=== PATIENT | female | born 1945 | race Caucasian/White ===

== ENCOUNTER 2020-10-09 13:28 | Emergency (ER) | payer MEDICARE, MEDICAID, SELFPAY ==
--- NOTE | ~2020-10-09 | XR_ITS ---
EXAMINATION: XR chest 1V portable INDICATION: Cough and body aches TECHNIQUE: Portable AP chest at 1449 hours COMPARISON: 09/17/2020 FINDINGS: The lungs are free of acute opacities. There is no pleural effusion or pneumothorax. The ca rdiomediastinal silhouette is normal. The visualized bones and soft tissues are unremarkable. IMPRESSION: 1. No acute cardiopulmonary abnormality. Reviewed, dictated and finalized at location A. [employer]
--- NOTE | 2020-10-09 13:37 | ECG_ITS ---
Measurements Intervals [place] Rate: 64 P: 26 [place]: 132 QRS: 43 QRSD: 93 T: 25 QT: 442 QTc: 459 Interpretive Statements SINUS RHYTHM DELAYED PRECORDIAL R/S TRANSITION LEFT VENTRICULAR HYPERTROPHY AND ST-T CHANGE BORDERLINE ST-T WAVE ABNORMALITY- INF/LAT LEADS BASELINE ARTIFACT- II, III, AVR, AVL, AVF, V5 BORDERLINE ECG Electronically Signed On 10-09-2020 14:22:43 [employer] by Tryee Montero D.O.
[2020-10-09 13:47] LABS: Glucose Point of Care 140 (65-105)
[2020-10-09] MEDS: LORazepam (*CRX) 0.5 MG TABLET PO (14:21)
[2020-10-09] MEDS: ONDANSETRON INJ 4 MG/2 ML VIAL IV PUSH (14:21)
[2020-10-09] MEDS: ACETAMINOPHEN 500 MG TABLET 1000 MG PO (14:21)
[2020-10-09] MEDS: MAG HYDROX/ALUMINUM HYD/SIMETH 30 ML, PHENobarb/HYOSCY/ATROPINE/SCOP 32.4 MG, LIDOCAINE... PO (14:22)
[2020-10-09 14:23] LABS: Basophils Absolute Auto 0.03 K/mm3 (0.00-0.10); Basophils Percent Auto 0.3 % (0.0-1.0); Eosinophils Absolute Auto 0.03 K/mm3 (0.02-0.50); Eosinophils Percent Auto 0.3 % (1.0-6.0); Hematocrit 35.5 % (35.0-42.0); Hemoglobin 11.1 g/dL (11.7-13.8); Immature Granulocyte Absolute 0.02 K/mm3 (0.00-0.00); Immature Granulocyte Percent A 0.2 % (0.0-0.0); Lymphocytes Absolute Auto 4.26 K/mm3 (1.10-4.50); Lymphocytes Percent Auto 44.7 % (18.0-42.0); Mean Corpuscular HGB Conc 31.3 g/dL (32.0-36.0); Mean Corpuscular Hemoglobin 27.9 pg (27.0-31.0); Mean Corpuscular Volume 89.2 fL (78.0-102.0); Mean Platelet Volume 9.4 fl (9.2-11.8); Monocytes Absolute Auto 1.01 K/mm3 (0.10-0.90); Monocytes Percent Auto 10.6 % (2.0-11.0); Neutrophils Absolute Auto 4.2 K/mm3 (1.7-7.2); Neutrophils Percent Auto 43.9 % (50.0-70.0); Platelet Count Result 315 K/mm3 (150-420); Red Blood Count 3.98 M/mm3 (4.20-5.40); Red Cell Distribution Width 18.9 % (11.6-14.4); White Blood Count 9.5 K/mm3 (4.8-10.8)
--- NOTE | 2020-10-09 14:24 | ED.GENADULT ---
HPI - General Adult General Chief complaint: Abdominal Pain Stated complaint: left flank pain Source: patient Mode of arrival: ambulatory Limitations: no limitations History of Present Illness HPI narrative: Molly is a 75F with a PMH of NSTEMI, COPD, CHF, DMII, HLD, MDD, anxiety, sleep apnea, HTN, CAD, GERD and weakness that presnted to the ED from [facility] generally not feeling well for 2 weeks. 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 She also reports the symptoms are making her panic and increase her anxiety. They have generally been getting worse and she could not tolerate them so she came to the ED. Related Data Allergies Allergy/AdvReac Type Severity Reaction Status Date / Time azithromycin Allergy Unknown Verified 10/09/20 15:09 cephalexin Allergy Unknown Verified 10/09/20 15:09 doxylamine Allergy Unknown Verified 10/09/20 15:09 codeine AdvReac Unknown Verified 10/09/20 15:09 Penicillins AdvReac Unknown Verified 10/09/20 15:09 Sulfa (Sulfonamide AdvReac Unknown Verified 10/09/20 15:09 Antibiotics) Review of Systems Constitutional: Constitutional: Denies chills, Reports fatigue, Denies fever(s) and Reports weakness Eyes: Eyes: Reports no additional eye complaints ENT: Reports system reviewed and no additional complaints, except as documented Cardiovascular: Cardiovascular: Denies chest pain, Denies rapid heart rate and Denies radiating jaw, neck or arm pain Respiratory: Respiratory: Reports cough and Reports dyspnea Gastrointestinal: Gastrointestinal: Reports as per HPI Genitourinary: Genitourinary: Reports no additional female genitourinary complaints Musculoskeletal: Musculoskeletal: Reports myalgias Integumentary/Breasts: Skin/Breast: Reports system reviewed and no additional complaints, except as docu Neurologic: Reports system reviewed and no additional complaints, except as documented Psychiatric: Psychiatric: Reports no additional psychiatric complaints Endocrine: Endocrine: Reports no additional endocrine complaints Hematologic/Lymphatic: Hematologic/Lymphatic: Reports no additional hematologic/lymphatic complaints Allergic/Immunologic: Allergic/Immunologic: Reports no additional allergic/immunologic complaints [facility] Social History Social History (Reviewed 12/09/20 @ 14:34 by KELSEA Morataya Gender identity (if verbalized by the patient): Female Exam Const: General: no acute distress and alert Orientation/consciousness: patient oriented x3 Limitations: No altered mental status HENMT: Other: normocephalic, atraumatic, dry mucous membranes Eyes: Conjunctivae: conjunctivae normal Pupils: Equal, round and reactive pupils present Neck: Neck: normal visual inspection Chest: Chest palpation & inspection: normal inspection of the chest Resp: Effort & Inspection: normal respiratory effort Auscultation: clear to auscultation bilaterally Cardio: Rate: regular rate Rhythm: regular rhythm GI: Other: Diffuse TTP, worse in the upper left quadrant. No distension, guarding or rebound tenderness. : Other: left sided CVA tenderness Skin: General skin exam: normal color Rashes: no rashes Neuro: General: patient oriented x3 and moves all extremities Extrem: General: normal to inspection Psych: Mental Status: mental status grossly normal Course Course Emergency Course: Molly was seen and evaluated. Ordered labs, UA, CXR, and flu swabs and EKG. EKG showed NSR with a rate of 64, normal axis, left ventricular hypertrophy but no ST elevation/depression. EXAMINATION: XR chest 1V portable INDICATION: Cough and body aches TECHNIQUE: Portable AP chest at 1449 hours COMPARISON: 09/17/2020 FINDINGS: The lungs are free of acute opacities. There is no pleural effusi
[2020-10-09 14:43] LABS: Influenza Control Valid (Valid)
[2020-10-09] MEDS: LACTATED RINGERS 1,000 ML 999 ML IV CONT (14:44)
[2020-10-09 14:47] LABS: Lactic Acid Reflex 2.8 mmol/L (0.4-2.0)
[2020-10-09 14:50] LABS: Alanine Aminotransferase 33 U/L (14-59); Albumin Level 2.7 g/dL (3.4-5.0); Alkaline Phosphatase 106 U/L (46-116); Anion Gap 11 mmol/L (8-16); Aspartate Amino Transferase 46 U/L (15-37); Bilirubin,Total 0.2 mg/dL (0.00-1.00); Blood Urea Nitrogen 15 mg/dL (7-18); Carbon Dioxide 28 mmol/L (21-32); Chloride 98 mmol/L (98-108); Creatine Kinase 278 U/L (26-192); Estimated Glomerular Filt Rate 48; Glucose 139 mg/dL (70-99); Lipase 79 U/L (73-393); Osmolality Calculated 286 mOsm/kg (285-295); Potassium 3.4 mmol/L (3.5-5.1); Sodium 137 mmol/L (136-145); Troponin I 22.4 ng/L (0.00-60.4)
[2020-10-09 14:53] VITALS: BP 186/97; PULSE 70; RESP 20; TEMP 36.6; O2SAT 98
[2020-10-09 14:53] LABS: Prothrombin Time 10.6 Seconds (9.50-12.10)
[2020-10-09 15:39] LABS: Appearance Urine Clear (Clear); Bilirubin Urine Negative (Negative); Color Urine Yellow (Yellow); Glucose Urine UA Negative (Negative); Ketones Urine Negative (Negative); Leukocyte Esterase Ur Negative (Negative); Nitrate Urine Negative (Negative); Protein Urine 1+ (Negative); Specific Grav Ur 1.015 (1.010-1.020); Urobilinogen Urine 0.2 mg/dL (0.2-1.0)
[2020-10-09 15:47] LABS: Add Urine Microscopic? YES; Blood Urine Trace-lysed (Negative)
[2020-10-09 15:48] LABS: Mucus Urine Few /lpf; Squamous Epithelial Cell Urine Occasional /hpf (Few)
[2020-10-09 16:42] VITALS: BP 175/83; PULSE 67; RESP 20; O2SAT 99
[2020-10-09 17:19] LABS: Reflex Lactic Acid Yes or No Add Lactic
== END 2020-10-09 16:48 ==
PROVIDERS: Emergency Provider Family Medicine; PCP Family Medicine
DX: K21.9 Gastro-esophageal reflux disease without esophagitis (principal)
CPT/HCPCS: 71045; 80053; 81001; 82550; 83605; 83690; 84484; 85025; 85610; 87804; 93005; 96361; 96374; 99283; 99284; A9270; J2405; J7120

== ENCOUNTER 2020-10-19 07:38 | Outpatient (NON) | payer MEDICARE, SELFPAY ==
[2020-10-19 07:59] LABS: Basophils Absolute Auto 0.09 K/mm3 (0.00-0.10); Basophils Percent Auto 0.7 % (0.0-1.0); Eosinophils Absolute Auto 0.23 K/mm3 (0.02-0.50); Eosinophils Percent Auto 1.7 % (1.0-6.0); Hematocrit 35.3 % (35.0-42.0); Hemoglobin 10.8 g/dL (11.7-13.8); Immature Granulocyte Absolute 0.06 K/mm3 (0.00-0.00); Immature Granulocyte Percent A 0.5 % (0.0-0.0); Immature Platelet Fraction Pct 3.4 % (1.0-7.0); Lymphocytes Absolute Auto 4.52 K/mm3 (1.10-4.50); Lymphocytes Percent Auto 34.1 % (18.0-42.0); Mean Corpuscular HGB Conc 30.6 g/dL (32.0-36.0); Mean Corpuscular Hemoglobin 28.7 pg (27.0-31.0); Mean Corpuscular Volume 93.9 fL (78.0-102.0); Mean Platelet Volume 9.9 fl (9.2-11.8); Monocytes Absolute Auto 1.25 K/mm3 (0.10-0.90); Monocytes Percent Auto 9.4 % (2.0-11.0); Neutrophils Absolute Auto 7.1 K/mm3 (1.7-7.2); Neutrophils Percent Auto 53.6 % (50.0-70.0); Platelet Count Result 449 K/mm3 (150-420); Red Blood Count 3.76 M/mm3 (4.20-5.40); Red Cell Distribution Width 16.7 % (11.6-14.4); White Blood Count 13.2 K/mm3 (4.8-10.8)
[2020-10-19 08:10] LABS: Hemoglobin A1C 7.4 % (<5.7)
[2020-10-19 08:11] LABS: Alanine Aminotransferase 27 U/L (14-59); Albumin Level 2.6 g/dL (3.4-5.0); Alkaline Phosphatase 99 U/L (46-116); Anion Gap 5 mmol/L (8-16); Aspartate Amino Transferase 24 U/L (15-37); Bilirubin,Total 0.2 mg/dL (0.00-1.00); Blood Urea Nitrogen 11 mg/dL (7-18); Calcium 8.7 mg/dL (8.5-10.1); Carbon Dioxide 31 mmol/L (21-32); Chloride 98 mmol/L (98-108); Cholesterol 102 mg/dL (0-200); Estimated Glomerular Filt Rate > 60; Glucose 197 mg/dL (70-99); HDL Direct 55 mg/dL (40-60); LDL Cholesterol Calculated 28 mg/dL (<130); Osmolality Calculated 282 mOsm/kg (285-295); Potassium 4.2 mmol/L (3.5-5.1); Sodium 134 mmol/L (136-145); Total Protein 7.1 g/dL (6.4-8.2); Triglycerides 96 mg/dL (0-150)
== END 2020-10-19 07:39 ==
PROVIDERS: Visit Provider Family Medicine
DX: I25.10 Atherosclerotic heart disease of native coronary artery without angina pectoris (principal); I50.9 Heart failure, unspecified; J44.9 Chronic obstructive pulmonary disease, unspecified; E11.9 Type 2 diabetes mellitus without complications; E78.5 Hyperlipidemia, unspecified; I10 Essential (primary) hypertension
CPT/HCPCS: 36415; 80053; 80061; 83036; 85025; 85055

== ENCOUNTER 2021-01-11 07:13 | Outpatient (NON) | payer MEDICARE, SELFPAY ==
[2021-01-11 07:53] LABS: Basophils Absolute Auto 0.08 K/mm3 (0.00-0.10); Basophils Percent Auto 0.7 % (0.0-1.0); Eosinophils Absolute Auto 0.27 K/mm3 (0.02-0.50); Eosinophils Percent Auto 2.5 % (1.0-6.0); Hematocrit 32.6 % (35.0-42.0); Hemoglobin 10.5 g/dL (11.7-13.8); Immature Granulocyte Absolute 0.06 K/mm3 (0.00-0.00); Immature Granulocyte Percent A 0.5 % (0.0-0.0); Lymphocytes Absolute Auto 4.09 K/mm3 (1.10-4.50); Lymphocytes Percent Auto 37.4 % (18.0-42.0); Mean Corpuscular HGB Conc 32.2 g/dL (32.0-36.0); Mean Corpuscular Hemoglobin 29.3 pg (27.0-31.0); Mean Corpuscular Volume 91.1 fL (78.0-102.0); Mean Platelet Volume 9.9 fl (9.2-11.8); Monocytes Absolute Auto 1.19 K/mm3 (0.10-0.90); Monocytes Percent Auto 10.9 % (2.0-11.0); Neutrophils Absolute Auto 5.2 K/mm3 (1.7-7.2); Platelet Count Result 365 K/mm3 (150-420); Red Blood Count 3.58 M/mm3 (4.20-5.40); Red Cell Distribution Width 14.6 % (11.6-14.4); White Blood Count 10.9 K/mm3 (4.8-10.8)
[2021-01-11 08:03] LABS: Hemoglobin A1C 10.3 % (<5.7)
[2021-01-11 08:06] LABS: Alanine Aminotransferase 24 U/L (14-59); Anion Gap 3 mmol/L (8-16); Blood Urea Nitrogen 17 mg/dL (7-18); Calcium 8.9 mg/dL (8.5-10.1); Carbon Dioxide 34 mmol/L (21-32); Chloride 95 mmol/L (98-108); Cholesterol 117 mg/dL (0-200); Estimated Glomerular Filt Rate 49; Glucose 238 mg/dL (70-99); HDL Direct 52 mg/dL (40-60); LDL Cholesterol Calculated 47 mg/dL (<130); Osmolality Calculated 283 mOsm/kg (285-295); Potassium 5.5 mmol/L (3.5-5.1); Sodium 132 mmol/L (136-145); Triglycerides 92 mg/dL (0-150)
== END 2021-01-11 07:14 ==
LOC: CHSLAB 07:15
PROVIDERS: Visit Provider Family Medicine
DX: J44.9 Chronic obstructive pulmonary disease, unspecified (principal); I11.0 Hypertensive heart disease with heart failure; I50.9 Heart failure, unspecified; E11.9 Type 2 diabetes mellitus without complications; E78.5 Hyperlipidemia, unspecified
CPT/HCPCS: 36415; 80048; 80061; 83036; 84460; 85025

== ENCOUNTER 2021-01-21 06:12 | Outpatient (NON) | payer MEDICARE, SELFPAY ==
[2021-01-21 07:14] LABS: Ferritin 105 ng/mL (8-252); Folic Acid 12.8 ng/mL (8.6->20); Iron 51 ug/dL (50-170); Percent Iron Saturation 19 % (12-57); Vitamin B12 383 pg/mL (193-986)
[2021-01-24 21:25] LABS: Transferrin 222 mg/dL (188-341)
== END 2021-01-21 06:13 ==
PROVIDERS: Visit Provider Family Medicine
DX: D64.9 Anemia, unspecified (principal)
CPT/HCPCS: 36415; 82607; 82728; 82746; 83540; 83550; 84466

== ENCOUNTER 2021-03-11 16:42 | Outpatient (NON) | payer MEDICARE, SELFPAY ==
[2021-03-11 17:13] LABS: Add Urine Microscopic? YES; Appearance Urine Cloudy (Clear); Bilirubin Urine Negative (Negative); Blood Urine Negative (Negative); Color Urine Yellow (Yellow); Glucose Urine UA Negative (Negative); Ketones Urine Negative (Negative); Leukocyte Esterase Ur 3+ (Negative); Nitrate Urine Positive (Negative); Protein Urine Negative (Negative); Urobilinogen Urine 0.2 mg/dL (0.2-1.0)
[2021-03-11 17:21] LABS: RBC Urine 0-2 /hpf (0-2); WBC Urine >75 /hpf (0-3)
[2021-03-11 17:22] LABS: Bacteria Urine 1+ /hpf; Squamous Epithelial Cell Urine Rare /hpf (Few)
== END 2021-03-11 16:43 | disposition home or self-care (01) ==
LOC: CHSLAB 16:44
PROVIDERS: PCP Family Medicine; Visit Provider Registered Nurse
DX: R10.30 Lower abdominal pain, unspecified (principal); M54.9 Dorsalgia, unspecified
CPT/HCPCS: 81001; 87086; 87088

== ENCOUNTER 2021-03-29 06:31 | Inpatient (IN) | payer MEDICARE, MEDICAID, SELFPAY ==
--- NOTE | ~2021-03-29 | CT_ITS ---
EXAMINATION: CTA brain EXAM DATE: 04/02/2021 15:34 INDICATION: New dizziness and headache recent repetitive headaches. TECHNIQUE: Noncontrast head CT. Spiral CT angiogram cerebral arteries performed with intravenous in jection of 100 mL Omnipaque 350. Axial, coronal and sagittal images reviewed. Additional reformatted images created on dedicated 3-D workstation. The dose-length product (DLP) for this examination was 1033.64 mGy-cm. The exposure was tailored according to patient size, and iterative reconstruction (ASIR) was used as additional dose reduction technique. There is no prior study for comparison. FINDINGS: There is mild to moderate bilateral carotid siphon arterial sclerosis without stenosis. Th ere is left-sided posterior communicating artery dominant posterior cerebral artery. There is no d istal carotid or vertebral basilar arterial dissection or fibromuscular dysplasia. There are no cereb ral artery aneurysms. There is symmetric cerebral artery arborization. The sagittal, transverse and s igmoid sinuses enhance normally, no venous sinus thrombosis. Internal cerebral veins also enhance nor pebbles. There is no acute intraparenchymal hemorrhage. No evidence of intraparenchymal brain mass lesion. N o evidence of acute infarction. There is mild to moderate periventricular and subcortical hypodensity , nonspecific but probably related to small vessel ischemic disease. There is moderate prominence o f the sulci and ventricles related to cerebral atrophy. There is no mass effect or midline shift. There is no obstructive hydrocephalus suspected. There are no extra-axial collections. Left cataract surgery. IMPRESSION: 1. No acute intracranial findings or cerebral artery aneurysm. 2. Senescent changes. Reviewed, dictated and finalized at location B.
--- NOTE | ~2021-03-29 | XR_ITS ---
EXAMINATION: XR hip RT min 2V DATE: 03/30/2021 10:34 INDICATION: Right hip pain. TECHNIQUE: 3 views of right hip were obtained. COMPARISON: CT abdomen and pelvis 03/29/2021 FINDINGS: Bone alignment is normal. No fracture. There is mild right hip osteoarthritis. There is sev ere lumbar spondylosis. IMPRESSION: 1. Mild right hip osteoarthritis. Reviewed, dictated and finalized at location A.
--- NOTE | ~2021-03-29 | XR_ITS ---
EXAMINATION: XR chest 2V EXAM DATE: 04/01/2021 14:46 INDICATION: Leukocytosis, cough and shortness of breath. TECHNIQUE: Frontal and lateral projections of the chest obtained and reviewed. Comparison is made to prior examination from 10/09/2020. FINDINGS: The lungs are clear. There are no pleural effusions. The cardiomediastinal silhouette is within normal limits. There is no pneumothorax suspected. The bones and soft tissues are unremarkab le. IMPRESSION: No acute cardiopulmonary findings. Reviewed, dictated and finalized at location B.
--- NOTE | ~2021-03-29 | CT_ITS ---
EXAMINATION: CT abdomen pelvis w con DATE: 03/29/2021 11:15 INDICATION: Left lower quadrant abdominal pain. TECHNIQUE: Computed tomography (CT) of the abdomen and pelvis was performed with 100 mL Omnipaque 350 intravenous contrast. Automated exposure control and iterative reconstruction technique were employe d. The dose-length product was 368.87 mGy-cm. COMPARISON: CT abdomen and pelvis 08/06/2014 FINDINGS: The visualized portions of the lung bases demonstrate mild atelectasis and mild chronic yue g disease. No pleural effusion. The heart size is normal. No pericardial effusion. There are coronary artery calcifications. There is a small sliding hiatal hernia. The liver, gallbladder, and adrenal g lands are normal. There are changes of splenectomy and distal pancreatectomy. Right kidney is normal. There is cortical thinning of left kidney. There is diverticulosis of the colon without evidence of diverticulitis. There are no dilated loops of bowel. The appendix is normal. There is chronic mild ao rtocaval and left para-aortic lymphadenopathy, likely reactive. There is no free intraperitoneal flui d. There is severe lumbar spondylosis. IMPRESSION: 1. Small sliding hiatal hernia. 2. Mild chronic retroperitoneal lymphadenopathy, likely reactive. Reviewed, dictated and finalized at location A.
[2021-03-29 07:05] VITALS: BP 188/63; PULSE 89; RESP 17; TEMP 36.5; O2SAT 99
[2021-03-29 07:37] LABS: Appearance Urine Cloudy (Clear); Bilirubin Urine Negative (Negative); Color Urine Yellow (Yellow); Glucose Urine UA Negative (Negative); Ketones Urine Negative (Negative); Leukocyte Esterase Ur 3+ LEU/UL (Negative); Nitrate Urine Negative (Negative); Protein Urine 1+ (Negative); Urobilinogen Urine 0.2 mg/dL (0.2-1.0); pH Urine 6.5 (5.0-8.0)
[2021-03-29] MEDS: ONDANSETRON HCL ODT 4 MG TABLET PO (07:39)
[2021-03-29] MEDS: KETOROLAC 30 MG/ML VIAL (*BKC) IM (07:39)
[2021-03-29 07:43] LABS: Add Urine Microscopic? YES; Blood Urine Trace-Intact (Negative)
[2021-03-29 07:44] LABS: Bacteria Urine 3+ /hpf; RBC Urine 0-2 /hpf (0-2); Squamous Epithelial Cell Urine Rare /hpf (Few); WBC Urine >75 /hpf (0-3)
[2021-03-29 09:29] LABS: Basophils Absolute Auto 0.07 K/mm3 (0.00-0.10); Basophils Percent Auto 0.5 % (0.0-1.0); Eosinophils Absolute Auto 0.05 K/mm3 (0.02-0.50); Eosinophils Percent Auto 0.3 % (1.0-6.0); Hematocrit 32.1 % (35.0-42.0); Hemoglobin 10.3 g/dL (11.7-13.8); Immature Granulocyte Absolute 0.06 K/mm3 (0.00-0.00); Immature Granulocyte Percent A 0.4 % (0.0-0.0); Lymphocytes Percent Auto 22.7 % (18.0-42.0); Mean Corpuscular HGB Conc 32.1 g/dL (32.0-36.0); Mean Corpuscular Hemoglobin 29.7 pg (27.0-31.0); Mean Corpuscular Volume 92.5 fL (78.0-102.0); Mean Platelet Volume 9.3 fl (9.2-11.8); Monocytes Absolute Auto 1.17 K/mm3 (0.10-0.90); Neutrophils Absolute Auto 9.9 K/mm3 (1.7-7.2); Neutrophils Percent Auto 68.1 % (50.0-70.0); Platelet Count Result 416 K/mm3 (150-420); Red Blood Count 3.47 M/mm3 (4.20-5.40); White Blood Count 14.6 K/mm3 (4.8-10.8)
[2021-03-29] MEDS: HYDROmorphone HCL INJ (*CRX) 2 MG/ML VIAL 0.5 MG IV PUSH (09:29)
[2021-03-29 09:49] LABS: Alanine Aminotransferase 19 U/L (14-59); Albumin Level 2.8 g/dL (3.4-5.0); Alkaline Phosphatase 103 U/L (46-116); Anion Gap 6 mmol/L (8-16); Aspartate Amino Transferase 13 U/L (15-37); Bilirubin,Total 0.3 mg/dL (0.00-1.00); Blood Urea Nitrogen 16 mg/dL (7-18); Calcium 9.2 mg/dL (8.5-10.1); Carbon Dioxide 31 mmol/L (21-32); Chloride 96 mmol/L (98-108); Estimated Glomerular Filt Rate > 60; Glucose 180 mg/dL (70-99); Osmolality Calculated 282 mOsm/kg (285-295); Potassium 4.4 mmol/L (3.5-5.1); Sodium 133 mmol/L (136-145)
[2021-03-29 09:54] LABS: Lactic Acid Reflex 1.3 mmol/L (0.4-2.0)
[2021-03-29] MEDS: GENTAMICIN SULFATE INJ 320 MG in DEXTROSE 5% 100 ML 100 MG IVPB (10:22)
[2021-03-29 11:24] VITALS: BMI 26.4
[2021-03-29 11:49] LABS: Glucose Point of Care 168 mg/dl (65-105)
[2021-03-29 11:58] VITALS: BP 189/64; PULSE 80; RESP 20; TEMP 37; O2SAT 100
[2021-03-29] MEDS: BACLOFEN 10 MG TABLET 20 MG PO (12:25)
[2021-03-29] MEDS: CIPROFLOXACIN 500 MG TAB PO ×2 (12:25→21:52)
[2021-03-29] MEDS: DEXAMETHASONE 4 MG TABLET 8 MG PO (12:26)
--- NOTE | 2021-03-29 13:03 | ED.ABDPAIN ---
HPI - Abdominal Pain General Chief Complaint: Back Pain/Injury Stated Complaint: sharp R sided abd pain, sharp R leg pain Time Seen by Provider: 03/29/21 07:15 Source: patient Mode of arrival: ambulatory Limitations: no limitations History of Present Illness HPI narrative: Molly comes in with moderately severe LLQ abdominal pain and complains of being tender to touch there. She complains of right flank pain, moderately severe, ongoing for the last two days. She complains of dysuria, ongoing for the past several days. She has denied any fever, but states she had some chills last pm. She states she has had dysuria moderately severe, ongoing for the past 2 days. This has been associated with some nausea which comes and goes. No modifying factors. No other associated signs / symptoms. MD elicited complaint: abdominal pain and flank pain Pertinent past history: other (chronic back pain) Onset (ago): day(s) Location: LLQ and R flank Severity: moderate Quality: stabbing Radiation: none Exacerbating factors: nothing Relieving factors: nothing Context: confirms foreign travel Associated symptoms: denies other symptoms Treatments prior to arrival: NSAIDs Related Data Home Medications Medication Instructions Recorded Confirmed acetaminophen [Tylenol Extra 500 mg PO QID PRN 10/09/20 03/29/21 Strength] aspirin [Aspir-81] 81 mg PO DAILY 10/09/20 03/29/21 atorvastatin 40 mg PO HS 10/09/20 03/29/21 econazole 1 applic TOPICAL DAILY 10/09/20 03/29/21 fluoxetine 20 mg PO BID 10/09/20 03/29/21 fluticasone furoate-vilanterol 1 inh INHALATION DAILY 10/09/20 03/29/21 [Breo Ellipta] furosemide [Lasix] 20 mg PO DAILY 10/09/20 03/29/21 glipizide 5 mg PO DAILY 10/09/20 03/29/21 lisinopril 40 mg PO DAILY 10/09/20 03/29/21 lorazepam [Ativan] 0.5 mg PO TID PRN 10/09/20 03/29/21 metoprolol succinate 25 mg PO DAILY 10/09/20 03/29/21 umeclidinium [Incruse Ellipta] 1 inh INHALATION DAILY 10/09/20 03/29/21 alum-mag hydroxide-simeth [Mylanta 5 ml PO QID 03/29/21 03/29/21 Maximum Strength] cyanocobalamin (vitamin B-12) 1,000 mcg PO DAILY 03/29/21 03/29/21 duloxetine 40 mg PO DAILY 03/29/21 03/29/21 insulin glargine U-300 conc 12 unit SUBCUT HS 03/29/21 03/29/21 [Toujeo SoloStar U-300 Insulin] insulin lispro 4 unit SUBCUT AC 03/29/21 03/29/21 lidocaine HCl [Lidocaine Viscous] 1 applic PO PRN 03/29/21 03/29/21 polyethylene glycol 3350 [Miralax] 17 g PO DAILY 03/29/21 03/29/21 tiotropium bromide [Spiriva with 1 cap INHALATION DAILY 03/29/21 03/29/21 HandiHaler] Allergies Allergy/AdvReac Type Severity Reaction Status Date / Time azithromycin Allergy Unknown Verified 10/09/20 15:09 cephalexin Allergy Unknown Verified 10/09/20 15:09 doxylamine Allergy Unknown Verified 10/09/20 15:09 codeine AdvReac Unknown Verified 10/09/20 15:09 Penicillins AdvReac Unknown Verified 10/09/20 15:09 Sulfa (Sulfonamide AdvReac Unknown Verified 10/09/20 15:09 Antibiotics) Review of Systems Constitutional: Constitutional: Reports chills and Reports fatigue Eyes: Eyes: Reports no additional eye complaints ENT: Reports system reviewed and no additional complaints, except as documented Cardiovascular: Cardiovascular: Reports no additional cardiovascular complaints Respiratory: Respiratory: Reports no additional respiratory complaints Gastrointestinal: Gastrointestinal: Reports no additional gastrointestinal complaints Genitourinary: Genitourinary: Reports no additional female genitourinary complaints Musculoskeletal: Musculoskeletal: Reports no additional musculoskeletal complaints Integumentary/Breasts: Skin/Breast: Reports system reviewed and no additional complaints, except as docu Neurologic: Reports system reviewed and no additional complaints, except as documented Psychiatric: Psychiatric: Reports no additional psychiatric complaints Endocrine: Endocrine: Reports no additional endocrine complaints Hematologic/Lymphatic: Hematologic
--- NOTE | 2021-03-29 13:51 | PM.IMHP ---
H&P: HPI History of Present Illness Date/Time: 03/29/21 13:51 Molly Rabago is a 75 year old female who comes to [facility] from [facility] after complaining of back pain 3 days prior that progressed to her lower abdomen and groin area with worse pain being on her right side. Pt states she had been given Tylenol however this is not working for her pain any more. Pt states she also starting having some dysuria. She denies any CP, SOB. She admits that she sometimes gets a rash under her breasts, she recently had thrush from her inhaler, she also noticed her urine having a more concentrated odor. 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 Pt states she quit smoking Jun 2020 and does not drink. <MAURICIO Villarreal - Last Filed: 03/29/21 14:48> Chief Complaint: Abdominal pain <MAURICIO Villarreal - Last Filed: 03/29/21 14:48> Review of Systems Review of Systems: All systems reviewed & are unremarkable except as noted in HPI and below <MAURICIO Villarreal - Last Filed: 03/29/21 14:48> Musculoskeletal: Musculoskeletal: Reports arthralgias (right upper thigh tender from top of leg to mid thigh w/ swelling) <MAURICIO Villarreal - Last Filed: 03/29/21 14:48> Comments: Pt states staff at [facility] informed her that a couple days ago she was woken up because she was laying off the side of the bed with the right leg hanging off the bed. Likely she has a pulled muscle in the right thigh. <MAURICIO Villarreal - Last Filed: 03/29/21 14:48> Neurologic: Reports system reviewed and no additional complaints, except as documented <MAURICIO Villarreal - Last Filed: 03/29/21 14:48> Psychiatric: Psychiatric: Reports anxiety and Reports depression <MAURICIO Villarreal - Last Filed: 03/29/21 14:48> [facility] Past Medical History Medical History: Medical History (Updated 03/29/21 @ 14:28 by MAURICIO Villarreal) Anemia, chronic disease Anxiety disorder Arthritis CAD (coronary artery disease) COPD (chronic obstructive pulmonary disease) Depression Diabetes mellitus GERD (gastroesophageal reflux disease) Urinary tract infection <MAURICIO Villarreal - Last Filed: 03/29/21 14:48> Surgical History Surgical History: Surgical History H/O splenectomy <MAURICIO Villarreal - Last Filed: 03/29/21 14:48> Family History Family History: Family History Other Brain cancer Father Diabetes mellitus Heart attack Sibling Heart attack Sibling Diabetes mellitus Sibling Heart attack <MAURICIO Villarreal - Last Filed: 03/29/21 14:48> Social History Social History: Social History Smoking packs per day: 2.5 Smoking cigarettes per day: 50.0 Smoking status: Former smoker Tobacco type: cigarettes Smoking end date: 06/01/20 Alcohol intake: former Drinks per week: 3 Substance use: never Gender identity (if verbalized by the patient): Female Spiritual care concerns: No <MAURICIO Villarreal - Last Filed: 03/29/21 14:48> Meds Home Medications and Allergies Home medications: Home Medications Medication Instructions Recorded Confirmed Type acetaminophen [Tylenol Extra 500 mg PO QID PRN 10/09/20 03/29/21 History Strength] aspirin [Aspir-81] 81 mg PO DAILY 10/09/20 03/29/21 History atorvastatin 40 mg PO HS 10/09/20 03/29/21 History econazole 1 applic TOPICAL DAILY 10/09/20 03/29/21 History fluoxetine 20 mg PO BID 10/09/20 03/29/21 History fluticasone furoate-vilanterol 1 inh INHALATION DAILY 10/09/20 03/29/21 History [Breo Ellipta] furosemide [Lasix] 20 mg PO DAILY 10/09/20 03/29/21
[2021-03-29 14:00] VITALS: BP 198/74; PULSE 87; RESP 20; TEMP 36.4; O2SAT 100
[2021-03-29 16:00] VITALS: BP 198/74; PULSE 87; RESP 20; TEMP 36.4; O2SAT 100
[2021-03-29 16:47] LABS: Glucose Point of Care 160 mg/dl (65-105)
[2021-03-29] MEDS: PHENAZOPYRIDINE HCL 100 MG TABLET 200 MG PO (17:27)
[2021-03-29] MEDS: CYCLOBENZAPRINE HCL 5 MG TABLET PO ×2 (17:28→21:53)
[2021-03-29] MEDS: FLUoxetine HCL 20 MG CAPSULE PO (17:28)
[2021-03-29] MEDS: ACETAMINOPHEN 500 MG TABLET PO (17:36)
[2021-03-29] MEDS: BUDESONIDE/FORMOTEROL 80/4.5 MCG 6.9 GM INHALER (*SP) 2 PUFF INHALATION (17:43)
[2021-03-29] MEDS: LORazepam (*CRX) 0.5 MG TABLET PO (18:34)
[2021-03-29 21:15] LABS: Glucose Point of Care 317 mg/dl (65-105)
[2021-03-29] MEDS: ATORVASTATIN 40 MG TABLET PO (21:52)
[2021-03-29] MEDS: INSULIN GLARGINE (*BKC) 100 UNITS/ML 12 UNITS SUB-Q (21:53)
[2021-03-29 23:01] LABS: Gentamicin Random 4.5 ug/mL (5.0-12.0)
[2021-03-30] VITALS (7 sets, daily range): BP systolic 145–193; BP diastolic 70–82; PULSE 68–100; RESP 18–20; TEMP 36.9–37.1; O2SAT 93–100
[2021-03-30] MEDS: ACETAMINOPHEN 500 MG TABLET PO ×2 (00:22→09:19)
[2021-03-30 05:26] LABS: Hematocrit 32.6 % (35.0-42.0); Hemoglobin 10.5 g/dL (11.7-13.8); Mean Corpuscular HGB Conc 32.2 g/dL (32.0-36.0); Mean Corpuscular Hemoglobin 30.1 pg (27.0-31.0); Mean Corpuscular Volume 93.4 fL (78.0-102.0); Mean Platelet Volume 9.5 fl (9.2-11.8); Platelet Count Result 414 K/mm3 (150-420); Red Blood Count 3.49 M/mm3 (4.20-5.40); Red Cell Distribution Width 14.3 % (11.6-14.4); White Blood Count 15.9 K/mm3 (4.8-10.8)
[2021-03-30 05:36] LABS: Anion Gap 7 mmol/L (8-16); Blood Urea Nitrogen 18 mg/dL (7-18); Calcium 9.7 mg/dL (8.5-10.1); Carbon Dioxide 31 mmol/L (21-32); Chloride 98 mmol/L (98-108); Estimated CRCL calculation 32 ml/min; Estimated Glomerular Filt Rate 43; Glucose 249 mg/dL (70-99); Osmolality Calculated 291 mOsm/kg (285-295); Potassium 5.4 mmol/L (3.5-5.1); Sodium 136 mmol/L (136-145)
[2021-03-30] MEDS: BUDESONIDE/FORMOTEROL 80/4.5 MCG 6.9 GM INHALER (*SP) 2 PUFF INHALATION ×2 (06:05→17:39)
[2021-03-30] MEDS: CYCLOBENZAPRINE HCL 5 MG TABLET PO ×3 (06:06→21:08)
[2021-03-30 07:30] LABS: Glucose Point of Care 215 mg/dl (65-105)
[2021-03-30] MEDS: UMECLIDINIUM BROMIDE 62.5 MCG ELLIPTA 1 PUFF INHALATION (09:16)
[2021-03-30] MEDS: PHENAZOPYRIDINE HCL 100 MG TABLET 200 MG PO ×3 (09:18→16:48)
[2021-03-30] MEDS: polyethylene glycoL 3350 17 GM POWD.PACK PO (09:18)
[2021-03-30] MEDS: ENOXAPARIN 40 MG/0.4 ML SYRINGE SUB-Q (09:18)
[2021-03-30] MEDS: FLUoxetine HCL 20 MG CAPSULE PO ×2 (09:18→16:48)
[2021-03-30] MEDS: DULoxetine HCL 20 MG CAPSULE.DR 40 MG PO (09:19)
[2021-03-30] MEDS: ASPIRIN 81 MG ENTERIC TABLET PO (09:19)
[2021-03-30] MEDS: PANTOPRAZOLE 40 MG TABLET PO (09:19)
[2021-03-30] MEDS: FUROSEMIDE 20 MG TABLET PO (09:19)
[2021-03-30] MEDS: glipiZIDE 5 MG TABLET PO (09:19)
[2021-03-30] MEDS: METOPROLOL SUCCINATE EXT REL 50 MG TABCR PO (09:20)
[2021-03-30] MEDS: CYANOCOBALAMIN 1,000 MCG TABLET 1000 MCG PO (09:20)
[2021-03-30] MEDS: CIPROFLOXACIN 500 MG TAB PO ×2 (09:20→21:08)
[2021-03-30] MEDS: lisinopriL 20 MG TABLET 40 MG PO (09:20)
[2021-03-30] MEDS: LORazepam (*CRX) 0.5 MG TABLET PO (09:51)
--- NOTE | 2021-03-30 10:07 | PM.IMPN ---
Progress Note: A&P Assessment and Plan (1) Urinary tract infection: Code(s): N39.0 - Urinary tract infection, site not specified Status: Acute Assessment and Plan: 03/29/2021 Gentamicin and Ciprofloxacin started in the ER, continue on the floor, Urine Cx and Blood Cx pending, Lower and RLQ pain anticipate resolution as UTI resolves, will start Pyridium 03/30/2021 Pharmacy dosing and following Gentamicin, continue with Ciprofloxacin, Urine and Blood Cx still pending, RLQ pain only on palpation, improving (2) Right thigh pain: Code(s): M79.651 - Pain in right thigh Status: Acute Assessment and Plan: 03/29/2021 Flexeril and ice or heat depending on what the Pt feels makes the site better, will start with Ice, lower dose of Flexeril, given how Pt was found in bed at the [facility] with her right leg hanging off the right side of the bed it seems like a pulled muscle. 03/30/2021 Hip/thigh pain is worse today, obtaining 2 view images, Pt stated heat worked for her yesterday to ease the pain, one time Toradol 15 mg (3) Anemia, chronic disease: Code(s): D63.8 - Anemia in other chronic diseases classified elsewhere Status: Acute Assessment and Plan: 03/29/2021 H/H 10.3/32.1 stable, will monitor, continue Vitamin B-12, no active bleeding, observe for the need to transfuse however this is unlikely at this time 03/30/2021 10.5/32.6 stable, continue to monitor (4) Diabetes mellitus: Code(s): E11.9 - Type 2 diabetes mellitus without complications Status: Acute Assessment and Plan: 03/29/2021 Accu-checks, Lantus, continue glipizide, Lispro, monitor glucose levels, hypoglycemic protocol in place, will adjust medications as needed. 03/30/2021 Reported Glucose levels were elevated as was her potassium 5.4, increased Lantus from 12 to 15 HS, and her with meals insulin by 1 Unit for each meal goal is to lower glucose and potassium. Will be monitoring K levels and glucose levels. (5) COPD (chronic obstructive pulmonary disease): Code(s): J44.9 - Chronic obstructive pulmonary disease, unspecified Status: Acute Assessment and Plan: 03/29/2021 Continue Tiotropium bromide, Umeclidinium, 2.5 L/min O2, CPAP from NH, monitor status and make adjustments as needed 03/30/2021 Pt 2 L/min, no SOB except when she began thinking about her friend who at the [facility] she is a resident, continue as noted without other changes (6) Anxiety disorder: Code(s): F41.9 - Anxiety disorder, unspecified Status: Acute Assessment and Plan: 03/29/2021 Continue with Duloxetine and Fluoxetine which was confirmed to be the correct medication according to [facility] staff records when I called them, as well as Lorazepam 03/30/2021 Encouraged Pt to take her PRN Lorazepam d/t increased anxiety today r/t her friends as noted above (7) GERD (gastroesophageal reflux disease): Code(s): K21.9 - Gastro-esophageal reflux disease without esophagitis Status: Acute Assessment and Plan: 03/29/2021 Continue Pantoprazole Subjective Date/time seen: 03/30/21 10:07 Other than her right upper thigh/hip pain Pt states she is doing well. Pt is also having some anxiety as she found out that a friend of hers from the [facility] had . Pt states her hip pain became worse when she stood up to use the BSC. Denies other issues. No CP, SOB. Review of Systems Review of Systems: All systems reviewed & are unremarkable except as noted in HPI and below Exam Const: General: cooperative, no acute distress, alert, awake and Physically active Nutritional Appearance: average body habitus Resp: Effort & Inspection: normal respiratory effort Auscultation: clear to auscultation bilaterally Cardio: Jugular venous distension: no JVD Rate: regular rate Heart sounds: S1 normal heart sound present and S2 normal heart sound present GI: GI Palp: Yes Soft to palpation and Yes Tenderness to palpation present (GI) (RLQ imp
[2021-03-30] MEDS: KETOROLAC 15 MG/ML VIAL (*BKC) IV PUSH (10:56)
[2021-03-30 11:37] LABS: Glucose Point of Care 112 mg/dl (65-105)
[2021-03-30 16:59] LABS: Glucose Point of Care 116 mg/dl (65-105)
[2021-03-30] MEDS: METOPROLOL TARTRATE 50 MG TAB PO ×2 (17:39→21:08)
--- NOTE | 2021-03-30 19:02 | PC.NURSE ---
erp aware of e coli in urine. no changes. jessy fam
[2021-03-30] MEDS: ATORVASTATIN 40 MG TABLET PO (21:08)
[2021-03-30] MEDS: INSULIN GLARGINE (*BKC) 100 UNITS/ML 15 UNITS SUB-Q (21:13)
[2021-03-30 21:15] LABS: Glucose Point of Care 90 mg/dl (65-105)
[2021-03-31] VITALS: BP 173/55; PULSE 68; RESP 18; TEMP 36.4; O2SAT 96
[2021-03-31 05:30] LABS: Hematocrit 32.9 % (35.0-42.0); Hemoglobin 10.5 g/dL (11.7-13.8); Mean Corpuscular HGB Conc 31.9 g/dL (32.0-36.0); Mean Corpuscular Hemoglobin 29.8 pg (27.0-31.0); Mean Corpuscular Volume 93.5 fL (78.0-102.0); Mean Platelet Volume 9.7 fl (9.2-11.8); Platelet Count Result 409 K/mm3 (150-420); Red Blood Count 3.52 M/mm3 (4.20-5.40); Red Cell Distribution Width 14.2 % (11.6-14.4); White Blood Count 18.8 K/mm3 (4.8-10.8)
[2021-03-31] MEDS: BUDESONIDE/FORMOTEROL 80/4.5 MCG 6.9 GM INHALER (*SP) 2 PUFF INHALATION ×2 (05:38→17:34)
[2021-03-31] MEDS: CYCLOBENZAPRINE HCL 5 MG TABLET PO ×3 (05:39→20:30)
[2021-03-31] MEDS: ACETAMINOPHEN 500 MG TABLET PO ×2 (05:41→10:20)
[2021-03-31 05:42] LABS: Alanine Aminotransferase 25 U/L (14-59); Albumin Level 2.7 g/dL (3.4-5.0); Alkaline Phosphatase 92 U/L (46-116); Anion Gap 5 mmol/L (8-16); Aspartate Amino Transferase 40 U/L (15-37); Bilirubin,Total 0.4 mg/dL (0.00-1.00); Blood Urea Nitrogen 26 mg/dL (7-18); Calcium 9.2 mg/dL (8.5-10.1); Carbon Dioxide 33 mmol/L (21-32); Chloride 96 mmol/L (98-108); Estimated CRCL calculation 29 ml/min; Estimated Glomerular Filt Rate 39; Glucose 163 mg/dL (70-99); Osmolality Calculated 286 mOsm/kg (285-295); Potassium 4.9 mmol/L (3.5-5.1); Sodium 134 mmol/L (136-145); Total Protein 7.6 g/dL (6.4-8.2)
[2021-03-31 07:58] LABS: Glucose Point of Care 164 mg/dl (65-105)
[2021-03-31 08:00] VITALS: BP 186/58; PULSE 60; RESP 20; TEMP 36.2; O2SAT 100
[2021-03-31] MEDS: UMECLIDINIUM BROMIDE 62.5 MCG ELLIPTA 1 PUFF INHALATION (09:10)
[2021-03-31] MEDS: PHENAZOPYRIDINE HCL 100 MG TABLET 200 MG PO ×3 (09:10→16:23)
[2021-03-31] MEDS: FLUoxetine HCL 20 MG CAPSULE PO ×2 (09:10→16:24)
[2021-03-31] MEDS: polyethylene glycoL 3350 17 GM POWD.PACK PO (09:10)
[2021-03-31] MEDS: ENOXAPARIN 40 MG/0.4 ML SYRINGE SUB-Q (09:10)
[2021-03-31 09:11] VITALS: PULSE 60
[2021-03-31] MEDS: METOPROLOL TARTRATE 50 MG TAB PO ×2 (09:11→20:29)
[2021-03-31] MEDS: FUROSEMIDE 20 MG TABLET PO (09:11)
[2021-03-31] MEDS: lisinopriL 20 MG TABLET 40 MG PO (09:11)
[2021-03-31] MEDS: CYANOCOBALAMIN 1,000 MCG TABLET 1000 MCG PO (09:11)
[2021-03-31] MEDS: PANTOPRAZOLE 40 MG TABLET PO (09:12)
[2021-03-31] MEDS: glipiZIDE 5 MG TABLET PO (09:12)
[2021-03-31] MEDS: CIPROFLOXACIN 500 MG TAB PO (09:12)
[2021-03-31] MEDS: DULoxetine HCL 20 MG CAPSULE.DR 40 MG PO (09:12)
[2021-03-31] MEDS: ASPIRIN 81 MG ENTERIC TABLET PO (09:21)
[2021-03-31] MEDS: LORazepam (*CRX) 0.5 MG TABLET PO (10:21)
[2021-03-31 11:43] LABS: Glucose Point of Care 131 mg/dl (65-105)
--- NOTE | 2021-03-31 14:04 | WPDPN ---
Progress Note: A&P Assessment and Plan (1) Urinary tract infection: Code(s): N39.0 - Urinary tract infection, site not specified <TUNDE Reina - Last Filed: 03/31/21 15:58> Status: Acute <TUNDE Reina - Last Filed: 03/31/21 15:58> Assessment and Plan: 03/29/2021 Gentamicin and Ciprofloxacin started in the ER, continue on the floor, Urine Cx and Blood Cx pending, Lower and RLQ pain anticipate resolution as UTI resolves, will start Pyridium 03/30/2021 Pharmacy dosing and following Gentamicin, continue with Ciprofloxacin, Urine and Blood Cx still pending, RLQ pain only on palpation, improving Patient antibiotic changed to Rocephin and vancomycin Patient WBCs worsening 14.6>15.9>18.8 Blood culture pending <TUNDE Reina - Last Filed: 03/31/21 15:58> (2) Right thigh pain: Code(s): M79.651 - Pain in right thigh <TUNDE Reina - Last Filed: 03/31/21 15:58> Status: Acute <TUNDE Reina - Last Filed: 03/31/21 15:58> Assessment and Plan: 03/29/2021 Flexeril and ice or heat depending on what the Pt feels makes the site better, will start with Ice, lower dose of Flexeril, given how Pt was [facility] in bed [facility] the [facility] with her right leg hanging off the right side of the bed it seems like a pulled muscle. 03/30/2021 Hip/thigh pain is worse today, obtaining 2 view images, Pt stated heat worked for her yesterday to ease the pain, one time Toradol 15 mg X-ray indicates mild right hip osteoarthritis 03/30 <TUNDE Reina - Last Filed: 03/31/21 15:58> (3) Anemia, chronic disease: Code(s): D63.8 - Anemia in other chronic diseases classified elsewhere <TUNDE Reina - Last Filed: 03/31/21 15:58> Status: Acute <TUNDE Reina - Last Filed: 03/31/21 15:58> Assessment and Plan: 03/29/2021 H/H 10.3/32.1 stable, will monitor, continue Vitamin B-12, no active bleeding, observe for the need to transfuse however this is unlikely at this time 03/30/2021 10.5/32.6 stable, continue to monitor Hemoglobin 10.3>10.5>10.5 Baseline appears to be at 10 No obvious bleeding noted <TUNDE Reina - Last Filed: 03/31/21 15:58> (4) Diabetes mellitus: Code(s): E11.9 - Type 2 diabetes mellitus without complications <TUNDE Reina - Last Filed: 03/31/21 15:58> Status: Acute <UTNDE Reina - Last Filed: 03/31/21 15:58> Assessment and Plan: 03/29/2021 Accu-checks, Lantus, continue glipizide, Lispro, monitor glucose levels, hypoglycemic protocol in place, will adjust medications as needed. 03/30/2021 Reported Glucose levels were elevated as was her potassium 5.4, increased Lantus from 12 to 15 HS, and her with meals insulin by 1 Unit for each meal goal is to lower glucose and potassium. Will be monitoring K levels and glucose levels. Potassium within normal limits Blood sugar 131 <TUNDE Reina - Last Filed: 03/31/21 15:58> (5) COPD (chronic obstructive pulmonary disease): Code(s): J44.9 - Chronic obstructive pulmonary disease, unspecified <TUNDE Reina - Last Filed: 03/31/21 15:58> Status: Acute <TUNDE Reina - Last Filed: 03/31/21 15:58> Assessment and Plan: 03/29/2021 Continue Tiotropium bromide, Umeclidinium, 2.5 L/min O2, CPAP from [facility], monitor status and make adjustments as needed 03/30/2021 Pt 2 L/min, no SOB except when she began thinking about her friend who at the [facility] she is a resident, continue as noted without other changes Stable <TUNDE Reina - Last Filed: 03/31/21 15:58> (6) Anxiety disorder: Code(s): F41.9 - Anxiety disorder, unspecified <TUNDE Reina - Last Filed: 03/31/21 15:58> Status: Acute <TUNDE Reina - Last Filed: 03/31/21 15:58> Assessment and Plan: 03/29/2021 Continue with Duloxetine an
[2021-03-31 16:00] VITALS: BP 125/65; PULSE 63; RESP 20; TEMP 36.6; O2SAT 96
[2021-03-31 16:27] LABS: Glucose Point of Care 172 mg/dl (65-105)
[2021-03-31] MEDS: ATORVASTATIN 40 MG TABLET PO (20:21)
[2021-03-31] MEDS: INSULIN GLARGINE (*BKC) 100 UNITS/ML 15 UNITS SUB-Q (20:27)
[2021-03-31 20:28] LABS: Glucose Point of Care 136 mg/dl (65-105)
[2021-03-31 20:29] VITALS: PULSE 70
[2021-04-01 00:24] VITALS: BP 140/70; PULSE 70; RESP 18; TEMP 36.4; O2SAT 97
[2021-04-01 05:24] LABS: Hematocrit 34.2 % (35.0-42.0); Hemoglobin 10.9 g/dL (11.7-13.8); Mean Corpuscular HGB Conc 31.9 g/dL (32.0-36.0); Mean Corpuscular Hemoglobin 29.6 pg (27.0-31.0); Mean Corpuscular Volume 92.9 fL (78.0-102.0); Mean Platelet Volume 9.3 fl (9.2-11.8); Platelet Count Result 409 K/mm3 (150-420); Red Blood Count 3.68 M/mm3 (4.20-5.40); Red Cell Distribution Width 13.8 % (11.6-14.4); White Blood Count 16.7 K/mm3 (4.8-10.8)
[2021-04-01 05:42] LABS: Alanine Aminotransferase 32 U/L (14-59); Albumin Level 2.8 g/dL (3.4-5.0); Alkaline Phosphatase 93 U/L (46-116); Anion Gap 6 mmol/L (8-16); Aspartate Amino Transferase 60 U/L (15-37); Bilirubin,Total 0.4 mg/dL (0.00-1.00); Blood Urea Nitrogen 26 mg/dL (7-18); Calcium 8.9 mg/dL (8.5-10.1); Carbon Dioxide 31 mmol/L (21-32); Chloride 95 mmol/L (98-108); Estimated CRCL calculation 31 ml/min; Estimated Glomerular Filt Rate 41; Glucose 201 mg/dL (70-99); Osmolality Calculated 284 mOsm/kg (285-295); Potassium 4.4 mmol/L (3.5-5.1); Sodium 132 mmol/L (136-145); Total Protein 7.7 g/dL (6.4-8.2)
[2021-04-01 05:48] LABS: Lactic Acid Reflex 1.6 mmol/L (0.4-2.0)
[2021-04-01] MEDS: CYCLOBENZAPRINE HCL 5 MG TABLET PO ×3 (06:12→21:14)
[2021-04-01] MEDS: HYDROcodone/acetaminophen (*CRX) 5-325 MG TABLET 1 TAB PO (06:12)
[2021-04-01 08:00] VITALS: BP 162/76; PULSE 67; RESP 18; TEMP 36.1; O2SAT 96
[2021-04-01 08:06] LABS: Glucose Point of Care 219 mg/dl (65-105)
[2021-04-01] MEDS: BUDESONIDE/FORMOTEROL 80/4.5 MCG 6.9 GM INHALER (*SP) 2 PUFF INHALATION ×2 (08:46→17:47)
[2021-04-01] MEDS: ENOXAPARIN 40 MG/0.4 ML SYRINGE SUB-Q (08:47)
[2021-04-01] MEDS: polyethylene glycoL 3350 17 GM POWD.PACK PO (08:49)
[2021-04-01] MEDS: DULoxetine HCL 20 MG CAPSULE.DR 40 MG PO (08:50)
[2021-04-01] MEDS: CYANOCOBALAMIN 1,000 MCG TABLET 1000 MCG PO (08:50)
[2021-04-01] MEDS: PANTOPRAZOLE 40 MG TABLET PO (08:51)
[2021-04-01] MEDS: glipiZIDE 5 MG TABLET PO (08:51)
[2021-04-01] MEDS: ASPIRIN 81 MG ENTERIC TABLET PO (08:51)
[2021-04-01] MEDS: FUROSEMIDE 20 MG TABLET PO (08:51)
[2021-04-01] MEDS: lisinopriL 20 MG TABLET 40 MG PO (08:51)
[2021-04-01 08:52] VITALS: PULSE 67
[2021-04-01] MEDS: METOPROLOL TARTRATE 50 MG TAB PO ×2 (08:52→20:29)
[2021-04-01] MEDS: FLUoxetine HCL 20 MG CAPSULE PO ×2 (08:53→17:13)
[2021-04-01] MEDS: UMECLIDINIUM BROMIDE 62.5 MCG ELLIPTA 1 PUFF INHALATION (08:56)
--- NOTE | 2021-04-01 11:24 | WPDPN ---
Progress Note: A&P Assessment and Plan (1) Urinary tract infection: Code(s): N39.0 - Urinary tract infection, site not specified Status: Acute Assessment and Plan: 03/29/2021 Gentamicin and Ciprofloxacin started in the ER, continue on the floor, Urine Cx and Blood Cx pending, Lower and RLQ pain anticipate resolution as UTI resolves, will start Pyridium 03/30/2021 Pharmacy dosing and following Gentamicin, continue with Ciprofloxacin, Urine and Blood Cx still pending, RLQ pain only on palpation, improving Patient antibiotic changed to Rocephin + Patient WBCs worsening 14.6>15.9>18.8>16.7 Blood culture preliminary no growth UA with the growth of E. coli continue Rocephin (2) Right thigh pain: Code(s): M79.651 - Pain in right thigh Status: Acute Assessment and Plan: 03/29/2021 Flexeril and ice or heat depending on what the Pt feels makes the site better, will start with Ice, lower dose of Flexeril, given how Pt was found in bed at the [facility] with her right leg hanging off the right side of the bed it seems like a pulled muscle. 03/30/2021 Hip/thigh pain is worse today, obtaining 2 view images, Pt stated heat worked for her yesterday to ease the pain, one time Toradol 15 mg X-ray indicates mild right hip osteoarthritis 03/30 (3) Anemia, chronic disease: Code(s): D63.8 - Anemia in other chronic diseases classified elsewhere Status: Acute Assessment and Plan: 03/29/2021 H/H 10.3/32.1 stable, will monitor, continue Vitamin B-12, no active bleeding, observe for the need to transfuse however this is unlikely at this time 03/30/2021 10.5/32.6 stable, continue to monitor Hemoglobin 10.3>10.5>10.5>10.9 Baseline appears to be at 10 No obvious bleeding noted (4) Diabetes mellitus: Code(s): E11.9 - Type 2 diabetes mellitus without complications Status: Acute Assessment and Plan: 03/29/2021 Accu-checks, Lantus, continue glipizide, Lispro, monitor glucose levels, hypoglycemic protocol in place, will adjust medications as needed. 03/30/2021 Reported Glucose levels were elevated as was her potassium 5.4, increased Lantus from 12 to 15 HS, and her with meals insulin by 1 Unit for each meal goal is to lower glucose and potassium. Will be monitoring K levels and glucose levels. Potassium within normal limits Blood sugar 219 Changed her diet to a diabetic diet (5) COPD (chronic obstructive pulmonary disease): Code(s): J44.9 - Chronic obstructive pulmonary disease, unspecified Status: Acute Assessment and Plan: 03/29/2021 Continue Tiotropium bromide, Umeclidinium, 2.5 L/min O2, CPAP from [facility], monitor status and make adjustments as needed 03/30/2021 Pt 2 L/min, no SOB except when she began thinking about her friend who at the [facility] she is a resident, continue as noted without other changes Stable Patient home O2 at 2.5 L (6) Anxiety disorder: Code(s): F41.9 - Anxiety disorder, unspecified Status: Acute Assessment and Plan: 03/29/2021 Continue with Duloxetine and Fluoxetine which was confirmed to be the correct medication according to [facility] staff records when I called them, as well as Lorazepam 03/30/2021 Encouraged Pt to take her PRN Lorazepam d/t increased anxiety today r/t her friends as noted above Stable (7) GERD (gastroesophageal reflux disease): Code(s): K21.9 - Gastro-esophageal reflux disease without esophagitis Status: Acute Assessment and Plan: 03/29/2021 Continue Pantoprazole Review of Systems Review of Systems: Narrative: A 14 organ system Review of Systems was performed and pertinent positives included in the HPI, otherwise remaining ROS is negative. Exam Narrative: Exam Narrative: GENERAL: This is a well-nourished, well-developed patient, in no apparent distress. HEAD: normocephalic, atraumatic. EYES: PERRL. Sclera clear/white. Vision is grossly intact. EARS: External ears normal, auditory canals clear and without d
[2021-04-01 11:56] LABS: Glucose Point of Care 190 mg/dl (65-105)
[2021-04-01] MEDS: traMADol HCL (*CRX) 25 MG TABLET PO (14:32)
[2021-04-01 16:00] VITALS: BP 149/64; PULSE 66; RESP 16; TEMP 35.7; O2SAT 100
--- NOTE | 2021-04-01 16:00 | PC.NURSE ---
Patient talking on phone and no complaints at 1550. Nurse returned to room at 1555 to check VS and patient complains of uncontrolled jerking to upper extremities chacho. after VS check. VSS. No loss of consciousness and patient talking during episode. States my blood sugar when it's low makes me tremble but not jerk like this . Accu-chek:52. [place] juice given. Nurse remained in room with patient. States she feels some better.
--- NOTE | 2021-04-01 16:10 | PC.NURSE ---
Erica MOTLEY, Charge Nurse informed of Accu-chek of 52, jerking motions of upper arms and given orange juice.
--- NOTE | 2021-04-01 16:15 | PC.NURSE ---
No further jerking noted, Will recheck Accuchek at 1630.
--- NOTE | 2021-04-01 16:45 | PC.NURSE ---
blood sugar: 90; Dietary notified to bring tray early, given fruit cup. No further jerking or trembling.
--- NOTE | 2021-04-01 16:51 | PC.NURSE ---
Erica Foster RN informed of Blood Glucose and interventions.
--- NOTE | 2021-04-01 17:55 | PC.NURSE ---
States had 2 episodes of jerking arms before nurse came in room. None at present. Informed Erica, Charge Nurse, and she observed patient. Accu-chek 198.
[2021-04-01 18:27] LABS: Magnesium 1.8 mg/dL (1.8-2.4)
[2021-04-01 19:20] LABS: Glucose Point of Care 253 mg/dl (65-105)
[2021-04-01 19:20] LABS: Glucose Point of Care 90 mg/dl (65-105)
[2021-04-01 19:20] LABS: Glucose Point of Care 198 mg/dl (65-105)
[2021-04-01 19:20] LABS: Glucose Point of Care 51 mg/dl (65-105)
[2021-04-01 20:29] VITALS: PULSE 80
[2021-04-01] MEDS: ATORVASTATIN 40 MG TABLET PO (20:29)
[2021-04-01] MEDS: INSULIN GLARGINE (*BKC) 100 UNITS/ML 15 UNITS SUB-Q (21:10)
[2021-04-01] MEDS: LORazepam (*CRX) 0.5 MG TABLET PO (21:13)
--- NOTE | 2021-04-01 22:00 | PC.NURSE ---
Resting comfortably; no trembling noted.
[2021-04-02] VITALS: BP 177/50; PULSE 67; RESP 18; TEMP 36.1; O2SAT 98
[2021-04-02] MEDS: hydrOXYzine HCL 12.5 MG TABLET PO (00:33)
[2021-04-02] MEDS: HYDROcodone/acetaminophen (*CRX) 5-325 MG TABLET 1 TAB PO ×2 (00:33→20:22)
[2021-04-02] MEDS: CYCLOBENZAPRINE HCL 5 MG TABLET PO ×3 (05:09→21:07)
[2021-04-02 05:48] LABS: Hematocrit 32.9 % (35.0-42.0); Hemoglobin 10.5 g/dL (11.7-13.8); Mean Corpuscular HGB Conc 31.9 g/dL (32.0-36.0); Mean Corpuscular Hemoglobin 29.6 pg (27.0-31.0); Mean Corpuscular Volume 92.7 fL (78.0-102.0); Mean Platelet Volume 9.4 fl (9.2-11.8); Platelet Count Result 378 K/mm3 (150-420); Red Blood Count 3.55 M/mm3 (4.20-5.40); Red Cell Distribution Width 13.4 % (11.6-14.4); White Blood Count 17.7 K/mm3 (4.8-10.8)
[2021-04-02 06:06] LABS: Alanine Aminotransferase 36 U/L (14-59); Albumin Level 2.7 g/dL (3.4-5.0); Alkaline Phosphatase 92 U/L (46-116); Anion Gap 4 mmol/L (8-16); Aspartate Amino Transferase 50 U/L (15-37); Bilirubin,Total 0.3 mg/dL (0.00-1.00); Blood Urea Nitrogen 27 mg/dL (7-18); Calcium 8.8 mg/dL (8.5-10.1); Carbon Dioxide 32 mmol/L (21-32); Chloride 96 mmol/L (98-108); Estimated CRCL calculation 31 ml/min; Estimated Glomerular Filt Rate 43; Glucose 161 mg/dL (70-99); Osmolality Calculated 282 mOsm/kg (285-295); Potassium 5.2 mmol/L (3.5-5.1); Sodium 132 mmol/L (136-145); Total Protein 7.4 g/dL (6.4-8.2)
[2021-04-02 07:39] LABS: Glucose Point of Care 200 mg/dl (65-105)
[2021-04-02 07:39] LABS: Glucose Point of Care 259 mg/dl (65-105)
[2021-04-02] MEDS: ENOXAPARIN 40 MG/0.4 ML SYRINGE SUB-Q (07:53)
[2021-04-02] MEDS: DULoxetine HCL 20 MG CAPSULE.DR 40 MG PO (07:55)
[2021-04-02] MEDS: PANTOPRAZOLE 40 MG TABLET PO (07:55)
[2021-04-02 07:56] VITALS: PULSE 66
[2021-04-02] MEDS: glipiZIDE 5 MG TABLET PO (07:56)
[2021-04-02] MEDS: lisinopriL 20 MG TABLET 40 MG PO (07:56)
[2021-04-02] MEDS: CYANOCOBALAMIN 1,000 MCG TABLET 1000 MCG PO (07:56)
[2021-04-02] MEDS: METOPROLOL TARTRATE 50 MG TAB PO ×2 (07:56→20:21)
[2021-04-02] MEDS: ASPIRIN 81 MG ENTERIC TABLET PO (07:56)
[2021-04-02] MEDS: FUROSEMIDE 20 MG TABLET PO (07:56)
[2021-04-02] MEDS: FLUoxetine HCL 20 MG CAPSULE PO ×2 (07:57→17:00)
[2021-04-02] MEDS: polyethylene glycoL 3350 17 GM POWD.PACK PO (07:57)
[2021-04-02] MEDS: UMECLIDINIUM BROMIDE 62.5 MCG ELLIPTA 1 PUFF INHALATION (07:58)
[2021-04-02 08:00] VITALS: BP 154/63; PULSE 66; RESP 16; TEMP 36; O2SAT 97
--- NOTE | 2021-04-02 11:49 | WPDPN ---
Progress Note: A&P Assessment and Plan (1) Urinary tract infection: Code(s): N39.0 - Urinary tract infection, site not specified <TUNDE Reina - Last Filed: 04/02/21 11:53> Status: Acute <TUNDE Reina - Last Filed: 04/02/21 11:53> Assessment and Plan: 03/29/2021 Gentamicin and Ciprofloxacin started in the ER, continue on the floor, Urine Cx and Blood Cx pending, Lower and RLQ pain anticipate resolution as UTI resolves, will start Pyridium 03/30/2021 Pharmacy dosing and following Gentamicin, continue with Ciprofloxacin, Urine and Blood Cx still pending, RLQ pain only on palpation, improving Patient antibiotic changed to Rocephin + Patient WBCs worsening 14.6>15.9>18.8>16.7>17.7 Blood culture preliminary no growth UA with the growth of E. coli continue Rocephin <TUNDE Reina - Last Filed: 04/02/21 11:53> (2) Right thigh pain: Code(s): M79.651 - Pain in right thigh <TUNDE Reina - Last Filed: 04/02/21 11:53> Status: Acute <TUNDE Reina - Last Filed: 04/02/21 11:53> Assessment and Plan: 03/29/2021 Flexeril and ice or heat depending on what the Pt feels makes the site better, will start with Ice, lower dose of Flexeril, given how Pt was found in bed at the [facility] with her right leg hanging off the right side of the bed it seems like a pulled muscle. 03/30/2021 Hip/thigh pain is worse today, obtaining 2 view images, Pt stated heat worked for her yesterday to ease the pain, one time Toradol 15 mg X-ray indicates mild right hip osteoarthritis 03/30 <TUNDE Reina - Last Filed: 04/02/21 11:53> (3) Anemia, chronic disease: Code(s): D63.8 - Anemia in other chronic diseases classified elsewhere <TUNDE Reina - Last Filed: 04/02/21 11:53> Status: Acute <Mary WinslowTUNDE Thomas - Last Filed: 04/02/21 11:53> Assessment and Plan: 03/29/2021 H/H 10.3/32.1 stable, will monitor, continue Vitamin B-12, no active bleeding, observe for the need to transfuse however this is unlikely at this time 03/30/2021 10.5/32.6 stable, continue to monitor Hemoglobin 10.3>10.5>10.5>10.9 >10.5 Baseline appears to be at 10 No obvious bleeding noted <TUNDE Reina - Last Filed: 04/02/21 11:53> (4) Diabetes mellitus: Code(s): E11.9 - Type 2 diabetes mellitus without complications <TUNDE Reina - Last Filed: 04/02/21 11:53> Status: Acute <TUNDE Reina - Last Filed: 04/02/21 11:53> Assessment and Plan: 03/29/2021 Accu-checks, Lantus, continue glipizide, Lispro, monitor glucose levels, hypoglycemic protocol in place, will adjust medications as needed. 03/30/2021 Reported Glucose levels were elevated as was her potassium 5.4, increased Lantus from 12 to 15 HS, and her with meals insulin by 1 Unit for each meal goal is to lower glucose and potassium. Will be monitoring K levels and glucose levels. Potassium within normal limits Blood sugar 161 better control today Changed her diet to a diabetic diet <TUNDE Reina - Last Filed: 04/02/21 11:53> (5) COPD (chronic obstructive pulmonary disease): Code(s): J44.9 - Chronic obstructive pulmonary disease, unspecified <TUNDE Reina - Last Filed: 04/02/21 11:53> Status: Acute <TUNDE Reina - Last Filed: 04/02/21 11:53> Assessment and Plan: 03/29/2021 Continue Tiotropium bromide, Umeclidinium, 2.5 L/min O2, CPAP from [facility], monitor status and make adjustments as needed 03/30/2021 Pt 2 L/min, no SOB except when she began thinking about her friend who at the [facility] she is a resident, continue as noted without other changes Stable Patient home O2 at 2.5 L <TUNDE Reina - Last Filed: 04/02/21 11:53> (6) Anxiety disorder: Code(s): F41.9 - Anxiety disorder, unspecified <TUNDE Reina - Last Filed: 04/02/21 11:53>
[2021-04-02 12:05] LABS: Glucose Point of Care 101 mg/dl (65-105)
[2021-04-02 16:00] VITALS: BP 143/54; PULSE 67; RESP 18; TEMP 36.5; O2SAT 99
[2021-04-02 16:18] LABS: Glucose Point of Care 246 mg/dl (65-105)
[2021-04-02] MEDS: BUDESONIDE/FORMOTEROL 80/4.5 MCG 6.9 GM INHALER (*SP) 2 PUFF INHALATION (17:57)
[2021-04-02] MEDS: ACETAMINOPHEN 500 MG TABLET PO (18:06)
[2021-04-02 20:00] VITALS: O2SAT 99
[2021-04-02] MEDS: ATORVASTATIN 40 MG TABLET PO (20:17)
[2021-04-02] MEDS: INSULIN GLARGINE (*BKC) 100 UNITS/ML 15 UNITS SUB-Q (20:19)
[2021-04-02 20:21] VITALS: PULSE 67
[2021-04-02 20:27] LABS: Glucose Point of Care 218 mg/dl (65-105)
[2021-04-03] VITALS: BP 153/79; PULSE 60; RESP 18; TEMP 35.9; O2SAT 100
[2021-04-03 05:28] LABS: Hemoglobin 10.2 g/dL (11.7-13.8); Mean Corpuscular HGB Conc 31.9 g/dL (32.0-36.0); Mean Corpuscular Hemoglobin 29.3 pg (27.0-31.0); Mean Platelet Volume 9.7 fl (9.2-11.8); Platelet Count Result 374 K/mm3 (150-420); Red Blood Count 3.48 M/mm3 (4.20-5.40); Red Cell Distribution Width 13.5 % (11.6-14.4); White Blood Count 15.3 K/mm3 (4.8-10.8)
[2021-04-03 05:39] LABS: Alanine Aminotransferase 33 U/L (14-59); Albumin Level 2.7 g/dL (3.4-5.0); Anion Gap 6 mmol/L (8-16); Aspartate Amino Transferase 32 U/L (15-37); Bilirubin,Total 0.3 mg/dL (0.00-1.00); Blood Urea Nitrogen 27 mg/dL (7-18); Calcium 8.5 mg/dL (8.5-10.1); Carbon Dioxide 30 mmol/L (21-32); Chloride 96 mmol/L (98-108); Estimated CRCL calculation 32 ml/min; Estimated Glomerular Filt Rate 44; Glucose 170 mg/dL (70-99); Osmolality Calculated 283 mOsm/kg (285-295); Potassium 4.9 mmol/L (3.5-5.1); Sodium 132 mmol/L (136-145); Total Protein 7.1 g/dL (6.4-8.2)
[2021-04-03 05:40] LABS: Alkaline Phosphatase 87 U/L (46-116)
[2021-04-03] MEDS: ACETAMINOPHEN 500 MG TABLET PO (05:48)
[2021-04-03] MEDS: CYCLOBENZAPRINE HCL 5 MG TABLET PO ×3 (05:49→21:23)
[2021-04-03 07:27] VITALS: BP 168/60; PULSE 65; RESP 16; TEMP 35.9; O2SAT 98
[2021-04-03 07:27] LABS: Glucose Point of Care 186 mg/dl (65-105)
[2021-04-03] MEDS: lisinopriL 20 MG TABLET 40 MG PO (08:25)
[2021-04-03] MEDS: FLUoxetine HCL 20 MG CAPSULE PO ×2 (08:25→16:51)
[2021-04-03] MEDS: glipiZIDE 5 MG TABLET PO (08:26)
[2021-04-03] MEDS: CYANOCOBALAMIN 1,000 MCG TABLET 1000 MCG PO (08:26)
[2021-04-03] MEDS: ENOXAPARIN 40 MG/0.4 ML SYRINGE SUB-Q (08:26)
[2021-04-03] MEDS: ASPIRIN 81 MG ENTERIC TABLET PO (08:26)
[2021-04-03] MEDS: FUROSEMIDE 20 MG TABLET PO (08:26)
[2021-04-03] MEDS: DULoxetine HCL 20 MG CAPSULE.DR 40 MG PO (08:26)
[2021-04-03 08:27] VITALS: PULSE 65
[2021-04-03] MEDS: PANTOPRAZOLE 40 MG TABLET PO (08:27)
[2021-04-03] MEDS: METOPROLOL TARTRATE 50 MG TAB PO ×2 (08:27→21:22)
[2021-04-03] MEDS: UMECLIDINIUM BROMIDE 62.5 MCG ELLIPTA 1 PUFF INHALATION (08:30)
--- NOTE | 2021-04-03 09:04 | WPDPN ---
Progress Note: A&P Assessment and Plan (1) Urinary tract infection: Code(s): N39.0 - Urinary tract infection, site not specified Status: Acute Assessment and Plan: 03/29/2021 Gentamicin and Ciprofloxacin started in the ER, continue on the floor, Urine Cx and Blood Cx pending, Lower and RLQ pain anticipate resolution as UTI resolves, will start Pyridium 03/30/2021 Pharmacy dosing and following Gentamicin, continue with Ciprofloxacin, Urine and Blood Cx still pending, RLQ pain only on palpation, improving Patient antibiotic changed to Rocephin + Patient WBCs worsening 14.6>15.9>18.8>16.7>17.7>17.0 Blood culture preliminary no growth UA with the growth of E. coli continue Rocephin (2) Right thigh pain: Code(s): M79.651 - Pain in right thigh Status: Acute Assessment and Plan: 03/29/2021 Flexeril and ice or heat depending on what the Pt feels makes the site better, will start with Ice, lower dose of Flexeril, given how Pt was found in bed at the [facility] with her right leg hanging off the right side of the bed it seems like a pulled muscle. 03/30/2021 Hip/thigh pain is worse today, obtaining 2 view images, Pt stated heat worked for her yesterday to ease the pain, one time Toradol 15 mg X-ray indicates mild right hip osteoarthritis 03/30 (3) Anemia, chronic disease: Code(s): D63.8 - Anemia in other chronic diseases classified elsewhere Status: Acute Assessment and Plan: 03/29/2021 stable, will monitor, continue Vitamin B-12, no active bleeding, observe for the need to transfuse however this is unlikely at this time 03/30/2021 10.5/32.6 stable, continue to monitor Hemoglobin 10.3>10.5>10.5>10.9 >10.5>10.2 Baseline appears to be at 10 No obvious bleeding noted (4) Diabetes mellitus: Code(s): E11.9 - Type 2 diabetes mellitus without complications Status: Acute Assessment and Plan: 03/29/2021 Accu-checks, Lantus, continue glipizide, Lispro, monitor glucose levels, hypoglycemic protocol in place, will adjust medications as needed. 03/30/2021 Reported Glucose levels were elevated as was her potassium 5.4, increased Lantus from 12 to 15 HS, and her with meals insulin by 1 Unit for each meal goal is to lower glucose and potassium. Will be monitoring K levels and glucose levels. Potassium within normal limits Blood sugar 186 better control today Changed her diet to a diabetic diet (5) COPD (chronic obstructive pulmonary disease): Code(s): J44.9 - Chronic obstructive pulmonary disease, unspecified Status: Acute Assessment and Plan: 03/29/2021 Continue Tiotropium bromide, Umeclidinium, 2.5 L/min O2, CPAP from [facility], monitor status and make adjustments as needed 03/30/2021 Pt 2 L/min, no SOB except when she began thinking about her friend who at the [facility] she is a resident, continue as noted without other changes Stable Patient home O2 at 2.5 L (6) Anxiety disorder: Code(s): F41.9 - Anxiety disorder, unspecified Status: Acute Assessment and Plan: 03/29/2021 Continue with Duloxetine and Fluoxetine which was confirmed to be the correct medication according to [facility] staff records when I called them, as well as Lorazepam 03/30/2021 Encouraged Pt to take her PRN Lorazepam d/t increased anxiety today r/t her friends as noted above Stable (7) GERD (gastroesophageal reflux disease): Code(s): K21.9 - Gastro-esophageal reflux disease without esophagitis Status: Acute Assessment and Plan: 03/29/2021 Continue Pantoprazole Review of Systems Review of Systems: Narrative: A 14 organ system Review of Systems was performed and pertinent positives included in the HPI, otherwise remaining ROS is negative. Exam Narrative: Exam Narrative: GENERAL: This is a well-nourished, well-developed patient, in no apparent distress. HEAD: normocephalic, atraumatic. EYES: PERRL. Sclera clear/white. Vision is grossly intact. EARS: External ears normal, auditory
[2021-04-03] MEDS: HYDROcodone/acetaminophen (*CRX) 5-325 MG TABLET 1 TAB PO ×2 (10:41→21:22)
[2021-04-03 12:08] LABS: Glucose Point of Care 200 mg/dl (65-105)
[2021-04-03 16:00] VITALS: BP 120/63; PULSE 85; RESP 18; TEMP 36.5; O2SAT 96
[2021-04-03 16:56] LABS: Glucose Point of Care 213 mg/dl (65-105)
[2021-04-03] MEDS: BUDESONIDE/FORMOTEROL 80/4.5 MCG 6.9 GM INHALER (*SP) 2 PUFF INHALATION (18:24)
[2021-04-03] MEDS: INSULIN GLARGINE (*BKC) 100 UNITS/ML 15 UNITS SUB-Q (21:19)
[2021-04-03] MEDS: ATORVASTATIN 40 MG TABLET PO (21:23)
[2021-04-03 21:27] LABS: Glucose Point of Care 194 mg/dl (65-105)
[2021-04-04] VITALS: BP 160/50; PULSE 88; RESP 20; TEMP 36.6; O2SAT 100
--- NOTE | 2021-04-04 00:06 | PC.NURSE ---
Pt was 86% oi room air.
--- NOTE | 2021-04-04 05:05 | PC.NURSE ---
Pt voided lg amrs X3 this shift & had lg soft formed brown BM.
[2021-04-04 05:42] LABS: Hematocrit 30.6 % (35.0-42.0); Hemoglobin 9.8 g/dL (11.7-13.8); Mean Corpuscular Hemoglobin 29.9 pg (27.0-31.0); Mean Corpuscular Volume 93.3 fL (78.0-102.0); Mean Platelet Volume 9.7 fl (9.2-11.8); Platelet Count Result 370 K/mm3 (150-420); Red Blood Count 3.28 M/mm3 (4.20-5.40); Red Cell Distribution Width 13.4 % (11.6-14.4); White Blood Count 14.9 K/mm3 (4.8-10.8)
[2021-04-04] MEDS: BUDESONIDE/FORMOTEROL 80/4.5 MCG 6.9 GM INHALER (*SP) 2 PUFF INHALATION (05:45)
[2021-04-04] MEDS: CYCLOBENZAPRINE HCL 5 MG TABLET PO (05:45)
[2021-04-04 05:53] LABS: Alanine Aminotransferase 32 U/L (14-59); Albumin Level 2.6 g/dL (3.4-5.0); Alkaline Phosphatase 86 U/L (46-116); Anion Gap 9 mmol/L (8-16); Aspartate Amino Transferase 27 U/L (15-37); Bilirubin,Total 0.2 mg/dL (0.00-1.00); Blood Urea Nitrogen 29 mg/dL (7-18); Calcium 8.5 mg/dL (8.5-10.1); Carbon Dioxide 29 mmol/L (21-32); Chloride 96 mmol/L (98-108); Estimated CRCL calculation 32 ml/min; Estimated Glomerular Filt Rate 43; Glucose 145 mg/dL (70-99); Osmolality Calculated 286 mOsm/kg (285-295); Potassium 4.9 mmol/L (3.5-5.1); Sodium 134 mmol/L (136-145)
[2021-04-04 07:48] VITALS: BP 161/70; PULSE 64; RESP 16; TEMP 36.5; O2SAT 100
[2021-04-04 08:06] LABS: Glucose Point of Care 187 mg/dl (65-105)
[2021-04-04] MEDS: ENOXAPARIN 40 MG/0.4 ML SYRINGE SUB-Q (08:13)
[2021-04-04] MEDS: UMECLIDINIUM BROMIDE 62.5 MCG ELLIPTA 1 PUFF INHALATION (08:13)
[2021-04-04 08:15] VITALS: PULSE 64
[2021-04-04] MEDS: METOPROLOL TARTRATE 50 MG TAB PO (08:15)
[2021-04-04] MEDS: FUROSEMIDE 20 MG TABLET PO (08:15)
[2021-04-04] MEDS: PANTOPRAZOLE 40 MG TABLET PO (08:15)
[2021-04-04] MEDS: glipiZIDE 5 MG TABLET PO (08:15)
[2021-04-04] MEDS: CYANOCOBALAMIN 1,000 MCG TABLET 1000 MCG PO (08:15)
[2021-04-04] MEDS: lisinopriL 20 MG TABLET 40 MG PO (08:15)
[2021-04-04] MEDS: ASPIRIN 81 MG ENTERIC TABLET PO (08:15)
[2021-04-04] MEDS: FLUoxetine HCL 20 MG CAPSULE PO (08:16)
[2021-04-04] MEDS: DULoxetine HCL 20 MG CAPSULE.DR 40 MG PO (08:16)
[2021-04-04] MEDS: LORazepam (*CRX) 0.5 MG TABLET PO (08:24)
--- NOTE | 2021-04-04 10:28 | PM.DS ---
DS: Admitting Diagnosis Admitting Diagnosis Admitting Diagnosis: Pyelonephritis DS: Discharge Diagnosis Discharge Diagnosis (1) Urinary tract infection: Code(s): N39.0 - Urinary tract infection, site not specified Status: Acute Assessment and Plan: 03/29/2021 Gentamicin and Ciprofloxacin started in the ER, continue on the floor, Urine Cx and Blood Cx pending, Lower and RLQ pain anticipate resolution as UTI resolves, will start Pyridium 03/30/2021 Pharmacy dosing and following Gentamicin, continue with Ciprofloxacin, Urine and Blood Cx still pending, RLQ pain only on palpation, improving Patient antibiotic changed to Rocephin + Patient WBCs worsening 14.6>15.9>18.8>16.7>17.7>17.0 Blood culture preliminary no growth UA with the growth of E. coli continue Rocephin 04/04/2021 Blood Cx NGTD, Urine Cx shows susceptibility to Omnicef renal dosing using Cockcroft-Gault Equation resulting in 41 ml/min, WBC 14.9 trending down (2) Right thigh pain: Code(s): M79.651 - Pain in right thigh Status: Acute Assessment and Plan: 03/29/2021 Flexeril and ice or heat depending on what the Pt feels makes the site better, will start with Ice, lower dose of Flexeril, given how Pt was found in bed at the [facility] with her right leg hanging off the right side of the bed it seems like a pulled muscle. 03/30/2021 Hip/thigh pain is worse today, obtaining 2 view images, Pt stated heat worked for her yesterday to ease the pain, one time Toradol 15 mg X-ray indicates mild right hip osteoarthritis 03/3004/04/2021 Pt has not complained of her hip/thigh today (3) Anemia, chronic disease: Code(s): D63.8 - Anemia in other chronic diseases classified elsewhere Status: Acute Assessment and Plan: 03/29/2021 stable, will monitor, continue Vitamin B-12, no active bleeding, observe for the need to transfuse however this is unlikely at this time 03/30/2021 10.5/32.6 stable, continue to monitor Hemoglobin 10.3>10.5>10.5>10.9 >10.5>10.2 Baseline appears to be at 10 No obvious bleeding noted 04/04/2021 9.8/30.6 Stable (4) Diabetes mellitus: Code(s): E11.9 - Type 2 diabetes mellitus without complications Status: Acute Assessment and Plan: 03/29/2021 Accu-checks, Lantus, continue glipizide, Lispro, monitor glucose levels, hypoglycemic protocol in place, will adjust medications as needed. 03/30/2021 Reported Glucose levels were elevated as was her potassium 5.4, increased Lantus from 12 to 15 HS, and her with meals insulin by 1 Unit for each meal goal is to lower glucose and potassium. Will be monitoring K levels and glucose levels. Potassium within normal limits Blood sugar 186 better control today Changed her diet to a diabetic diet 04/04/2021 Glucose 145 today, no further changes (5) COPD (chronic obstructive pulmonary disease): Code(s): J44.9 - Chronic obstructive pulmonary disease, unspecified Status: Acute Assessment and Plan: 03/29/2021 Continue Tiotropium bromide, Umeclidinium, 2.5 L/min O2, CPAP from [facility], monitor status and make adjustments as needed 03/30/2021 Pt 2 L/min, no SOB except when she began thinking about her friend who at the [facility] she is a resident, continue as noted without other changes Stable Patient home O2 at 2.5 L 04/04/2021 Stable, Pt does become anxious at times (6) Anxiety disorder: Code(s): F41.9 - Anxiety disorder, unspecified Status: Acute Assessment and Plan: 03/29/2021 Continue with Duloxetine and Fluoxetine which was confirmed to be the correct medication according to [facility] staff records when I called them, as well as Lorazepam 03/30/2021 Encouraged Pt to take her PRN Lorazepam d/t increased anxiety today r/t her friends as noted above Stable 04/04/2021 Off and on Anxiety, Ativan does seem to help (7) GERD (gastroesophageal reflux disease): Code(s): K21.9 - Gastro-esophageal reflux disease without esophagitis Status: Acute Assessment and P
[2021-04-04 11:24] LABS: Glucose Point of Care 207 mg/dl (65-105)
--- NOTE | 2021-04-04 14:15 | PC.NURSE ---
Patient discharged home to [facility]. [facility] staff transported back via . All personal belongings taken with staff member back to [facility]. IV removed from [facility]. [facility] prior to discharge. Discharge instructions/report given to Tiffany MOTLEY at [facility] with discharge instructions faxed prior to discharge.
--- NOTE | 2021-04-08 14:49 | PC.NURSE ---
[facility] nurse states they received and understood the discharge instructions.
== END 2021-04-04 14:15 | DRG 690 ==
LOC: CHSED 06:37 → CHS2ND 03-30 03:32
PROVIDERS: Nurse Practitioner; Admitting Provider Emergency Medicine; Emergency Provider Emergency Medicine; PCP Family Medicine; Visit Provider Nurse Practitioner Family
DX: N10 Acute pyelonephritis (principal); N39.0 Urinary tract infection, site not specified; I25.10 Atherosclerotic heart disease of native coronary artery without angina pectoris; I10 Essential (primary) hypertension; J44.9 Chronic obstructive pulmonary disease, unspecified; K44.9 Diaphragmatic hernia without obstruction or gangrene; D63.8 Anemia in other chronic diseases classified elsewhere; K21.9 Gastro-esophageal reflux disease without esophagitis; E11.9 Type 2 diabetes mellitus without complications; M79.651 Pain in right thigh; M16.11 Unilateral primary osteoarthritis, right hip; B96.20 Unspecified Escherichia coli [E. coli] as the cause of diseases classified elsewhere; F32.9 Major depressive disorder, single episode, unspecified; F41.9 Anxiety disorder, unspecified; I25.2 Old myocardial infarction; Z90.81 Acquired absence of spleen; Z87.891 Personal history of nicotine dependence
CPT/HCPCS: 36415; 70496; 71046; 73502; 74177; 80048; 80053; 80170; 81001; 82948; 83605; 83735; 85025; 85027; 87040; 87077; 87086; 87088; 87186; 96372; 96374; 97110; 97161; 97165; 97530; 97535; 99285; A9270; J0696; J1170; J1580; J1650; J1815; J1885; J3370; J8540; Q9967

== ENCOUNTER 2021-07-08 06:25 | Outpatient (NON) | payer MEDICARE, SELFPAY ==
[2021-07-08 06:54] LABS: Alanine Aminotransferase 22 U/L (14-59); Albumin Level 2.4 g/dL (3.4-5.0); Alkaline Phosphatase 127 U/L (46-116); Anion Gap 6 mmol/L (8-16); Aspartate Amino Transferase 15 U/L (15-37); Bilirubin,Total 0.2 mg/dL (0.00-1.00); Blood Urea Nitrogen 14 mg/dL (7-18); Calcium 8.7 mg/dL (8.5-10.1); Carbon Dioxide 30 mmol/L (21-32); Chloride 104 mmol/L (98-108); Estimated Glomerular Filt Rate > 60; Glucose 111 mg/dL (70-99); Osmolality Calculated 291 mOsm/kg (285-295); Potassium 4.3 mmol/L (3.5-5.1); Sodium 140 mmol/L (136-145); Total Protein 6.5 g/dL (6.4-8.2)
[2021-07-08 06:56] LABS: Hemoglobin A1C 7.7 % (<5.7)
== END 2021-07-08 06:26 | disposition home or self-care (01) ==
LOC: CHSLAB 06:31
PROVIDERS: Visit Provider Family Medicine
DX: I50.9 Heart failure, unspecified (principal); J44.9 Chronic obstructive pulmonary disease, unspecified; E11.9 Type 2 diabetes mellitus without complications
CPT/HCPCS: 36415; 80053; 83036

== ENCOUNTER 2021-07-23 14:35 | Outpatient (CLI) | payer MEDICARE, MEDICAID, SELFPAY ==
--- NOTE | ~2021-07-23 | MM_ITS ---
EXAMINATION: MM screening drew BI w cooper HISTORY: Screening mammogram TECHNIQUE: Craniocaudal and mediolateral oblique 3-D tomosynthesis images were obtained and synthetic 2-D images were generated. CAD analysis was submitted and interpreted. COMPARISON: No prior mammogram is available for comparison at this institution. BREAST PARENCHYMAL COMPOSITION: There are scattered areas of fibroglandular density. FINDINGS: Anterior outer mid right breast and posterior upper outer left breast masses are suggested. Bilateral diagnostic mammography and bilateral breast ultrasound examination are recommended. There are multiple bilateral benign-appearing calcifications. IMPRESSION: 1. Bilateral breast masses 2. Bilateral diagnostic mammography and bilateral breast ultrasound examination are recommended. BI-RADS Category 0: Incomplete: Needs additional imaging evaluation. Reviewed, dictated and finalized at location A.
== END 2021-07-23 14:36 | disposition home or self-care (01) ==
PROVIDERS: PCP Family Medicine; Visit Provider Family Medicine
DX: Z12.31 Encounter for screening mammogram for malignant neoplasm of breast (principal)
CPT/HCPCS: 77063; 77067

== ENCOUNTER 2021-07-24 10:00 | Outpatient (RCR) | payer MEDICARE, MEDICAID, SELFPAY | END 2021-07-25 09:31 | LOC: CHSSENLIFE 10:00 | PROVIDERS: PCP Family Medicine; Visit Provider Psychiatry & Neurology Psychiatry | DX: F33.1 Major depressive disorder, recurrent, moderate (principal) | CPT/HCPCS: 90792; 90853; 99213; G0463 ==

== ENCOUNTER 2021-08-01 10:38 | Outpatient (CLI) | payer MEDICARE, SELFPAY ==
--- NOTE | ~2021-08-01 | MMUS_ITS ---
EXAMINATION: MM diagnostic drew BI w cooper, US breast BI limited HISTORY: Follow-up bilateral breast asymmetries TECHNIQUE: Additional 3-D tomosynthesis images of the breasts were performed and synthetic 2-D images were generated. CAD analysis was submitted and interpreted. High resolution limited bilateral breast ultrasound was performed. COMPARISON: 07/23/2021 BREAST PARENCHYMAL COMPOSITION: Breast composed of scattered areas of fibroglandular density. FINDINGS: MAMMOGRAPHIC FINDINGS: There are coarse benign-appearing bilateral breast calcifications. There is a focal asymmetry in the upper outer quadrant of the right breast which is persistent. The asymmetry in the upper outer quadra nt of the left breast is less dense with spot compression views, most likely superimposed fibroglandu lar tissue. ULTRASOUND: Right breast ultrasound: At 10:00, 5 cm from the nipple, there is echogenic foci with posterior shado wing, compatible with coarse calcifications. At 10:00, 2 cm from the nipple, there is an oval hypoech oic 6 mm mass without internal vascularity or specific posterior features. Parallel orientation. At 1 0:00, 1 cm from the nipple there is a 3 mm cyst. At 6:00, 2 cm from the nipple there is 2 mm cyst. Left breast ultrasound: There is heterogeneous echotexture. No discrete solid or cystic masses are id entified. IMPRESSION: 1. Probable benign right breast mass at 10:00, 2 cm from the nipple measuring 6 mm. No evidence for m alignancy in the left breast. 2. Recommend 6 month follow-up diagnostic right mammogram and ultrasound recommended. BI-RADS category 3, probably benign findings. Reviewed, dictated and finalized at location [facility]. IMPRESSION: 1. Probable benign right breast mass at 10:00, 2 cm from the nipple measuring 6 mm. No evidence for malignancy in the left breast. 2. Recommend 6 month follow-up diagnostic right mammogram and ultrasound recomm ended. BI-RADS category 3, probably benign findings.
== END 2021-08-01 10:39 | disposition home or self-care (01) ==
LOC: CHSIMG 10:40
PROVIDERS: Visit Provider Registered Nurse
DX: N63.21 Unspecified lump in the left breast, upper outer quadrant (principal); N63.11 Unspecified lump in the right breast, upper outer quadrant
CPT/HCPCS: 76642; 77062; 77066; G0279

== ENCOUNTER 2021-10-02 09:46 | Outpatient (CLI) | payer MEDICARE, MEDICAID, SELFPAY ==
--- NOTE | ~2021-10-02 | XR_ITS ---
EXAMINATION: XR wrist RT min 3V DATE: 10/02/2021 10:09 INDICATION: Right wrist swelling. TECHNIQUE: 4 views of right wrist were obtained. COMPARISON: None. FINDINGS: Bone alignment is normal. No fracture. There is degenerative cystic change in proximal louise te. No joint space narrowing. IMPRESSION: 1. Degenerative cystic change in proximal lunate, consistent with ulnolunate abutment syndrome. Reviewed, dictated and finalized at location A. BASTING LINING BASTER IMPRESSION: 1. Degenerative cystic change in proximal lunate, consistent with ulnolunate ab utment syndrome.
== END 2021-10-02 09:47 | disposition home or self-care (01) ==
LOC: CHSIMG 09:50
PROVIDERS: PCP Family Medicine; Visit Provider Registered Nurse
DX: R60.9 Edema, unspecified (principal)
CPT/HCPCS: 73110

== ENCOUNTER 2021-10-09 08:29 | Outpatient (NON) | payer MEDICARE, SELFPAY ==
[2021-10-09 09:45] LABS: Hemoglobin A1C 7.5 % (<5.7)
[2021-10-09 09:49] LABS: Anion Gap 10 mmol/L (8-16); Blood Urea Nitrogen 14 mg/dL (7-18); Calcium 8.6 mg/dL (8.5-10.1); Carbon Dioxide 30 mmol/L (21-32); Chloride 102 mmol/L (98-108); Cholesterol 102 mg/dL (0-200); Estimated Glomerular Filt Rate 53; Glucose 88 mg/dL (70-99); HDL Direct 55 mg/dL (40-60); LDL Cholesterol Calculated 35 mg/dL (<130); Osmolality Calculated 293 mOsm/kg (285-295); Potassium 4.8 mmol/L (3.5-5.1); Sodium 142 mmol/L (136-145); Triglycerides 58 mg/dL (0-150)
== END 2021-10-09 08:30 | disposition home or self-care (01) ==
LOC: CHSLAB 08:32
PROVIDERS: Visit Provider Family Medicine
DX: J44.9 Chronic obstructive pulmonary disease, unspecified (principal); E11.9 Type 2 diabetes mellitus without complications; E78.5 Hyperlipidemia, unspecified
CPT/HCPCS: 36415; 80048; 80061; 83036

== ENCOUNTER 2021-11-19 16:01 | Outpatient (NON) | payer MEDICARE, SELFPAY ==
[2021-11-19 16:34] LABS: Add Urine Microscopic? YES; Appearance Urine Clear (Clear); Bilirubin Urine Negative (Negative); Blood Urine Negative (Negative); Color Urine Light Yellow (Yellow); Glucose Urine UA Negative (Negative); Ketones Urine Negative (Negative); Leukocyte Esterase Ur Negative LEU/UL (Negative); Nitrate Urine Negative (Negative); Protein Urine Trace (Negative); Specific Grav Ur 1.015 (1.010-1.020); Urobilinogen Urine 0.2 mg/dL (0.2-1.0)
[2021-11-19 16:41] LABS: Bacteria Urine 3+ /hpf; RBC Urine None seen /hpf (0-2); Squamous Epithelial Cell Urine Rare /hpf (Few); WBC Urine None seen /hpf (0-3)
== END 2021-11-19 16:02 | disposition home or self-care (01) ==
LOC: CHSLAB 16:03
PROVIDERS: PCP Registered Nurse; Visit Provider Registered Nurse
DX: N39.0 Urinary tract infection, site not specified (principal)
CPT/HCPCS: 81001

== ENCOUNTER 2022-04-14 07:03 | Outpatient (NON) | payer MEDICARE, SELFPAY ==
[2022-04-14 07:39] LABS: Anion Gap 4 mmol/L (8-16); Blood Urea Nitrogen 23 mg/dL (7-18); Calcium 8.6 mg/dL (8.5-10.1); Carbon Dioxide 32 mmol/L (21-32); Chloride 103 mmol/L (98-108); Cholesterol 112 mg/dL (0-200); Estimated Glomerular Filt Rate 53; Glucose 125 mg/dL (70-99); HDL Direct 57 mg/dL (40-60); LDL Cholesterol Calculated 41 mg/dL (<130); Osmolality Calculated 292 mOsm/kg (285-295); Potassium 4.9 mmol/L (3.5-5.1); Sodium 139 mmol/L (136-145); Triglycerides 70 mg/dL (0-150)
== END 2022-04-14 07:04 | disposition home or self-care (01) ==
LOC: CHSLAB 07:06
PROVIDERS: Visit Provider Family Medicine
DX: D64.9 Anemia, unspecified (principal); I50.9 Heart failure, unspecified; J44.9 Chronic obstructive pulmonary disease, unspecified; E11.9 Type 2 diabetes mellitus without complications; E78.5 Hyperlipidemia, unspecified
CPT/HCPCS: 36415; 80048; 80061; 83036

== ENCOUNTER 2022-07-16 06:52 | Outpatient (NON) | payer MEDICARE, SELFPAY ==
[2022-07-16 07:28] LABS: Anion Gap 5 mmol/L (8-16); Blood Urea Nitrogen 21 mg/dL (7-18); Calcium 8.7 mg/dL (8.5-10.1); Carbon Dioxide 30 mmol/L (21-32); Chloride 100 mmol/L (98-108); Estimated Glomerular Filt Rate 48; Glucose 171 mg/dL (70-99); Osmolality Calculated 287 mOsm/kg (285-295); Potassium 4.5 mmol/L (3.5-5.1); Sodium 135 mmol/L (136-145)
[2022-07-16 07:37] LABS: Hemoglobin A1C 8.3 % (<5.7)
== END 2022-07-16 06:53 | disposition home or self-care (01) ==
LOC: CHSLAB 06:55
PROVIDERS: Visit Provider Family Medicine
DX: I50.9 Heart failure, unspecified (principal); E11.9 Type 2 diabetes mellitus without complications
CPT/HCPCS: 36415; 80048; 83036

== ENCOUNTER 2022-07-23 06:47 | Outpatient (NON) | payer MEDICARE, SELFPAY ==
[2022-07-23 07:16] LABS: Cholesterol 101 mg/dL (0-200); HDL Direct 60 mg/dL (40-60); LDL Cholesterol Calculated 27 mg/dL (<130); Triglycerides 68 mg/dL (0-150)
== END 2022-07-23 06:48 | disposition home or self-care (01) ==
LOC: CHSLAB 06:50
PROVIDERS: Visit Provider Family Medicine
DX: E78.5 Hyperlipidemia, unspecified (principal)
CPT/HCPCS: 36415; 80061

== ENCOUNTER 2022-10-08 06:42 | Outpatient (NON) | payer MEDICARE, SELFPAY ==
[2022-10-08 07:23] LABS: Hemoglobin A1C 7.3 % (<5.7)
[2022-10-08 07:37] LABS: Anion Gap 5 mmol/L (8-16); Blood Urea Nitrogen 22 mg/dL (7-18); Calcium 8.9 mg/dL (8.5-10.1); Carbon Dioxide 32 mmol/L (21-32); Chloride 105 mmol/L (98-108); Cholesterol 116 mg/dL (0-200); Estimated Glomerular Filt Rate 40; Glucose 170 mg/dL (70-99); HDL Direct 58 mg/dL (40-60); LDL Cholesterol Calculated 35 mg/dL (<130); Osmolality Calculated 301 mOsm/kg (285-295); Potassium 5.3 mmol/L (3.5-5.1); Sodium 142 mmol/L (136-145); Thyroid Stimulating Hormone 1.41 uIU/mL (0.36-3.74); Triglycerides 116 mg/dL (0-150)
== END 2022-10-08 06:43 | disposition home or self-care (01) ==
LOC: CHSLAB 06:44
PROVIDERS: Visit Provider Family Medicine
DX: I50.9 Heart failure, unspecified (principal); E11.9 Type 2 diabetes mellitus without complications; E78.5 Hyperlipidemia, unspecified; I10 Essential (primary) hypertension
CPT/HCPCS: 36415; 80048; 80061; 83036; 84443

== ENCOUNTER 2022-11-25 07:20 | Outpatient (NON) | payer MEDICARE, SELFPAY ==
[2022-11-25 07:30] LABS: Add Urine Microscopic? YES; Appearance Urine Slightly Cloudy (Clear); Bilirubin Urine Negative (Negative); Blood Urine Negative (Negative); Color Urine Light Yellow (Yellow); Glucose Urine UA 3+ (Negative); Ketones Urine Negative (Negative); Leukocyte Esterase Ur Negative (Negative); Nitrate Urine Negative (Negative); Protein Urine Negative (Negative); Specific Grav Ur 1.015 (1.010-1.020); Urobilinogen Urine 0.2 mg/dL (0.2-1.0); pH Urine 5.5 (5.0-8.0)
[2022-11-25 07:35] LABS: Bacteria Urine 2+ /hpf; RBC Urine None seen /hpf (0-2); Squamous Epithelial Cell Urine Moderate /hpf (Few)
== END 2022-11-25 07:21 | disposition home or self-care (01) ==
PROVIDERS: Visit Provider Registered Nurse
DX: N39.0 Urinary tract infection, site not specified (principal)
CPT/HCPCS: 81001; 87077; 87086; 87088

== ENCOUNTER 2022-12-24 06:32 | Outpatient (NON) | payer MEDICARE, SELFPAY ==
[2022-12-24 07:07] LABS: Basophils Percent Auto 0.7 % (0.0-1.0); Eosinophils Absolute Auto 0.37 K/mm3 (0.02-0.50); Eosinophils Percent Auto 2.6 % (1.0-6.0); Hematocrit 34.1 % (35.0-42.0); Hemoglobin 10.6 g/dL (11.7-13.8); Immature Granulocyte Absolute 0.06 K/mm3 (0.00-0.00); Immature Granulocyte Percent A 0.4 % (0.0-0.0); Lymphocytes Absolute Auto 5.66 K/mm3 (1.10-4.50); Lymphocytes Percent Auto 40.4 % (18.0-42.0); Mean Corpuscular HGB Conc 31.1 g/dL (32.0-36.0); Mean Corpuscular Hemoglobin 28.6 pg (27.0-31.0); Mean Corpuscular Volume 92.2 fL (78.0-102.0); Mean Platelet Volume 10.3 fl (9.2-11.8); Monocytes Absolute Auto 1.36 K/mm3 (0.10-0.90); Monocytes Percent Auto 9.7 % (2.0-11.0); Neutrophils Absolute Auto 6.5 K/mm3 (1.7-7.2); Neutrophils Percent Auto 46.2 % (50.0-70.0); Platelet Count Result 357 K/mm3 (150-420); Red Cell Distribution Width 15.4 % (11.6-14.4)
[2022-12-24 07:41] LABS: Anion Gap 8 mmol/L (8-16); Blood Urea Nitrogen 22 mg/dL (7-18); Calcium 8.4 mg/dL (8.5-10.1); Carbon Dioxide 27 mmol/L (21-32); Chloride 105 mmol/L (98-108); Estimated Glomerular Filt Rate 50; Glucose 166 mg/dL (70-99); Osmolality Calculated 297 mOsm/kg (285-295); Potassium 4.8 mmol/L (3.5-5.1); Sodium 140 mmol/L (136-145)
== END 2022-12-24 06:33 | disposition home or self-care (01) ==
LOC: CHSLAB 06:35
PROVIDERS: Visit Provider Registered Nurse
DX: D64.9 Anemia, unspecified (principal); I50.9 Heart failure, unspecified; J44.9 Chronic obstructive pulmonary disease, unspecified; E11.9 Type 2 diabetes mellitus without complications
CPT/HCPCS: 36415; 80048; 85025

== ENCOUNTER 2023-01-14 07:40 | Outpatient (NON) | payer MEDICARE, SELFPAY ==
[2023-01-14 08:50] LABS: Anion Gap 6 mmol/L (8-16); Blood Urea Nitrogen 30 mg/dL (7-18); Calcium 8.9 mg/dL (8.5-10.1); Carbon Dioxide 30 mmol/L (21-32); Chloride 106 mmol/L (98-108); Estimated Glomerular Filt Rate 49; Glucose 122 mg/dL (70-99); Osmolality Calculated 301 mOsm/kg (285-295); Potassium 5.4 mmol/L (3.5-5.1); Sodium 142 mmol/L (136-145)
[2023-01-14 09:11] LABS: Hemoglobin A1C 7.6 % (<5.7)
== END 2023-01-14 07:41 | disposition home or self-care (01) ==
LOC: CHSLAB 07:41
PROVIDERS: Visit Provider Family Medicine
DX: D64.9 Anemia, unspecified (principal); J44.9 Chronic obstructive pulmonary disease, unspecified; E11.9 Type 2 diabetes mellitus without complications
CPT/HCPCS: 36415; 80048; 83036

== ENCOUNTER 2023-01-25 09:44 | Outpatient (NON) | payer MEDICARE, SELFPAY ==
[2023-01-25 10:06] LABS: Anion Gap 7 mmol/L (8-16); Blood Urea Nitrogen 28 mg/dL (7-18); Calcium 8.8 mg/dL (8.5-10.1); Carbon Dioxide 30 mmol/L (21-32); Chloride 105 mmol/L (98-108); Estimated Glomerular Filt Rate 39; Glucose 171 mg/dL (70-99); Osmolality Calculated 303 mOsm/kg (285-295); Sodium 142 mmol/L (136-145)
== END 2023-01-25 09:45 | disposition home or self-care (01) ==
LOC: CHSLAB 09:46
PROVIDERS: Visit Provider Registered Nurse
DX: D64.9 Anemia, unspecified (principal); I50.9 Heart failure, unspecified; E11.9 Type 2 diabetes mellitus without complications; Z79.899 Other long term (current) drug therapy
CPT/HCPCS: 36415; 80048

== ENCOUNTER 2023-03-03 10:47 | Outpatient (CLI) | payer MEDICARE, MEDICAID, SELFPAY ==
--- NOTE | ~2023-03-03 | CT_ITS ---
CT of the Abdomen and Pelvis: Indication: Abdominal Technique: 2.5 mm axial scans were obtained through the abdomen and pelvis following intravenous adm inistration of 100 cc of Omnipaque 350. Dose reduction technique was used on this scan by utilizing a utomated exposure control and iterative reconstruction technique. The dose-length product (DLP) was 7 96.32 mGy-cm. COMPARISON: 03/29/2021 Findings: Scans through the lung bases demonstrate minimal bibasilar interstitial change. There is a n 11 mm area of consolidation versus nodule at the right lung base (axial image 18).. The liver, gallbladder, adrenals and kidneys are within normal limits. There is evidence of prior spl enectomy and distal pancreatectomy. There are atherosclerotic calcifications of the aorta. No lympha denopathy. No bowel obstruction or bowel wall thickening. There is no evidence to suggest acute appendicitis. Images through the pelvis were performed. Urinary bladder unremarkable. No adnexal mass seen. No asci veronica.. Mild compression fracture of L1 is present, new since prior exam. Impression: 11 mm focal consolidation versus nodule at the right lung base. This is indeterminate. Short-term fol low-up CT in 1-3 months recommended to reassess. Compression fracture of L1, likely chronic, though new since 03/29/2021. Reviewed, dictated and finalized at [facility]. Impression: 11 mm focal consolidation versus nodule at the right lung base. This is indeter minate. Short-term follow-up CT in 1-3 months recommended to reassess. Compression fracture of L1, likely chronic, though new since 03/29/2021.
[2023-03-03 11:19] LABS: Estimated Glomerular Filt Rate 37
== END 2023-03-03 10:48 | disposition home or self-care (01) ==
LOC: CHSIMG 10:48
PROVIDERS: PCP Family Medicine; Visit Provider Registered Nurse
DX: R10.9 Unspecified abdominal pain (principal); R91.8 Other nonspecific abnormal finding of lung field; S32.019A Unspecified fracture of first lumbar vertebra, initial encounter for closed fracture
CPT/HCPCS: 74177; Q9967

== ENCOUNTER 2023-03-04 06:13 | Outpatient (NON) | payer MEDICARE, SELFPAY ==
[2023-03-04 06:35] LABS: Basophils Absolute Auto 0.08 K/mm3 (0.00-0.10); Basophils Percent Auto 0.7 % (0.0-1.0); Eosinophils Absolute Auto 0.15 K/mm3 (0.02-0.50); Eosinophils Percent Auto 1.3 % (1.0-6.0); Hematocrit 39.9 % (35.0-42.0); Immature Granulocyte Absolute 0.03 K/mm3 (0.00-0.00); Immature Granulocyte Percent A 0.3 % (0.0-0.0); Lymphocytes Absolute Auto 4.24 K/mm3 (1.10-4.50); Lymphocytes Percent Auto 36.6 % (18.0-42.0); Mean Corpuscular HGB Conc 30.1 g/dL (32.0-36.0); Mean Corpuscular Hemoglobin 29.1 pg (27.0-31.0); Mean Corpuscular Volume 96.6 fL (78.0-102.0); Monocytes Percent Auto 10.3 % (2.0-11.0); Neutrophils Absolute Auto 5.9 K/mm3 (1.7-7.2); Neutrophils Percent Auto 50.8 % (50.0-70.0); Platelet Count Result 245 K/mm3 (150-420); Red Blood Count 4.13 M/mm3 (4.20-5.40); Red Cell Distribution Width 15.3 % (11.6-14.4); White Blood Count 11.6 K/mm3 (4.8-10.8)
[2023-03-04 07:09] LABS: Alanine Aminotransferase 27 U/L (14-59); Albumin Level 2.7 g/dL (3.4-5.0); Alkaline Phosphatase 96 U/L (46-116); Anion Gap 10 mmol/L (8-16); Aspartate Amino Transferase 28 U/L (15-37); Bilirubin,Total 0.2 mg/dL (0.00-1.00); Blood Urea Nitrogen 28 mg/dL (7-18); Calcium 8.7 mg/dL (8.5-10.1); Carbon Dioxide 28 mmol/L (21-32); Chloride 103 mmol/L (98-108); Estimated Glomerular Filt Rate 38; Glucose 113 mg/dL (70-99); Osmolality Calculated 298 mOsm/kg (285-295); Potassium 4.8 mmol/L (3.5-5.1); Sodium 141 mmol/L (136-145); Total Protein 8.3 g/dL (6.4-8.2)
== END 2023-03-04 06:14 | disposition home or self-care (01) ==
LOC: CHSLAB 06:22
PROVIDERS: Visit Provider Family Medicine
DX: I10 Essential (primary) hypertension (principal); I50.9 Heart failure, unspecified; J44.9 Chronic obstructive pulmonary disease, unspecified; E11.9 Type 2 diabetes mellitus without complications
CPT/HCPCS: 36415; 80053; 85025

== ENCOUNTER 2023-03-23 06:31 | Outpatient (NON) | payer MEDICARE, SELFPAY ==
[2023-03-23 07:02] LABS: Alanine Aminotransferase 19 U/L (14-59); Albumin Level 2.7 g/dL (3.4-5.0); Alkaline Phosphatase 96 U/L (46-116); Anion Gap 6 mmol/L (8-16); Aspartate Amino Transferase 18 U/L (15-37); Bilirubin,Total 0.2 mg/dL (0.00-1.00); Blood Urea Nitrogen 21 mg/dL (7-18); Carbon Dioxide 32 mmol/L (21-32); Chloride 105 mmol/L (98-108); Estimated Glomerular Filt Rate 44; Glucose 111 mg/dL (70-99); Osmolality Calculated 300 mOsm/kg (285-295); Potassium 4.9 mmol/L (3.5-5.1); Sodium 143 mmol/L (136-145); Total Protein 6.7 g/dL (6.4-8.2)
[2023-03-23 07:12] LABS: Calcium 8.7 mg/dL (8.5-10.1)
== END 2023-03-23 06:32 | disposition home or self-care (01) ==
LOC: CHSLAB 06:33
PROVIDERS: Visit Provider Family Medicine
DX: I50.9 Heart failure, unspecified (principal); E11.9 Type 2 diabetes mellitus without complications
CPT/HCPCS: 36415; 80053

== ENCOUNTER 2023-04-20 07:12 | Outpatient (NON) | payer MEDICARE, SELFPAY ==
[2023-04-20 07:51] LABS: Hemoglobin A1C 7.1 % (<5.7)
[2023-04-20 08:00] LABS: Anion Gap 7 mmol/L (8-16); Blood Urea Nitrogen 26 mg/dL (7-18); Calcium 8.8 mg/dL (8.5-10.1); Carbon Dioxide 31 mmol/L (21-32); Chloride 105 mmol/L (98-108); Cholesterol 96 mg/dL (0-200); Estimated Glomerular Filt Rate 41; Glucose 137 mg/dL (70-99); HDL Direct 51 mg/dL (40-60); LDL Cholesterol Calculated 28 mg/dL (<130); Osmolality Calculated 302 mOsm/kg (285-295); Potassium 4.9 mmol/L (3.5-5.1); Sodium 143 mmol/L (136-145); Triglycerides 85 mg/dL (0-150)
== END 2023-04-20 07:13 | disposition home or self-care (01) ==
LOC: CHSLAB 07:14
PROVIDERS: Visit Provider Family Medicine
DX: E78.5 Hyperlipidemia, unspecified (principal); I50.9 Heart failure, unspecified; E11.9 Type 2 diabetes mellitus without complications
CPT/HCPCS: 36415; 80048; 80061; 83036

== ENCOUNTER 2023-06-03 07:41 | Outpatient (CLI) | payer MEDICARE, MEDICAID, SELFPAY ==
--- NOTE | ~2023-06-03 | CT_ITS ---
Clinical Indication: Right lung nodule CT Scan of the Chest with Contrast: Technique: Contiguous sections were acquired throughout the chest after intravenous administration of 75 cc of Omnipaque 350. Dose reduction technique was used on this scan by utilizing automated exposu re control and iterative reconstruction technique. The dose-length product (DLP) was 279.42 mGy-cm. COMPARISON: 03/03/2023 Findings: There is no evidence of any significant mediastinal, hilar or axillary lymphadenopathy. There is no f illing defect in the pulmonary arterial tree to suggest pulmonary embolus. There is no evidence of ao rtic dissection or aneurysm. There are atherosclerotic calcifications of the aorta and coronary arter ies There is no evidence of pleural or pericardial effusion. Moderate emphysema present. Focal area of airspace opacity at the right lung base seen on prior abdom inal pelvic CT dated 03/03/2023 is resolved. Images through the upper abdomen reveal prior distal pancreatectomy and splenectomy. Impression: Moderate emphysema. Interval resolution of the airspace opacity seen on prior exam of the right lung base. No persistent pulmonary nodule seen. Reviewed, dictated and finalized at location . Impression: Moderate emphysema. Interval resolution of the airspace opacity seen on prior exam of the right yue g base. No persistent pulmonary nodule seen.
[2023-06-03 08:24] LABS: Estimated Glomerular Filt Rate 40
== END 2023-06-03 07:42 | disposition home or self-care (01) ==
PROVIDERS: PCP Family Medicine; Visit Provider Registered Nurse
DX: R10.32 Left lower quadrant pain (principal); R93.5 Abnormal findings on diagnostic imaging of other abdominal regions, including retroperitoneum; R91.1 Solitary pulmonary nodule
CPT/HCPCS: 71260; Q9967

== ENCOUNTER 2023-07-13 09:53 | Outpatient (CLI) | payer MEDICARE, MEDICAID, SELFPAY ==
--- NOTE | ~2023-07-13 | XR_ITS ---
EXAMINATION: XR chest 2V DATE: 07/13/2023 10:26 INDICATION: Congestive heart failure. Leukocytosis. TECHNIQUE: Frontal and lateral views of the chest were obtained. COMPARISON: Chest 2 views 04/01/2021 FINDINGS: There are airspace opacities in right upper lobe. No pleural effusion or pneumothorax. Card iomegaly is noted. There is a chronic compression fracture in lumbar spine. IMPRESSION: 1. Airspace opacities in right upper lobe, consistent with pneumonia. 2. Cardiomegaly. Reviewed, dictated and finalized at location A.
[2023-07-13 10:10] LABS: Hematocrit 35.3 % (35.0-42.0); Hemoglobin 11.2 g/dL (11.7-13.8); Mean Corpuscular HGB Conc 31.7 g/dL (32.0-36.0); Mean Corpuscular Hemoglobin 29.5 pg (27.0-31.0); Mean Corpuscular Volume 92.9 fL (78.0-102.0); Mean Platelet Volume 9.7 fl (9.2-11.8); Platelet Count Result 286 K/mm3 (150-420); Red Cell Distribution Width 15.2 % (11.6-14.4)
[2023-07-13 10:26] LABS: Band Neutrophils Percent 3 % (0-6); Basophils Percent Manual 0 % (0-1); Eosinophils Percent Manual 0 % (1-6); Lymphocytes Absolute Manual 1.35 K/mm3 (1.1-4.5); Lymphocytes Percent Manual 5 % (18-44); Metamyelocytes Percent 1 %; Monocytes Absolute Manual 1.08 K/mm3 (0.1-0.90); Monocytes Percent Manual 4 % (3-9); Neutrophils Percent Manual 87 % (46-73); Platelet Estimate Adequate (Adequate); Total Cells Counted 100
[2023-07-13 10:43] LABS: Alanine Aminotransferase 14 U/L (14-59); Albumin Level 2.3 g/dL (3.4-5.0); Alkaline Phosphatase 126 U/L (46-116); Anion Gap 7 mmol/L (8-16); Aspartate Amino Transferase 15 U/L (15-37); Bilirubin,Total 0.4 mg/dL (0.00-1.00); Blood Urea Nitrogen 26 mg/dL (7-18); Carbon Dioxide 29 mmol/L (21-32); Chloride 102 mmol/L (98-108); Estimated Glomerular Filt Rate 33; Glucose 291 mg/dL (70-99); Osmolality Calculated 301 mOsm/kg (285-295); Potassium 5.6 mmol/L (3.5-5.1); Sodium 138 mmol/L (136-145); Total Protein 6.8 g/dL (6.4-8.2)
== END 2023-07-13 09:54 | disposition home or self-care (01) ==
LOC: CHSLAB 09:56
PROVIDERS: PCP Family Medicine; Visit Provider Family Medicine
DX: I10 Essential (primary) hypertension (principal); I50.9 Heart failure, unspecified; J44.9 Chronic obstructive pulmonary disease, unspecified; R91.8 Other nonspecific abnormal finding of lung field; I51.7 Cardiomegaly
CPT/HCPCS: 36415; 71046; 80053; 85025

== ENCOUNTER 2023-07-13 10:25 | Inpatient (IN) | payer MEDICARE, MEDICAID, SELFPAY ==
[2023-07-13] VITALS (7 sets, daily range): BP systolic 142–177; BP diastolic 42–76; PULSE 75–87; RESP 16–20; TEMP 36.6–37.2; O2SAT 93–97; BMI 32.1
--- NOTE | 2023-07-13 10:31 | ED.SOB ---
HPI - SOB/Dyspnea General Chief Complaint: Upper Respiratory Infection Stated Complaint: abnormal labs Time Seen by Provider: 07/13/23 10:29 Source: patient and RN notes reviewed Mode of arrival: ambulatory Limitations: no limitations History of Present Illness HPI Narrative: Patient has been ill for the last couple of days. She states that many patients at the assisted have been ill recently. She had outpatient labs ordered by her primary care physician which showed 27,000 white count and she was sent over here. She also had a chest x-ray and metabolic profile done which are still pending at the time of her arrival. She says that she has been coughing up some brown phlegm for last couple of days. She denies any fever chills. She says when she coughs or exerts herself she is little more short of breath. MD elicited complaint: shortness of breath Pertinent past history: COPD Onset (ago): day(s) (2) Timing: progressively worsening Severity: moderate Exacerbating factors: exertion and coughing Relieving factors: nothing Known history of: COPD Associated symptoms: cough and wheezing Related Data Home oxygen amount: none Home Medications Medication Instructions Recorded Confirmed acetaminophen 500 mg capsule 500 mg PO QID PRN Pain 10/09/20 07/13/23 aspirin 81 mg tablet,delayed 81 mg PO DAILY 10/09/20 07/13/23 release atorvastatin 40 mg tablet 40 mg PO HS 10/09/20 07/13/23 econazole 1 % topical cream 1 applic topical DAILY 10/09/20 07/13/23 fluoxetine 20 mg capsule 20 mg PO BID 10/09/20 07/13/23 fluticasone furoate 100 1 inh inhalation DAILY 10/09/20 07/13/23 mcg-vilanterol 25 mcg/dose inhalation powder (Breo Ellipta) furosemide 20 mg tablet (Lasix) 20 mg PO DAILY 10/09/20 07/13/23 glipizide 5 mg tablet 5 mg PO DAILY 10/09/20 07/13/23 lisinopril 40 mg tablet 40 mg PO DAILY 10/09/20 07/13/23 lorazepam 0.5 mg tablet (Ativan) 0.5 mg PO TID PRN Anxiety 10/09/20 07/13/23 umeclidinium 62.5 mcg/actuation 1 inh inhalation DAILY 12/09/20 09/12/23 blister powder for inhalation (Incruse Ellipta) aluminum-mag hydroxide-simethicone 5 ml PO QID 03/29/21 07/13/23 400 mg-400 mg-40 mg/5 mL oral susp (Mylanta Maximum Strength) cyanocobalamin (vitamin B-12) 1,000 mcg PO DAILY 03/29/21 07/13/23 1,000 mcg capsule duloxetine 20 mg capsule,delayed 40 mg PO DAILY 03/29/21 07/13/23 release lidocaine HCl 2 % mucosal solution 1 applic PO PRN 03/29/21 07/13/23 (Lidocaine Viscous) polyethylene glycol 3350 17 gram 17 g PO DAILY 03/29/21 07/13/23 oral powder packet (Miralax) tiotropium bromide 18 mcg capsule 1 cap inhalation DAILY 03/29/21 07/13/23 with inhalation device (Spiriva with HandiHaler) Allergies Allergy/AdvReac Type Severity Reaction Status Date / Time azithromycin Allergy Unknown Verified 07/13/23 10:34 cephalexin Allergy Unknown Verified 07/13/23 10:34 doxylamine Allergy Unknown Verified 07/13/23 10:34 codeine AdvReac Unknown Verified 07/13/23 10:34 Penicillins AdvReac Unknown Verified 07/13/23 10:34 Sulfa (Sulfonamide AdvReac Unknown Verified 07/13/23 10:34 Antibiotics) Review of Systems Review of Systems: All systems reviewed & are unremarkable except as noted in HPI and below PMFSH Past Medical History Medical History Anemia, chronic disease Anxiety disorder Arthritis CAD (coronary artery disease) COPD (chronic obstructive pulmonary disease) Depression Diabetes mellitus GERD (gastroesophageal reflux disease) Urinary tract infection Surgical History Surgical History H/O splenectomy Family History Family History Other Brain cancer Father Diabetes mellitus Heart attack Sibling Heart attack Sibling Diabetes mellitus Sibling Heart attack Social History Social History (Reviewed 07/13/23
[2023-07-13 11:25] LABS: CRP > 25.0 mg/dL (0.0-0.9)
[2023-07-13 11:39] LABS: Lactic Acid Reflex 2.2 mmol/L (0.4-2.0)
--- NOTE | 2023-07-13 11:53 | PM.IMHP ---
H&P: HPI History of Present Illness Date/Time: 07/13/23 11:53 Chief Complaint: chest pain and difficulty breathing Narrative: This is a 77-year-old female patient resides at the senior living in [place] who is admitted from the emergency department with dyspnea and reproducible chest pain with findings of right upper quadrant pneumonia on chest x-ray. Patient had labs drawn while at the senior living this morning [place] [address] with a shift to the left and slight worsening of chronic kidney disease with GFR 33 (baseline 40s.) Patient also noted to have hyperkalemia at 5.6. CRP drawn in ER is higher than lab can measure and lactic acid is 2.2. Patient has cardiomegaly and crackles pulmonary edema. Will not want patient to receive 30 mL/kg fluid bolus. Patient reports that her symptoms of chest pain and dyspnea started yesterday morning after awakening. She states that even walking short distances causes her to be significantly out of breath. Patient wears oxygen 2 liters/minute nasal cannula all times and is currently on 2 L nasal cannula with adequate saturations in the emergency department. Patient reports that the senior living has paperwork stating no CPR but I am not ready to yet so I would want everything done. Patient will be admitted as a full code. I discussed patient's concern of chest pain and prior heart attack with ER physician and he requested that we pursue cardiac workup on the floor rather than in the emergency department. We also ordered COVID flu and RSV testing which was negative. Review of Systems Review of Systems: All systems reviewed & are unremarkable except as noted in HPI and below PMFSH Past Medical History Medical History (Updated 07/13/23 @ 13:25 by Ihsan Vallecillo APRN) Anemia, chronic disease Anxiety disorder Arthritis CAD (coronary artery disease) COPD (chronic obstructive pulmonary disease) Depression Diabetes mellitus GERD (gastroesophageal reflux disease) Hypertension Urinary tract infection Surgical History Surgical History H/O splenectomy Family History Family History Other Brain cancer Father Diabetes mellitus Heart attack Sibling Heart attack Sibling Diabetes mellitus Sibling Heart attack Social History Social History Smoking packs per day: 2.5 Smoking cigarettes per day: 50.0 Smoking status: Former smoker Tobacco type: cigarettes Smoking end date: 06/01/20 Alcohol intake: former Drinks per week: 3 Substance use: never Gender identity (if verbalized by the patient): Female Spiritual care concerns: No Meds Home Medications and Allergies Home Medications Medication Instructions Recorded Confirmed Type acetaminophen 500 mg capsule 500 mg PO QID PRN Pain 10/09/20 07/13/23 History aspirin 81 mg tablet,delayed 81 mg PO DAILY 10/09/20 07/13/23 History release atorvastatin 40 mg tablet 40 mg PO HS 10/09/20 07/13/23 History econazole 1 % topical cream 1 applic topical DAILY 10/09/20 07/13/23 History fluoxetine 20 mg capsule 20 mg PO BID 10/09/20 07/13/23 History fluticasone furoate 100 1 inh inhalation DAILY 10/09/20 07/13/23 History mcg-vilanterol 25 mcg/dose inhalation powder (Breo Ellipta) furosemide 20 mg tablet (Lasix) 20 mg PO DAILY 10/09/20 07/13/23 History glipizide 5 mg tablet 5 mg PO DAILY 10/09/20 07/13/23 History lisinopril 40 mg tablet 40 mg PO DAILY 10/09/20 07/13/23 History lorazepam 0.5 mg tablet (Ativan) 0.5 mg PO TID PRN Anxiety 10/09/20 07/13/23 History pantoprazole 40 mg tablet,delayed 40 mg PO QAM #90 tabs 10/09/20 07/13/23 Rx release (Protonix) umeclidinium 62.5 mcg/actuation 1 inh inhalation DAILY 10/09/20 07/13/23 History blister powder for inhalation (Incruse Ellipta) aluminum-mag
--- NOTE | 2023-07-13 12:02 | PC.NURSE ---
called for report, RN not ready at this time.
--- NOTE | 2023-07-13 12:05 | ECG_ITS ---
Measurements Intervals [place] Rate: 76 P: 40 NM: 175 QRS: 22 QRSD: 94 T: -16 QT: 372 QTc: 419 Interpretive Statements SINUS RHYTHM DELAYED PRECORDIAL R/S TRANSITION LEFT VENTRICULAR HYPERTROPHY ST-T WAVE ABNORMALITY IN INFERIOR LEADS- CONSIDER ISCHEMIA ABNORMAL ECG COMPARED TO ECG 10/09/2020 13:51:28 NO SIGNIFICANT CHANGES Electronically Signed On 07-13-2023 14:08:19 CDT by Tyree Montero D.O.
[2023-07-13 12:12] LABS: Troponin I 6.9 ng/L (0.00-60.4)
[2023-07-13 12:32] LABS: Magnesium 1.9 mg/dL (1.8-2.4); NT Pro B Type Natriuretic Pept 1625 pg/mL (0-450)
[2023-07-13 12:34] LABS: Hemoglobin A1C 8.2 % (<5.7)
[2023-07-13 12:36] LABS: Influenza A QL RT-PCR Negative (Negative); Influenza B QL RT-PCR Negative (Negative); SARS-CoV-2 RNA PCR Negative (Negative)
--- NOTE | 2023-07-13 12:40 | ADMGEN ---
This patient, Molly Rabago, was admitted to 2nd Floor Room 205-2. Patient/family oriented to hospital policies and general routines including ID bracelet, bed and alarms, visiting hours, pain management, procedures, bathroom and other care routines, personal items, smoking policy, room service/diet, and visiting hours. Information on how to activate the Rapid Response Team has been discussed. Patient/Family are encouraged to report perceived risks to care and to ask questions if they do not understand what they are told or what they should do.
[2023-07-13 12:53] LABS: RSV RNA, RT-PCR Negative (Negative)
[2023-07-13] MEDS: SODIUM CHLORIDE 0.9% IV 1,000 ML 75 ML IV CONT (13:57)
[2023-07-13] MEDS: cefTRIAXone 2 GM/NS 100 ML 2 GM/100 ML BAG IVPB (13:58)
[2023-07-13] MEDS: SODIUM ZIRCONIUM CYCLOSILICATE 5 GM POWD.PACK 10 GM PO (14:01)
[2023-07-13 14:16] LABS: Reflex Lactic Acid Yes or No Add Lactic
[2023-07-13 14:52] LABS: Lactic Acid 1.6 mmol/L (0.4-2.0)
[2023-07-13 16:23] LABS: Appearance Urine Clear (Clear); Bilirubin Urine Negative (Negative); Blood Urine 1+ (Negative); Color Urine Light Yellow (Yellow); Glucose Urine UA 3+ (Negative); Ketones Urine Negative (Negative); Leukocyte Esterase Ur Negative LEU/UL (Negative); Nitrate Urine Negative (Negative); Protein Urine Trace (Negative); Urobilinogen Urine 0.2 mg/dL (0.2-1.0)
[2023-07-13 17:03] LABS: Add Urine Microscopic? YES; Bacteria Urine Trace /hpf; RBC Urine 0-2 /hpf (0-2); Squamous Epithelial Cell Urine Rare /hpf (Few); WBC Urine 0-3 /hpf (0-3)
[2023-07-13 17:08] LABS: Glucose Point of Care 259 mg/dl (65-105)
[2023-07-13] MEDS: INSULIN HUMAN LISPRO (*BKC) 1,000 UNITS/10 ML VIAL SUB-Q (17:09)
[2023-07-13] MEDS: HYDROcodone/acetaminophen (*CRX) 5-325 MG TABLET 1 TAB PO (17:11)
[2023-07-13] MEDS: hydrALAZINE HCL 25 MG TABLET PO ×2 (17:12→20:44)
[2023-07-13] MEDS: FLUoxetine HCL 20 MG CAPSULE PO (17:27)
[2023-07-13] MEDS: ONDANSETRON INJ 4 MG/2 ML VIAL IV PUSH (17:29)
[2023-07-13] MEDS: ATORVASTATIN 40 MG TABLET PO (20:41)
[2023-07-13] MEDS: DOXYCYCLINE HYCLATE 100 MG TABLET PO (20:44)
[2023-07-13] MEDS: METOPROLOL TARTRATE 50 MG TAB PO (20:44)
[2023-07-13] MEDS: MONTELUKAST SODIUM 10 MG TABLET PO (20:46)
[2023-07-13] MEDS: GABAPENTIN 100 MG CAPSULE PO (20:46)
[2023-07-13] MEDS: INSULIN GLARGINE (*BKC) 1,000 UNITS/10 ML VIAL 22 UNITS SUB-Q (20:50)
[2023-07-13 20:54] LABS: Glucose Point of Care 235 mg/dl (65-105)
[2023-07-14] VITALS (12 sets, daily range): BP systolic 126–167; BP diastolic 48–74; PULSE 68–91; RESP 16–20; TEMP 36.3–36.6; O2SAT 92–99
--- NOTE | 2023-07-14 02:37 | PC.NURSE ---
On 07/14/23, the COLLECTION AGENT, [ Sharon Thompson], provided care and completed [facility] documentation on this patient. I have reviewed the COLLECTION AGENT's documentation and agree with the findings.
[2023-07-14] MEDS: SODIUM CHLORIDE 0.9% IV 1,000 ML 75 ML IV CONT (02:58)
[2023-07-14 05:15] LABS: Hemoglobin 9.8 g/dL (11.7-13.8); Mean Corpuscular HGB Conc 30.6 g/dL (32.0-36.0); Mean Corpuscular Hemoglobin 28.7 pg (27.0-31.0); Mean Corpuscular Volume 93.8 fL (78.0-102.0); Mean Platelet Volume 10.2 fl (9.2-11.8); Platelet Count Result 266 K/mm3 (150-420); Red Blood Count 3.41 M/mm3 (4.20-5.40); Red Cell Distribution Width 15.3 % (11.6-14.4)
[2023-07-14 05:20] LABS: White Blood Count 25.2 K/mm3 (4.8-10.8)
[2023-07-14 05:30] LABS: Alanine Aminotransferase 12 U/L (14-59); Albumin Level 1.7 g/dL (3.4-5.0); Alkaline Phosphatase 95 U/L (46-116); Anion Gap 6 mmol/L (8-16); Aspartate Amino Transferase 11 U/L (15-37); Bilirubin,Total 0.3 mg/dL (0.00-1.00); Blood Urea Nitrogen 23 mg/dL (7-18); Calcium 8.4 mg/dL (8.5-10.1); Carbon Dioxide 28 mmol/L (21-32); Chloride 104 mmol/L (98-108); Estimated CRCL calculation 32 ml/min; Estimated Glomerular Filt Rate 40; Glucose 177 mg/dL (70-99); Osmolality Calculated 293 mOsm/kg (285-295); Potassium 4.2 mmol/L (3.5-5.1); Sodium 138 mmol/L (136-145); Total Protein 6.3 g/dL (6.4-8.2)
[2023-07-14 05:49] LABS: Band Neutrophils Percent 1 % (0-6); Basophils Absolute Manual 0.25 K/mm3 (0-0.1); Basophils Percent Manual 1 % (0-1); Eosinophils Absolute Manual 0.25 K/mm3 (0.02-0.5); Eosinophils Percent Manual 1 % (1-6); Lymphocytes Absolute Manual 3.52 K/mm3 (1.1-4.5); Lymphocytes Percent Manual 14 % (18-44); Metamyelocytes Percent 1 %; Monocytes Absolute Manual 1.51 K/mm3 (0.1-0.90); Monocytes Percent Manual 6 % (3-9); Neutrophils Percent Manual 76 % (46-73); Total Cells Counted 100
[2023-07-14 05:50] LABS: Platelet Estimate Adequate (Adequate)
[2023-07-14] MEDS: SALMET XINAFT/FLUTIC PROPIN 250 MCG/50 MCG INH CAP 1 PUFF INHALATION ×2 (06:21→16:52)
[2023-07-14 07:48] LABS: Glucose Point of Care 176 mg/dl (65-105)
[2023-07-14] MEDS: INSULIN HUMAN LISPRO (*BKC) 1,000 UNITS/10 ML VIAL 6 UNITS SUB-Q ×3 (08:00→16:58)
[2023-07-14] MEDS: INSULIN HUMAN LISPRO (*BKC) 1,000 UNITS/10 ML VIAL SUB-Q (08:00)
--- NOTE | 2023-07-14 08:20 | PC.NURSE ---
At 0803 pt moved from OBS to IN PT. RO
[2023-07-14] MEDS: FLUoxetine HCL 10 MG CAPSULE 30 MG PO (09:18)
[2023-07-14] MEDS: LORATADINE 10 MG TABLET PO (09:19)
[2023-07-14] MEDS: FUROSEMIDE 20 MG TABLET PO (09:19)
[2023-07-14] MEDS: ASPIRIN 81 MG ENTERIC TABLET PO (09:19)
[2023-07-14] MEDS: METOPROLOL TARTRATE 50 MG TAB PO ×2 (09:20→20:22)
[2023-07-14] MEDS: hydrALAZINE HCL 25 MG TABLET PO ×4 (09:21→20:22)
[2023-07-14] MEDS: EMPAGLIFLOZIN 25 MG TABLET PO (09:21)
[2023-07-14] MEDS: DOXYCYCLINE HYCLATE 100 MG TABLET PO ×2 (09:21→20:21)
[2023-07-14] MEDS: GABAPENTIN 100 MG CAPSULE PO ×3 (09:21→16:56)
[2023-07-14] MEDS: guaiFENesin 12 HR 600 MG TABCR PO ×2 (09:21→20:21)
[2023-07-14] MEDS: polyethylene glycoL 3350 17 GM POWD.PACK PO (09:26)
[2023-07-14] MEDS: ACETAMINOPHEN 325 MG TABLET 650 MG PO (09:30)
--- NOTE | 2023-07-14 09:32 | PM.IMPN ---
Progress Note: A&P Assessment and Plan (1) Severe sepsis: Code(s): A41.9 - Sepsis, unspecified organism; R65.20 - Severe sepsis without septic shock Status: Acute Assessment and Plan: White blood cell count 27, Respiratory rate greater than 20, Lactic acid 2.2 and presence of pneumonia on imaging. Patient started on vancomycin in ER, added ceftriaxone and doxycycline (due to azithromycin allergy.) wbc 25 will continue to monitor and stay on regime at this time (2) Pneumonia: Qualifiers: Laterality: right Lung location: middle lobe of lung Pneumonia type: due to unspecified organism Qualified Code(s): J18.9 - Pneumonia, unspecified organism Code(s): J18.9 - Pneumonia, unspecified organism Status: Acute Assessment and Plan: See 1 (3) Hyperkalemia: Code(s): E87.5 - Hyperkalemia Status: Acute Assessment and Plan: Lokelma 10 g x1 now then 5 g bid. EKG ordered. medications discontinue potassium is 4.2 at this time we will continue to monitor (4) Acute kidney injury superimposed on chronic kidney disease: Code(s): N17.9 - Acute kidney failure, unspecified; N18.9 - Chronic kidney disease, unspecified Status: Acute Assessment and Plan: Baseline Cr 1.1-1.2 and baseline GFR 40s, current Cr 1.5 and GFR 33. Cautious hydration with IV fluids 75 mL/hr to minimize fluid overload. (5) Diabetes mellitus: Code(s): E11.9 - Type 2 diabetes mellitus without complications Status: Acute Assessment and Plan: Basal insulin plus ACHS finger stick glucose checks with high dose supplemental insulin ordered. Hgb A1c 8.2 (6) COPD (chronic obstructive pulmonary disease): Code(s): J44.9 - Chronic obstructive pulmonary disease, unspecified Status: Acute Assessment and Plan: Continue oxygen at 2 liters/minute and may titrate if needed (7) Anemia, chronic disease: Code(s): D63.8 - Anemia in other chronic diseases classified elsewhere Status: Acute Assessment and Plan: Stable, monitor (8) Hypertension: Code(s): I10 - Essential (primary) hypertension Status: Acute Assessment and Plan: Chronic HTN, BP comparable to previous results. Patient on metoprolol which may be preventing HR from being elevated in sepsis. Hold lisinopril due to RENA. Start hydralazine instead. Plan Admit to med/tele antibiotics for pneumonia --ceftriaxone, azithromycin, vancomycin IV fluids at 75 mL/hr for RENA. IV fluid bolus held due to concern for developing fluid overload. continue creatinine is 1.28 Oxygen continue at 2 liters/minute may titrate as needed echocardiogram ordered we will continue with the echocardiogram as the last 1 she has had was in 2019 [facility] for hyperkalemia-- EKG ordered-- no concerning EKG findings so we will gently treat hyperkalemia without aggressive measures, patient has history periodically hyperkalemia discontinued morning labs ordered, no need for repeat troponin as patient's symptoms have been ongoing for over 24 hours COVID flu and RSV are negative diet: Carb consistent VT prophylaxis: Lovenox renally dosed activity: Ambulate with assistance and up to chair Medication reconciliation: will complete after verification, hold lisinopril due to RENA. 20 Subjective Date/time seen: 07/14/23 09:32 Interval history: patient is up in recliner chair patient is on IV vancomycin to 36 hours we are awaiting patient's MRSA test results to C4 able to take her off of the IV vanc and placed on oral antibiotics patient still has some acute kidney injury noted her white blood count went from 27-[address] Patient's hemoglobin slightly low anemic at 9.8 but stable she was 11.2 but currently receiving some IV fluids which may be delusional we will continue to monitor her she has remained afebrile no nausea vomiting and/or diarrhea noted slightly tense in with a blood pressure 167/5
[2023-07-14] MEDS: MICONAZOLE NITRATE 2% CREAM 30 GM TUBE 1 APPLIC TOPICAL (09:44)
[2023-07-14] MEDS: PANTOPRAZOLE 40 MG TABLET PO (09:45)
[2023-07-14] MEDS: UMECLIDINIUM BROMIDE 62.5 MCG ELLIPTA 1 PUFF INHALATION (09:48)
[2023-07-14] MEDS: IPRATROPIUM 0.5 MG/ALBUTEROL SULFATE 2.5 MG AMPUL.NEB 3 ML INHALATION ×2 (11:01→18:20)
[2023-07-14 11:41] LABS: Glucose Point of Care 201 mg/dl (65-105)
[2023-07-14] MEDS: cefTRIAXone 2 GM/NS 100 ML 2 GM/100 ML BAG IVPB (12:58)
[2023-07-14 16:59] LABS: Glucose Point of Care 152 mg/dl (65-105)
[2023-07-14 20:20] LABS: Glucose Point of Care 256 mg/dl (65-105)
[2023-07-14] MEDS: INSULIN GLARGINE (*BKC) 1,000 UNITS/10 ML VIAL 22 UNITS SUB-Q (20:21)
[2023-07-14] MEDS: MONTELUKAST SODIUM 10 MG TABLET PO (20:21)
[2023-07-14] MEDS: ATORVASTATIN 40 MG TABLET PO (20:22)
[2023-07-14] MEDS: hydrOXYzine HCL 12.5 MG TABLET PO (20:23)
--- NOTE | 2023-07-14 21:12 | PC.NURSE ---
Nella Pierre, CALENDER WIND UP TENDER/Hospitalist notified of patient refusing Lovenox. CALENDER WIND UP TENDER also notified that patient's preliminary blood cutures negative. New orders recieved.
[2023-07-15] VITALS (14 sets, daily range): BP systolic 144–160; BP diastolic 51–58; PULSE 68–95; RESP 16–18; TEMP 36.4–36.6; O2SAT 92–99
[2023-07-15] MEDS: IPRATROPIUM 0.5 MG/ALBUTEROL SULFATE 2.5 MG AMPUL.NEB 3 ML INHALATION ×4 (00:01→20:19)
--- NOTE | 2023-07-15 01:00 | ECHO_ITS ---
Patient Info Name: Molly Rabago Age: 77 years : 1945 Gender: Female Ht: 62 in Wt: 173 lbs BSA: 1.88 m2 HR: 86 bpm BP: 160 / 58 mmHg Heart Rhythm: Sinus Rhythm Technical Quality: Fair Exam Date: 07/15/2023 7:39 AM Exam Location: [facility], [place] Patient Status: Inpatient Admit Date: 07/14/2023 Staff Ordering Physician: Ihsan Vallecillo APRN Folder Inspector: Jeanie Mejia RDCS Attending Provider: Arnaldo Wood MD Referring Physician: Avel GIRON; Exam Type: CA echo doppler color flow Study Info Indications - pulmonary edema R07.9 - Chest pain, unspecified Complete two-dimensional, color flow and Doppler transthoracic echocardiogram is performed. History/Risk Factors Hypertension: Yes Dyslipidemia: Yes Congenital Heart Disease (CHD): No Diabetic Therapy: Oral Myocardial Infarction (ND): Yes Chronic Lung Disease: No Obesity: No Renal Disease: No Congestive Heart Failure (CHF): Hx CHF Cardiomyopathy/LV Systolic Dysfunction: No Date of Prior ND: 06/17/2020 Diabetes Mellitus: Type II COPD: On Meds Tobacco Use: Former Cerebrovascular Disease: No Family History: Diabetes Mellitus, Coronary Artery Disease Deep Vein Thrombosis (DVT): None Dialysis: None Cardiac Arrest: No Summary 1. Complete two-dimensional, color flow and Doppler transthoracic echocardiogram is performed. 2. Left ventricular chamber dimension is normal. 3. Left ventricular systolic function is normal, estimated at 65-70%. 4. There is mild concentric increased left ventricular wall thickness. 5. The left ventricular diastolic function is grade I diastolic dysfunction. 6. E/e' 16 is elevated. 7. There is mild aortic valve sclerosis. 8. There is trace tricuspid valve regurgitation. 9. No pulmonary hypertension, estimated pulmonary arterial systolic pressure is 33 mmHg. Recommendations * Continue medical therapy for diabetes. Left Ventricle E/e' 16 is elevated. Left ventricular chamber dimension is normal. Left ventricular systolic function is normal, estimated at 65-70%. There is mild concentric increased left ventricular wall thickness. The left ventricular diastolic function is grade I diastolic dysfunction. Right Ventricle Right ventricular systolic function is normal and with normal TAPSE 2.1 cm. Right ventricular chamber dimension is normal. Left Atria Left atrial chamber dimension is normal. Right Atria Right atrial chamber dimension is normal. Aortic Valve The aortic valve is trileaflet. There is mild aortic valve sclerosis. There is no aortic valve stenosis. There is no aortic valve regurgitation. Pulmonic Valve There is no pulmonic regurgitation. Mitral Valve There is no mitral valve stenosis. There is no mitral valve regurgitation. Tricuspid Valve There is trace tricuspid valve regurgitation. No pulmonary hypertension, estimated pulmonary arterial systolic pressure is 33 mmHg. Pericardium/Pleural There is no pericardial effusion. Inferior Vena Cava Normal inferior vena cava with >50% collapse upon inspiration consistent with normal right atrial pressure, 5 mmHg. Aorta The aortic root size at the sinus of Valsalva is normal. Left Ventricular Outflow Tract Name Value Normal LVOT 2D LVOT Diameter
[2023-07-15 05:11] LABS: Hematocrit 30.2 % (35.0-42.0); Hemoglobin 9.5 g/dL (11.7-13.8); Mean Corpuscular HGB Conc 31.5 g/dL (32.0-36.0); Mean Corpuscular Hemoglobin 29.2 pg (27.0-31.0); Mean Corpuscular Volume 92.9 fL (78.0-102.0); Mean Platelet Volume 9.9 fl (9.2-11.8); Platelet Count Result 267 K/mm3 (150-420); Red Blood Count 3.25 M/mm3 (4.20-5.40); Red Cell Distribution Width 15.3 % (11.6-14.4); White Blood Count 17.9 K/mm3 (4.8-10.8)
[2023-07-15 05:34] LABS: Anion Gap 4 mmol/L (8-16); Blood Urea Nitrogen 20 mg/dL (7-18); Calcium 8.6 mg/dL (8.5-10.1); Carbon Dioxide 30 mmol/L (21-32); Chloride 104 mmol/L (98-108); Estimated CRCL calculation 32 ml/min; Estimated Glomerular Filt Rate 40; Glucose 220 mg/dL (70-99); Magnesium 1.8 mg/dL (1.8-2.4); NT Pro B Type Natriuretic Pept 2906 pg/mL (0-450); Osmolality Calculated 295 mOsm/kg (285-295); Potassium 4.3 mmol/L (3.5-5.1); Sodium 138 mmol/L (136-145)
[2023-07-15] MEDS: SALMET XINAFT/FLUTIC PROPIN 250 MCG/50 MCG INH CAP 1 PUFF INHALATION ×2 (05:51→18:59)
[2023-07-15 07:56] LABS: Glucose Point of Care 229 mg/dl (65-105)
[2023-07-15] MEDS: INSULIN HUMAN LISPRO (*BKC) 1,000 UNITS/10 ML VIAL SUB-Q (08:10)
[2023-07-15] MEDS: INSULIN HUMAN LISPRO (*BKC) 1,000 UNITS/10 ML VIAL 6 UNITS SUB-Q ×2 (08:10→16:44)
[2023-07-15] MEDS: UMECLIDINIUM BROMIDE 62.5 MCG ELLIPTA 1 PUFF INHALATION (09:14)
[2023-07-15] MEDS: ACETAMINOPHEN 325 MG TABLET 650 MG PO (09:14)
[2023-07-15] MEDS: PANTOPRAZOLE 40 MG TABLET PO (09:16)
[2023-07-15] MEDS: METOPROLOL TARTRATE 50 MG TAB PO ×2 (09:16→20:15)
[2023-07-15] MEDS: guaiFENesin 12 HR 600 MG TABCR PO ×2 (09:16→20:16)
[2023-07-15] MEDS: LORazepam (*CRX) 0.5 MG TABLET PO ×2 (09:16→20:16)
[2023-07-15] MEDS: FLUoxetine HCL 10 MG CAPSULE 30 MG PO (09:16)
[2023-07-15] MEDS: DOXYCYCLINE HYCLATE 100 MG TABLET PO ×2 (09:17→20:16)
[2023-07-15] MEDS: GABAPENTIN 100 MG CAPSULE PO ×3 (09:17→16:44)
[2023-07-15] MEDS: hydrALAZINE HCL 25 MG TABLET PO ×4 (09:17→20:16)
[2023-07-15] MEDS: EMPAGLIFLOZIN 25 MG TABLET PO (09:17)
[2023-07-15] MEDS: LORATADINE 10 MG TABLET PO (09:17)
[2023-07-15] MEDS: ASPIRIN 81 MG ENTERIC TABLET PO (09:18)
[2023-07-15] MEDS: MICONAZOLE NITRATE 2% CREAM 30 GM TUBE 1 APPLIC TOPICAL (09:19)
[2023-07-15] MEDS: hydrOXYzine HCL 12.5 MG TABLET PO (09:20)
--- NOTE | 2023-07-15 09:20 | WPDPN ---
Progress Note: A&P Assessment and Plan (1) Severe sepsis: Code(s): A41.9 - Sepsis, unspecified organism; R65.20 - Severe sepsis without septic shock Status: Acute Assessment and Plan: White blood cell count 27, Respiratory rate greater than 20, Lactic acid 2.2 and presence of pneumonia on imaging. Patient started on vancomycin in ER, added ceftriaxone and doxycycline (due to azithromycin allergy.) wbc 25 will continue to monitor and stay on regime at this time WBC17 mrsa of nares positive will discuss with pharmcaist the length of time indicated on IV antibiotic and will follow the recommendation (2) Pneumonia: Qualifiers: Laterality: right Lung location: middle lobe of lung Pneumonia type: due to unspecified organism Qualified Code(s): J18.9 - Pneumonia, unspecified organism Code(s): J18.9 - Pneumonia, unspecified organism Status: Acute Assessment and Plan: See 1 (3) Hyperkalemia: Code(s): E87.5 - Hyperkalemia Status: Acute Assessment and Plan: Lokelma 10 g x1 now then 5 g bid. EKG ordered. medications discontinue potassium is 4.2 at this time we will continue to monitor resolved 4.2 will discontinue Lokelma (4) Acute kidney injury superimposed on chronic kidney disease: Code(s): N17.9 - Acute kidney failure, unspecified; N18.9 - Chronic kidney disease, unspecified Status: Acute Assessment and Plan: Baseline Cr 1.1-1.2 and baseline GFR 40s, current Cr 1.5 and GFR 33. Cautious hydration with IV fluids 75 mL/hr to minimize fluid overload. (5) Diabetes mellitus: Code(s): E11.9 - Type 2 diabetes mellitus without complications Status: Acute Assessment and Plan: Basal insulin plus ACHS finger stick glucose checks with high dose supplemental insulin ordered. Hgb A1c 8.2 (6) COPD (chronic obstructive pulmonary disease): Code(s): J44.9 - Chronic obstructive pulmonary disease, unspecified Status: Acute Assessment and Plan: Continue oxygen at 2 liters/minute and may titrate if needed (7) Anemia, chronic disease: Code(s): D63.8 - Anemia in other chronic diseases classified elsewhere Status: Acute Assessment and Plan: Stable, monitor (8) Hypertension: Code(s): I10 - Essential (primary) hypertension Status: Acute Assessment and Plan: Chronic HTN, BP comparable to previous results. Patient on metoprolol which may be preventing HR from being elevated in sepsis. Hold lisinopril due to RENA. Start hydralazine instead. Plan Admit to med/tele antibiotics for pneumonia --ceftriaxone, azithromycin, vancomycin IV fluids at 75 mL/hr for RENA. IV fluid bolus held due to concern for developing fluid overload. continue creatinine is 1.28 Oxygen continue at 2 liters/minute may titrate as needed echocardiogram ordered we will continue with the echocardiogram as the last 1 she has had was in 2020. Echo completed reviewed awaiting on reading from Cardiology I did personally look at patient Echo with my limited reading experience as if EF is close to normal awaiting final reading [facility] for hyperkalemia-- EKG ordered-- no concerning EKG findings so we will gently treat hyperkalemia without aggressive measures, patient has history periodically hyperkalemia discontinued morning labs ordered, no need for repeat troponin as patient's symptoms have been ongoing for over 24 hours COVID flu and RSV are negative diet: Carb consistent VT prophylaxis: Lovenox renally dosed activity: Ambulate with assistance and up to chair Medication reconciliation: will complete after verification, hold lisinopril due to RENA. 20 Subjective Date/time seen: 07/15/23 09:20 Interval history: patient is not feeling well today states that she feels sick blood culture so far preliminary Thad negative MRSA of the nares is came back positive we will keep patient on IV vancomycin will discuss so
[2023-07-15] MEDS: MUPIROCIN 2% OINT 22 GM TUBE 1 APPLIC EACH NARE ×2 (09:21→20:15)
[2023-07-15] MEDS: FUROSEMIDE INJ 20 MG/2 ML VIAL IV PUSH (09:21)
[2023-07-15] MEDS: ONDANSETRON INJ 4 MG/2 ML VIAL IV PUSH (10:53)
--- NOTE | 2023-07-15 10:57 | PC.NURSE ---
worsening nausea, dry heaves noted, zofran given for c/o
[2023-07-15 11:53] LABS: Glucose Point of Care 77 mg/dl (65-105)
[2023-07-15] MEDS: cefTRIAXone 2 GM/NS 100 ML 2 GM/100 ML BAG IVPB (13:09)
[2023-07-15 16:31] LABS: Glucose Point of Care 155 mg/dl (65-105)
[2023-07-15] MEDS: NYSTATIN 100,000 UNITS/ML SUSP 5 ML ORAL.SUSP PO ×2 (16:43→20:15)
[2023-07-15] MEDS: HYDROcodone/acetaminophen (*CRX) 5-325 MG TABLET 1 TAB PO (20:16)
[2023-07-15] MEDS: ATORVASTATIN 40 MG TABLET PO (20:16)
[2023-07-15] MEDS: MONTELUKAST SODIUM 10 MG TABLET PO (20:16)
[2023-07-15 20:21] LABS: Glucose Point of Care 195 mg/dl (65-105)
[2023-07-15] MEDS: INSULIN GLARGINE (*BKC) 1,000 UNITS/10 ML VIAL 22 UNITS SUB-Q (20:25)
[2023-07-16] VITALS (9 sets, daily range): BP systolic 141–173; BP diastolic 47–61; PULSE 70–88; RESP 16–20; TEMP 36.5; O2SAT 92–96
[2023-07-16 05:22] LABS: Basophils Absolute Auto 0.07 K/mm3 (0.00-0.10); Basophils Percent Auto 0.5 % (0.0-1.0); Eosinophils Absolute Auto 0.35 K/mm3 (0.02-0.50); Eosinophils Percent Auto 2.5 % (1.0-6.0); Hematocrit 30.9 % (35.0-42.0); Hemoglobin 9.7 g/dL (11.7-13.8); Immature Granulocyte Absolute 0.22 K/mm3 (0.00-0.00); Immature Granulocyte Percent A 1.6 % (0.0-0.0); Lymphocytes Absolute Auto 2.41 K/mm3 (1.10-4.50); Lymphocytes Percent Auto 17.2 % (18.0-42.0); Mean Corpuscular HGB Conc 31.4 g/dL (32.0-36.0); Mean Corpuscular Volume 92.2 fL (78.0-102.0); Mean Platelet Volume 9.9 fl (9.2-11.8); Monocytes Absolute Auto 1.69 K/mm3 (0.10-0.90); Monocytes Percent Auto 12.1 % (2.0-11.0); Neutrophils Absolute Auto 9.3 K/mm3 (1.7-7.2); Neutrophils Percent Auto 66.1 % (50.0-70.0); Nucleated Red Blood Cells Absolute Auto 0.09 K/mm3 (0.00-0.00); Nucleated Red Blood Cells Perc 0.6 % (0-0.0); Platelet Count Result 292 K/mm3 (150-420); Red Blood Count 3.35 M/mm3 (4.20-5.40); Red Cell Distribution Width 15.5 % (11.6-14.4)
[2023-07-16 05:38] LABS: Albumin Level 1.7 g/dL (3.4-5.0); Alkaline Phosphatase 97 U/L (46-116); Anion Gap 7 mmol/L (8-16); Aspartate Amino Transferase 23 U/L (15-37); Bilirubin,Total 0.3 mg/dL (0.00-1.00); Blood Urea Nitrogen 18 mg/dL (7-18); Calcium 8.7 mg/dL (8.5-10.1); Carbon Dioxide 26 mmol/L (21-32); Chloride 104 mmol/L (98-108); Estimated CRCL calculation 34 ml/min; Estimated Glomerular Filt Rate 43; Glucose 205 mg/dL (70-99); Osmolality Calculated 291 mOsm/kg (285-295); Potassium 4.3 mmol/L (3.5-5.1); Sodium 137 mmol/L (136-145); Total Protein 6.6 g/dL (6.4-8.2)
[2023-07-16] MEDS: IPRATROPIUM 0.5 MG/ALBUTEROL SULFATE 2.5 MG AMPUL.NEB 3 ML INHALATION ×2 (05:38→12:26)
[2023-07-16 05:51] LABS: Alanine Aminotransferase 14 U/L (14-59)
[2023-07-16] MEDS: SALMET XINAFT/FLUTIC PROPIN 250 MCG/50 MCG INH CAP 1 PUFF INHALATION (06:07)
[2023-07-16 08:00] LABS: Glucose Point of Care 176 mg/dl (65-105)
[2023-07-16] MEDS: UMECLIDINIUM BROMIDE 62.5 MCG ELLIPTA 1 PUFF INHALATION (08:48)
[2023-07-16] MEDS: FUROSEMIDE INJ 20 MG/2 ML VIAL IV PUSH (08:49)
[2023-07-16] MEDS: INSULIN HUMAN LISPRO (*BKC) 1,000 UNITS/10 ML VIAL 6 UNITS SUB-Q ×2 (08:49→11:42)
[2023-07-16] MEDS: polyethylene glycoL 3350 17 GM POWD.PACK PO (08:49)
[2023-07-16] MEDS: FLUoxetine HCL 10 MG CAPSULE 30 MG PO (08:49)
[2023-07-16] MEDS: PANTOPRAZOLE 40 MG TABLET PO (08:50)
[2023-07-16] MEDS: METOPROLOL TARTRATE 50 MG TAB PO (08:50)
[2023-07-16] MEDS: DOXYCYCLINE HYCLATE 100 MG TABLET PO (08:50)
[2023-07-16] MEDS: hydrALAZINE HCL 25 MG TABLET PO ×2 (08:50→12:50)
[2023-07-16] MEDS: GABAPENTIN 100 MG CAPSULE PO ×2 (08:50→12:50)
[2023-07-16] MEDS: NYSTATIN 100,000 UNITS/ML SUSP 5 ML ORAL.SUSP PO ×2 (08:50→12:50)
[2023-07-16] MEDS: EMPAGLIFLOZIN 25 MG TABLET PO (08:50)
[2023-07-16] MEDS: ASPIRIN 81 MG ENTERIC TABLET PO (08:50)
[2023-07-16] MEDS: guaiFENesin 12 HR 600 MG TABCR PO (08:50)
[2023-07-16] MEDS: LORATADINE 10 MG TABLET PO (08:50)
[2023-07-16] MEDS: MICONAZOLE NITRATE 2% CREAM 30 GM TUBE 1 APPLIC TOPICAL (08:51)
[2023-07-16] MEDS: MUPIROCIN 2% OINT 22 GM TUBE 1 APPLIC EACH NARE (08:51)
--- NOTE | 2023-07-16 11:12 | PM.DS ---
DS: Admitting Diagnosis Discharge Date 07/16/2023 Admitting Diagnosis pNEUMONIA, ACUTE KIDNEY INJURY , ANEMIA, HYPOXIA, COPD EXACERBATION DS: Discharge Diagnosis Discharge Diagnosis (1) Severe sepsis: Code(s): A41.9 - Sepsis, unspecified organism; R65.20 - Severe sepsis without septic shock Status: Acute Assessment and Plan: White blood cell count 27, Respiratory rate greater than 20, Lactic acid 2.2 and presence of pneumonia on imaging. Patient started on vancomycin in ER, added ceftriaxone and doxycycline (due to azithromycin allergy.) wbc 25 will continue to monitor and stay on regime at this time WBC17 mrsa of nares positive will discuss with pharmcaist the length of time indicated on IV antibiotic and will follow the recommendation wbc 14.0 pATIENT HAS REMAINED AFEBRILE IS EATING AND DRINKING (2) Pneumonia: Qualifiers: Laterality: right Lung location: middle lobe of lung Pneumonia type: due to unspecified organism Qualified Code(s): J18.9 - Pneumonia, unspecified organism Code(s): J18.9 - Pneumonia, unspecified organism Status: Acute Assessment and Plan: See 1 (3) Hyperkalemia: Code(s): E87.5 - Hyperkalemia Status: Acute Assessment and Plan: Lokelma 10 g x1 now then 5 g bid. EKG ordered. medications discontinue potassium is 4.2 at this time we will continue to monitor resolved 4.2 will discontinue Lokelma (4) Acute kidney injury superimposed on chronic kidney disease: Code(s): N17.9 - Acute kidney failure, unspecified; N18.9 - Chronic kidney disease, unspecified Status: Acute Assessment and Plan: Baseline Cr 1.1-1.2 and baseline GFR 40s, current Cr 1.5 and GFR 33. Cautious hydration with IV fluids 75 mL/hr to minimize fluid overload. (5) Diabetes mellitus: Code(s): E11.9 - Type 2 diabetes mellitus without complications Status: Acute Assessment and Plan: Basal insulin plus ACHS finger stick glucose checks with high dose supplemental insulin ordered. Hgb A1c 8.2 (6) COPD (chronic obstructive pulmonary disease): Code(s): J44.9 - Chronic obstructive pulmonary disease, unspecified Status: Acute Assessment and Plan: Continue oxygen at 2 liters/minute and may titrate if needed (7) Anemia, chronic disease: Code(s): D63.8 - Anemia in other chronic diseases classified elsewhere Status: Acute Assessment and Plan: Stable, monitor (8) Hypertension: Code(s): I10 - Essential (primary) hypertension Status: Acute Assessment and Plan: Chronic HTN, BP comparable to previous results. Patient on metoprolol which may be preventing HR from being elevated in sepsis. Hold lisinopril due to RENA. Start hydralazine instead. Plan Admit to med/tele antibiotics for pneumonia --ceftriaxone, azithromycin, vancomycin. PATIENT CHANGED TO ORAL CEFDINIR AND DOXYCYCLINE IV fluids at 75 mL/hr for RENA. IV fluid bolus held due to concern for developing fluid overload. continue creatinine is 1.28, CR1.22 Oxygen continue at 2 liters/minute may titrate as needed echocardiogram ordered we will continue with the echocardiogram as the last 1 she has had was in 2020. Echo completed reviewed awaiting on reading from Cardiology I did personally look at patient Echo with my limited reading experience as if EF is close to normal awaiting final reading ummary ? 1. Complete two-dimensional, color flow and Doppler transthoracic echocardiogram is performed. ? 2. Left ventricular chamber dimension is normal. ? 3. Left ventricular systolic function is normal, estimated at 65-70%. ? 4. There is mild concentric increased left ventricular wall thickness. ? 5. The left ventricular diastolic function is grade I diastolic dysfunction. ? 6. E/e' 16 is elevated. ? 7. There is mild aortic valve sclerosis. ? 8. There is trace tricuspid valve regurgitation. ? 9. No pulmonary hypertension, estimated pu
[2023-07-16] MEDS: CEFDINIR 300 MG CAPSULE PO (11:25)
[2023-07-16] MEDS: HYDROcodone/acetaminophen (*CRX) 5-325 MG TABLET 1 TAB PO (11:42)
--- NOTE | 2023-07-16 13:00 | PC.NURSE ---
Report on patient called to Qi at [facility]. Discharge instructions,education, and new medication reviewed with nurse. Discharge Packet will be sent with patient at time of discharge. [facility] worker coming to transport patient back to correction within the hour.
--- NOTE | 2023-07-16 13:25 | PC.NURSE ---
Nydia RN here to transport patient back to [facility] via patients own wheelchair. All discharge instructions and education reviewed with nurse and patient. Both parties state understanding. No questions or concerns at discharge. Nurse provided with call back number for floor. IV site removed from patients right hand, tip intact, dressing applied to site. All belongings gathered together and sent home with patient. Patient left floor via personal wheelchair accompanied by [facility] TIESHA Stafford.
[2023-07-17 00:24] LABS: Glucose Point of Care 156 mg/dl (65-105)
--- NOTE | 2023-07-19 08:23 | PC.NURSE ---
Discharge call back complete, spoke with Ashley at the half-way, no questions or concerns regarding discharge, doing well
[2023-07-19 10:21] LABS: Pneumococcal Antigen Urine Not Detected (Not Detected)
[2023-07-21 02:43] LABS: Legionella pneumophila Ag Ur Not Detected (Not Detected)
== END 2023-07-16 13:25 | DRG 871 ==
LOC: CHSED 11:44 → CHS2ND 11:52
PROVIDERS: Nurse Practitioner; Nurse Practitioner Family; Admitting Provider Internal Medicine; Emergency Provider Emergency Medicine; PCP Family Medicine; Visit Provider Internal Medicine
DX: A41.9 Sepsis, unspecified organism (principal); J18.9 Pneumonia, unspecified organism; J44.0 Chronic obstructive pulmonary disease with (acute) lower respiratory infection; N17.9 Acute kidney failure, unspecified; R65.20 Severe sepsis without septic shock; I25.10 Atherosclerotic heart disease of native coronary artery without angina pectoris; I12.9 Hypertensive chronic kidney disease with stage 1 through stage 4 chronic kidney disease, or unspecified chronic kidney disease; N18.9 Chronic kidney disease, unspecified; E11.22 Type 2 diabetes mellitus with diabetic chronic kidney disease; E87.5 Hyperkalemia; D63.8 Anemia in other chronic diseases classified elsewhere; K21.9 Gastro-esophageal reflux disease without esophagitis; M19.90 Unspecified osteoarthritis, unspecified site; B95.62 Methicillin resistant Staphylococcus aureus infection as the cause of diseases classified elsewhere; F32.A Depression, unspecified; F41.9 Anxiety disorder, unspecified; Z87.891 Personal history of nicotine dependence; Z79.82 Long term (current) use of aspirin; Z79.4 Long term (current) use of insulin; Z99.81 Dependence on supplemental oxygen
CPT/HCPCS: 36415; 71046; 80048; 80053; 81001; 82948; 83036; 83605; 83735; 83880; 84100; 84484; 85025; 85027; 86140; 87040; 87081; 87449; 87637; 87899; 93005; 93306; 94640; 96361; 96365; 96367; 96375; 99285; A9270; G0378; J0696; J1815; J1940; J2405; J3370; J7030

== ENCOUNTER 2023-07-29 06:28 | Outpatient (NON) | payer MEDICARE, SELFPAY ==
[2023-07-29 07:10] LABS: Hemoglobin A1C 8.3 % (<5.7)
[2023-07-29 07:12] LABS: Anion Gap 8 mmol/L (8-16); Blood Urea Nitrogen 22 mg/dL (7-18); Calcium 8.9 mg/dL (8.5-10.1); Carbon Dioxide 29 mmol/L (21-32); Chloride 103 mmol/L (98-108); Estimated Glomerular Filt Rate 44; Glucose 183 mg/dL (70-99); Osmolality Calculated 298 mOsm/kg (285-295); Sodium 140 mmol/L (136-145)
== END 2023-07-29 06:29 | disposition home or self-care (01) ==
LOC: CHSLAB 06:35
PROVIDERS: Visit Provider Family Medicine
DX: E11.9 Type 2 diabetes mellitus without complications (principal); I10 Essential (primary) hypertension
CPT/HCPCS: 36415; 80048; 83036

== ENCOUNTER 2023-09-21 06:34 | Outpatient (NON) | payer MEDICARE, SELFPAY ==
[2023-09-21 08:02] LABS: Alanine Aminotransferase 32 U/L (14-59); Albumin Level 2.2 g/dL (3.4-5.0); Alkaline Phosphatase 101 U/L (46-116); Anion Gap 2 mmol/L (8-16); Aspartate Amino Transferase 21 U/L (15-37); Bilirubin,Total 0.3 mg/dL (0.00-1.00); Blood Urea Nitrogen 24 mg/dL (7-18); Calcium 8.8 mg/dL (8.5-10.1); Carbon Dioxide 36 mmol/L (21-32); Chloride 99 mmol/L (98-108); Estimated Glomerular Filt Rate 37; Glucose 232 mg/dL (70-99); Osmolality Calculated 295 mOsm/kg (285-295); Potassium 5.4 mmol/L (3.5-5.1); Sodium 137 mmol/L (136-145); Total Protein 6.7 g/dL (6.4-8.2)
== END 2023-09-21 06:35 | disposition home or self-care (01) ==
LOC: CHSLAB 06:36
PROVIDERS: Visit Provider Family Medicine
DX: E11.9 Type 2 diabetes mellitus without complications (principal)
CPT/HCPCS: 36415; 80048; 80053

== ENCOUNTER 2023-12-09 06:36 | Outpatient (NON) | payer MEDICARE, SELFPAY ==
[2023-12-09 07:09] LABS: Hemoglobin 11.5 g/dL (11.7-13.8); Mean Corpuscular HGB Conc 30.3 g/dL (32.0-36.0); Mean Corpuscular Hemoglobin 27.6 pg (27.0-31.0); Mean Corpuscular Volume 91.1 fL (78.0-102.0); Mean Platelet Volume 10.4 fl (9.2-11.8); Platelet Count Result 318 K/mm3 (150-420); Red Blood Count 4.17 M/mm3 (4.20-5.40); Red Cell Distribution Width 15.5 % (11.6-14.4); White Blood Count 14.4 K/mm3 (4.8-10.8)
[2023-12-09 07:16] LABS: Hemoglobin A1C 9.8 % (<5.7)
[2023-12-09 07:28] LABS: Band Neutrophils Percent 0 % (0-6); Basophils Absolute Manual 0.14 K/mm3 (0-0.1); Basophils Percent Manual 1 % (0-1); Eosinophils Absolute Manual 0.43 K/mm3 (0.02-0.5); Eosinophils Percent Manual 3 % (1-6); Lymphocytes Absolute Manual 5.61 K/mm3 (1.1-4.5); Lymphocytes Percent Manual 39 % (18-44); Monocytes Percent Manual 7 % (3-9); Neutrophils Percent Manual 50 % (46-73); Platelet Estimate Adequate (Adequate); Total Cells Counted 100
[2023-12-09 07:29] LABS: Anion Gap 7 mmol/L (8-16); Blood Urea Nitrogen 32 mg/dL (7-18); Calcium 8.6 mg/dL (8.5-10.1); Carbon Dioxide 33 mmol/L (21-32); Chloride 101 mmol/L (98-108); Estimated Glomerular Filt Rate 34; Glucose 176 mg/dL (70-99); Osmolality Calculated 302 mOsm/kg (285-295); Potassium 5.2 mmol/L (3.5-5.1); Sodium 141 mmol/L (136-145)
== END 2023-12-09 06:37 | disposition home or self-care (01) ==
LOC: CHSLAB 06:43
PROVIDERS: Visit Provider Family Medicine
DX: D64.9 Anemia, unspecified (principal); E78.5 Hyperlipidemia, unspecified; I10 Essential (primary) hypertension; E11.9 Type 2 diabetes mellitus without complications
CPT/HCPCS: 36415; 80048; 83036; 85025

== ENCOUNTER 2023-12-22 08:52 | Inpatient (IN) | payer MEDICARE, MEDICAID, SELFPAY ==
[2023-12-22] VITALS (24 sets, daily range): BP systolic 121–157; BP diastolic 53–107; PULSE 72–86; RESP 16–22; TEMP 36.6–36.9; O2SAT 2–100; BMI 27.8
--- NOTE | ~2023-12-22 | CT_ITS ---
EXAMINATION: CT chest abdomen pelvis wo con DATE: 12/23/2023 16:01 INDICATION: Abdominal pain. TECHNIQUE: Computed tomography (CT) of the chest, abdomen, and pelvis was performed without intraveno us contrast. Automated exposure control and iterative reconstruction technique were employed. The dos e-length product was 849.50 mGy-cm. COMPARISON: CT chest 06/03/2023, CT abdomen and pelvis 03/03/2023 FINDINGS: CHEST CT: There is mild scarring at the lung apices. There is moderate emphysema. There are patchy airspace opa cities and nodules involving all lobes, worst in the lower lobes, consistent with pneumonia. The hear t size is normal. There are coronary artery calcifications. No pericardial effusion. There is mild me diastinal and bilateral hilar lymphadenopathy, likely reactive. There is a small sliding hiatal herni a. There is mild thoracic spondylosis. Thoracolumbar levoscoliosis is noted. ABDOMEN/PELVIS CT: The liver is normal. 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 The gallbladder is normal in size. There are c hanges of distal pancreatectomy. The adrenal glands are normal. There is cortical thinning of the kid neys. There is calcified atherosclerosis of the aorta and many of the other arteries. There is divert iculosis of the colon without evidence of diverticulitis. The appendix is normal. There are no pathol ogically enlarged lymph nodes. There is no free intraperitoneal fluid. There is a left inguinal herni a containing fat. There is severe thoracic spondylosis. There is a chronic burst fracture of L1. IMPRESSION: 1. Multifocal pneumonia. 2. Moderate emphysema. 3. Mild mediastinal and bilateral hilar lymphadenopathy, likely reactive. 4. Small sliding hiatal hernia. Reviewed, dictated and finalized at location E. L BILLER
--- NOTE | ~2023-12-22 | XR_ITS ---
EXAMINATION: XR chest 1V portable INDICATION: Cough and shortness of breath TECHNIQUE: Portable AP chest at 0938 hours COMPARISON: 07/13/2023 FINDINGS: Cardiomegaly is noted. There are airspace opacities of the left mid and lower lung zones. N o pleural effusion or pneumothorax. IMPRESSION: 1. Airspace opacities of the left mid and lower lung zones, likely pneumonia. Reviewed, dictated and finalized at location B. T CONSULTANT
--- NOTE | 2023-12-22 09:04 | ED.URI ---
HPI - URI/Sore Throat General Chief Complaint: Upper Respiratory Infection Stated Complaint: cough Time Seen by Provider: 12/22/23 09:04 Source: patient Mode of arrival: wheelchair Limitations: no limitations History of Present Illness HPI Narrative: 78-year-old female with a history of hypertension, diabetes mellitus, dyslipidemia, arthritis, chronic low back pain, CAD /non-STEMI/CHF with a normal EF, sleep apnea, COPD on home oxygen 2 liters/minute presents to the ER with a 1 week history of -- body ache -- generalized weakness -- fever -- cough productive of mucopurulent sputum -- chronic shortness of breath MD elicited complaint: fever, cough and nasal congestion Pertinent past history: COPD Onset (ago): day(s) ( 7 days) Consistency: constant Severity: moderate Description of mucous: green Able to tolerate fluids by mouth: Yes Exacerbating factors: nothing Relieving factors: nothing Associated symptoms: denies other symptoms, fever, myalgias, nasal congestion, cough, shortness of breath and nausea Treatments prior to arrival: none Related Data Home Medications Medication Instructions Recorded Confirmed acetaminophen 500 mg capsule 500 mg PO Q8H PRN Pain 10/09/20 12/22/23 aspirin 81 mg tablet,delayed 81 mg PO DAILY 10/09/20 12/22/23 release atorvastatin 40 mg tablet 40 mg PO HS 10/09/20 12/22/23 fluticasone furoate 100 1 inh inhalation DAILY 10/09/20 12/22/23 mcg-vilanterol 25 mcg/dose inhalation powder (Breo Ellipta) furosemide 20 mg tablet (Lasix) 40 mg PO DAILY 10/09/20 12/22/23 lisinopril 40 mg tablet 40 mg PO DAILY 10/09/20 12/22/23 lorazepam 0.5 mg tablet (Ativan) 0.5 mg PO TID PRN Anxiety 10/09/20 12/22/23 aluminum-mag hydroxide-simethicone 5 ml PO QID 03/29/21 12/22/23 400 mg-400 mg-40 mg/5 mL oral susp (Mylanta Maximum Strength) duloxetine 20 mg capsule,delayed 40 mg PO DAILY 03/29/21 12/22/23 release lidocaine HCl 2 % mucosal solution 1 applic PO PRN 03/29/21 12/22/23 (Lidocaine Viscous) polyethylene glycol 3350 17 gram 17 g PO DAILY PRN Constipation 03/29/21 12/22/23 oral powder packet (Miralax) tiotropium bromide 18 mcg capsule 1 cap inhalation DAILY 03/29/21 12/22/23 with inhalation device (Spiriva with HandiHaler) cetirizine 10 mg tablet 10 mg PO DAILY 07/13/23 12/22/23 dulaglutide 0.75 mg/0.5 mL 0.75 mg subcut WEEKLY 07/13/23 12/22/23 subcutaneous pen injector empagliflozin 25 mg tablet 25 mg PO DAILY 07/13/23 12/22/23 (Jardiance) fluoxetine 15 mg tablet 30 mg PO DAILY 07/13/23 12/22/23 gabapentin 100 mg tablet 100 mg PO TID 07/13/23 12/22/23 insulin lispro 100 unit/mL 6 unit subcut TIDWMEAL 07/13/23 12/22/23 subcutaneous pen lidocaine 4 % topical patch 1 patch topical DAILY 07/13/23 12/22/23 (Blue-Emu Lidocaine Patch) montelukast 10 mg tablet 10 mg PO HS 07/13/23 12/22/23 nystatin 100,000 unit/gram topical 1 applic topical TID 07/13/23 12/22/23 powder phenazopyridine 95 mg tablet 95 mg PO TID PRN Anxiety 07/13/23 12/22/23 polyvinyl alcohol 1.4 % eye drops 2 drp EACH EYE QID PRN Dry Eyes 07/13/23 12/22/23 (Artificial Tears (polyvinyl alcohol)) Tresiba FlexTouch U-100 22 units subcut HS 12/22/23 12/22/23 Allergies Allergy/AdvReac Type Severity Reaction Status Date / Time azithromycin Allergy Unknown Verified 07/13/23 10:34 cephalexin Allergy Unknown Verified 07/15/23 07:59 doxylamine Allergy Unknown Verified 07/13/23 10:34 codeine AdvReac Unknown Verified 07/13/23 10:34 Penicillins AdvReac Unknown Verified 07/15/23 07:59 Sulfa (Sulfonamide AdvReac Unknown Verified 07/13/23 10:34 Antibiotics) Review of Systems Review of Systems: All systems reviewed & are unremarkable except as noted in HPI and below Constitutional: Constitutional: Reports as per HPI and Reports no additional constitutional complaints Eyes: Eyes: Reports as per HPI and Reports no additional eye complaints ENT: Reports system reviewed and no additional complaints, except as
--- NOTE | 2023-12-22 09:18 | ECG_ITS ---
Measurements Intervals Mcroberts Rate: 79 P: 50 WV: 180 QRS: 15 QRSD: 87 T: 23 QT: 374 QTc: 430 Interpretive Statements SINUS RHYTHM POOR R-WAVE PROGRESSION COMPARED TO ECG 07/13/2023 13:32:21 NO SIGNIFICANT CHANGES Electronically Signed On 12-22-2023 15:55:05 MANAGER RISK MANAGEMENT by Js Rahman M.D.
[2023-12-22] MEDS: IPRATROPIUM 0.5 MG/ALBUTEROL SULFATE 2.5 MG AMPUL.NEB 3 ML INHALATION ×3 (09:32→23:33)
[2023-12-22 09:33] LABS: Hematocrit 36.3 % (35.0-42.0); Hemoglobin 11.5 g/dL (11.7-13.8); Mean Corpuscular HGB Conc 31.7 g/dL (32.0-36.0); Mean Corpuscular Hemoglobin 27.9 pg (27.0-31.0); Mean Corpuscular Volume 88.1 fL (78.0-102.0); Platelet Count Result 432 K/mm3 (150-420); Red Blood Count 4.12 M/mm3 (4.20-5.40); Red Cell Distribution Width 15.1 % (11.6-14.4)
[2023-12-22 09:39] LABS: White Blood Count 23.3 K/mm3 (4.8-10.8)
[2023-12-22 09:48] LABS: SARS-CoV-2 RNA PCR Negative (Negative)
[2023-12-22 09:54] LABS: Band Neutrophils Percent 2 % (0-6); Lymphocytes Absolute Manual 1.39 K/mm3 (1.1-4.5); Lymphocytes Percent Manual 6 % (18-44); Monocytes Absolute Manual 1.39 K/mm3 (0.1-0.90); Monocytes Percent Manual 6 % (3-9); Neutrophils Percent Manual 86 % (46-73); Total Cells Counted 100
[2023-12-22 09:56] LABS: Influenza A QL RT-PCR Positive (Negative); Influenza B QL RT-PCR Negative (Negative); RSV RNA, RT-PCR Negative (Negative)
[2023-12-22 10:02] LABS: Alanine Aminotransferase 75 U/L (14-59); Albumin Level 2.3 g/dL (3.4-5.0); Alkaline Phosphatase 104 U/L (46-116); Anion Gap 10 mmol/L (8-16); Aspartate Amino Transferase 45 U/L (15-37); Bilirubin,Total 0.6 mg/dL (0.00-1.00); Blood Urea Nitrogen 38 mg/dL (7-18); Calcium 8.8 mg/dL (8.5-10.1); Carbon Dioxide 28 mmol/L (21-32); Chloride 97 mmol/L (98-108); Estimated CRCL calculation 22 ml/min; Estimated Glomerular Filt Rate 27; Glucose 235 mg/dL (70-99); NT Pro B Type Natriuretic Pept 615 pg/mL (0-450); Osmolality Calculated 297 mOsm/kg (285-295); Potassium 5.1 mmol/L (3.5-5.1); Sodium 135 mmol/L (136-145); Total Protein 8.2 g/dL (6.4-8.2); Troponin I 11.6 ng/L (0.00-60.4)
[2023-12-22 10:07] LABS: Lactic Acid Reflex 1.3 mmol/L (0.4-2.0)
[2023-12-22 10:17] LABS: Appearance Urine Clear (Clear); Bilirubin Urine Negative (Negative); Blood Urine Trace-Intact (Negative); Color Urine Light Yellow (Yellow); Glucose Urine UA 3+ (Negative); Ketones Urine Negative (Negative); Leukocyte Esterase Ur 1+ LEU/UL (Negative); Nitrate Urine Negative (Negative); Protein Urine 1+ (Negative); Urobilinogen Urine 0.2 mg/dL (0.2-1.0)
[2023-12-22] MEDS: DOXYCYCLINE HYCLATE 100 MG TABLET PO (10:26)
[2023-12-22] MEDS: OSELTAMIVIR PHOSPHATE 75 MG CAPSULE PO (10:26)
[2023-12-22] MEDS: CEFEPIME 2 GM/NS 50 ML 2 GM/50 ML BAG IVPB (10:40)
[2023-12-22 10:57] LABS: Add Urine Microscopic? YES; Bacteria Urine Trace /hpf; RBC Urine None seen /hpf (0-2); Squamous Epithelial Cell Urine Occasional /hpf (Few)
[2023-12-22] MEDS: levoFLOXacin 750 MG/D5W 150 ML 750 MG/150 ML BAG 100 MG IVPB (10:57)
[2023-12-22] MEDS: VANCOMYCIN 1,750 MG/NS 500 ML 1,750 MG/500 ML BAG 250 MG IVPB (11:12)
--- NOTE | 2023-12-22 11:29 | PC.NURSE ---
update to custodial , nurse notified of admission. pt requested full code status at this time.
--- NOTE | 2023-12-22 11:51 | PC.NURSE ---
1140 pt nauseated when sitting up , spitting clear spit occassionally. spit small amt of yellow liquid in bag on napkin.
[2023-12-22 12:55] LABS: MRSA (PCR) NOT DETECTED (NOT DETECTE)
--- NOTE | 2023-12-22 12:57 | PM.IMHP ---
H&P: HPI History of Present Illness Date/Time: 12/22/23 12:57 Chief Complaint: upper respiratory infection, cough Narrative: This is a 78 year female with a significant past medical history of Chronic anemia, anxiety, arthritis, coronary artery disease, depression, diabetes mellitus, GERD, hypertension, history of urinary tract infection, COPD on O2 at 2 L nasal cannula who presents to the hospital today with chief complaint of upper respiratory infection and cough. Patient states that she has been having a 1 week history of body aches, general weakness, fever, productive cough, shortness of breath and a headache which has been unrelieved at home prompting her to come here to the hospital for further evaluation and workup. she does report being up to date on her vaccinations including influenza, pneumonia and COVID. She does not report being around any sick contacts that she knows of. She denies any fever chills, nausea, chest pain, shortness a breath, lower extremity edema, dysuria, lightheadedness, dizziness, congestion. She does endorse that she has had diarrhea the 1st day of her symptoms which has subsided, she reports a headache today, frequent urination, abdominal pain, productive cough with yellow green sputum, and generalized weakness. She is wheelchair-bound at baseline. Workup in the hospital included a chest x-ray which shown airspace opacities of the left mid and lower lung zones, likely pneumonia. Labs were obtained and initially showed a white blood cell count of 23.3, hemoglobin 11.5, sodium 135, chloride 97, BUN 38, creatinine 1.81, EGFR 27, blood glucose 235, serum osmolarity 297, lactic acid was 1.3, AST 45, ALT 75, proBNP 615, albumin 2.3. She had a UA done as well which shown 1+ protein, 3+ glucose, trace urine blood, 1+ leukocytes, 4-6 urine wbc's, trace bacteria. MRSA was negative. Respiratory panel was also obtained and shown positive for influenza A. Blood and urine cultures were obtained and are pending. She was given a DuoNeb, Tamiflu, doxycycline, cefepime, and vancomycin while in the emergency room. Considering her MRSA is negative we go ahead and deescalate the vancomycin now and just continue with the doxycycline and cefepime. Review of Systems Review of Systems: All systems reviewed & are unremarkable except as noted in HPI and below Constitutional: Constitutional: Reports as per HPI and Reports no additional constitutional complaints Eyes: Eyes: Reports as per HPI and Reports no additional eye complaints Comments: Reports blurred vision ENT: Reports system reviewed and no additional complaints, except as documented and Reports as per HPI Cardiovascular: Cardiovascular: Reports as per HPI and Reports no additional cardiovascular complaints Respiratory: Respiratory: Reports as per HPI and Reports no additional respiratory complaints Gastrointestinal: Gastrointestinal: Reports as per HPI and Reports no additional gastrointestinal complaints Genitourinary: Genitourinary: Reports no additional female genitourinary complaints and Reports as per HPI Musculoskeletal: Musculoskeletal: Reports no additional musculoskeletal complaints and Reports as per HPI Integumentary/Breasts: Skin/Breast: Reports system reviewed and no additional complaints, except as docu and Reports as per HPI Neurologic: Reports system reviewed and no additional complaints, except as documented and Reports as per HPI [facility] Past Medical History Medical History (Updated 12/22/23 @ 14:17 by Tanvi Giles APRN) (HFpEF) heart failure with preserved ejection fraction Anemia, chronic disease Anxiety disorder Arthritis CAD (coronary artery disease) COPD (chronic obstructive pulmonary disease) Depression Diabetes mellitus GERD (gastroesophageal reflux disease) Hyperlipidemia Hypertension Urinary tract infection Surgical History Surgical History H/O splenectomy
[2023-12-22 13:43] LABS: Magnesium 2.3 mg/dL (1.8-2.4)
--- NOTE | 2023-12-22 14:16 | PC.NURSE ---
Pt arrived on the floor at 1145 from the ER. Pt is alert but disoriented. Pt educated regarding the call system, how to call for a rapid responce and how to call for nurse assistance. Pt has no valuables with her, no phone or wallet.
[2023-12-22] MEDS: DOCUSATE SODIUM 100 MG CAPSULE PO (16:12)
[2023-12-22] MEDS: NYSTATIN 100,000 UNITS/ML SUSP 5 ML ORAL.SUSP PO ×2 (16:12→20:35)
[2023-12-22] MEDS: hydrALAZINE HCL 25 MG TABLET PO ×2 (16:12→20:35)
[2023-12-22] MEDS: GABAPENTIN 100 MG CAPSULE PO (16:12)
[2023-12-22 16:17] LABS: Glucose Point of Care 230 mg/dl (65-105)
[2023-12-22] MEDS: INSULIN HUMAN LISPRO (*BKC) 1,000 UNITS/10 ML VIAL 6 UNITS SUB-Q (16:18)
[2023-12-22] MEDS: INSULIN HUMAN LISPRO (*BKC) 1,000 UNITS/10 ML VIAL SUB-Q (16:19)
[2023-12-22] MEDS: DOXYCYCLINE 100 MG/NS 100 ML 100 MG/100 ML BAG IVPB (20:34)
[2023-12-22] MEDS: guaiFENesin 12 HR 600 MG TABCR PO (20:35)
[2023-12-22] MEDS: ATORVASTATIN 40 MG TABLET PO (20:35)
[2023-12-22] MEDS: METOPROLOL TARTRATE 50 MG TAB PO (20:35)
[2023-12-22] MEDS: MONTELUKAST SODIUM 10 MG TABLET PO (20:35)
[2023-12-22] MEDS: ACETAMINOPHEN 325 MG TABLET 650 MG PO (21:10)
[2023-12-22] MEDS: LORazepam (*CRX) 0.5 MG TABLET PO (21:10)
[2023-12-22 21:17] LABS: Glucose Point of Care 125 mg/dl (65-105)
[2023-12-22] MEDS: INSULIN GLARGINE (*BKC) 1,000 UNITS/10 ML VIAL 11 UNITS SUB-Q (21:39)
[2023-12-23] VITALS (16 sets, daily range): BP systolic 100–137; BP diastolic 47–54; PULSE 74–86; RESP 16–22; TEMP 36.3–36.6; O2SAT 90–98
[2023-12-23 05:21] LABS: Hematocrit 32.8 % (35.0-42.0); Hemoglobin 10.3 g/dL (11.7-13.8); Mean Corpuscular HGB Conc 31.4 g/dL (32.0-36.0); Mean Corpuscular Hemoglobin 28.1 pg (27.0-31.0); Mean Corpuscular Volume 89.6 fL (78.0-102.0); Platelet Count Result 401 K/mm3 (150-420); Red Blood Count 3.66 M/mm3 (4.20-5.40); Red Cell Distribution Width 15.1 % (11.6-14.4)
[2023-12-23 05:25] LABS: White Blood Count 30.6 K/mm3 (4.8-10.8)
[2023-12-23 05:34] LABS: Band Neutrophils Percent 1 % (0-6); Lymphocytes Absolute Manual 3.67 K/mm3 (1.1-4.5); Lymphocytes Percent Manual 12 % (18-44); Monocytes Absolute Manual 2.14 K/mm3 (0.1-0.90); Monocytes Percent Manual 7 % (3-9); Neutrophils Absolute Manual 24.78 K/mm3 (1.7-7.2); Neutrophils Percent Manual 80 % (46-73); Total Cells Counted 100
[2023-12-23 05:35] LABS: Platelet Estimate Adequate (Adequate)
--- NOTE | 2023-12-23 05:40 | PC.NURSE ---
Maynor Giles NP, notified of critical WBC of 30.6. No new orders at this time.
[2023-12-23] MEDS: IPRATROPIUM 0.5 MG/ALBUTEROL SULFATE 2.5 MG AMPUL.NEB 3 ML INHALATION ×4 (05:41→23:30)
[2023-12-23 05:42] LABS: Hemoglobin A1C 9.1 % (<5.7)
[2023-12-23 05:49] LABS: Alanine Aminotransferase 65 U/L (14-59); Albumin Level 1.9 g/dL (3.4-5.0); Alkaline Phosphatase 90 U/L (46-116); Anion Gap 10 mmol/L (8-16); Aspartate Amino Transferase 50 U/L (15-37); Bilirubin,Total 0.6 mg/dL (0.00-1.00); Blood Urea Nitrogen 47 mg/dL (7-18); Calcium 8.7 mg/dL (8.5-10.1); Carbon Dioxide 26 mmol/L (21-32); Chloride 101 mmol/L (98-108); Estimated CRCL calculation 18 ml/min; Estimated Glomerular Filt Rate 21; Glucose 183 mg/dL (70-99); Osmolality Calculated 301 mOsm/kg (285-295); Potassium 4.5 mmol/L (3.5-5.1); Sodium 137 mmol/L (136-145); Thyroid Stimulating Hormone 1.64 uIU/mL (0.36-3.74); Total Protein 7.4 g/dL (6.4-8.2)
[2023-12-23 08:05] LABS: Glucose Point of Care 208 mg/dl (65-105)
[2023-12-23] MEDS: INSULIN HUMAN LISPRO (*BKC) 1,000 UNITS/10 ML VIAL 6 UNITS SUB-Q ×2 (08:47→17:23)
[2023-12-23] MEDS: INSULIN HUMAN LISPRO (*BKC) 1,000 UNITS/10 ML VIAL SUB-Q ×2 (08:48→17:24)
[2023-12-23] MEDS: DOXYCYCLINE 100 MG/NS 100 ML 100 MG/100 ML BAG IVPB ×2 (09:41→20:33)
[2023-12-23] MEDS: CEFEPIME 1 GM/NS 50 ML 1 GM/50 ML BAG IVPB (09:42)
[2023-12-23] MEDS: guaiFENesin 12 HR 600 MG TABCR PO ×2 (09:42→21:36)
[2023-12-23] MEDS: NYSTATIN 100,000 UNITS/ML SUSP 5 ML ORAL.SUSP PO ×4 (09:42→21:38)
[2023-12-23] MEDS: DULoxetine HCL 20 MG CAPSULE.DR 40 MG PO (09:42)
[2023-12-23] MEDS: FLUoxetine HCL 10 MG CAPSULE 30 MG PO (09:42)
[2023-12-23] MEDS: EMPAGLIFLOZIN 25 MG TABLET PO (09:43)
[2023-12-23] MEDS: GABAPENTIN 100 MG CAPSULE PO ×3 (09:43→16:41)
[2023-12-23] MEDS: METOPROLOL TARTRATE 50 MG TAB PO ×2 (09:43→21:32)
[2023-12-23] MEDS: hydrALAZINE HCL 25 MG TABLET PO ×4 (09:43→21:35)
[2023-12-23] MEDS: lisinopriL 20 MG TABLET 40 MG PO (09:43)
[2023-12-23] MEDS: ASPIRIN 81 MG ENTERIC TABLET PO (09:43)
[2023-12-23] MEDS: DOCUSATE SODIUM 100 MG CAPSULE PO ×2 (09:44→16:41)
[2023-12-23] MEDS: LIDOCAINE 5% PATCH 1 PATCH TRANSDERM (09:44)
[2023-12-23] MEDS: ENOXAPARIN 30 MG/0.3 ML SYRINGE SUB-Q (09:44)
[2023-12-23] MEDS: PANTOPRAZOLE 40 MG TABLET PO (09:44)
[2023-12-23] MEDS: LORATADINE 10 MG TABLET PO (09:44)
--- NOTE | 2023-12-23 11:13 | P.PNIM_ITS ---
Progress Note: A&P Assessment and Plan (1) Pneumonia: Qualifiers: Laterality: left Lung location: lower lobe of lung Pneumonia type: due to unspecified organism Qualified Code(s): J18.9 - Pneumonia, unspecified organism Code(s): J18.9 - Pneumonia, unspecified organism Status: Acute Assessment and Plan: 12/22/2023: * patient reports 1 week history of fever, body aches, weakness, productive cough, and shortness of breath * chest x-ray showing pneumonia, likely community-acquired * patient currently on 2 L nasal cannula which is her baseline * keep oxygen saturations between 88-92% considering her COPD history * she was given DuoNeb and started on IV antibiotics including cefepime, doxycycline, vancomycin * vancomycin was DC'd considering MRSA was negative * we will continue with the cefepime in the doxycycline * continue DuoNebs * Pep therapy * will check H influenza, urine Legionella, urine strep, mycoplasma pneumoniae today * continue guaifenesin, Claritin, and Singulair * blood cultures were obtained and are pending * will order sputum culture as well 12/23/23: * Continue with DuoNebs * continue with IV cefepime and doxycycline * continue with guaifenesin, Claritin, and singular * blood cultures are showing no growth to date * sputum culture is still pending * continue incentive spirometry and pep therapy * will get a CT of her chest today. * White blood cell count abnormally elevated to 30.6 from 23.3 without a left shift (2) Influenza A: Code(s): J10.1 - Influenza due to other identified influenza virus with other respiratory manifestations Status: Acute Assessment and Plan: 12/22/2023: * respiratory panel positive for influenza A * denies any recent sick contacts * currently up-to-date on immunizations including pneumococcal, COVID, and influenza * see above plan of care 12/23/23: * no change to current treatment plan (3) Urinary tract infection: Code(s): N39.0 - Urinary tract infection, site not specified Status: Acute Assessment and Plan: 12/22/2023: * patient reports urinary frequency however denies any dysuria or hematuria * UA shown 1+ protein, 3+ glucose, trace urine blood, 1+ leukocytes, 4-6 urine wbc's, trace bacteria. * Urine culture is pending * will continue with cefepime for now 12/23/23: * urine culture is still pending * continue with cefepime (4) Leukocytosis: Code(s): D72.829 - Elevated white blood cell count, unspecified Status: Acute Assessment and Plan: 12/23/2023: * initial white blood cell count 23.3, now up to 30.6 despite broad-spectrum antibiotics * RBC is low at 3.66 * hemoglobin 10.3, hematocrit 32.8, platelet count is for a 401 * will check ESR, CD4 lymphocyte panel, and procalcitonin * will also get a CT of the chest /abdomen/pelvis to rule out any other etiology * patient reports extreme fatigue, decreased appetite, and reports her taste and smell is off * she has had a weight loss of 18 lb since July of last year which was not intentional * she reports being sick more often * if white blood cell count continues to climb despite our best efforts we may have to transfer to a hospital with Hematology/Oncology Services for further workup. (5) Acute kidney injury superimposed on chronic kidney disease: Code(s): N17.9 - Acute kidney failure, unspecified; N18.9 - Chronic kidney disease, unspecified Status: Acute Assessment and Plan: 12/22/2023: * B
--- NOTE | 2023-12-23 11:13 | PM.IMPN ---
Progress Note: A&P Assessment and Plan (1) Pneumonia: Qualifiers: Laterality: left Lung location: lower lobe of lung Pneumonia type: due to unspecified organism Qualified Code(s): J18.9 - Pneumonia, unspecified organism Code(s): J18.9 - Pneumonia, unspecified organism Status: Acute Assessment and Plan: 12/22/2023: patient reports 1 week history of fever, body aches, weakness, productive cough, and shortness of breath chest x-ray showing pneumonia, likely community-acquired patient currently on 2 L nasal cannula which is her baseline keep oxygen saturations between 88-92% considering her COPD history she was given DuoNeb and started on IV antibiotics including cefepime, doxycycline, vancomycin vancomycin was DC'd considering MRSA was negative we will continue with the cefepime in the doxycycline continue DuoNebs Pep therapy will check H influenza, urine Legionella, urine strep, mycoplasma pneumoniae today continue guaifenesin, Claritin, and Singulair blood cultures were obtained and are pending will order sputum culture as well 12/23/23: Continue with DuoNebs continue with IV cefepime and doxycycline continue with guaifenesin, Claritin, and singular blood cultures are showing no growth to date sputum culture is still pending continue incentive spirometry and pep therapy will get a CT of her chest today. White blood cell count abnormally elevated to 30.6 from 23.3 without a left shift (2) Influenza A: Code(s): J10.1 - Influenza due to other identified influenza virus with other respiratory manifestations Status: Acute Assessment and Plan: 12/22/2023: respiratory panel positive for influenza A denies any recent sick contacts currently up-to-date on immunizations including pneumococcal, COVID, and influenza see above plan of care 12/23/23: no change to current treatment plan (3) Urinary tract infection: Code(s): N39.0 - Urinary tract infection, site not specified Status: Acute Assessment and Plan: 12/22/2023: patient reports urinary frequency however denies any dysuria or hematuria UA shown 1+ protein, 3+ glucose, trace urine blood, 1+ leukocytes, 4-6 urine wbc's, trace bacteria. Urine culture is pending will continue with cefepime for now 12/23/23: urine culture is still pending continue with cefepime (4) Leukocytosis: Code(s): D72.829 - Elevated white blood cell count, unspecified Status: Acute Assessment and Plan: 12/23/2023: initial white blood cell count 23.3, now up to 30.6 despite broad-spectrum antibiotics RBC is low at 3.66 hemoglobin 10.3, hematocrit 32.8, platelet count is for a 401 will check ESR, CD4 lymphocyte panel, and procalcitonin will also get a CT of the chest /abdomen/pelvis to rule out any other etiology patient reports extreme fatigue, decreased appetite, and reports her taste and smell is off she has had a weight loss of 18 lb since July of last year which was not intentional she reports being sick more often if white blood cell count continues to climb despite our best efforts we may have to transfer to a hospital with Hematology/Oncology Services for further workup. (5) Acute kidney injury superimposed on chronic kidney disease: Code(s): N17.9 - Acute kidney failure, unspecified; N18.9 - Chronic kidney disease, unspecified Status: Acute Assessment and Plan: 12/22/2023: BUN 38, creatinine 1.81, EGFR 27 baseline creatinine ranging 1.18-1.2 continue to trend labs 12/23/23: BUN 47, creatinine 2.22, EGFR 21 continue to trend labs (6) COPD (chronic obstructive pulmonary disease): Code(s): J44.9 - Chronic obstructive pulmonary disease, unspecified Status: Chronic Assessment and Plan: 12/22/2023: patient requires 2 L nasal cannula at baseline and is currently on 2 L nasal can
[2023-12-23 12:01] LABS: Glucose Point of Care 153 mg/dl (65-105)
[2023-12-23] MEDS: ONDANSETRON INJ 4 MG/2 ML VIAL IV PUSH ×2 (12:28→16:41)
[2023-12-23 17:04] LABS: Glucose Point of Care 256 mg/dl (65-105)
[2023-12-23 20:41] LABS: Glucose Point of Care 132 mg/dl (65-105)
[2023-12-23] MEDS: MONTELUKAST SODIUM 10 MG TABLET PO (21:35)
[2023-12-23] MEDS: ATORVASTATIN 40 MG TABLET PO (21:35)
[2023-12-23] MEDS: LORazepam (*CRX) 0.5 MG TABLET PO (21:35)
[2023-12-23] MEDS: ACETAMINOPHEN 325 MG TABLET 650 MG PO (21:36)
[2023-12-23] MEDS: INSULIN GLARGINE (*BKC) 1,000 UNITS/10 ML VIAL 22 UNITS SUB-Q (21:47)
[2023-12-24] VITALS (14 sets, daily range): BP systolic 90–117; BP diastolic 42–62; PULSE 78–98; RESP 16–20; TEMP 36.6–37.3; O2SAT 90–96
[2023-12-24 05:46] LABS: Hematocrit 33.6 % (35.0-42.0); Hemoglobin 10.3 g/dL (11.7-13.8); Mean Corpuscular HGB Conc 30.7 g/dL (32.0-36.0); Mean Corpuscular Hemoglobin 27.4 pg (27.0-31.0); Mean Corpuscular Volume 89.4 fL (78.0-102.0); Mean Platelet Volume 9.9 fl (9.2-11.8); Platelet Count Result 464 K/mm3 (150-420); Red Blood Count 3.76 M/mm3 (4.20-5.40); Red Cell Distribution Width 15.8 % (11.6-14.4)
[2023-12-24] MEDS: IPRATROPIUM 0.5 MG/ALBUTEROL SULFATE 2.5 MG AMPUL.NEB 3 ML INHALATION ×3 (05:49→17:41)
[2023-12-24 06:04] LABS: Alanine Aminotransferase 62 U/L (14-59); Albumin Level 1.8 g/dL (3.4-5.0); Alkaline Phosphatase 97 U/L (46-116); Anion Gap 10 mmol/L (8-16); Aspartate Amino Transferase 70 U/L (15-37); Bilirubin,Total 0.5 mg/dL (0.00-1.00); Blood Urea Nitrogen 57 mg/dL (7-18); Calcium 8.7 mg/dL (8.5-10.1); Carbon Dioxide 27 mmol/L (21-32); Chloride 100 mmol/L (98-108); Estimated CRCL calculation 13 ml/min; Estimated Glomerular Filt Rate 15; Glucose 184 mg/dL (70-99); Osmolality Calculated 304 mOsm/kg (285-295); Potassium 4.6 mmol/L (3.5-5.1); Sodium 137 mmol/L (136-145); Total Protein 7.5 g/dL (6.4-8.2)
[2023-12-24 06:05] LABS: White Blood Count 35.6 K/mm3 (4.8-10.8)
[2023-12-24 06:06] LABS: Band Neutrophils Percent 0 % (0-6); Basophils Absolute Manual 0.35 K/mm3 (0-0.1); Basophils Percent Manual 1 % (0-1); Eosinophils Percent Manual 0 % (1-6); Lymphocytes Absolute Manual 4.62 K/mm3 (1.1-4.5); Lymphocytes Percent Manual 13 % (18-44); Monocytes Absolute Manual 2.84 K/mm3 (0.1-0.90); Monocytes Percent Manual 8 % (3-9); Neutrophils Absolute Manual 27.76 K/mm3 (1.7-7.2); Neutrophils Percent Manual 78 % (46-73)
[2023-12-24 06:07] LABS: Platelet Estimate Adequate (Adequate)
[2023-12-24 06:50] LABS: Erythrocyte Sedimentation Rate 53 mm/hr (0-20)
[2023-12-24 07:16] LABS: Procalcitonin 0.3 ng/mL
--- NOTE | 2023-12-24 08:18 | P.TS_ITS ---
Transfer Discharge Sum: Prov Provider Date of admission: 12/23/23 14:23 Primary care physician: Joni Goldberg M.D. Admitting clinician: Geovanny Wood MD Attending physician on admission: Tanvi Giles Attending physician on discharge: Tanvi Giles Discharging clinician: Tanvi Giles Anticipated date of transfer: 12/24/23 Receiving physician/facility: Dr. Fisher at [facility] DS: Admitting Diagnosis Discharge Date 12/24/23 Admitting Diagnosis pneumonia influenza a urinary tract infection acute kidney injury superimposed on chronic kidney disease COPD diabetes mellitus hypertension GERD heart failure with preserved ejection fraction hyperlipidemia depression DS: Discharge Diagnosis Discharge Diagnosis (1) Pneumonia: Qualifiers: Laterality: left Lung location: lower lobe of lung Pneumonia type: due to unspecified organism Qualified Code(s): J18.9 - Pneumonia, unspecified organism Code(s): J18.9 - Pneumonia, unspecified organism Status: Acute Assessment and Plan: 12/22/2023: * patient reports 1 week history of fever, body aches, weakness, productive cough, and shortness of breath * chest x-ray showing pneumonia, likely community-acquired * patient currently on 2 L nasal cannula which is her baseline * keep oxygen saturations between 88-92% considering her COPD history * she was given DuoNeb and started on IV antibiotics including cefepime, doxycycline, vancomycin * vancomycin was DC'd considering MRSA was negative * we will continue with the cefepime in the doxycycline * continue DuoNebs * Pep therapy * will check H influenza, urine Legionella, urine strep, mycoplasma pneumoniae today * continue guaifenesin, Claritin, and Singulair * blood cultures were obtained and are pending * will order sputum culture as well 12/23/23: * Continue with DuoNebs * continue with IV cefepime and doxycycline * continue with guaifenesin, Claritin, and singular * blood cultures are showing no growth to date * sputum culture is still pending * continue incentive spirometry and pep therapy * will get a CT of her chest today. * White blood cell count abnormally elevated to 30.6 from 23.3 (2) Influenza A: Code(s): J10.1 - Influenza due to other identified influenza virus with other respiratory manifestations Status: Acute Assessment and Plan: 12/22/2023: * respiratory panel positive for influenza A * denies any recent sick contacts * currently up-to-date on immunizations including pneumococcal, COVID, and influenza * see above plan of care 12/23/23: * no change to current treatment plan (3) Urinary tract infection: Code(s): N39.0 - Urinary tract infection, site not specified Status: Acute Assessment and Plan: 12/22/2023: * patient reports urinary frequency however denies any dysuria or hematuria * UA shown 1+ protein, 3+ glucose, trace urine blood, 1+ leukocytes, 4-6 urine wbc's, trace bacteria. * Urine culture is pending * will continue with cefepime for now 12/23/23: * urine culture is still pending * continue with cefepime (4) Leukocytosis: Code(s): D72.829 - Elevated white blood cell count, unspecified Status: Acute Assessment and Plan: 12/23/2023: * initial white blood cell count 23.3, now up to 30.6 despite broad-spectrum antibiotics * RBC is low at 3.66 * hemoglobin 10.3, hematocrit 32.8, platelet count is for a 401
--- NOTE | 2023-12-24 08:18 | PM.TDS ---
Transfer Discharge Sum: Prov Provider Date of admission: 12/23/23 14:23 Primary care physician: Joni Goldberg M.D. Admitting clinician: Geovanny Wood MD Attending physician on admission: Tanvi Giles Attending physician on discharge: Tanvi Giles Discharging clinician: Tanvi Giles Anticipated date of transfer: 12/24/23 Receiving physician/facility: Dr. Fisher at [facility] DS: Admitting Diagnosis Discharge Date 12/24/23 Admitting Diagnosis pneumonia influenza a urinary tract infection acute kidney injury superimposed on chronic kidney disease COPD diabetes mellitus hypertension GERD heart failure with preserved ejection fraction hyperlipidemia depression DS: Discharge Diagnosis Discharge Diagnosis (1) Pneumonia: Qualifiers: Laterality: left Lung location: lower lobe of lung Pneumonia type: due to unspecified organism Qualified Code(s): J18.9 - Pneumonia, unspecified organism Code(s): J18.9 - Pneumonia, unspecified organism Status: Acute Assessment and Plan: 12/22/2023: patient reports 1 week history of fever, body aches, weakness, productive cough, and shortness of breath chest x-ray showing pneumonia, likely community-acquired patient currently on 2 L nasal cannula which is her baseline keep oxygen saturations between 88-92% considering her COPD history she was given DuoNeb and started on IV antibiotics including cefepime, doxycycline, vancomycin vancomycin was DC'd considering MRSA was negative we will continue with the cefepime in the doxycycline continue DuoNebs Pep therapy will check H influenza, urine Legionella, urine strep, mycoplasma pneumoniae today continue guaifenesin, Claritin, and Singulair blood cultures were obtained and are pending will order sputum culture as well 12/23/23: Continue with DuoNebs continue with IV cefepime and doxycycline continue with guaifenesin, Claritin, and singular blood cultures are showing no growth to date sputum culture is still pending continue incentive spirometry and pep therapy will get a CT of her chest today. White blood cell count abnormally elevated to 30.6 from 23.3 (2) Influenza A: Code(s): J10.1 - Influenza due to other identified influenza virus with other respiratory manifestations Status: Acute Assessment and Plan: 12/22/2023: respiratory panel positive for influenza A denies any recent sick contacts currently up-to-date on immunizations including pneumococcal, COVID, and influenza see above plan of care 12/23/23: no change to current treatment plan (3) Urinary tract infection: Code(s): N39.0 - Urinary tract infection, site not specified Status: Acute Assessment and Plan: 12/22/2023: patient reports urinary frequency however denies any dysuria or hematuria UA shown 1+ protein, 3+ glucose, trace urine blood, 1+ leukocytes, 4-6 urine wbc's, trace bacteria. Urine culture is pending will continue with cefepime for now 12/23/23: urine culture is still pending continue with cefepime (4) Leukocytosis: Code(s): D72.829 - Elevated white blood cell count, unspecified Status: Acute Assessment and Plan: 12/23/2023: initial white blood cell count 23.3, now up to 30.6 despite broad-spectrum antibiotics RBC is low at 3.66 hemoglobin 10.3, hematocrit 32.8, platelet count is for a 401 will check ESR, CD4 lymphocyte panel, and procalcitonin will also get a CT of the chest /abdomen/pelvis to rule out any other etiology patient reports extreme fatigue, decreased appetite, and reports her taste and smell is off she has had a weight loss of 18 lb since July of last year which was not intentional she reports being sick more often if white blood cell count continues to climb despite our best efforts we may have to transfer to a hospital with Hemat
[2023-12-24 08:21] LABS: Glucose Point of Care 239 mg/dl (65-105)
[2023-12-24 08:33] LABS: CRP > 25.0 mg/dL (0.0-0.9)
[2023-12-24] MEDS: levoFLOXacin 500 MG/D5W 100 ML 500 MG/100 ML BAG 100 MG IVPB (08:38)
[2023-12-24] MEDS: INSULIN HUMAN LISPRO (*BKC) 1,000 UNITS/10 ML VIAL 6 UNITS SUB-Q ×2 (08:38→12:45)
[2023-12-24] MEDS: INSULIN HUMAN LISPRO (*BKC) 1,000 UNITS/10 ML VIAL SUB-Q ×2 (08:39→12:45)
[2023-12-24 08:47] LABS: Lactic Acid Reflex 0.8 mmol/L (0.4-2.0)
[2023-12-24] MEDS: ENOXAPARIN 30 MG/0.3 ML SYRINGE SUB-Q (10:00)
[2023-12-24] MEDS: LIDOCAINE 5% PATCH 1 PATCH TRANSDERM (10:00)
[2023-12-24] MEDS: NYSTATIN 100,000 UNITS/ML SUSP 5 ML ORAL.SUSP PO ×4 (10:01→20:52)
[2023-12-24] MEDS: guaiFENesin 12 HR 600 MG TABCR PO ×2 (10:01→20:51)
[2023-12-24] MEDS: LORATADINE 10 MG TABLET PO (10:01)
[2023-12-24] MEDS: DULoxetine HCL 20 MG CAPSULE.DR 40 MG PO (10:01)
[2023-12-24] MEDS: GABAPENTIN 100 MG CAPSULE PO ×3 (10:01→17:36)
[2023-12-24] MEDS: ASPIRIN 81 MG ENTERIC TABLET PO (10:01)
[2023-12-24] MEDS: FLUoxetine HCL 10 MG CAPSULE 30 MG PO (10:01)
[2023-12-24] MEDS: EMPAGLIFLOZIN 25 MG TABLET PO (10:01)
[2023-12-24] MEDS: PANTOPRAZOLE 40 MG TABLET PO (10:02)
[2023-12-24] MEDS: OSELTAMIVIR PHOSPHATE 30 MG CAPSULE PO (10:07)
[2023-12-24] MEDS: SODIUM CHLORIDE 0.9% IV 500 ML IV CONT (10:30)
[2023-12-24] MEDS: SODIUM CHLORIDE 0.9% IV 1,000 ML 100 ML IV CONT (11:30)
[2023-12-24 12:05] LABS: Glucose Point of Care 244 mg/dl (65-105)
--- NOTE | 2023-12-24 16:16 | PC.NURSE ---
Patient c./o feeling like she cant get her breath, SPO2 88% on 2L per NC, rises to 90/91% with coached deep breathing exercises. Titrated O2 up to 3L, spO2 93/94% with normal effort, patient reports relief.
--- NOTE | 2023-12-24 16:49 | PC.NURSE ---
5970 win[address] maldonado aware of low bp and low urine out put. wants us to give a bolus of 1,000ml bolus over 4hrs.
[2023-12-24 17:10] LABS: Glucose Point of Care 100 mg/dl (65-105)
[2023-12-24] MEDS: SODIUM CHLORIDE 0.9% IV 1,000 ML 250 ML IV CONT (17:28)
[2023-12-24] MEDS: DOCUSATE SODIUM 100 MG CAPSULE PO (17:36)
--- NOTE | 2023-12-24 18:29 | PC.NURSE ---
1819 update given to winston maldonado bp still remains 94/54. we still have not been given a bed assignment. o2 @ 3l per nc
[2023-12-24 18:33] LABS: Hematocrit 29.2 % (35.0-42.0); Hemoglobin 9.3 g/dL (11.7-13.8); Mean Corpuscular HGB Conc 31.8 g/dL (32.0-36.0); Mean Corpuscular Hemoglobin 28.4 pg (27.0-31.0); Mean Corpuscular Volume 89.3 fL (78.0-102.0); Mean Platelet Volume 9.8 fl (9.2-11.8); Platelet Count Result 420 K/mm3 (150-420); Red Blood Count 3.27 M/mm3 (4.20-5.40); Red Cell Distribution Width 15.9 % (11.6-14.4)
[2023-12-24 18:39] LABS: White Blood Count 33.7 K/mm3 (4.8-10.8)
[2023-12-24 18:56] LABS: Alanine Aminotransferase 59 U/L (14-59); Albumin Level 1.6 g/dL (3.4-5.0); Alkaline Phosphatase 92 U/L (46-116); Anion Gap 10 mmol/L (8-16); Aspartate Amino Transferase 73 U/L (15-37); Bilirubin,Total 0.3 mg/dL (0.00-1.00); Blood Urea Nitrogen 60 mg/dL (7-18); Calcium 8.2 mg/dL (8.5-10.1); Carbon Dioxide 24 mmol/L (21-32); Chloride 103 mmol/L (98-108); Estimated CRCL calculation 14 ml/min; Estimated Glomerular Filt Rate 16; Glucose 183 mg/dL (70-99); NT Pro B Type Natriuretic Pept 1034 pg/mL (0-450); Osmolality Calculated 305 mOsm/kg (285-295); Potassium 4.3 mmol/L (3.5-5.1); Sodium 137 mmol/L (136-145); Total Protein 6.7 g/dL (6.4-8.2)
--- NOTE | 2023-12-24 20:19 | PC.NURSE ---
received call from data warehouse administrator at [facility] given bed assignment of rm [id number] in the IMU, pt and daughter notified
--- NOTE | 2023-12-24 20:29 | PM.IMHP ---
H&P: HPI History of Present Illness Date/Time: 12/24/23 20:29 Chief Complaint: sob Narrative: This is?78-year-old female with a history of hypertension, diabetes mellitus, dyslipidemia, arthritis, chronic low back pain, CAD ,non-STEMI,CHF with a normal EF, sleep apnea, COPD on home oxygen 2 liters/minute presents to the ER with a 1 week history of body aches, generalized weakness, fever, cough productive of mucopurulent sputum, shortness of breath and nasal congestion x 7 days,persistent. EXAMINATION: CT chest abdomen pelvis wo con DATE: 12/23/2023 16:01 INDICATION: Abdominal pain. TECHNIQUE: Computed tomography (CT) of the chest, abdomen, and pelvis was performed without intravenous contrast. Automated exposure control and iterative reconstruction technique were employed. The dose-length product was 849.50 mGy-cm. COMPARISON: CT chest 06/03/2023, CT abdomen and pelvis 03/03/2023 FINDINGS: CHEST CT: There is mild scarring at the lung apices. There is moderate emphysema. There are patchy airspace opacities and nodules involving all lobes, worst in the lower lobes, consistent with pneumonia. The heart size is normal. There are coronary artery calcifications. No pericardial effusion. There is mild mediastinal and bilateral hilar lymphadenopathy, likely reactive. There is a small sliding hiatal hernia. There is mild thoracic spondylosis. Thoracolumbar levoscoliosis is noted. ABDOMEN/PELVIS CT: The liver is normal. 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 The gallbladder is normal in size. 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 The adrenal glands are normal. There is cortical thinning of the kidneys. There is calcified atherosclerosis of the aorta and many of the other arteries. There is diverticulosis of the colon without evidence of diverticulitis. The appendix is normal. There are no pathologically enlarged lymph nodes. There is no free intraperitoneal fluid. There is a left inguinal hernia containing fat. There is severe thoracic spondylosis. There is a chronic burst fracture of L1. IMPRESSION: 1. Multifocal pneumonia. 2. Moderate emphysema. 3. Mild mediastinal and bilateral hilar lymphadenopathy, likely reactive. 4. Small sliding hiatal hernia. EXAMINATION: XR chest 1V portable INDICATION: Cough and shortness of breath TECHNIQUE: Portable AP chest at 0938 hours COMPARISON: 07/13/2023 FINDINGS: Cardiomegaly is noted. There are airspace opacities of the left mid and lower lung zones. No pleural effusion or pneumothorax. IMPRESSION: 1. Airspace opacities of the left mid and lower lung zones, likely pneumonia. Review of Systems Review of Systems: sob, productive cough Constitutional: Constitutional: Reports chills, Reports fatigue, Reports fever(s), Reports lethargy, Reports malaise, Reports poor appetite and Reports weakness Eyes: Eyes: Denies change in vision ENT: Denies dysphagia, Reports nasal congestion and Denies odynophagia Cardiovascular: Cardiovascular: Denies chest pain, Denies radiating jaw, neck or arm pain and Denies palpitations Respiratory: Respiratory: Reports change in phlegm color, Reports cough, Reports excessive phlegm production and Reports dyspnea Gastrointestinal: Gastrointestinal: Denies abdominal pain, Denies dyspepsia, Denies diarrhea, Denies nausea and Denies vomiting Genitourinary: Genitourinary: Denies dysuria Musculoskeletal: Musculoskeletal: Reports myalgias Integumentary/Breasts: Skin/Breast: Denies rash Neurologic: Denies focal weakness and Denies Sensory deficit (Neuro) Psychiatric: Psychiatric: Reports no additional psychiatric complaints and Reports as per HPI Endocrine: Endocrine: Denies cold intolerance, Denies fatigue, Denies flushing, Denies heat intolerance, Denies polyphagia, Denies polydipsia and Denies palpitations Hematologic/Lymphatic: Hematologic/Lymphatic: Reports no additional hematologic/lymphatic complaints and Reports as per HPI Allergic/Immunologic: All
--- NOTE | 2023-12-24 20:46 | PC.NURSE ---
Call to [facility]. Report given to Tavia Zayas RN. Patient will be going to room 211.
[2023-12-24] MEDS: MONTELUKAST SODIUM 10 MG TABLET PO (20:51)
[2023-12-24] MEDS: ATORVASTATIN 40 MG TABLET PO (20:51)
[2023-12-24 21:09] LABS: Glucose Point of Care 336 mg/dl (65-105)
[2023-12-24 21:22] LABS: Glucose Point of Care 264 mg/dl (65-105)
--- NOTE | 2023-12-24 21:45 | PC.NURSE ---
Patient transferred to [facility] via EMS. VSS. All patient belongings except for w/c and oxygen tank taken with EMS. Purse with patient. and Rehab to poultry picker tank and w/c in morning.
--- NOTE | 2023-12-24 22:01 | PM.DS ---
DS: Admitting Diagnosis Discharge Date 12/24/23 Admitting Diagnosis Pneumonia Influenza Urinary tract infection Acute kidney injury superimposed on chronic kidney disease COPD Diabetes mellitus hypertension GERD heart failure with preserved EF hyperlipidemia depression DS: Summary Hospital Course Reason for hospitalization: Pneumonia Influenza Urinary tract infection Acute kidney injury superimposed on chronic kidney disease COPD Diabetes mellitus hypertension GERD heart failure with preserved EF hyperlipidemia depression Hospital Course: Hospital course: Molly Rabago is a 78 year old female with a significant past medical history of chronic anemia, anxiety, arthritis, coronary artery disease, depression, diabetes mellitus, GERD, hypertension, history of urinary tract infection, COPD on O2 at 2 L nasal cannula who presents to the hospital today with chief complaint of upper respiratory infection and cough.? Patient states that she has been having a 1 week history of body aches, general weakness, fever,? productive cough, shortness of breath and a headache which has been unrelieved at home prompting her to come here to the hospital for further evaluation and workup.? she does report being up to date on her vaccinations including influenza, pneumonia and COVID.? She does not report being around any sick contacts that she knows of. ? She denies any fever chills, nausea, chest pain, shortness a breath, lower extremity edema, dysuria, lightheadedness, dizziness, congestion.? She does endorse that she has had diarrhea the 1st day of her symptoms which has subsided, she reports a headache today, frequent urination, abdominal pain, productive cough with yellow green sputum, and generalized weakness.? She is wheelchair-bound at baseline. Workup in the hospital included a chest x-ray which shown airspace opacities of the left mid and lower lung zones, likely pneumonia.? Labs were obtained and initially showed a white blood cell count of 23.3, hemoglobin 11.5, sodium 135, chloride 97, BUN 38, creatinine 1.81, EGFR 27,? blood glucose 235, serum osmolarity 297, lactic acid was 1.3, AST 45, ALT 75, proBNP 615, albumin 2.3.? She had a UA done as well which shown 1+ protein, 3+ glucose, trace urine blood, 1+ leukocytes, 4-6 urine wbc's, trace bacteria.? MRSA was negative.? Respiratory panel was also obtained and shown positive for influenza A.? Blood and urine cultures were obtained and are pending.? She was given a DuoNeb, Tamiflu, doxycycline, cefepime, and vancomycin while in the emergency room. Considering her MRSA is negative we go ahead and deescalate the vancomycin now and just continue with the doxycycline and cefepime. 12/23/23: On examination today patient is alert and oriented x3, lying in the bed.? She states that she has been feeling very fatigued, depressed, poor appetite for quite a while.? She has really has not been interested in food. She states that all food smells like a wet dog and when she does eat everything tastes off. According to the EMR she has lost a little over 18 pounds since July of last year. Labs today show a white blood cell count of 30.6, RBC 3.66, hemoglobin 10.3, hematocrit 32.8, platelet count is 401, BUN 47, creatinine? 2.2 to, EGFR 21, blood sugars ranging 153-208, hemoglobin A1c is 9.1, serum osmolarity is 301, AST is 50, ALT is 65, albumin is 1.9, TSH is 1.64.? H influenza, urine strep pneumonia, urine Legionella, mycoplasma are all pending. blood culture showing no growth today, urine and sputum cultures are pending.? Patient has a worsening leukocytosis despite IV antibiotics of doxycycline, cefepime, and received vanc yesterday.? We will go ahead and get a CT of her abdomen /Pelvis as she complains of nausea and abdominal pain, we will also CT her chest as well considering her pneumonia. If her white blood cell count continues to rise we need to transfer her to another hospital. 12/24/2023: ?on examination today patient is
[2023-12-26 08:08] LABS: Legionella pneumophila Ag Ur Not Detected (Not Detected); Pneumococcal Antigen Urine Not Detected (Not Detected)
[2023-12-29 00:54] LABS: Absolute CD4 Count 1352 cells/uL (490-1740); Lymphocytes, Absolute 4287 cells/uL (850-3900); Percent CD4 Cells 32 % (30-61)
== END 2023-12-24 21:45 | disposition short-term general hospital (02) | DRG 194 ==
LOC: CHSED 10:51 → CHS2ND 11:24
PROVIDERS: Nurse Practitioner Acute Care; Admitting Provider Internal Medicine; Emergency Provider Internal Medicine Critical Care Medicine; PCP Family Medicine; Visit Provider Internal Medicine
DX: J10.00 Influenza due to other identified influenza virus with unspecified type of pneumonia (principal); I13.0 Hypertensive heart and chronic kidney disease with heart failure and stage 1 through stage 4 chronic kidney disease, or unspecified chronic kidney disease; J44.0 Chronic obstructive pulmonary disease with (acute) lower respiratory infection; N17.9 Acute kidney failure, unspecified; N39.0 Urinary tract infection, site not specified; I50.32 Chronic diastolic (congestive) heart failure; J18.9 Pneumonia, unspecified organism; I25.10 Atherosclerotic heart disease of native coronary artery without angina pectoris; E11.22 Type 2 diabetes mellitus with diabetic chronic kidney disease; N18.9 Chronic kidney disease, unspecified; K21.9 Gastro-esophageal reflux disease without esophagitis; E78.5 Hyperlipidemia, unspecified; D72.829 Elevated white blood cell count, unspecified; D64.9 Anemia, unspecified; R33.9 Retention of urine, unspecified; M19.90 Unspecified osteoarthritis, unspecified site; F41.9 Anxiety disorder, unspecified; F32.9 Major depressive disorder, single episode, unspecified; Z99.3 Dependence on wheelchair; Z79.4 Long term (current) use of insulin; Z79.82 Long term (current) use of aspirin; Z90.81 Acquired absence of spleen
CPT/HCPCS: 36415; 71045; 71250; 74176; 80053; 81001; 82948; 83036; 83605; 83735; 83880; 84145; 84443; 84484; 85025; 85027; 85652; 86140; 86361; 86684; 86738; 87040; 87070; 87086; 87088; 87205; 87449; 87637; 87641; 87899; 93005; 94640; 94667; 96365; 96366; 96367; 96372; 96375; 99285; A9270; G0378; J0692; J1650; J1815; J1956; J2405; J3370; J7030; J7040

== ENCOUNTER 2023-12-24 22:19 | Inpatient (IN) | payer MEDICARE, MEDICAID, SELFPAY ==
--- NOTE | ~2023-12-24 | US_ITS ---
US renal BI 12/26/2023 12:15 Procedure: Realtime transabdominal ultrasound of the kidneys and bladder. Indication: Acute renal insufficiency Comparison: CT dated 12/23/2023 Findings: Renal echotexture is normal bilaterally without hydronephrosis, contour deforming mass or r enal calculus. The right kidney measures 9.2 cm and left kidney measures 8.9 cm. Bladder evaluation limited due to Cintron catheter.. Impression: 1: Unremarkable renal ultrasound. No stones, masses or hydronephrosis. Reviewed, dictated and finalized at location A. ER DIRECTOR LEAD TEACHER Impression: 1: Unremarkable renal ultrasound. No stones, masses or hydronephrosis.
--- NOTE | ~2023-12-24 | XR_ITS ---
EXAMINATION: XR chest 1V portable Exam Date/Time: 01/01/2024 15:18 LEAD INSTALLER HISTORY: pneumonia, elevated WBC Comparison: 12/22/2023. RESULT: Lines, tubes, and devices: None. Lungs and pleura: Worsening segmental airspace disease in the left lung base. Mild diffuse reticular opacities. Emphysematous change. Cardiomediastinal silhouette: Stable. Other: No acute osseous or upper abdominal finding. IMPRESSION: Worsening segmental left basilar airspace disease/consolidation. Mild interstitial edema. Reviewed, dictated and finalized at location K. INSTALLER IMPRESSION: Worsening segmental left basilar airspace disease/consolidation. Mild interstit ial edema.
--- NOTE | 2023-12-24 22:19 | ADMGEN ---
This patient, Molly Rabago, was admitted to IMU Room 211-01. Patient/family oriented to hospital policies and general routines including ID bracelet, bed and alarms, visiting hours, pain management, procedures, bathroom and other care routines, personal items, smoking policy, room service/diet, and visiting hours. Information on how to activate the Rapid Response Team has been discussed. Patient/Family are encouraged to report perceived risks to care and to ask questions if they do not understand what they are told or what they should do.
[2023-12-24 22:36] VITALS: BP 124/43; PULSE 95; RESP 18; TEMP 36.9; O2SAT 95
[2023-12-24 22:37] VITALS: BMI 30.4
--- NOTE | 2023-12-24 22:46 | PM.IMHP ---
H&P: HPI History of Present Illness Date/Time: 12/24/23 22:46 Chief Complaint: sob Narrative: THIS IS A 78-YEAR-OLD FEMALE WITH PAST MEDICAL HISTORY SIGNIFICANT FOR TYPE DIABETES MELLITUS, COPD, HYPERTENSION, HEART FAILURE, CORONARY ARTERY DISEASE, ANXIETY DISORDER, GERD. PATIENT COMES A TRANSFER FROM OUTSIDE HOSPITAL DUE TO DECLINING KIDNEY FUNCTION AND LEUKOCYTOSIS. PATIENT IS UNABLE TO GIVE ANY HISTORY. PLEASE SEE TRANSFER SUMMARY. EXAMINATION: CT chest abdomen pelvis wo con DATE: 12/23/2023 16:01 INDICATION: Abdominal pain. TECHNIQUE: Computed tomography (CT) of the chest, abdomen, and pelvis was performed without intravenous contrast. Automated exposure control and iterative reconstruction technique were employed. The dose-length product was 849.50 mGy-cm. COMPARISON: CT chest 06/03/2023, CT abdomen and pelvis 03/03/2023 FINDINGS: CHEST CT: There is mild scarring at the lung apices. There is moderate emphysema. There are patchy airspace opacities and nodules involving all lobes, worst in the lower lobes, consistent with pneumonia. The heart size is normal. There are coronary artery calcifications. No pericardial effusion. There is mild mediastinal and bilateral hilar lymphadenopathy, likely reactive. There is a small sliding hiatal hernia. There is mild thoracic spondylosis. Thoracolumbar levoscoliosis is noted. ABDOMEN/PELVIS CT: The liver is normal. 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 The gallbladder is normal in size. 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 The adrenal glands are normal. There is cortical thinning of the kidneys. There is calcified atherosclerosis of the aorta and many of the other arteries. There is diverticulosis of the colon without evidence of diverticulitis. The appendix is normal. There are no pathologically enlarged lymph nodes. There is no free intraperitoneal fluid. There is a left inguinal hernia containing fat. There is severe thoracic spondylosis. There is a chronic burst fracture of L1. IMPRESSION: 1. Multifocal pneumonia. 2. Moderate emphysema. 3. Mild mediastinal and bilateral hilar lymphadenopathy, likely reactive. 4. Small sliding hiatal hernia. [facility] Past Medical History Medical History (Updated 12/23/23 @ 15:38 by Tanvi Giles, KANCHAN) (HFpEF) heart failure with preserved ejection fraction Anemia, chronic disease Anxiety disorder Arthritis CAD (coronary artery disease) COPD (chronic obstructive pulmonary disease) Depression Diabetes mellitus GERD (gastroesophageal reflux disease) Hyperlipidemia Hypertension Urinary tract infection Surgical History Surgical History H/O splenectomy Family History Family History Other Brain cancer Father Diabetes mellitus Heart attack Sibling Heart attack Sibling Diabetes mellitus Sibling Heart attack Social History Social History (Updated 12/22/23 @ 14:25 by Trixie Acevedo RN) Smoking packs per day: 1 Smoking cigarettes per day: 20.0 Years smoked: 40 Smoking pack-years: 40.00 Smoking status: Former smoker Tobacco type: cigarettes Second hand tobacco smoke exposure: No Smoking end date: 06/01/20 Alcohol intake: never Drinks per week: 3 Substance use: never Substance use type: does not use Do You Feel Safe in your Home?: Yes Lack of Transportation: No Lack of Food: Never True Current Housing: I Have Housing Concerned About Future Housing: No Difficulty Paying Gas/Electric Bills: No Difficulty Paying for Meds: No Currently Unemployed: No Education: Decline to Answer Difficulty w/ Childcare or Family Care: No Living arrangements: long-term Gender identity (if verbalized by the patient): Female Sexual Orientation (if Verbalized by the Patient): Straight or Heterosexual Spiritual care concerns: No Meds Home Medications and Allergies Home
[2023-12-24 22:51] VITALS: PULSE 95
[2023-12-24 23:41] VITALS: BP 121/41; PULSE 93; RESP 18; TEMP 36.8; O2SAT 96
[2023-12-25] VITALS (22 sets, daily range): BP systolic 107–128; BP diastolic 42–85; PULSE 69–98; RESP 18–20; TEMP 36.5–37.2; O2SAT 92–99
[2023-12-25] MEDS: DOXYCYCLINE 100 MG/NS 100 ML 100 MG/100 ML BAG IVPB ×2 (03:00→14:15)
[2023-12-25] MEDS: AZTREONAM 1 GM in SODIUM CHLORIDE 0.9% IV 50 ML 100 ML IVPB ×2 (04:15→16:16)
[2023-12-25] MEDS: FLUTICASONE/SALMETEROL 115-21 MCG INHALER 1 PUFF 2 PUFF INHALATION ×2 (08:20→20:08)
[2023-12-25] MEDS: UMECLIDINIUM BROMIDE 62.5 MCG ELLIPTA 1 PUFF INHALATION (08:20)
[2023-12-25 08:21] LABS: Glucose Point of Care 189 mg/dl (65-105)
[2023-12-25] MEDS: METOPROLOL TARTRATE 50 MG TAB PO ×2 (08:50→21:09)
[2023-12-25] MEDS: GABAPENTIN 100 MG CAPSULE PO ×3 (08:50→16:18)
[2023-12-25] MEDS: ACETAMINOPHEN 500 MG TABLET PO (08:51)
[2023-12-25] MEDS: guaiFENesin 12 HR 600 MG TABCR PO ×2 (08:52→21:09)
[2023-12-25] MEDS: ASPIRIN 81 MG ENTERIC TABLET PO (08:52)
[2023-12-25] MEDS: LORATADINE 10 MG TABLET PO (08:52)
[2023-12-25] MEDS: DULoxetine HCL 20 MG CAPSULE.DR 40 MG PO (08:53)
[2023-12-25] MEDS: TOLNAFTATE 1% POWDER 45 GM BTL 1 APPLIC TOPICAL (08:53)
[2023-12-25] MEDS: hydrALAZINE HCL 25 MG TABLET PO ×4 (08:57→21:08)
--- NOTE | 2023-12-25 09:22 | P.PNIM_ITS ---
Progress Note: A&P Assessment and Plan (1) Pneumonia: Qualifiers: Laterality: left Lung location: lower lobe of lung Pneumonia type: due to unspecified organism Qualified Code(s): J18.9 - Pneumonia, unspecified organism Code(s): J18.9 - Pneumonia, unspecified organism Status: Acute Assessment and Plan: ?12/22/2023: Forwarded from chart * ?patient reports 1 week history of fever, body aches, weakness, productive cough, and shortness of breath * ?chest x-ray showing pneumonia, likely? community-acquired * ?patient currently on 2 L nasal cannula which is her baseline * ?keep oxygen saturations between 88-92% considering her COPD history * ?she was given DuoNeb and started on IV antibiotics including cefepime, doxycycline, vancomycin * ?vancomycin was DC'd considering MRSA was negative * ?we will continue with the cefepime in the doxycycline * ?continue DuoNebs * ?Pep therapy * ?will check H influenza, urine Legionella, urine strep, mycoplasma pneumoniae today * ?continue guaifenesin, Claritin, and Singulair * ?blood cultures were obtained and are pending * ?will order sputum culture as well 12/23/23: Forwarded from chart * ? Continue with DuoNebs * ?continue with IV cefepime and doxycycline * ?continue with guaifenesin, Claritin, and singular * ?blood cultures are showing no growth to date * ?sputum culture is still pending * ?continue incentive spirometry and pep therapy * ?will get a CT of her chest today. * ? White blood cell count abnormally elevated? to 30.6 from 23.3 12/24/2023: * PATIENT STARTED ON AZTREONAM PLUS DOXYCYCLINE * AWAIT CULTURES 12/25/23: * Continue with current treatment plan * WBC down to 29.7 today * Blood cultures still showing no growth to date * Urine and sputum cultures are still pending. (2) Influenza A: Code(s): J10.1 - Influenza due to other identified influenza virus with other respiratory manifestations Status: Acute Assessment and Plan: ?12/22/2023: Forwarded from chart * ?respiratory panel positive for influenza A * ?denies any recent sick contacts * ?currently up-to-date on immunizations including pneumococcal, COVID, and influenza * ?see above plan of care 12/23/23: Forwarded from chart * ?no change to current treatment plan 12/24/2023: Forwarded from chart * Continue Tamiflu * No changes to current treatment plan 12/25/2023: * No changes to current treatment plan (3) Leukocytosis: Code(s): D72.829 - Elevated white blood cell count, unspecified Status: Acute Assessment and Plan: ?12/23/2023: Forwarded from chart * ?initial white blood cell count 23.3, now up to 30.6 despite broad-spectrum antibiotics * ?RBC is low at 3.66 * ?hemoglobin 10.3, hematocrit 32.8, platelet count is for a 401 * ?will check? ESR, CD4 lymphocyte panel, and procalcitonin * ?will also get a CT of the chest /abdomen/pelvis to rule out any other etiology * ?patient reports extreme fatigue, decreased appetite, and reports her taste and smell is off * ?she has had a weight loss of 18 lb since July of last year which was not intentional * ?she reports being sick more often * ?if white blood cell count continues to climb despite our best efforts we may have to transfer to a hospital with Hematology/Oncology Services for further workup. 12/25/2023: * WBC trending down to 29.7 today. * No change to current treatment plan. * Will hold off on Hem/Onc consult for now (4) Acute kidney injury superimposed on chronic kidney disease: Code(s): N17.9 - Acu
--- NOTE | 2023-12-25 09:22 | PM.IMPN ---
Progress Note: A&P Assessment and Plan (1) Pneumonia: Qualifiers: Laterality: left Lung location: lower lobe of lung Pneumonia type: due to unspecified organism Qualified Code(s): J18.9 - Pneumonia, unspecified organism Code(s): J18.9 - Pneumonia, unspecified organism Status: Acute Assessment and Plan: ?12/22/2023: Forwarded from chart ?patient reports 1 week history of fever, body aches, weakness, productive cough, and shortness of breath ?chest x-ray showing pneumonia, likely? community-acquired ?patient currently on 2 L nasal cannula which is her baseline ?keep oxygen saturations between 88-92% considering her COPD history ?she was given DuoNeb and started on IV antibiotics including cefepime, doxycycline, vancomycin ?vancomycin was DC'd considering MRSA was negative ?we will continue with the cefepime in the doxycycline ?continue DuoNebs ?Pep therapy ?will check H influenza, urine Legionella, urine strep, mycoplasma pneumoniae today ?continue guaifenesin, Claritin, and Singulair ?blood cultures were obtained and are pending ?will order sputum culture as well 12/23/23: Forwarded from chart ? Continue with DuoNebs ?continue with IV cefepime and doxycycline ?continue with guaifenesin, Claritin, and singular ?blood cultures are showing no growth to date ?sputum culture is still pending ?continue incentive spirometry and pep therapy ?will get a CT of her chest today. ? White blood cell count abnormally elevated? to 30.6 from 23.3 12/24/2023: PATIENT STARTED ON AZTREONAM PLUS DOXYCYCLINE AWAIT CULTURES 12/25/23: Continue with current treatment plan WBC down to 29.7 today Blood cultures still showing no growth to date Urine and sputum cultures are still pending. (2) Influenza A: Code(s): J10.1 - Influenza due to other identified influenza virus with other respiratory manifestations Status: Acute Assessment and Plan: ?12/22/2023: Forwarded from chart ?respiratory panel positive for influenza A ?denies any recent sick contacts ?currently up-to-date on immunizations including pneumococcal, COVID, and influenza ?see above plan of care 12/23/23: Forwarded from chart ?no change to current treatment plan 12/24/2023: Forwarded from chart Continue Tamiflu No changes to current treatment plan 12/25/2023: No changes to current treatment plan (3) Leukocytosis: Code(s): D72.829 - Elevated white blood cell count, unspecified Status: Acute Assessment and Plan: ?12/23/2023: Forwarded from chart ?initial white blood cell count 23.3, now up to 30.6 despite broad-spectrum antibiotics ?RBC is low at 3.66 ?hemoglobin 10.3, hematocrit 32.8, platelet count is for a 401 ?will check? ESR, CD4 lymphocyte panel, and procalcitonin ?will also get a CT of the chest /abdomen/pelvis to rule out any other etiology ?patient reports extreme fatigue, decreased appetite, and reports her taste and smell is off ?she has had a weight loss of 18 lb since July of last year which was not intentional ?she reports being sick more often ?if white blood cell count continues to climb despite our best efforts we may have to transfer to a hospital with Hematology/Oncology Services for further workup. 12/25/2023: WBC trending down to 29.7 today. No change to current treatment plan. Will hold off on Hem/Onc consult for now (4) Acute kidney injury superimposed on chronic kidney disease: Code(s): N17.9 - Acute kidney failure, unspecified; N18.9 - Chronic kidney disease, unspecified Status: Acute Assessment and Plan: ?12/22/2023: Copied from chart ?BUN 38, creatinine 1.81, EGFR 27 ?baseline creatinine ranging 1.18-1.2 ?continue to trend labs 12/23/23: Copied from chart ?BUN 47,? creatinine 2.22, EGFR 21 ?continue to trend labs 12/24/23: Copy from chart RENAL ULTRASOUND IN A.M. HOLDING LISINOPRIL CURRENT LYTES I
[2023-12-25 10:14] LABS: Hematocrit 29.7 % (37.0-47.0); Hemoglobin 9.1 g/dL (12.0-15.0); Mean Corpuscular HGB Conc 30.6 g/dl (32-36); Mean Corpuscular Hemoglobin 28.3 pg (26-34); Mean Corpuscular Volume 92.2 fl (80-100); Mean Platelet Volume 10.1 fl (7.4-10.4); Platelet Count Result 427 k/mm3 (150-375); Red Blood Count 3.22 M/mm3 (4.2-5.4); White Blood Count 29.7 K/mm3 (4.5-10.0)
[2023-12-25 10:24] LABS: Alanine Aminotransferase 53 U/L (6-35); Albumin Level 2.9 g/dL (3.5-5.1); Alkaline Phosphatase 117 U/L (38-126); Anion Gap 5 mmol/L (8-16); Aspartate Amino Transferase 87 U/L (14-36); Bilirubin,Total 0.5 mg/dL (0.2-1.3); Blood Urea Nitrogen 50 mg/dL (7-17); Calcium 8.6 mg/dL (8.4-10.2); Carbon Dioxide 23 mmol/L (22-30); Chloride 108 mmol/L (98-107); Estimated CRCL calculation 18 ml/min; Estimated Glomerular Filt Rate 23; Glucose 200 mg/dL (65-110); Potassium 4.7 mmol/L (3.4-5.0); Sodium 136 mmol/L (137-145)
[2023-12-25 10:33] LABS: Band Neutrophils Percent 3 % (0-6); Lymphocytes Absolute Manual 3.56 K/mm3 (1.1-4.5); Monocytes Absolute Manual 0.89 K/mm3 (0.1-0.90); Monocytes Percent Manual 3 % (3-9); Neutrophils Absolute Manual 25.24 K/mm3 (1.7-7.2); Neutrophils Percent Manual 82 % (46-73); Platelet Estimate Adequate (Adequate); Schistocytes None Seen (NORMAL); Total Cells Counted 100
[2023-12-25 11:32] LABS: Glucose Point of Care 190 mg/dl (65-105)
[2023-12-25] MEDS: SODIUM CHLORIDE 0.9% IV 1,000 ML 75 ML IV CONT (14:02)
[2023-12-25 16:10] LABS: Glucose Point of Care 223 mg/dl (65-105)
[2023-12-25] MEDS: INSULIN ASPART (*BKC) 100 UNITS/ML 6 UNITS SUB-Q (16:19)
[2023-12-25] MEDS: MONTELUKAST SODIUM 10 MG TABLET PO (21:08)
[2023-12-25] MEDS: INSULIN GLARGINE (*BKC) 100 UNITS/ML 22 UNITS SUB-Q (21:09)
[2023-12-25] MEDS: ATORVASTATIN 40 MG TABLET PO (21:11)
[2023-12-25 21:21] LABS: Glucose Point of Care 146 mg/dl (65-105)
[2023-12-26] VITALS (14 sets, daily range): BP systolic 101–144; BP diastolic 56–92; PULSE 64–90; RESP 16–22; TEMP 36.1–36.4; O2SAT 93–96
[2023-12-26] MEDS: DOXYCYCLINE 100 MG/NS 100 ML 100 MG/100 ML BAG IVPB (02:02)
[2023-12-26] MEDS: AZTREONAM 1 GM in SODIUM CHLORIDE 0.9% IV 50 ML 100 ML IVPB (03:14)
[2023-12-26] MEDS: ACETAMINOPHEN 500 MG TABLET PO (03:35)
[2023-12-26 04:50] LABS: Basophils Absolute Auto 0.1 K/mm3 (0.0-0.1); Basophils Percent Auto 0.3 % (0.2-1.2); Eosinophils Absolute Auto 0.1 K/mm3 (0-0.3); Eosinophils Percent Auto 0.3 % (0-4.4); Hemoglobin 9.1 g/dL (12.0-15.0); Immature Granulocyte Absolute 0.81 K/mm3 (0.00-0.031); Immature Granulocyte Percent A 2.5 % (0-0.5); Lymphocytes Absolute Auto 3.52 K/mm3 (0.9-3.2); Mean Corpuscular HGB Conc 30.3 g/dl (32-36); Mean Corpuscular Volume 92.3 fl (80-100); Mean Platelet Volume 10.2 fl (7.4-10.4); Monocytes Absolute Auto 3.5 K/mm3 (0.1-0.6); Monocytes Percent Auto 10.9 % (2.6-8.5); Nucleated Red Blood Cells Absolute Auto 0.1 K/mm3 (0.0-0.012); Nucleated Red Blood Cells Perc 0.3 % (0.0-0.2); Platelet Count Result 420 k/mm3 (150-375); Red Blood Count 3.25 M/mm3 (4.2-5.4); Red Cell Distribution Width 16.6 % (11.5-14.5)
[2023-12-26 05:00] LABS: Iron 28 ug/dL (37-170)
[2023-12-26 05:05] LABS: Alanine Aminotransferase 49 U/L (6-35); Albumin Level 2.6 g/dL (3.5-5.1); Alkaline Phosphatase 154 U/L (38-126); Anion Gap 4 mmol/L (8-16); Aspartate Amino Transferase 78 U/L (14-36); Bilirubin,Total 0.4 mg/dL (0.2-1.3); Blood Urea Nitrogen 42 mg/dL (7-17); Calcium 8.6 mg/dL (8.4-10.2); Carbon Dioxide 23 mmol/L (22-30); Chloride 112 mmol/L (98-107); Estimated CRCL calculation 24 ml/min; Estimated Glomerular Filt Rate 34; Glucose 164 mg/dL (65-110); Potassium 4.9 mmol/L (3.4-5.0); Sodium 139 mmol/L (137-145)
[2023-12-26 05:09] LABS: Percent Iron Saturation 19 % (20-50)
[2023-12-26 05:19] LABS: Platelet Estimate Increased (Adequate)
[2023-12-26 05:20] LABS: Platelet Clumps Present
[2023-12-26 05:21] LABS: Anisocytosis 1+ (NORMAL); Schistocytes None Seen (NORMAL); Target Cells 1+ (NORMAL)
[2023-12-26] MEDS: SODIUM CHLORIDE 0.9% IV 1,000 ML 75 ML IV CONT (06:38)
--- NOTE | 2023-12-26 07:33 | P.PNIM_ITS ---
Progress Note: A&P Assessment and Plan (1) Pneumonia: Qualifiers: Laterality: left Lung location: lower lobe of lung Pneumonia type: due to unspecified organism Qualified Code(s): J18.9 - Pneumonia, unspecified organism Code(s): J18.9 - Pneumonia, unspecified organism Status: Acute Assessment and Plan: ?12/22/2023: Forwarded from chart * ?patient reports 1 week history of fever, body aches, weakness, productive cough, and shortness of breath * ?chest x-ray showing pneumonia, likely? community-acquired * ?patient currently on 2 L nasal cannula which is her baseline * ?keep oxygen saturations between 88-92% considering her COPD history * ?she was given DuoNeb and started on IV antibiotics including cefepime, doxycycline, vancomycin * ?vancomycin was DC'd considering MRSA was negative * ?we will continue with the cefepime in the doxycycline * ?continue DuoNebs * ?Pep therapy * ?will check H influenza, urine Legionella, urine strep, mycoplasma pneumoniae today * ?continue guaifenesin, Claritin, and Singulair * ?blood cultures were obtained and are pending * ?will order sputum culture as well 12/23/23: Forwarded from chart * ? Continue with DuoNebs * ?continue with IV cefepime and doxycycline * ?continue with guaifenesin, Claritin, and singular * ?blood cultures are showing no growth to date * ?sputum culture is still pending * ?continue incentive spirometry and pep therapy * ?will get a CT of her chest today. * ? White blood cell count abnormally elevated? to 30.6 from 23.3 12/24/2023: * PATIENT STARTED ON AZTREONAM PLUS DOXYCYCLINE * AWAIT CULTURES 12/25/23: * Continue with current treatment plan * WBC down to 29.7 today * Blood cultures still showing no growth to date * Urine and sputum cultures are still pending. 12/26/2023: * white blood cell count 32.0 * sputum culture showing few Gram-positive cocci * will switch antibiotic back to Levaquin as she was improving on this verses that aztreonam and doxycycline * doxycycline was discontinued considering the patient has a negative MRSA (2) Influenza A: Code(s): J10.1 - Influenza due to other identified influenza virus with other respiratory manifestations Status: Acute Assessment and Plan: ?12/22/2023: Forwarded from chart * ?respiratory panel positive for influenza A * ?denies any recent sick contacts * ?currently up-to-date on immunizations including pneumococcal, COVID, and influenza * ?see above plan of care 12/23/23: Forwarded from chart * ?no change to current treatment plan 12/24/2023: Forwarded from chart * Continue Tamiflu * No changes to current treatment plan 12/25/2023: * No changes to current treatment plan (3) Leukocytosis: Code(s): D72.829 - Elevated white blood cell count, unspecified Status: Acute Assessment and Plan: ?12/23/2023: Forwarded from chart * ?initial white blood cell count 23.3, now up to 30.6 despite broad-spectrum antibiotics * ?RBC is low at 3.66 * ?hemoglobin 10.3, hematocrit 32.8, platelet count is for a 401 * ?will check? ESR, CD4 lymphocyte panel, and procalcitonin * ?will also get a CT of the chest /abdomen/pelvis to rule out any other etiology * ?patient reports extreme fatigue, decreased appetite, and reports her taste and smell is off * ?she has had a weight loss of 18 lb since July of last year which was not intentional * ?she reports being sick more often * ?if white blood cell count continues to climb despite our best efforts we may have to transfer to a hospital with
--- NOTE | 2023-12-26 07:33 | PM.IMPN ---
Progress Note: A&P Assessment and Plan (1) Pneumonia: Qualifiers: Laterality: left Lung location: lower lobe of lung Pneumonia type: due to unspecified organism Qualified Code(s): J18.9 - Pneumonia, unspecified organism Code(s): J18.9 - Pneumonia, unspecified organism Status: Acute Assessment and Plan: ?12/22/2023: Forwarded from chart ?patient reports 1 week history of fever, body aches, weakness, productive cough, and shortness of breath ?chest x-ray showing pneumonia, likely? community-acquired ?patient currently on 2 L nasal cannula which is her baseline ?keep oxygen saturations between 88-92% considering her COPD history ?she was given DuoNeb and started on IV antibiotics including cefepime, doxycycline, vancomycin ?vancomycin was DC'd considering MRSA was negative ?we will continue with the cefepime in the doxycycline ?continue DuoNebs ?Pep therapy ?will check H influenza, urine Legionella, urine strep, mycoplasma pneumoniae today ?continue guaifenesin, Claritin, and Singulair ?blood cultures were obtained and are pending ?will order sputum culture as well 12/23/23: Forwarded from chart ? Continue with DuoNebs ?continue with IV cefepime and doxycycline ?continue with guaifenesin, Claritin, and singular ?blood cultures are showing no growth to date ?sputum culture is still pending ?continue incentive spirometry and pep therapy ?will get a CT of her chest today. ? White blood cell count abnormally elevated? to 30.6 from 23.3 12/24/2023: PATIENT STARTED ON AZTREONAM PLUS DOXYCYCLINE AWAIT CULTURES 12/25/23: Continue with current treatment plan WBC down to 29.7 today Blood cultures still showing no growth to date Urine and sputum cultures are still pending. 12/26/2023: white blood cell count 32.0 sputum culture showing few Gram-positive cocci will switch antibiotic back to Levaquin as she was improving on this verses that aztreonam and doxycycline doxycycline was discontinued considering the patient has a negative MRSA (2) Influenza A: Code(s): J10.1 - Influenza due to other identified influenza virus with other respiratory manifestations Status: Acute Assessment and Plan: ?12/22/2023: Forwarded from chart ?respiratory panel positive for influenza A ?denies any recent sick contacts ?currently up-to-date on immunizations including pneumococcal, COVID, and influenza ?see above plan of care 12/23/23: Forwarded from chart ?no change to current treatment plan 12/24/2023: Forwarded from chart Continue Tamiflu No changes to current treatment plan 12/25/2023: No changes to current treatment plan (3) Leukocytosis: Code(s): D72.829 - Elevated white blood cell count, unspecified Status: Acute Assessment and Plan: ?12/23/2023: Forwarded from chart ?initial white blood cell count 23.3, now up to 30.6 despite broad-spectrum antibiotics ?RBC is low at 3.66 ?hemoglobin 10.3, hematocrit 32.8, platelet count is for a 401 ?will check? ESR, CD4 lymphocyte panel, and procalcitonin ?will also get a CT of the chest /abdomen/pelvis to rule out any other etiology ?patient reports extreme fatigue, decreased appetite, and reports her taste and smell is off ?she has had a weight loss of 18 lb since July of last year which was not intentional ?she reports being sick more often ?if white blood cell count continues to climb despite our best efforts we may have to transfer to a hospital with Hematology/Oncology Services for further workup. 12/25/2023: WBC trending down to 29.7 today. No change to current treatment plan. Will hold off on Hem/Onc consult for now 12/26/2023: white blood cell count 32.0 today changed antibiotic back to Levaquin and discontinued aztreonam and doxycycline considering patient was getting better on the Levaquin versus this antibiotic regimen (4) Acute kidney injury superimposed on
[2023-12-26] MEDS: METOPROLOL TARTRATE 50 MG TAB PO ×2 (08:38→21:42)
[2023-12-26] MEDS: hydrALAZINE HCL 25 MG TABLET PO ×4 (08:38→23:53)
[2023-12-26] MEDS: DULoxetine HCL 20 MG CAPSULE.DR 40 MG PO (08:38)
[2023-12-26] MEDS: INSULIN ASPART (*BKC) 100 UNITS/ML 6 UNITS SUB-Q ×2 (08:39→12:03)
[2023-12-26] MEDS: GABAPENTIN 100 MG CAPSULE PO ×3 (08:39→17:22)
[2023-12-26] MEDS: ASPIRIN 81 MG ENTERIC TABLET PO (08:39)
[2023-12-26] MEDS: LORATADINE 10 MG TABLET PO (08:39)
[2023-12-26 08:42] LABS: Glucose Point of Care 151 mg/dl (65-105)
[2023-12-26] MEDS: UMECLIDINIUM BROMIDE 62.5 MCG ELLIPTA 1 PUFF INHALATION (08:56)
[2023-12-26] MEDS: FLUTICASONE/SALMETEROL 115-21 MCG INHALER 1 PUFF 2 PUFF INHALATION ×2 (08:56→19:53)
[2023-12-26] MEDS: FUROSEMIDE INJ 40 MG/4 ML VIAL IV PUSH (10:07)
[2023-12-26] MEDS: guaiFENesin 12 HR 600 MG TABCR PO ×2 (10:08→21:42)
[2023-12-26] MEDS: levoFLOXacin 750 MG/D5W 150 ML 750 MG/150 ML BAG 100 MG IVPB (10:09)
--- NOTE | 2023-12-26 10:55 | PC.NURSE ---
This patient, Molly Rabago, was received from [facility] on 12/26/23 at 1055. Patient/family oriented to unit policies and routines
--- NOTE | 2023-12-26 11:13 | PC.NURSE ---
This patient, Molly Rabago, was transferred to [ 300] on 12/26/23 at 1050. Personal belongings sent with patient. Report given to [ TIESHA Hoang @ [phone]]. Appropriate documentation sent with patient.
[2023-12-26 11:28] LABS: Glucose Point of Care 140 mg/dl (65-105)
[2023-12-26] MEDS: LORazepam (*CRX) 0.5 MG TABLET PO ×2 (14:05→21:42)
[2023-12-26 16:33] LABS: Glucose Point of Care 59 mg/dl (65-105)
[2023-12-26 16:51] LABS: Glucose Point of Care 97 mg/dl (65-105)
[2023-12-26] MEDS: ATORVASTATIN 40 MG TABLET PO (21:42)
[2023-12-26] MEDS: MONTELUKAST SODIUM 10 MG TABLET PO (21:42)
[2023-12-27] VITALS (8 sets, daily range): BP systolic 130–141; BP diastolic 51–73; PULSE 50–89; RESP 18–24; TEMP 35.6–36.6; O2SAT 84–97
[2023-12-27 01:44] LABS: Glucose Point of Care 121 mg/dl (65-105)
[2023-12-27] MEDS: LORazepam (*CRX) 0.5 MG TABLET PO ×3 (05:43→20:59)
[2023-12-27 06:45] LABS: Hematocrit 29.8 % (37.0-47.0); Hemoglobin 9.1 g/dL (12.0-15.0); Mean Corpuscular HGB Conc 30.5 g/dl (32-36); Mean Corpuscular Hemoglobin 27.8 pg (26-34); Mean Corpuscular Volume 91.1 fl (80-100); Mean Platelet Volume 10.3 fl (7.4-10.4); Platelet Count Result 428 k/mm3 (150-375); Red Blood Count 3.27 M/mm3 (4.2-5.4); Red Cell Distribution Width 16.9 % (11.5-14.5); White Blood Count 30.1 K/mm3 (4.5-10.0)
[2023-12-27 07:00] LABS: Alanine Aminotransferase 50 U/L (6-35); Albumin Level 2.6 g/dL (3.5-5.1); Alkaline Phosphatase 118 U/L (38-126); Anion Gap 7 mmol/L (8-16); Aspartate Amino Transferase 77 U/L (14-36); Bilirubin,Total 0.4 mg/dL (0.2-1.3); Blood Urea Nitrogen 37 mg/dL (7-17); Calcium 8.7 mg/dL (8.4-10.2); Carbon Dioxide 23 mmol/L (22-30); Chloride 109 mmol/L (98-107); Estimated CRCL calculation 28 ml/min; Estimated Glomerular Filt Rate 40; Glucose 134 mg/dL (65-110); Potassium 4.5 mmol/L (3.4-5.0); Sodium 139 mmol/L (137-145)
[2023-12-27 07:08] LABS: Monocytes Percent Manual 5 % (3-9); Neutrophils Percent Manual 86 % (46-73); Nucleated Red Blood Cells 2 %; Platelet Estimate Adequate (Adequate); Schistocytes None Seen (NORMAL); Total Cells Counted 100
[2023-12-27 07:09] LABS: Target Cells 1+ (NORMAL)
--- NOTE | 2023-12-27 08:09 | P.PNIM_ITS ---
Progress Note: A&P Assessment and Plan (1) Pneumonia: Qualifiers: Laterality: left Lung location: lower lobe of lung Pneumonia type: due to unspecified organism Qualified Code(s): J18.9 - Pneumonia, unspecified organism Code(s): J18.9 - Pneumonia, unspecified organism Status: Acute Assessment and Plan: ?12/22/2023: Forwarded from chart * ?patient reports 1 week history of fever, body aches, weakness, productive cough, and shortness of breath * ?chest x-ray showing pneumonia, likely? community-acquired * ?patient currently on 2 L nasal cannula which is her baseline * ?keep oxygen saturations between 88-92% considering her COPD history * ?she was given DuoNeb and started on IV antibiotics including cefepime, doxycycline, vancomycin * ?vancomycin was DC'd considering MRSA was negative * ?we will continue with the cefepime in the doxycycline * ?continue DuoNebs * ?Pep therapy * ?will check H influenza, urine Legionella, urine strep, mycoplasma pneumoniae today * ?continue guaifenesin, Claritin, and Singulair * ?blood cultures were obtained and are pending * ?will order sputum culture as well 12/23/23: Forwarded from chart * ? Continue with DuoNebs * ?continue with IV cefepime and doxycycline * ?continue with guaifenesin, Claritin, and singular * ?blood cultures are showing no growth to date * ?sputum culture is still pending * ?continue incentive spirometry and pep therapy * ?will get a CT of her chest today. * ? White blood cell count abnormally elevated? to 30.6 from 23.3 12/24/2023: * PATIENT STARTED ON AZTREONAM PLUS DOXYCYCLINE * AWAIT CULTURES 12/25/23: * Continue with current treatment plan * WBC down to 29.7 today * Blood cultures still showing no growth to date * Urine and sputum cultures are still pending. 12/26/2023: * white blood cell count 32.0 * sputum culture showing few Gram-positive cocci * will switch antibiotic back to Levaquin as she was improving on this verses that aztreonam and doxycycline * doxycycline was discontinued considering the patient has a negative MRSA 12/27/2023 * white blood cell count down to 30.1 today * continue with Levaquin * blood cultures are still showing no growth today (2) Influenza A: Code(s): J10.1 - Influenza due to other identified influenza virus with other respiratory manifestations Status: Acute Assessment and Plan: ?12/22/2023: Forwarded from chart * ?respiratory panel positive for influenza A * ?denies any recent sick contacts * ?currently up-to-date on immunizations including pneumococcal, COVID, and influenza * ?see above plan of care 12/23/23: Forwarded from chart * ?no change to current treatment plan 12/24/2023: Forwarded from chart * Continue Tamiflu * No changes to current treatment plan 12/25/2023: * No changes to current treatment plan (3) Leukocytosis: Code(s): D72.829 - Elevated white blood cell count, unspecified Status: Acute Assessment and Plan: ?12/23/2023: Forwarded from chart * ?initial white blood cell count 23.3, now up to 30.6 despite broad-spectrum antibiotics * ?RBC is low at 3.66 * ?hemoglobin 10.3, hematocrit 32.8, platelet count is for a 401 * ?will check? ESR, CD4 lymphocyte panel, and procalcitonin * ?will also get a CT of the chest /abdomen/pelvis to rule out any other etiology * ?patient reports extreme fatigue, decreased appetite, and reports her taste and smell is off * ?she has had a weight loss of 18 lb since July of last year which was not intenti
--- NOTE | 2023-12-27 08:09 | PM.IMPN ---
Progress Note: A&P Assessment and Plan (1) Pneumonia: Qualifiers: Laterality: left Lung location: lower lobe of lung Pneumonia type: due to unspecified organism Qualified Code(s): J18.9 - Pneumonia, unspecified organism Code(s): J18.9 - Pneumonia, unspecified organism Status: Acute Assessment and Plan: ?12/22/2023: Forwarded from chart ?patient reports 1 week history of fever, body aches, weakness, productive cough, and shortness of breath ?chest x-ray showing pneumonia, likely? community-acquired ?patient currently on 2 L nasal cannula which is her baseline ?keep oxygen saturations between 88-92% considering her COPD history ?she was given DuoNeb and started on IV antibiotics including cefepime, doxycycline, vancomycin ?vancomycin was DC'd considering MRSA was negative ?we will continue with the cefepime in the doxycycline ?continue DuoNebs ?Pep therapy ?will check H influenza, urine Legionella, urine strep, mycoplasma pneumoniae today ?continue guaifenesin, Claritin, and Singulair ?blood cultures were obtained and are pending ?will order sputum culture as well 12/23/23: Forwarded from chart ? Continue with DuoNebs ?continue with IV cefepime and doxycycline ?continue with guaifenesin, Claritin, and singular ?blood cultures are showing no growth to date ?sputum culture is still pending ?continue incentive spirometry and pep therapy ?will get a CT of her chest today. ? White blood cell count abnormally elevated? to 30.6 from 23.3 12/24/2023: PATIENT STARTED ON AZTREONAM PLUS DOXYCYCLINE AWAIT CULTURES 12/25/23: Continue with current treatment plan WBC down to 29.7 today Blood cultures still showing no growth to date Urine and sputum cultures are still pending. 12/26/2023: white blood cell count 32.0 sputum culture showing few Gram-positive cocci will switch antibiotic back to Levaquin as she was improving on this verses that aztreonam and doxycycline doxycycline was discontinued considering the patient has a negative MRSA 12/27/2023 white blood cell count down to 30.1 today continue with Levaquin blood cultures are still showing no growth today (2) Influenza A: Code(s): J10.1 - Influenza due to other identified influenza virus with other respiratory manifestations Status: Acute Assessment and Plan: ?12/22/2023: Forwarded from chart ?respiratory panel positive for influenza A ?denies any recent sick contacts ?currently up-to-date on immunizations including pneumococcal, COVID, and influenza ?see above plan of care 12/23/23: Forwarded from chart ?no change to current treatment plan 12/24/2023: Forwarded from chart Continue Tamiflu No changes to current treatment plan 12/25/2023: No changes to current treatment plan (3) Leukocytosis: Code(s): D72.829 - Elevated white blood cell count, unspecified Status: Acute Assessment and Plan: ?12/23/2023: Forwarded from chart ?initial white blood cell count 23.3, now up to 30.6 despite broad-spectrum antibiotics ?RBC is low at 3.66 ?hemoglobin 10.3, hematocrit 32.8, platelet count is for a 401 ?will check? ESR, CD4 lymphocyte panel, and procalcitonin ?will also get a CT of the chest /abdomen/pelvis to rule out any other etiology ?patient reports extreme fatigue, decreased appetite, and reports her taste and smell is off ?she has had a weight loss of 18 lb since July of last year which was not intentional ?she reports being sick more often ?if white blood cell count continues to climb despite our best efforts we may have to transfer to a hospital with Hematology/Oncology Services for further workup. 12/25/2023: WBC trending down to 29.7 today. No change to current treatment plan. Will hold off on Hem/Onc consult for now 12/26/2023: white blood cell count 32.0 today changed antibiotic back to Levaquin and discontinued aztreonam
[2023-12-27] MEDS: UMECLIDINIUM BROMIDE 62.5 MCG ELLIPTA 1 PUFF INHALATION (08:34)
[2023-12-27] MEDS: FLUTICASONE/SALMETEROL 115-21 MCG INHALER 1 PUFF 2 PUFF INHALATION ×2 (08:38→19:24)
[2023-12-27 08:44] LABS: Glucose Point of Care 142 mg/dl (65-105)
[2023-12-27] MEDS: EMPAGLIFLOZIN 25 MG TABLET PO (09:00)
[2023-12-27] MEDS: ENOXAPARIN 40 MG/0.4 ML SYRINGE SUB-Q (09:00)
[2023-12-27] MEDS: FUROSEMIDE 40 MG TABLET PO (09:00)
[2023-12-27] MEDS: lisinopriL 20 MG TABLET 40 MG PO (09:00)
[2023-12-27] MEDS: GABAPENTIN 100 MG CAPSULE PO ×3 (09:01→17:18)
[2023-12-27] MEDS: METOPROLOL TARTRATE 50 MG TAB PO ×2 (09:01→20:59)
[2023-12-27] MEDS: guaiFENesin 12 HR 600 MG TABCR PO ×2 (09:01→20:59)
[2023-12-27] MEDS: DULoxetine HCL 20 MG CAPSULE.DR 40 MG PO (09:01)
[2023-12-27] MEDS: ASPIRIN 81 MG ENTERIC TABLET PO (09:01)
[2023-12-27] MEDS: LORATADINE 10 MG TABLET PO (09:01)
[2023-12-27] MEDS: hydrALAZINE HCL 25 MG TABLET PO ×4 (09:05→20:59)
[2023-12-27 11:23] LABS: Glucose Point of Care 178 mg/dl (65-105)
[2023-12-27] MEDS: INSULIN ASPART (*BKC) 100 UNITS/ML 6 UNITS SUB-Q (12:53)
[2023-12-27 16:21] LABS: Glucose Point of Care 133 mg/dl (65-105)
--- NOTE | 2023-12-27 18:15 | PC.NURSE ---
Pt has participated and contributed in plan of care today. Pt denies any pain at this time. Pt had to have pills crushed with applesauce this morning due to reports of difficulty swallowing. Pt refused breakfast, morning dose of insulin held. Pt was treated at lunch time, but held again at dinner due to decreased blood sugar and pt blood sugar dropping yesterday. Pt not eating much for dinner. Will continue to monitor pt for any changes in status.
[2023-12-27 20:48] LABS: Glucose Point of Care 183 mg/dl (65-105)
[2023-12-27] MEDS: ATORVASTATIN 40 MG TABLET PO (20:59)
[2023-12-27] MEDS: MONTELUKAST SODIUM 10 MG TABLET PO (20:59)
[2023-12-27] MEDS: INSULIN GLARGINE (*BKC) 100 UNITS/ML 22 UNITS SUB-Q (21:00)
[2023-12-28] VITALS (9 sets, daily range): BP systolic 100–147; BP diastolic 42–90; PULSE 74–101; RESP 12–20; TEMP 35.9–36.6; O2SAT 93–96
[2023-12-28] MEDS: LORazepam (*CRX) 0.5 MG TABLET PO ×3 (05:35→21:06)
[2023-12-28 06:17] LABS: Glucose Point of Care 162 mg/dl (65-105)
[2023-12-28 06:50] LABS: Hematocrit 29.8 % (37.0-47.0); Hemoglobin 9.5 g/dL (12.0-15.0); Mean Corpuscular HGB Conc 31.9 g/dl (32-36); Mean Corpuscular Hemoglobin 28.5 pg (26-34); Mean Corpuscular Volume 89.5 fl (80-100); Mean Platelet Volume 10.4 fl (7.4-10.4); Platelet Count Result 442 k/mm3 (150-375); Red Blood Count 3.33 M/mm3 (4.2-5.4); Red Cell Distribution Width 16.5 % (11.5-14.5); White Blood Count 25.1 K/mm3 (4.5-10.0)
[2023-12-28 07:00] LABS: Alanine Aminotransferase 52 U/L (6-35); Albumin Level 2.9 g/dL (3.5-5.1); Alkaline Phosphatase 121 U/L (38-126); Anion Gap 7 mmol/L (8-16); Aspartate Amino Transferase 83 U/L (14-36); Bilirubin,Total 0.6 mg/dL (0.2-1.3); Blood Urea Nitrogen 37 mg/dL (7-17); Calcium 8.9 mg/dL (8.4-10.2); Carbon Dioxide 26 mmol/L (22-30); Chloride 107 mmol/L (98-107); Estimated CRCL calculation 30 ml/min; Estimated Glomerular Filt Rate 43; Glucose 148 mg/dL (65-110); Potassium 4.5 mmol/L (3.4-5.0); Sodium 140 mmol/L (137-145)
[2023-12-28 07:24] LABS: Band Neutrophils Percent 11 % (0-6); Basophils Absolute Manual 0.25 K/mm3 (0.0-0.1); Basophils Percent Manual 1 % (0-1); Large Platelets Present; Monocytes Percent Manual 6 % (3-9); Neutrophils Absolute Manual 21.33 K/mm3 (1.7-7.2); Neutrophils Percent Manual 74 % (46-73); Platelet Estimate Increased (Adequate); Schistocytes None Seen (NORMAL); Target Cells 1+ (NORMAL); Total Cells Counted 100
[2023-12-28 07:25] LABS: Platelet Clumps Present
[2023-12-28 07:56] LABS: Glucose Point of Care 166 mg/dl (65-105)
[2023-12-28] MEDS: GABAPENTIN 100 MG CAPSULE PO ×3 (08:31→16:50)
[2023-12-28] MEDS: FUROSEMIDE 40 MG TABLET PO (08:31)
[2023-12-28] MEDS: INSULIN ASPART (*BKC) 100 UNITS/ML 6 UNITS SUB-Q ×2 (08:31→11:44)
[2023-12-28] MEDS: DULoxetine HCL 20 MG CAPSULE.DR 40 MG PO (08:32)
[2023-12-28] MEDS: LORATADINE 10 MG TABLET PO (08:32)
[2023-12-28] MEDS: lisinopriL 20 MG TABLET 40 MG PO (08:32)
[2023-12-28] MEDS: ASPIRIN 81 MG ENTERIC TABLET PO (08:32)
[2023-12-28] MEDS: hydrALAZINE HCL 25 MG TABLET PO ×3 (08:32→16:50)
[2023-12-28] MEDS: METOPROLOL TARTRATE 50 MG TAB PO (08:33)
[2023-12-28] MEDS: EMPAGLIFLOZIN 25 MG TABLET PO (08:33)
[2023-12-28] MEDS: guaiFENesin 12 HR 600 MG TABCR PO ×2 (08:33→21:06)
[2023-12-28] MEDS: ENOXAPARIN 40 MG/0.4 ML SYRINGE SUB-Q (09:07)
[2023-12-28] MEDS: levoFLOXacin 750 MG/D5W 150 ML 750 MG/150 ML BAG 100 MG IVPB (09:07)
--- NOTE | 2023-12-28 10:28 | P.PNIM_ITS ---
Progress Note: A&P Assessment and Plan (1) Pneumonia: Qualifiers: Laterality: left Lung location: lower lobe of lung Pneumonia type: due to unspecified organism Qualified Code(s): J18.9 - Pneumonia, unspecified organism Code(s): J18.9 - Pneumonia, unspecified organism Status: Acute Assessment and Plan: ?12/22/2023: Forwarded from chart * ?patient reports 1 week history of fever, body aches, weakness, productive cough, and shortness of breath * ?chest x-ray showing pneumonia, likely? community-acquired * ?patient currently on 2 L nasal cannula which is her baseline * ?keep oxygen saturations between 88-92% considering her COPD history * ?she was given DuoNeb and started on IV antibiotics including cefepime, doxycycline, vancomycin * ?vancomycin was DC'd considering MRSA was negative * ?we will continue with the cefepime in the doxycycline * ?continue DuoNebs * ?Pep therapy * ?will check H influenza, urine Legionella, urine strep, mycoplasma pneumoniae today * ?continue guaifenesin, Claritin, and Singulair * ?blood cultures were obtained and are pending * ?will order sputum culture as well 12/23/23: Forwarded from chart * ? Continue with DuoNebs * ?continue with IV cefepime and doxycycline * ?continue with guaifenesin, Claritin, and singular * ?blood cultures are showing no growth to date * ?sputum culture is still pending * ?continue incentive spirometry and pep therapy * ?will get a CT of her chest today. * ? White blood cell count abnormally elevated? to 30.6 from 23.3 12/24/2023: * PATIENT STARTED ON AZTREONAM PLUS DOXYCYCLINE * AWAIT CULTURES 12/25/23: * Continue with current treatment plan * WBC down to 29.7 today * Blood cultures still showing no growth to date * Urine and sputum cultures are still pending. 12/26/2023: * white blood cell count 32.0 * sputum culture showing few Gram-positive cocci * will switch antibiotic back to Levaquin as she was improving on this verses that aztreonam and doxycycline * doxycycline was discontinued considering the patient has a negative MRSA 12/27/2023 * white blood cell count down to 30.1 today * continue with Levaquin * blood cultures are still showing no growth today 12/28/23: * WBC down to 25.1 * Levaquin switched to oral * Blood cultures showing no growth on final read (2) Influenza A: Code(s): J10.1 - Influenza due to other identified influenza virus with other respiratory manifestations Status: Acute Assessment and Plan: ?12/22/2023: Forwarded from chart * ?respiratory panel positive for influenza A * ?denies any recent sick contacts * ?currently up-to-date on immunizations including pneumococcal, COVID, and influenza * ?see above plan of care 12/23/23: Forwarded from chart * ?no change to current treatment plan 12/24/2023: Forwarded from chart * Continue Tamiflu * No changes to current treatment plan 12/25/2023: * No changes to current treatment plan (3) Leukocytosis: Code(s): D72.829 - Elevated white blood cell count, unspecified Status: Acute Assessment and Plan: ?12/23/2023: Forwarded from chart * ?initial white blood cell count 23.3, now up to 30.6 despite broad-spectrum antibiotics * ?RBC is low at 3.66 * ?hemoglobin 10.3, hematocrit 32.8, platelet count is for a 401 * ?will check? ESR, CD4 lymphocyte panel, and procalcitonin * ?will also get a CT of the chest /abdomen/pelvis to rule out any other etiology * ?patient reports extreme fatigue, decreased appetite, and re
--- NOTE | 2023-12-28 10:28 | PM.IMPN ---
Progress Note: A&P Assessment and Plan (1) Pneumonia: Qualifiers: Laterality: left Lung location: lower lobe of lung Pneumonia type: due to unspecified organism Qualified Code(s): J18.9 - Pneumonia, unspecified organism Code(s): J18.9 - Pneumonia, unspecified organism Status: Acute Assessment and Plan: ?12/22/2023: Forwarded from chart ?patient reports 1 week history of fever, body aches, weakness, productive cough, and shortness of breath ?chest x-ray showing pneumonia, likely? community-acquired ?patient currently on 2 L nasal cannula which is her baseline ?keep oxygen saturations between 88-92% considering her COPD history ?she was given DuoNeb and started on IV antibiotics including cefepime, doxycycline, vancomycin ?vancomycin was DC'd considering MRSA was negative ?we will continue with the cefepime in the doxycycline ?continue DuoNebs ?Pep therapy ?will check H influenza, urine Legionella, urine strep, mycoplasma pneumoniae today ?continue guaifenesin, Claritin, and Singulair ?blood cultures were obtained and are pending ?will order sputum culture as well 12/23/23: Forwarded from chart ? Continue with DuoNebs ?continue with IV cefepime and doxycycline ?continue with guaifenesin, Claritin, and singular ?blood cultures are showing no growth to date ?sputum culture is still pending ?continue incentive spirometry and pep therapy ?will get a CT of her chest today. ? White blood cell count abnormally elevated? to 30.6 from 23.3 12/24/2023: PATIENT STARTED ON AZTREONAM PLUS DOXYCYCLINE AWAIT CULTURES 12/25/23: Continue with current treatment plan WBC down to 29.7 today Blood cultures still showing no growth to date Urine and sputum cultures are still pending. 12/26/2023: white blood cell count 32.0 sputum culture showing few Gram-positive cocci will switch antibiotic back to Levaquin as she was improving on this verses that aztreonam and doxycycline doxycycline was discontinued considering the patient has a negative MRSA 12/27/2023 white blood cell count down to 30.1 today continue with Levaquin blood cultures are still showing no growth today 12/28/23: WBC down to 25.1 Levaquin switched to oral Blood cultures showing no growth on final read (2) Influenza A: Code(s): J10.1 - Influenza due to other identified influenza virus with other respiratory manifestations Status: Acute Assessment and Plan: ?12/22/2023: Forwarded from chart ?respiratory panel positive for influenza A ?denies any recent sick contacts ?currently up-to-date on immunizations including pneumococcal, COVID, and influenza ?see above plan of care 12/23/23: Forwarded from chart ?no change to current treatment plan 12/24/2023: Forwarded from chart Continue Tamiflu No changes to current treatment plan 12/25/2023: No changes to current treatment plan (3) Leukocytosis: Code(s): D72.829 - Elevated white blood cell count, unspecified Status: Acute Assessment and Plan: ?12/23/2023: Forwarded from chart ?initial white blood cell count 23.3, now up to 30.6 despite broad-spectrum antibiotics ?RBC is low at 3.66 ?hemoglobin 10.3, hematocrit 32.8, platelet count is for a 401 ?will check? ESR, CD4 lymphocyte panel, and procalcitonin ?will also get a CT of the chest /abdomen/pelvis to rule out any other etiology ?patient reports extreme fatigue, decreased appetite, and reports her taste and smell is off ?she has had a weight loss of 18 lb since July of last year which was not intentional ?she reports being sick more often ?if white blood cell count continues to climb despite our best efforts we may have to transfer to a hospital with Hematology/Oncology Services for further workup. 12/25/2023: WBC trending down to 29.7 today. No change to current treatment plan. Will hold off on Hem/Onc consult for now 12/26
[2023-12-28] MEDS: UMECLIDINIUM BROMIDE 62.5 MCG ELLIPTA 1 PUFF INHALATION (10:45)
[2023-12-28] MEDS: FLUTICASONE/SALMETEROL 115-21 MCG INHALER 1 PUFF 2 PUFF INHALATION ×2 (10:45→19:20)
[2023-12-28 11:47] LABS: Glucose Point of Care 152 mg/dl (65-105)
[2023-12-28 17:09] LABS: Glucose Point of Care 79 mg/dl (65-105)
[2023-12-28 20:46] LABS: Glucose Point of Care 141 mg/dl (65-105)
[2023-12-28] MEDS: MONTELUKAST SODIUM 10 MG TABLET PO (21:06)
[2023-12-28] MEDS: ATORVASTATIN 40 MG TABLET PO (21:06)
[2023-12-28] MEDS: INSULIN GLARGINE (*BKC) 100 UNITS/ML 22 UNITS SUB-Q (21:07)
[2023-12-29] VITALS (14 sets, daily range): BP systolic 93–145; BP diastolic 49–87; PULSE 80–96; RESP 18–20; TEMP 36.1–37.3; O2SAT 92–100
[2023-12-29 02:28] LABS: Glucose Point of Care 121 mg/dl (65-105)
[2023-12-29] MEDS: LORazepam (*CRX) 0.5 MG TABLET PO ×3 (06:22→20:59)
[2023-12-29 06:47] LABS: Basophils Absolute Auto 0.2 K/mm3 (0.0-0.1); Basophils Percent Auto 0.8 % (0.2-1.2); Eosinophils Absolute Auto 0.4 K/mm3 (0-0.3); Hematocrit 30.1 % (37.0-47.0); Hemoglobin 9.5 g/dL (12.0-15.0); Immature Granulocyte Percent A 4.4 % (0-0.5); Lymphocytes Absolute Auto 3.91 K/mm3 (0.9-3.2); Lymphocytes Percent Auto 19.2 % (18.3-44.2); Mean Corpuscular HGB Conc 31.6 g/dl (32-36); Mean Corpuscular Hemoglobin 28.3 pg (26-34); Mean Corpuscular Volume 89.6 fl (80-100); Mean Platelet Volume 10.4 fl (7.4-10.4); Monocytes Absolute Auto 2.2 K/mm3 (0.1-0.6); Monocytes Percent Auto 10.6 % (2.6-8.5); Neutrophils Absolute Auto 12.8 K/mm3 (1.3-6.7); Nucleated Red Blood Cells Absolute Auto 0.1 K/mm3 (0.0-0.012); Nucleated Red Blood Cells Perc 0.6 % (0.0-0.2); Platelet Count Result 439 k/mm3 (150-375); Red Blood Count 3.36 M/mm3 (4.2-5.4); Red Cell Distribution Width 16.5 % (11.5-14.5); White Blood Count 20.3 K/mm3 (4.5-10.0)
[2023-12-29 06:54] LABS: Alanine Aminotransferase 53 U/L (6-35); Albumin Level 2.8 g/dL (3.5-5.1); Alkaline Phosphatase 119 U/L (38-126); Anion Gap 3 mmol/L (8-16); Aspartate Amino Transferase 98 U/L (14-36); Bilirubin,Total 0.5 mg/dL (0.2-1.3); Blood Urea Nitrogen 36 mg/dL (7-17); Calcium 8.8 mg/dL (8.4-10.2); Carbon Dioxide 30 mmol/L (22-30); Chloride 104 mmol/L (98-107); Estimated CRCL calculation 28 ml/min; Estimated Glomerular Filt Rate 40; Glucose 172 mg/dL (65-110); Potassium 4.1 mmol/L (3.4-5.0); Sodium 137 mmol/L (137-145)
[2023-12-29 07:26] LABS: Glucose Point of Care 162 mg/dl (65-105)
[2023-12-29] MEDS: FLUTICASONE/SALMETEROL 115-21 MCG INHALER 1 PUFF 2 PUFF INHALATION ×2 (08:13→20:00)
[2023-12-29] MEDS: UMECLIDINIUM BROMIDE 62.5 MCG ELLIPTA 1 PUFF INHALATION (08:13)
[2023-12-29 08:15] LABS: Hypochromasia 1+ (NORMAL); Large Platelets Present; Schistocytes None Seen (NORMAL); Target Cells 1+ (NORMAL)
[2023-12-29] MEDS: LORATADINE 10 MG TABLET PO (08:55)
[2023-12-29] MEDS: EMPAGLIFLOZIN 25 MG TABLET PO (08:55)
[2023-12-29] MEDS: ASPIRIN 81 MG ENTERIC TABLET PO (08:55)
[2023-12-29] MEDS: guaiFENesin 12 HR 600 MG TABCR PO ×2 (08:55→20:59)
[2023-12-29] MEDS: GABAPENTIN 100 MG CAPSULE PO ×3 (08:55→16:58)
[2023-12-29] MEDS: METOPROLOL TARTRATE 50 MG TAB PO ×2 (08:56→20:59)
[2023-12-29] MEDS: FUROSEMIDE 40 MG TABLET PO (08:56)
[2023-12-29] MEDS: ENOXAPARIN 40 MG/0.4 ML SYRINGE SUB-Q (08:57)
[2023-12-29] MEDS: lisinopriL 20 MG TABLET 40 MG PO (08:57)
[2023-12-29] MEDS: hydrALAZINE HCL 25 MG TABLET PO ×2 (08:57→12:56)
[2023-12-29] MEDS: DULoxetine HCL 20 MG CAPSULE.DR 40 MG PO (09:03)
[2023-12-29] MEDS: INSULIN ASPART (*BKC) 100 UNITS/ML 6 UNITS SUB-Q ×3 (09:03→18:06)
[2023-12-29 11:42] LABS: Glucose Point of Care 126 mg/dl (65-105)
--- NOTE | 2023-12-29 11:42 | PM.IMPN ---
Subjective Date/time seen: 12/29/23 11:42 Objective Data Vital Signs Vital Signs: Vital Signs - 24 hr 12/28/23 14:00 12/28/23 19:25 12/28/23 19:26 Temperature 36.2 C L Pulse Rate 101 H 82 Respiratory Rate 12 20 Blood Pressure 134/66 Pulse Oximetry 96 93 Oxygen Delivery Nasal Cannula Oxygen Flow Rate 3 12/28/23 20:46 12/28/23 20:00 12/29/23 06:00 Temperature 36.6 C 36.3 C L Pulse Rate 75 89 Respiratory Rate 20 20 Blood Pressure 100/42 L 103/68 Pulse Oximetry 94 94 92 Oxygen Delivery Nasal Cannula Oxygen Flow Rate 3 12/29/23 08:13 12/29/23 08:56 Temperature Pulse Rate 96 Respiratory Rate Blood Pressure Pulse Oximetry 93 Oxygen Delivery Nasal Cannula Oxygen Flow Rate 3 Intake/Output Intake/Output: Intake & Output 12/26/23 12/27/23 12/28/23 12/29/23 23:59 23:59 23:59 23:59 Intake Total 2060 657 1174 440 Output Total 1950 2250 1125 400 Balance 110 -1593 49 40 Meds/Results Medications: Active Medications Generic Name Dose Route Start Last Admin Trade Name Freq PRN Reason Stop Dose Admin Acetaminophen 500 mg 12/25/23 01:59 12/26/23 03:35 Acetaminophen 500 Mg Tablet PO 500 mg Q8H PRN Administration Pain Al Hydrox/Mg Hydrox/Simethicone 30 ml 12/25/23 02:47 Mag Hydrox/Al Hydrox/Simeth 30 Ml Udc PO DAILY PRN Indigestion Albuterol 2 puff 12/25/23 01:59 Albuterol Sulfate (*Sp) Aerosol 1 Puff INHALATION QID PRN shortness of breath or wheezing Artificial Tears 2 drop 12/25/23 01:59 Artificial Tears Ophth Soln 15 Ml Bottle EACH EYE QID PRN Dry Eyes Aspirin 81 mg 12/25/23 09:00 12/29/23 08:55 Aspirin 81 Mg Enteric Tablet PO 81 mg DAILY TABITHA Administration Atorvastatin Calcium 40 mg 12/25/23 21:00 12/28/23 21:06 Atorvastatin 40 Mg Tablet PO 40 mg HS TABITHA Administration Duloxetine HCl 40 mg 12/25/23 09:00 12/29/23 09:03 Duloxetine Hcl 20 Mg Capsule.Dr PO 40 mg DAILY TABITHA Administration Empagliflozin 25 mg 12/27/23 09:00 12/29/23 08:55 Empagliflozin 25 Mg Tablet PO 25 mg DAILY TABITHA Administration Enoxaparin Sodium 40 mg 12/27/23 09:00 12/29/23 08:57 Enoxaparin 40 Mg/0.4 Ml Syringe SUB-Q 40 mg DAILY TABITHA Administration Furosemide 40 mg 12/27/23 09:00 12/29/23 08:56 Furosemide 40 Mg Tablet PO 40 mg DAILY TABITHA Administration Gabapentin 100 mg 12/25/23 09:00 12/29/23 08:55 Gabapentin 100 Mg Capsule PO 100 mg TID TABITHA Administration Guaifenesin 600 mg 12/25/23 09:00 12/29/23 08:55 Guaifenesin 12 Hr 600 Mg Tabcr PO 600 mg Q12HR TABITHA Administration Hydralazine HCl 25 mg 12/25/23 09:00 12/29/23 08:57 Hydralazine Hcl 25 Mg Tablet PO 25 mg 0800,1200,1700,2100 TABITHA Administration Insulin Aspart 6 units 12/25/23 08:00 12/29/23 09:03 Insulin Aspart (*Bkc) 100 Units/Ml SUB-Q 6 units TIDWM TABITHA Administration Insulin Glargine 22 units 12/25/23 21:00 12/28/23 21:07 Insulin Glargine (*Bkc) 100 Units/Ml SUB-Q 22 units HS TABITHA Administration Levofloxacin 750 mg 12/30/23 10:00 Levofloxacin 750 Mg Tablet PO 01/07/24 10:01 Q48H [facility] Lisinopril 40 mg 12/27/23 09:00 12/29/23 08:57 Lisinopril 20 Mg Tablet PO 40 mg DAILY TABITHA Administration Loratadine 10 mg 12/25/23 09:00 12/29/23 08:55 Loratadine 10 Mg Tablet PO 10 mg QAM TABITHA Administration Lorazepam 0.5 mg 12/26/23 14:00 12/29/23 06:22 Lorazepam (*Crx) 0.5 Mg Tablet PO 0.5 mg Q8HR TABITHA Administration Metoprolol Tartrate 50 mg 12/25/23 09:00 12/29/23 08:56 Metoprolol Tartrate 50 Mg Tab PO 50 mg Q12HR TABITHA Administration Montelukast Sodium 10 mg 12/25/23 21:00 12/28/23 21:06 Montelukast Sodium 10 Mg Tablet PO 10 mg HS TABITHA Administration Polyethylene Glycol 17 gm 12/25/23 01:59 Polyethylene Glycol 3350 17 Gm Powd.Pack PO DAILY PRN Constipation Fluticasone/Salmeterol 2 puff
--- NOTE | 2023-12-29 11:44 | PM.IMPN ---
Subjective Date/time seen: 12/29/23 11:44 Interval history: 78 year of female admitted to hospital for Objective Data Vital Signs Vital Signs: Vital Signs - 24 hr 12/28/23 14:00 12/28/23 19:25 12/28/23 19:26 Temperature 97.1 F L Pulse Rate 101 H 82 Respiratory Rate 12 20 Blood Pressure 134/66 Pulse Oximetry 96 93 Oxygen Delivery Nasal Cannula Oxygen Flow Rate 3 12/28/23 20:46 12/28/23 20:00 12/29/23 06:00 Temperature 97.9 F 97.4 F L Pulse Rate 75 89 Respiratory Rate 20 20 Blood Pressure 100/42 L 103/68 Pulse Oximetry 94 94 92 Oxygen Delivery Nasal Cannula Oxygen Flow Rate 3 12/29/23 08:13 12/29/23 08:56 Temperature Pulse Rate 96 Respiratory Rate Blood Pressure Pulse Oximetry 93 Oxygen Delivery Nasal Cannula Oxygen Flow Rate 3 Intake/Output Intake/Output: Intake & Output 12/26/23 12/27/23 12/28/23 12/29/23 23:59 23:59 23:59 23:59 Intake Total 2060 657 1174 440 Output Total 1950 2250 1125 400 Balance 110 -1593 49 40 Meds/Results Medications: Active Medications Generic Name Dose Route Start Last Admin Trade Name Freq PRN Reason Stop Dose Admin Acetaminophen 500 mg 12/25/23 01:59 12/26/23 03:35 Acetaminophen 500 Mg Tablet PO 500 mg Q8H PRN Administration Pain Al Hydrox/Mg Hydrox/Simethicone 30 ml 12/25/23 02:47 Mag Hydrox/Al Hydrox/Simeth 30 Ml Udc PO DAILY PRN Indigestion Albuterol 2 puff 12/25/23 01:59 Albuterol Sulfate (*Sp) Aerosol 1 Puff INHALATION QID PRN shortness of breath or wheezing Artificial Tears 2 drop 12/25/23 01:59 Artificial Tears Ophth Soln 15 Ml Bottle EACH EYE QID PRN Dry Eyes Aspirin 81 mg 12/25/23 09:00 12/29/23 08:55 Aspirin 81 Mg Enteric Tablet PO 81 mg DAILY TABITHA Administration Atorvastatin Calcium 40 mg 12/25/23 21:00 12/28/23 21:06 Atorvastatin 40 Mg Tablet PO 40 mg HS TABITHA Administration Duloxetine HCl 40 mg 12/25/23 09:00 12/29/23 09:03 Duloxetine Hcl 20 Mg Capsule.Dr PO 40 mg DAILY TABITHA Administration Empagliflozin 25 mg 12/27/23 09:00 12/29/23 08:55 Empagliflozin 25 Mg Tablet PO 25 mg DAILY TABITHA Administration Enoxaparin Sodium 40 mg 12/27/23 09:00 12/29/23 08:57 Enoxaparin 40 Mg/0.4 Ml Syringe SUB-Q 40 mg DAILY TABITHA Administration Furosemide 40 mg 12/27/23 09:00 12/29/23 08:56 Furosemide 40 Mg Tablet PO 40 mg DAILY TABITHA Administration Gabapentin 100 mg 12/25/23 09:00 12/29/23 08:55 Gabapentin 100 Mg Capsule PO 100 mg TID TABITHA Administration Guaifenesin 600 mg 12/25/23 09:00 12/29/23 08:55 Guaifenesin 12 Hr 600 Mg Tabcr PO 600 mg Q12HR TABITHA Administration Hydralazine HCl 25 mg 12/25/23 09:00 12/29/23 08:57 Hydralazine Hcl 25 Mg Tablet PO 25 mg 0800,1200,1700,2100 TABITHA Administration Insulin Aspart 6 units 12/25/23 08:00 12/29/23 09:03 Insulin Aspart (*Bkc) 100 Units/Ml SUB-Q 6 units TIDWM TABITHA Administration Insulin Glargine 22 units 12/25/23 21:00 12/28/23 21:07 Insulin Glargine (*Bkc) 100 Units/Ml SUB-Q 22 units HS TABITHA Administration Levofloxacin 750 mg 12/30/23 10:00 Levofloxacin 750 Mg Tablet PO 01/07/24 10:01 Q48H [facility] Lisinopril 40 mg 12/27/23 09:00 12/29/23 08:57 Lisinopril 20 Mg Tablet PO 40 mg DAILY TABITHA Administration Loratadine 10 mg 12/25/23 09:00 12/29/23 08:55 Loratadine 10 Mg Tablet PO 10 mg QAM TABITHA Administration Lorazepam 0.5 mg 12/26/23 14:00 12/29/23 06:22 Lorazepam (*Crx) 0.5 Mg Tablet PO 0.5 mg Q8HR TABITHA Administration Metoprolol Tartrate 50 mg 12/25/23 09:00 12/29/23 08:56 Metoprolol Tartrate 50 Mg Tab PO 50 mg Q12HR TABITHA Administration Montelukast Sodium 10 mg 12/25/23 21:00 12/28/23 21:06 Montelukast Sodium 10 Mg Tablet PO 10 mg HS TABITHA Administration Polyethylene Glycol 17 gm 12/25/23 01:59 Polyethylene Glycol 3350 17 Gm Powd.Pack PO
[2023-12-29 13:04] LABS: Red Blood Cell Folate 595 ng/mL RBC (>280)
--- NOTE | 2023-12-29 13:07 | PM.IMHP ---
H&P: HPI History of Present Illness Date/Time: 12/29/23 13:07 Chief Complaint: Shortness of breath Review of Systems Review of Systems: All systems reviewed & are unremarkable except as noted in HPI and below Constitutional: Constitutional: Reports body ache(s), Reports fatigue and Reports weakness Eyes: Eyes: Reports no additional eye complaints Cardiovascular: Cardiovascular: Reports no additional cardiovascular complaints, Denies chest pain, Denies leg edema, Denies lightheadedness and Denies palpitations Respiratory: Respiratory: Reports chest congestion, Reports cough, Reports dyspnea and Reports wheezing Gastrointestinal: Gastrointestinal: Denies abdominal pain, Reports constipation, Denies diarrhea, Denies nausea and Denies vomiting Genitourinary: Genitourinary: Reports no additional female genitourinary complaints Musculoskeletal: Musculoskeletal: Reports no additional musculoskeletal complaints Integumentary/Breasts: Skin/Breast: Reports system reviewed and no additional complaints, except as docu Neurologic: Reports as per HPI Psychiatric: Psychiatric: Reports no additional psychiatric complaints PMFSH Past Medical History Medical History (Updated 12/25/23 @ 09:43 by Tanvi Giles APRN) (HFpEF) heart failure with preserved ejection fraction Anemia, chronic disease Anxiety disorder Arthritis CAD (coronary artery disease) COPD (chronic obstructive pulmonary disease) Depression Diabetes mellitus GERD (gastroesophageal reflux disease) Hyperlipidemia Hypertension Urinary tract infection Surgical History Surgical History H/O splenectomy Family History Family History Other Brain cancer Father Diabetes mellitus Heart attack Sibling Heart attack Sibling Diabetes mellitus Sibling Heart attack Social History Social History (Updated 12/22/23 @ 14:25 by Trixie Acevedo RN) Smoking packs per day: 1 Smoking cigarettes per day: 20.0 Years smoked: 40 Smoking pack-years: 40.00 Smoking status: Former smoker Tobacco type: cigarettes Second hand tobacco smoke exposure: No Smoking end date: 06/01/20 Alcohol intake: never Drinks per week: 3 Substance use: never Substance use type: does not use Do You Feel Safe in your Home?: Yes Lack of Transportation: No Lack of Food: Never True Current Housing: I Have Housing Concerned About Future Housing: No Difficulty Paying Gas/Electric Bills: No Difficulty Paying for Meds: No Currently Unemployed: No Education: Decline to Answer Difficulty w/ Childcare or Family Care: No Living arrangements: alf Gender identity (if verbalized by the patient): Female Sexual Orientation (if Verbalized by the Patient): Straight or Heterosexual Spiritual care concerns: No Meds Home Medications and Allergies Home Medications Medication Instructions Recorded Confirmed Type acetaminophen 500 mg capsule 500 mg PO Q8H PRN Pain 10/09/20 12/24/23 History aspirin 81 mg tablet,delayed 81 mg PO DAILY 10/09/20 12/24/23 History release atorvastatin 40 mg tablet 40 mg PO HS 10/09/20 12/24/23 History fluticasone furoate 100 1 inh inhalation DAILY 10/09/20 12/24/23 History mcg-vilanterol 25 mcg/dose inhalation powder (Breo Ellipta) furosemide 20 mg tablet (Lasix) 40 mg PO DAILY 10/09/20 12/24/23 History lisinopril 40 mg tablet 40 mg PO DAILY 10/09/20 12/24/23 History lorazepam 0.5 mg tablet (Ativan) 0.5 mg PO TID 10/09/20 12/24/23 History aluminum-mag hydroxide-simethicone 5 ml PO QID 03/29/21 12/24/23 History 400 mg-400 mg-40 mg/5 mL oral susp (Mylanta Maximum Strength) duloxetine 20 mg capsule,delayed 40 mg PO DAILY 03/29/21 12/24/23 History release lidocaine HCl 2 % mucosal solution 1 applic PO PRN PRN Sore Throat 03/29/21 12/24/23 History (Lidocaine Viscous) polyethylene gl
--- NOTE | 2023-12-29 13:20 | P.PNIM_ITS ---
Progress Note: A&P Assessment and Plan (1) Pneumonia: Qualifiers: Laterality: left Lung location: lower lobe of lung Pneumonia type: due to unspecified organism Qualified Code(s): J18.9 - Pneumonia, unspecified organism <Shanell Wade RN - Last Filed: 12/29/23 15:30> Code(s): J18.9 - Pneumonia, unspecified organism <Shanell Wade RN - Last Filed: 12/29/23 15:30> Status: Acute <Shanell Wade RN - Last Filed: 12/29/23 15:30> Assessment and Plan: ?12/22/2023: Forwarded from chart * ?patient reports 1 week history of fever, body aches, weakness, productive cough, and shortness of breath * ?chest x-ray showing pneumonia, likely? community-acquired * ?patient currently on 2 L nasal cannula which is her baseline * ?keep oxygen saturations between 88-92% considering her COPD history * ?she was given DuoNeb and started on IV antibiotics including cefepime, doxycycline, vancomycin * ?vancomycin was DC'd considering MRSA was negative * ?we will continue with the cefepime in the doxycycline * ?continue DuoNebs * ?Pep therapy * ?will check H influenza, urine Legionella, urine strep, mycoplasma pneumoniae today * ?continue guaifenesin, Claritin, and Singulair * ?blood cultures were obtained and are pending * ?will order sputum culture as well 12/23/23: Forwarded from chart * ? Continue with DuoNebs * ?continue with IV cefepime and doxycycline * ?continue with guaifenesin, Claritin, and singular * ?blood cultures are showing no growth to date * ?sputum culture is still pending * ?continue incentive spirometry and pep therapy * ?will get a CT of her chest today. * ? White blood cell count abnormally elevated? to 30.6 from 23.3 12/24/2023: * PATIENT STARTED ON AZTREONAM PLUS DOXYCYCLINE * AWAIT CULTURES 12/25/23: * Continue with current treatment plan * WBC down to 29.7 today * Blood cultures still showing no growth to date * Urine and sputum cultures are still pending. 12/26/2023: * white blood cell count 32.0 * sputum culture showing few Gram-positive cocci * will switch antibiotic back to Levaquin as she was improving on this verses that aztreonam and doxycycline * doxycycline was discontinued considering the patient has a negative MRSA 12/27/2023 * white blood cell count down to 30.1 today * continue with Levaquin * blood cultures are still showing no growth today 12/28/23: * WBC down to 25.1 * Levaquin switched to oral * Blood cultures showing no growth on final read 12/29/23 wbc 20.3 continue Levaquin <Shanell Wade RN - Last Filed: 12/29/23 15:30> ?12/22/2023: Forwarded from chart * ?patient reports 1 week history of fever, body aches, weakness, productive cough, and shortness of breath * ?chest x-ray showing pneumonia, likely? community-acquired * ?patient currently on 2 L nasal cannula which is her baseline * ?keep oxygen saturations between 88-92% considering her COPD history * ?she was given DuoNeb and started on IV antibiotics including cefepime, doxycycline, vancomycin * ?vancomycin was DC'd considering MRSA was negative * ?we will continue with the cefepime in the doxycycline * ?continue DuoNebs * ?Pep therapy * ?will check H influenza, urine Legionella, urine strep, mycoplasma pneumoniae today * ?continue guaifenesin, Claritin, and Singulair * ?blood cultures were obtained and are pending * ?will order sputum culture as well 12/23/23: Forwarded from chart * ? Continue with DuoNebs * ?continue with IV cefepime and doxycycline * ?continue with
--- NOTE | 2023-12-29 13:20 | PM.IMPN ---
Progress Note: A&P Assessment and Plan (1) Pneumonia: Qualifiers: Laterality: left Lung location: lower lobe of lung Pneumonia type: due to unspecified organism Qualified Code(s): J18.9 - Pneumonia, unspecified organism <Shanell Wade RN - Last Filed: 12/29/23 15:30> Code(s): J18.9 - Pneumonia, unspecified organism <Shanell Wade RN - Last Filed: 12/29/23 15:30> Status: Acute <Shanell Wade RN - Last Filed: 12/29/23 15:30> Assessment and Plan: ?12/22/2023: Forwarded from chart ?patient reports 1 week history of fever, body aches, weakness, productive cough, and shortness of breath ?chest x-ray showing pneumonia, likely? community-acquired ?patient currently on 2 L nasal cannula which is her baseline ?keep oxygen saturations between 88-92% considering her COPD history ?she was given DuoNeb and started on IV antibiotics including cefepime, doxycycline, vancomycin ?vancomycin was DC'd considering MRSA was negative ?we will continue with the cefepime in the doxycycline ?continue DuoNebs ?Pep therapy ?will check H influenza, urine Legionella, urine strep, mycoplasma pneumoniae today ?continue guaifenesin, Claritin, and Singulair ?blood cultures were obtained and are pending ?will order sputum culture as well 12/23/23: Forwarded from chart ? Continue with DuoNebs ?continue with IV cefepime and doxycycline ?continue with guaifenesin, Claritin, and singular ?blood cultures are showing no growth to date ?sputum culture is still pending ?continue incentive spirometry and pep therapy ?will get a CT of her chest today. ? White blood cell count abnormally elevated? to 30.6 from 23.3 12/24/2023: PATIENT STARTED ON AZTREONAM PLUS DOXYCYCLINE AWAIT CULTURES 12/25/23: Continue with current treatment plan WBC down to 29.7 today Blood cultures still showing no growth to date Urine and sputum cultures are still pending. 12/26/2023: white blood cell count 32.0 sputum culture showing few Gram-positive cocci will switch antibiotic back to Levaquin as she was improving on this verses that aztreonam and doxycycline doxycycline was discontinued considering the patient has a negative MRSA 12/27/2023 white blood cell count down to 30.1 today continue with Levaquin blood cultures are still showing no growth today 12/28/23: WBC down to 25.1 Levaquin switched to oral Blood cultures showing no growth on final read 12/29/23 wbc 20.3 continue Levaquin <Shanell Wade RN - Last Filed: 12/29/23 15:30> ?12/22/2023: Forwarded from chart ?patient reports 1 week history of fever, body aches, weakness, productive cough, and shortness of breath ?chest x-ray showing pneumonia, likely? community-acquired ?patient currently on 2 L nasal cannula which is her baseline ?keep oxygen saturations between 88-92% considering her COPD history ?she was given DuoNeb and started on IV antibiotics including cefepime, doxycycline, vancomycin ?vancomycin was DC'd considering MRSA was negative ?we will continue with the cefepime in the doxycycline ?continue DuoNebs ?Pep therapy ?will check H influenza, urine Legionella, urine strep, mycoplasma pneumoniae today ?continue guaifenesin, Claritin, and Singulair ?blood cultures were obtained and are pending ?will order sputum culture as well 12/23/23: Forwarded from chart ? Continue with DuoNebs ?continue with IV cefepime and doxycycline ?continue with guaifenesin, Claritin, and singular ?blood cultures are showing no growth to date ?sputum culture is still pending ?continue incentive spirometry and pep therapy ?will get a CT of her chest today. ? White blood cell count abnormally elevated? to 30.6 from 23.3 12/24/2023: PATIENT STARTED ON AZTREONAM PLUS DOXYCYCLINE AWAIT CULTURES 12/25/23: Continue with current treatment plan WBC down to 29.7 today Blood cultures sti
[2023-12-29 16:21] LABS: Glucose Point of Care 125 mg/dl (65-105)
[2023-12-29] MEDS: IPRATROPIUM 0.5 MG/ALBUTEROL SULFATE 2.5 MG AMPUL.NEB 3 ML INHALATION ×2 (16:35→20:00)
[2023-12-29] MEDS: FERROUS SULFATE 325 MG TABLET DR PO (16:58)
[2023-12-29] MEDS: INSULIN GLARGINE (*BKC) 100 UNITS/ML 22 UNITS SUB-Q (20:56)
[2023-12-29] MEDS: MONTELUKAST SODIUM 10 MG TABLET PO (20:59)
[2023-12-29] MEDS: ATORVASTATIN 40 MG TABLET PO (20:59)
[2023-12-29 21:49] LABS: Glucose Point of Care 154 mg/dl (65-105)
[2023-12-30] VITALS (16 sets, daily range): BP systolic 98–118; BP diastolic 49–84; PULSE 74–88; RESP 16–18; TEMP 35.6–36.9; O2SAT 91–96
[2023-12-30] MEDS: IPRATROPIUM 0.5 MG/ALBUTEROL SULFATE 2.5 MG AMPUL.NEB 3 ML INHALATION ×4 (01:38→19:38)
[2023-12-30] MEDS: LORazepam (*CRX) 0.5 MG TABLET PO ×3 (06:15→21:04)
[2023-12-30] MEDS: polyethylene glycoL 3350 17 GM POWD.PACK PO (06:15)
[2023-12-30 06:39] LABS: Basophils Absolute Auto 0.2 K/mm3 (0.0-0.1); Basophils Percent Auto 0.7 % (0.2-1.2); Eosinophils Absolute Auto 0.5 K/mm3 (0-0.3); Eosinophils Percent Auto 2.5 % (0-4.4); Hematocrit 30.1 % (37.0-47.0); Hemoglobin 9.5 g/dL (12.0-15.0); Immature Granulocyte Absolute 0.92 K/mm3 (0.00-0.031); Immature Granulocyte Percent A 4.6 % (0-0.5); Lymphocytes Absolute Auto 4.28 K/mm3 (0.9-3.2); Lymphocytes Percent Auto 21.4 % (18.3-44.2); Mean Corpuscular HGB Conc 31.6 g/dl (32-36); Mean Corpuscular Hemoglobin 28.2 pg (26-34); Mean Corpuscular Volume 89.3 fl (80-100); Mean Platelet Volume 10.5 fl (7.4-10.4); Monocytes Absolute Auto 1.9 K/mm3 (0.1-0.6); Monocytes Percent Auto 9.7 % (2.6-8.5); Neutrophils Absolute Auto 12.2 K/mm3 (1.3-6.7); Neutrophils Percent Auto 61.1 % (45.5-73.1); Nucleated Red Blood Cells Absolute Auto 0.1 K/mm3 (0.0-0.012); Nucleated Red Blood Cells Perc 0.6 % (0.0-0.2); Platelet Count Result 466 k/mm3 (150-375); Red Blood Count 3.37 M/mm3 (4.2-5.4); Red Cell Distribution Width 16.4 % (11.5-14.5)
[2023-12-30 06:56] LABS: Alanine Aminotransferase 53 U/L (6-35); Albumin Level 2.8 g/dL (3.5-5.1); Alkaline Phosphatase 115 U/L (38-126); Anion Gap 7 mmol/L (8-16); Aspartate Amino Transferase 88 U/L (14-36); Bilirubin,Total 0.4 mg/dL (0.2-1.3); Blood Urea Nitrogen 37 mg/dL (7-17); Calcium 8.6 mg/dL (8.4-10.2); Carbon Dioxide 27 mmol/L (22-30); Chloride 104 mmol/L (98-107); Estimated CRCL calculation 28 ml/min; Estimated Glomerular Filt Rate 40; Glucose 192 mg/dL (65-110); Sodium 138 mmol/L (137-145)
[2023-12-30] MEDS: FLUTICASONE/SALMETEROL 115-21 MCG INHALER 1 PUFF 2 PUFF INHALATION ×2 (07:23→19:38)
[2023-12-30] MEDS: UMECLIDINIUM BROMIDE 62.5 MCG ELLIPTA 1 PUFF INHALATION (07:23)
[2023-12-30 07:59] LABS: Glucose Point of Care 223 mg/dl (65-105)
[2023-12-30] MEDS: INSULIN ASPART (*BKC) 100 UNITS/ML 6 UNITS SUB-Q ×2 (09:26→12:24)
[2023-12-30] MEDS: METOCLOPRAMIDE HCL 5 MG TABLET PO ×3 (09:27→21:04)
[2023-12-30] MEDS: METOPROLOL TARTRATE 50 MG TAB PO ×2 (09:27→21:04)
[2023-12-30] MEDS: OSELTAMIVIR PHOSPHATE 30 MG CAPSULE PO (09:27)
[2023-12-30] MEDS: levoFLOXacin 750 MG TABLET PO (09:27)
[2023-12-30] MEDS: DULoxetine HCL 20 MG CAPSULE.DR 40 MG PO (09:28)
[2023-12-30] MEDS: FUROSEMIDE 40 MG TABLET PO (09:28)
[2023-12-30] MEDS: EMPAGLIFLOZIN 25 MG TABLET PO (09:28)
[2023-12-30] MEDS: ASPIRIN 81 MG ENTERIC TABLET PO (09:28)
[2023-12-30] MEDS: FERROUS SULFATE 325 MG TABLET DR PO ×2 (09:28→16:57)
[2023-12-30] MEDS: GABAPENTIN 100 MG CAPSULE PO ×3 (09:28→16:57)
[2023-12-30] MEDS: LORATADINE 10 MG TABLET PO (09:29)
[2023-12-30] MEDS: guaiFENesin 12 HR 600 MG TABCR PO ×2 (09:29→21:04)
[2023-12-30] MEDS: PANTOPRAZOLE 40 MG TABLET PO (09:29)
[2023-12-30 12:10] LABS: Glucose Point of Care 116 mg/dl (65-105)
--- NOTE | 2023-12-30 12:16 | P.PNIM_ITS ---
Progress Note: A&P Assessment and Plan (1) Pneumonia: Qualifiers: Laterality: left Lung location: lower lobe of lung Pneumonia type: due to unspecified organism Qualified Code(s): J18.9 - Pneumonia, unspecified organism Code(s): J18.9 - Pneumonia, unspecified organism Status: Acute Assessment and Plan: ?12/22/2023: Forwarded from chart * ?patient reports 1 week history of fever, body aches, weakness, productive cough, and shortness of breath * ?chest x-ray showing pneumonia, likely? community-acquired * ?patient currently on 2 L nasal cannula which is her baseline * ?keep oxygen saturations between 88-92% considering her COPD history * ?she was given DuoNeb and started on IV antibiotics including cefepime, doxycycline, vancomycin * ?vancomycin was DC'd considering MRSA was negative * ?we will continue with the cefepime in the doxycycline * ?continue DuoNebs * ?Pep therapy * ?will check H influenza, urine Legionella, urine strep, mycoplasma pneumoniae today * ?continue guaifenesin, Claritin, and Singulair * ?blood cultures were obtained and are pending * ?will order sputum culture as well 12/23/23: Forwarded from chart * ? Continue with DuoNebs * ?continue with IV cefepime and doxycycline * ?continue with guaifenesin, Claritin, and singular * ?blood cultures are showing no growth to date * ?sputum culture is still pending * ?continue incentive spirometry and pep therapy * ?will get a CT of her chest today. * ? White blood cell count abnormally elevated? to 30.6 from 23.3 12/24/2023: * PATIENT STARTED ON AZTREONAM PLUS DOXYCYCLINE * AWAIT CULTURES 12/25/23: * Continue with current treatment plan * WBC down to 29.7 today * Blood cultures still showing no growth to date * Urine and sputum cultures are still pending. 12/26/2023: * white blood cell count 32.0 * sputum culture showing few Gram-positive cocci * will switch antibiotic back to Levaquin as she was improving on this verses that aztreonam and doxycycline * doxycycline was discontinued considering the patient has a negative MRSA 12/27/2023 * white blood cell count down to 30.1 today * continue with Levaquin * blood cultures are still showing no growth today 12/28/23: * WBC down to 25.1 * Levaquin switched to oral * Blood cultures showing no growth on final read 12/29/23 wbc 20.3 continue Levaquin : At recommendation of ID pharmacist, added Tamiflu. White blood cell count stable at 20 (2) Influenza A: Code(s): J10.1 - Influenza due to other identified influenza virus with other respiratory manifestations Status: Acute Assessment and Plan: ?12/22/2023: Forwarded from chart * ?respiratory panel positive for influenza A * ?denies any recent sick contacts * ?currently up-to-date on immunizations including pneumococcal, COVID, and influenza * ?see above plan of care 12/23/23: Forwarded from chart * ?no change to current treatment plan 12/24/2023: Forwarded from chart * Continue Tamiflu * No changes to current treatment plan 12/25/2023: * No changes to current treatment plan 12/29/23 continues Mucinex 600 mg PO bid rhonchi continued on auscultation possible need for additional Lasix dosage, nebs, and steroids : At recommendation of ID pharmacist, added Tamiflu. White blood cell count stable at 20 (3) Leukocytosis: Code(s): D72.829 - Elevated white blood cell count, unspecified Status: Acute Assessment and Plan: ?12/23/2023:
--- NOTE | 2023-12-30 12:16 | PM.IMPN ---
Progress Note: A&P Assessment and Plan (1) Pneumonia: Qualifiers: Laterality: left Lung location: lower lobe of lung Pneumonia type: due to unspecified organism Qualified Code(s): J18.9 - Pneumonia, unspecified organism Code(s): J18.9 - Pneumonia, unspecified organism Status: Acute Assessment and Plan: ?12/22/2023: Forwarded from chart ?patient reports 1 week history of fever, body aches, weakness, productive cough, and shortness of breath ?chest x-ray showing pneumonia, likely? community-acquired ?patient currently on 2 L nasal cannula which is her baseline ?keep oxygen saturations between 88-92% considering her COPD history ?she was given DuoNeb and started on IV antibiotics including cefepime, doxycycline, vancomycin ?vancomycin was DC'd considering MRSA was negative ?we will continue with the cefepime in the doxycycline ?continue DuoNebs ?Pep therapy ?will check H influenza, urine Legionella, urine strep, mycoplasma pneumoniae today ?continue guaifenesin, Claritin, and Singulair ?blood cultures were obtained and are pending ?will order sputum culture as well 12/23/23: Forwarded from chart ? Continue with DuoNebs ?continue with IV cefepime and doxycycline ?continue with guaifenesin, Claritin, and singular ?blood cultures are showing no growth to date ?sputum culture is still pending ?continue incentive spirometry and pep therapy ?will get a CT of her chest today. ? White blood cell count abnormally elevated? to 30.6 from 23.3 12/24/2023: PATIENT STARTED ON AZTREONAM PLUS DOXYCYCLINE AWAIT CULTURES 12/25/23: Continue with current treatment plan WBC down to 29.7 today Blood cultures still showing no growth to date Urine and sputum cultures are still pending. 12/26/2023: white blood cell count 32.0 sputum culture showing few Gram-positive cocci will switch antibiotic back to Levaquin as she was improving on this verses that aztreonam and doxycycline doxycycline was discontinued considering the patient has a negative MRSA 12/27/2023 white blood cell count down to 30.1 today continue with Levaquin blood cultures are still showing no growth today 12/28/23: WBC down to 25.1 Levaquin switched to oral Blood cultures showing no growth on final read 12/29/23 wbc 20.3 continue Levaquin : At recommendation of ID pharmacist, added Tamiflu. White blood cell count stable at 20 (2) Influenza A: Code(s): J10.1 - Influenza due to other identified influenza virus with other respiratory manifestations Status: Acute Assessment and Plan: ?12/22/2023: Forwarded from chart ?respiratory panel positive for influenza A ?denies any recent sick contacts ?currently up-to-date on immunizations including pneumococcal, COVID, and influenza ?see above plan of care 12/23/23: Forwarded from chart ?no change to current treatment plan 12/24/2023: Forwarded from chart Continue Tamiflu No changes to current treatment plan 12/25/2023: No changes to current treatment plan 12/29/23 continues Mucinex 600 mg PO bid rhonchi continued on auscultation possible need for additional Lasix dosage, nebs, and steroids : At recommendation of ID pharmacist, added Tamiflu. White blood cell count stable at 20 (3) Leukocytosis: Code(s): D72.829 - Elevated white blood cell count, unspecified Status: Acute Assessment and Plan: ?12/23/2023: Forwarded from chart ?initial white blood cell count 23.3, now up to 30.6 despite broad-spectrum antibiotics ?RBC is low at 3.66 ?hemoglobin 10.3, hematocrit 32.8, platelet count is for a 401 ?will check? ESR, CD4 lymphocyte panel, and procalcitonin ?will also get a CT of the chest /abdomen/pelvis to rule out any other etiology ?patient reports extreme fatigue, decreased appetite, and reports her taste and smell is off ?she has had a weight loss of 18 lb since July
--- NOTE | 2023-12-30 15:15 | PCOTNOTE ---
Attempted to see Patient at this time. Patient declined treatment this P.M.
[2023-12-30 16:50] LABS: Glucose Point of Care 81 mg/dl (65-105)
[2023-12-30] MEDS: ENOXAPARIN 40 MG/0.4 ML SYRINGE SUB-Q (16:57)
[2023-12-30 20:36] LABS: Glucose Point of Care 239 mg/dl (65-105)
[2023-12-30] MEDS: ATORVASTATIN 40 MG TABLET PO (21:04)
[2023-12-30] MEDS: MONTELUKAST SODIUM 10 MG TABLET PO (21:04)
[2023-12-30] MEDS: INSULIN GLARGINE (*BKC) 100 UNITS/ML 22 UNITS SUB-Q (21:07)
[2023-12-31] VITALS (18 sets, daily range): BP systolic 101–132; BP diastolic 50–74; PULSE 67–90; RESP 16–20; TEMP 35.7–37; O2SAT 87–97; BMI 29.7
[2023-12-31] MEDS: IPRATROPIUM 0.5 MG/ALBUTEROL SULFATE 2.5 MG AMPUL.NEB 3 ML INHALATION ×4 (02:30→19:22)
[2023-12-31] MEDS: LORazepam (*CRX) 0.5 MG TABLET PO ×3 (05:33→20:39)
[2023-12-31] MEDS: METOCLOPRAMIDE HCL 5 MG TABLET PO ×4 (05:33→20:39)
[2023-12-31 05:51] LABS: Basophils Absolute Auto 0.1 K/mm3 (0.0-0.1); Basophils Percent Auto 0.6 % (0.2-1.2); Eosinophils Absolute Auto 0.6 K/mm3 (0-0.3); Eosinophils Percent Auto 2.4 % (0-4.4); Hematocrit 29.5 % (37.0-47.0); Hemoglobin 9.1 g/dL (12.0-15.0); Immature Granulocyte Absolute 1.24 K/mm3 (0.00-0.031); Immature Granulocyte Percent A 5.4 % (0-0.5); Lymphocytes Absolute Auto 4.62 K/mm3 (0.9-3.2); Lymphocytes Percent Auto 20.2 % (18.3-44.2); Mean Corpuscular HGB Conc 30.8 g/dl (32-36); Mean Corpuscular Hemoglobin 27.9 pg (26-34); Mean Corpuscular Volume 90.5 fl (80-100); Mean Platelet Volume 10.3 fl (7.4-10.4); Monocytes Absolute Auto 2.1 K/mm3 (0.1-0.6); Monocytes Percent Auto 9.3 % (2.6-8.5); Neutrophils Absolute Auto 14.2 K/mm3 (1.3-6.7); Neutrophils Percent Auto 62.1 % (45.5-73.1); Nucleated Red Blood Cells Absolute Auto 0.1 K/mm3 (0.0-0.012); Nucleated Red Blood Cells Perc 0.5 % (0.0-0.2); Platelet Count Result 422 k/mm3 (150-375); Red Blood Count 3.26 M/mm3 (4.2-5.4); Red Cell Distribution Width 16.1 % (11.5-14.5); White Blood Count 22.9 K/mm3 (4.5-10.0)
[2023-12-31 06:04] LABS: Alanine Aminotransferase 52 U/L (6-35); Albumin Level 2.7 g/dL (3.5-5.1); Alkaline Phosphatase 104 U/L (38-126); Anion Gap 4 mmol/L (8-16); Aspartate Amino Transferase 83 U/L (14-36); Bilirubin,Total 0.4 mg/dL (0.2-1.3); Blood Urea Nitrogen 37 mg/dL (7-17); Calcium 8.5 mg/dL (8.4-10.2); Carbon Dioxide 29 mmol/L (22-30); Chloride 101 mmol/L (98-107); Estimated CRCL calculation 26 ml/min; Estimated Glomerular Filt Rate 36; Glucose 142 mg/dL (65-110); Potassium 3.8 mmol/L (3.4-5.0); Sodium 134 mmol/L (137-145)
[2023-12-31 06:25] LABS: Hypochromasia 1+ (NORMAL); Platelet Estimate Adequate (Adequate); Schistocytes None Seen (NORMAL)
[2023-12-31 06:26] LABS: Anisocytosis 1+ (NORMAL); Target Cells 1+ (NORMAL)
[2023-12-31] MEDS: FLUTICASONE/SALMETEROL 115-21 MCG INHALER 1 PUFF 2 PUFF INHALATION ×2 (07:50→19:23)
[2023-12-31 07:56] LABS: Glucose Point of Care 150 mg/dl (65-105)
[2023-12-31] MEDS: INSULIN ASPART (*BKC) 100 UNITS/ML 6 UNITS SUB-Q (08:30)
[2023-12-31] MEDS: FERROUS SULFATE 325 MG TABLET DR PO ×2 (09:45→16:59)
[2023-12-31] MEDS: OSELTAMIVIR PHOSPHATE 30 MG CAPSULE PO (09:46)
[2023-12-31] MEDS: DULoxetine HCL 20 MG CAPSULE.DR 40 MG PO (09:46)
[2023-12-31] MEDS: FUROSEMIDE 40 MG TABLET PO (09:46)
[2023-12-31] MEDS: METOPROLOL TARTRATE 50 MG TAB PO ×2 (09:46→20:38)
[2023-12-31] MEDS: PANTOPRAZOLE 40 MG TABLET PO (09:46)
[2023-12-31] MEDS: LORATADINE 10 MG TABLET PO (09:46)
[2023-12-31] MEDS: guaiFENesin 12 HR 600 MG TABCR PO ×2 (09:46→20:39)
[2023-12-31] MEDS: ENOXAPARIN 40 MG/0.4 ML SYRINGE SUB-Q (09:47)
[2023-12-31] MEDS: EMPAGLIFLOZIN 25 MG TABLET PO (09:47)
[2023-12-31] MEDS: ASPIRIN 81 MG ENTERIC TABLET PO (09:47)
[2023-12-31] MEDS: GABAPENTIN 100 MG CAPSULE PO ×3 (09:47→16:59)
--- NOTE | 2023-12-31 10:00 | PM.IMPN ---
Progress Note: A&P Assessment and Plan (1) Pneumonia: Qualifiers: Laterality: left Lung location: lower lobe of lung Pneumonia type: due to unspecified organism Qualified Code(s): J18.9 - Pneumonia, unspecified organism Code(s): J18.9 - Pneumonia, unspecified organism Status: Acute Assessment and Plan: ?12/22/2023: Forwarded from chart ?patient reports 1 week history of fever, body aches, weakness, productive cough, and shortness of breath ?chest x-ray showing pneumonia, likely? community-acquired ?patient currently on 2 L nasal cannula which is her baseline ?keep oxygen saturations between 88-92% considering her COPD history ?she was given DuoNeb and started on IV antibiotics including cefepime, doxycycline, vancomycin ?vancomycin was DC'd considering MRSA was negative ?we will continue with the cefepime in the doxycycline ?continue DuoNebs ?Pep therapy ?will check H influenza, urine Legionella, urine strep, mycoplasma pneumoniae today ?continue guaifenesin, Claritin, and Singulair ?blood cultures were obtained and are pending ?will order sputum culture as well 12/23/23: Forwarded from chart ? Continue with DuoNebs ?continue with IV cefepime and doxycycline ?continue with guaifenesin, Claritin, and singular ?blood cultures are showing no growth to date ?sputum culture is still pending ?continue incentive spirometry and pep therapy ?will get a CT of her chest today. ? White blood cell count abnormally elevated? to 30.6 from 23.3 12/24/2023: PATIENT STARTED ON AZTREONAM PLUS DOXYCYCLINE AWAIT CULTURES 12/25/23: Continue with current treatment plan WBC down to 29.7 today Blood cultures still showing no growth to date Urine and sputum cultures are still pending. 12/26/2023: white blood cell count 32.0 sputum culture showing few Gram-positive cocci will switch antibiotic back to Levaquin as she was improving on this verses that aztreonam and doxycycline doxycycline was discontinued considering the patient has a negative MRSA 12/27/2023 white blood cell count down to 30.1 today continue with Levaquin blood cultures are still showing no growth today 12/28/23: WBC down to 25.1 Levaquin switched to oral Blood cultures showing no growth on final read 12/29/23 wbc 20.3 continue Levaquin : At recommendation of ID pharmacist, added Tamiflu. White blood cell count stable at 20 12/30: unchanged, patient is breathing easier feeling better still weak and white blood cell count still elevated. (2) Influenza A: Code(s): J10.1 - Influenza due to other identified influenza virus with other respiratory manifestations Status: Acute Assessment and Plan: ?12/22/2023: Forwarded from chart ?respiratory panel positive for influenza A ?denies any recent sick contacts ?currently up-to-date on immunizations including pneumococcal, COVID, and influenza ?see above plan of care 12/23/23: Forwarded from chart ?no change to current treatment plan 12/24/2023: Forwarded from chart Continue Tamiflu No changes to current treatment plan 12/25/2023: No changes to current treatment plan 12/29/23 continues Mucinex 600 mg PO bid rhonchi continued on auscultation possible need for additional Lasix dosage, nebs, and steroids : At recommendation of ID pharmacist, added Tamiflu. White blood cell count stable at 20 12/30: unchanged, patient is breathing easier feeling better still weak and white blood cell count still elevated. (3) Leukocytosis: Code(s): D72.829 - Elevated white blood cell count, unspecified Status: Acute Assessment and Plan: ?12/23/2023: Forwarded from chart ?initial white blood cell count 23.3, now up to 30.6 despite broad-spectrum antibiotics ?RBC is low at 3.66 ?hemoglobin 10.3, hematocrit 32.8, platelet count is for a 401 ?will check? ESR, CD4 lymphocyte panel, and procalcitonin ?wi
[2023-12-31] MEDS: BISACODYL 10 MG SUPPOSITORY RECTAL (10:05)
[2023-12-31] MEDS: polyethylene glycoL 3350 17 GM POWD.PACK PO (10:05)
[2023-12-31] MEDS: UMECLIDINIUM BROMIDE 62.5 MCG ELLIPTA 1 PUFF INHALATION (11:30)
--- NOTE | 2023-12-31 11:33 | PCOTNOTE ---
Attempted to see Patient at this time. Patient declined treatment at this time due to she and her daughter stated she had just finished PT and had laid down. Will check back this afternoon.
[2023-12-31 11:40] LABS: Glucose Point of Care 102 mg/dl (65-105)
[2023-12-31 16:37] LABS: Glucose Point of Care 140 mg/dl (65-105)
[2023-12-31] MEDS: MONTELUKAST SODIUM 10 MG TABLET PO (20:39)
[2023-12-31] MEDS: ATORVASTATIN 40 MG TABLET PO (20:39)
[2023-12-31] MEDS: INSULIN GLARGINE (*BKC) 100 UNITS/ML 22 UNITS SUB-Q (20:40)
[2023-12-31 20:58] LABS: Glucose Point of Care 244 mg/dl (65-105)
[2024-01-01] VITALS (18 sets, daily range): BP systolic 92–116; BP diastolic 39–60; PULSE 65–94; RESP 16–20; TEMP 35.8–36.9; O2SAT 92–100
[2024-01-01] MEDS: IPRATROPIUM 0.5 MG/ALBUTEROL SULFATE 2.5 MG AMPUL.NEB 3 ML INHALATION ×4 (02:36→20:22)
[2024-01-01] MEDS: METOCLOPRAMIDE HCL 5 MG TABLET PO ×4 (05:51→20:54)
[2024-01-01] MEDS: LORazepam (*CRX) 0.5 MG TABLET PO ×3 (05:51→20:54)
[2024-01-01 06:22] LABS: Basophils Absolute Auto 0.2 K/mm3 (0.0-0.1); Basophils Percent Auto 0.7 % (0.2-1.2); Eosinophils Absolute Auto 0.6 K/mm3 (0-0.3); Eosinophils Percent Auto 2.8 % (0-4.4); Hemoglobin 8.9 g/dL (12.0-15.0); Immature Granulocyte Absolute 0.88 K/mm3 (0.00-0.031); Immature Granulocyte Percent A 4.1 % (0-0.5); Lymphocytes Absolute Auto 3.99 K/mm3 (0.9-3.2); Lymphocytes Percent Auto 18.8 % (18.3-44.2); Mean Corpuscular HGB Conc 30.7 g/dl (32-36); Mean Corpuscular Hemoglobin 28.1 pg (26-34); Mean Corpuscular Volume 91.5 fl (80-100); Mean Platelet Volume 10.6 fl (7.4-10.4); Monocytes Absolute Auto 1.9 K/mm3 (0.1-0.6); Monocytes Percent Auto 8.8 % (2.6-8.5); Neutrophils Absolute Auto 13.8 K/mm3 (1.3-6.7); Neutrophils Percent Auto 64.8 % (45.5-73.1); Nucleated Red Blood Cells Absolute Auto 0.1 K/mm3 (0.0-0.012); Nucleated Red Blood Cells Perc 0.3 % (0.0-0.2); Platelet Count Result 443 k/mm3 (150-375); Red Blood Count 3.17 M/mm3 (4.2-5.4); Red Cell Distribution Width 16.6 % (11.5-14.5); White Blood Count 21.3 K/mm3 (4.5-10.0)
[2024-01-01 06:48] LABS: Alanine Aminotransferase 47 U/L (6-35); Albumin Level 2.7 g/dL (3.5-5.1); Alkaline Phosphatase 101 U/L (38-126); Anion Gap 4 mmol/L (8-16); Aspartate Amino Transferase 68 U/L (14-36); Bilirubin,Total 0.3 mg/dL (0.2-1.3); Blood Urea Nitrogen 39 mg/dL (7-17); Calcium 8.2 mg/dL (8.4-10.2); Carbon Dioxide 28 mmol/L (22-30); Chloride 102 mmol/L (98-107); Estimated CRCL calculation 24 ml/min; Estimated Glomerular Filt Rate 34; Glucose 141 mg/dL (65-110); Hypochromasia 2+ (NORMAL); Platelet Estimate Increased (Adequate); Potassium 4.1 mmol/L (3.4-5.0); Schistocytes None Seen (NORMAL); Sodium 134 mmol/L (137-145); Target Cells 2+ (NORMAL)
[2024-01-01] MEDS: FLUTICASONE/SALMETEROL 115-21 MCG INHALER 1 PUFF 2 PUFF INHALATION ×2 (07:01→20:22)
[2024-01-01] MEDS: UMECLIDINIUM BROMIDE 62.5 MCG ELLIPTA 1 PUFF INHALATION (07:01)
[2024-01-01 08:12] LABS: Glucose Point of Care 160 mg/dl (65-105)
[2024-01-01] MEDS: GABAPENTIN 100 MG CAPSULE PO ×3 (08:38→17:53)
[2024-01-01] MEDS: EMPAGLIFLOZIN 25 MG TABLET PO (08:38)
[2024-01-01] MEDS: polyethylene glycoL 3350 17 GM POWD.PACK PO (08:38)
[2024-01-01] MEDS: OSELTAMIVIR PHOSPHATE 30 MG CAPSULE PO (08:38)
[2024-01-01] MEDS: FUROSEMIDE 40 MG TABLET PO (08:38)
[2024-01-01] MEDS: guaiFENesin 12 HR 600 MG TABCR PO ×2 (08:38→20:54)
[2024-01-01] MEDS: DULoxetine HCL 20 MG CAPSULE.DR 40 MG PO (08:38)
[2024-01-01] MEDS: FERROUS SULFATE 325 MG TABLET DR PO ×2 (08:38→17:53)
[2024-01-01] MEDS: ASPIRIN 81 MG ENTERIC TABLET PO (08:38)
[2024-01-01] MEDS: PANTOPRAZOLE 40 MG TABLET PO (08:38)
[2024-01-01] MEDS: LORATADINE 10 MG TABLET PO (08:38)
[2024-01-01] MEDS: ENOXAPARIN 40 MG/0.4 ML SYRINGE SUB-Q (08:42)
[2024-01-01] MEDS: SODIUM CHLORIDE 0.9% IV 500 ML 150 ML IV CONT (10:20)
[2024-01-01] MEDS: levoFLOXacin 750 MG TABLET PO (10:20)
[2024-01-01 10:49] LABS: Appearance Urine Clear (Clear); Bilirubin Urine Negative (Negative); Blood Urine Negative (Negative); Color Urine Yellow (Yellow); Glucose Urine UA 3+ mg/dL (Negative); Ketones Urine Negative (Negative); Leukocyte Esterase Ur Negative LEU/UL (Negative); Nitrate Urine Negative (Negative); Protein Urine Negative (Negative); Specific Grav Ur 1.015 (1.001-1.035); Urobilinogen Urine 0.2 mg/dL (<2.0); pH Urine 5.5 (5.0-9.0)
[2024-01-01 11:11] LABS: Add Urine Microscopic? YES
[2024-01-01 12:11] LABS: Glucose Point of Care 228 mg/dl (65-105)
[2024-01-01] MEDS: INSULIN ASPART (*BKC) 100 UNITS/ML SUB-Q (12:24)
--- NOTE | 2024-01-01 13:58 | P.PNIM_ITS ---
Progress Note: A&P Assessment and Plan (1) Pneumonia: Qualifiers: Laterality: left Lung location: lower lobe of lung Pneumonia type: due to unspecified organism Qualified Code(s): J18.9 - Pneumonia, unspecified organism Code(s): J18.9 - Pneumonia, unspecified organism Status: Acute Assessment and Plan: ?12/22/2023: Forwarded from chart * ?patient reports 1 week history of fever, body aches, weakness, productive cough, and shortness of breath * ?chest x-ray showing pneumonia, likely? community-acquired * ?patient currently on 2 L nasal cannula which is her baseline * ?keep oxygen saturations between 88-92% considering her COPD history * ?she was given DuoNeb and started on IV antibiotics including cefepime, doxycycline, vancomycin * ?vancomycin was DC'd considering MRSA was negative * ?we will continue with the cefepime in the doxycycline * ?continue DuoNebs * ?Pep therapy * ?will check H influenza, urine Legionella, urine strep, mycoplasma pneumoniae today * ?continue guaifenesin, Claritin, and Singulair * ?blood cultures were obtained and are pending * ?will order sputum culture as well 12/23/23: Forwarded from chart * ? Continue with DuoNebs * ?continue with IV cefepime and doxycycline * ?continue with guaifenesin, Claritin, and singular * ?blood cultures are showing no growth to date * ?sputum culture is still pending * ?continue incentive spirometry and pep therapy * ?will get a CT of her chest today. * ? White blood cell count abnormally elevated? to 30.6 from 23.3 12/24/2023: * PATIENT STARTED ON AZTREONAM PLUS DOXYCYCLINE * AWAIT CULTURES 12/25/23: * Continue with current treatment plan * WBC down to 29.7 today * Blood cultures still showing no growth to date * Urine and sputum cultures are still pending. 12/26/2023: * white blood cell count 32.0 * sputum culture showing few Gram-positive cocci * will switch antibiotic back to Levaquin as she was improving on this verses that aztreonam and doxycycline * doxycycline was discontinued considering the patient has a negative MRSA 12/27/2023 * white blood cell count down to 30.1 today * continue with Levaquin * blood cultures are still showing no growth today 12/28/23: * WBC down to 25.1 * Levaquin switched to oral * Blood cultures showing no growth on final read 12/29/23 wbc 20.3 continue Levaquin : At recommendation of ID pharmacist, added Tamiflu. White blood cell count stable at 20 12/30: unchanged, patient is breathing easier feeling better still weak and white blood cell count still elevated. 12/31: white blood cell count remains elevated, work of breathing is normal, patient at baseline oxygen use, continue Levaquin (2) Influenza A: Code(s): J10.1 - Influenza due to other identified influenza virus with other respiratory manifestations Status: Acute Assessment and Plan: ?12/22/2023: Forwarded from chart * ?respiratory panel positive for influenza A * ?denies any recent sick contacts * ?currently up-to-date on immunizations including pneumococcal, COVID, and influenza * ?see above plan of care 12/23/23: Forwarded from chart * ?no change to current treatment plan 12/24/2023: Forwarded from chart * Continue Tamiflu * No changes to current treatment plan 12/25/2023: * No changes to current treatment plan 12/29/23 continues Mucinex 600 mg PO bid rhonchi continued on auscultation possible need for additional Lasix dosage, nebs, and steroids : At recommendation of ID pharm
[2024-01-01 16:14] LABS: Lactic Acid Reflex 2.4 mmol/L (0.7-2.0)
[2024-01-01 16:55] LABS: Glucose Point of Care 137 mg/dl (65-105)
[2024-01-01 18:55] LABS: Reflex Lactic Acid Yes or No Add Lactic
[2024-01-01 19:16] LABS: Lactic Acid 2.2 mmol/L (0.7-2.0)
[2024-01-01] MEDS: METOPROLOL TARTRATE 50 MG TAB PO (20:54)
[2024-01-01] MEDS: ATORVASTATIN 40 MG TABLET PO (20:54)
[2024-01-01] MEDS: MONTELUKAST SODIUM 10 MG TABLET PO (20:54)
[2024-01-01] MEDS: INSULIN GLARGINE (*BKC) 100 UNITS/ML 22 UNITS SUB-Q (21:10)
[2024-01-01 21:35] LABS: Glucose Point of Care 210 mg/dl (65-105)
[2024-01-02] VITALS (17 sets, daily range): BP systolic 109–130; BP diastolic 37–64; PULSE 69–88; RESP 16–118; TEMP 35.9–36.6; O2SAT 92–96
[2024-01-02] MEDS: LORazepam (*CRX) 0.5 MG TABLET PO ×3 (05:46→20:17)
[2024-01-02] MEDS: METOCLOPRAMIDE HCL 5 MG TABLET PO ×4 (05:46→20:13)
[2024-01-02 06:28] LABS: Basophils Absolute Auto 0.1 K/mm3 (0.0-0.1); Basophils Percent Auto 0.5 % (0.2-1.2); Eosinophils Absolute Auto 0.5 K/mm3 (0-0.3); Eosinophils Percent Auto 2.3 % (0-4.4); Hematocrit 28.7 % (37.0-47.0); Hemoglobin 8.6 g/dL (12.0-15.0); Immature Granulocyte Absolute 0.69 K/mm3 (0.00-0.031); Immature Granulocyte Percent A 3.4 % (0-0.5); Lymphocytes Absolute Auto 3.58 K/mm3 (0.9-3.2); Lymphocytes Percent Auto 17.7 % (18.3-44.2); Mean Corpuscular Hemoglobin 27.8 pg (26-34); Mean Corpuscular Volume 92.9 fl (80-100); Mean Platelet Volume 10.4 fl (7.4-10.4); Monocytes Absolute Auto 1.9 K/mm3 (0.1-0.6); Monocytes Percent Auto 9.3 % (2.6-8.5); Neutrophils Absolute Auto 13.5 K/mm3 (1.3-6.7); Neutrophils Percent Auto 66.8 % (45.5-73.1); Nucleated Red Blood Cells Absolute Auto 0.1 K/mm3 (0.0-0.012); Nucleated Red Blood Cells Perc 0.2 % (0.0-0.2); Platelet Count Result 431 k/mm3 (150-375); Red Blood Count 3.09 M/mm3 (4.2-5.4); Red Cell Distribution Width 16.9 % (11.5-14.5); White Blood Count 20.2 K/mm3 (4.5-10.0)
[2024-01-02 06:41] LABS: Alanine Aminotransferase 39 U/L (6-35); Albumin Level 2.6 g/dL (3.5-5.1); Alkaline Phosphatase 107 U/L (38-126); Anion Gap 3 mmol/L (8-16); Aspartate Amino Transferase 56 U/L (14-36); Bilirubin,Total 0.3 mg/dL (0.2-1.3); Blood Urea Nitrogen 28 mg/dL (7-17); Calcium 8.3 mg/dL (8.4-10.2); Carbon Dioxide 30 mmol/L (22-30); Chloride 103 mmol/L (98-107); Estimated CRCL calculation 26 ml/min; Estimated Glomerular Filt Rate 36; Glucose 136 mg/dL (65-110); Potassium 4.1 mmol/L (3.4-5.0); Sodium 136 mmol/L (137-145)
[2024-01-02 06:52] LABS: Hypochromasia 2+ (NORMAL); Platelet Estimate Adequate (Adequate); Schistocytes None Seen (NORMAL)
[2024-01-02 06:53] LABS: Target Cells 2+ (NORMAL)
[2024-01-02] MEDS: IPRATROPIUM 0.5 MG/ALBUTEROL SULFATE 2.5 MG AMPUL.NEB 3 ML INHALATION ×3 (08:10→19:55)
[2024-01-02 08:12] LABS: Glucose Point of Care 157 mg/dl (65-105)
[2024-01-02] MEDS: UMECLIDINIUM BROMIDE 62.5 MCG ELLIPTA 1 PUFF INHALATION (08:19)
[2024-01-02] MEDS: FLUTICASONE/SALMETEROL 115-21 MCG INHALER 1 PUFF 2 PUFF INHALATION ×2 (08:20→19:55)
[2024-01-02] MEDS: FERROUS SULFATE 325 MG TABLET DR PO ×2 (08:26→17:49)
[2024-01-02] MEDS: FUROSEMIDE 40 MG TABLET PO (08:26)
[2024-01-02] MEDS: GABAPENTIN 100 MG CAPSULE PO ×3 (08:26→17:48)
[2024-01-02] MEDS: DULoxetine HCL 20 MG CAPSULE.DR 40 MG PO (08:26)
[2024-01-02] MEDS: METOPROLOL TARTRATE 50 MG TAB PO ×2 (08:26→20:13)
[2024-01-02] MEDS: PANTOPRAZOLE 40 MG TABLET PO (08:26)
[2024-01-02] MEDS: guaiFENesin 12 HR 600 MG TABCR PO ×2 (08:26→20:14)
[2024-01-02] MEDS: ASPIRIN 81 MG ENTERIC TABLET PO (08:26)
[2024-01-02] MEDS: OSELTAMIVIR PHOSPHATE 30 MG CAPSULE PO (08:26)
[2024-01-02] MEDS: LORATADINE 10 MG TABLET PO (08:27)
[2024-01-02] MEDS: EMPAGLIFLOZIN 25 MG TABLET PO (08:27)
[2024-01-02] MEDS: ENOXAPARIN 40 MG/0.4 ML SYRINGE SUB-Q (08:29)
[2024-01-02] MEDS: ALBUMIN HUMAN 25% 25 GM/100 ML 200 ML IVPB (10:33)
--- NOTE | 2024-01-02 11:56 | PM.IMPN ---
Progress Note: A&P Assessment and Plan (1) Pneumonia: Qualifiers: Laterality: left Lung location: lower lobe of lung Pneumonia type: due to unspecified organism Qualified Code(s): J18.9 - Pneumonia, unspecified organism Code(s): J18.9 - Pneumonia, unspecified organism Status: Acute Assessment and Plan: ?12/22/2023: Forwarded from chart ?patient reports 1 week history of fever, body aches, weakness, productive cough, and shortness of breath ?chest x-ray showing pneumonia, likely? community-acquired ?patient currently on 2 L nasal cannula which is her baseline ?keep oxygen saturations between 88-92% considering her COPD history ?she was given DuoNeb and started on IV antibiotics including cefepime, doxycycline, vancomycin ?vancomycin was DC'd considering MRSA was negative ?we will continue with the cefepime in the doxycycline ?continue DuoNebs ?Pep therapy ?will check H influenza, urine Legionella, urine strep, mycoplasma pneumoniae today ?continue guaifenesin, Claritin, and Singulair ?blood cultures were obtained and are pending ?will order sputum culture as well 12/23/23: Forwarded from chart ? Continue with DuoNebs ?continue with IV cefepime and doxycycline ?continue with guaifenesin, Claritin, and singular ?blood cultures are showing no growth to date ?sputum culture is still pending ?continue incentive spirometry and pep therapy ?will get a CT of her chest today. ? White blood cell count abnormally elevated? to 30.6 from 23.3 12/24/2023: PATIENT STARTED ON AZTREONAM PLUS DOXYCYCLINE AWAIT CULTURES 12/25/23: Continue with current treatment plan WBC down to 29.7 today Blood cultures still showing no growth to date Urine and sputum cultures are still pending. 12/26/2023: white blood cell count 32.0 sputum culture showing few Gram-positive cocci will switch antibiotic back to Levaquin as she was improving on this verses that aztreonam and doxycycline doxycycline was discontinued considering the patient has a negative MRSA 12/27/2023 white blood cell count down to 30.1 today continue with Levaquin blood cultures are still showing no growth today 12/28/23: WBC down to 25.1 Levaquin switched to oral Blood cultures showing no growth on final read 12/29/23 wbc 20.3 continue Levaquin : At recommendation of ID pharmacist, added Tamiflu. White blood cell count stable at 20 12/30: unchanged, patient is breathing easier feeling better still weak and white blood cell count still elevated. 12/31: white blood cell count remains elevated, work of breathing is normal, patient at baseline oxygen use, continue Levaquin 01/01: WBC 20.2 (2) Influenza A: Code(s): J10.1 - Influenza due to other identified influenza virus with other respiratory manifestations Status: Acute Assessment and Plan: ?12/22/2023: Forwarded from chart ?respiratory panel positive for influenza A ?denies any recent sick contacts ?currently up-to-date on immunizations including pneumococcal, COVID, and influenza ?see above plan of care 12/23/23: Forwarded from chart ?no change to current treatment plan 12/24/2023: Forwarded from chart Continue Tamiflu No changes to current treatment plan 12/25/2023: No changes to current treatment plan 12/29/23 continues Mucinex 600 mg PO bid rhonchi continued on auscultation possible need for additional Lasix dosage, nebs, and steroids : At recommendation of ID pharmacist, added Tamiflu. White blood cell count stable at 20 12/30: unchanged, patient is breathing easier feeling better still weak and white blood cell count still elevated. 12/31: white blood cell count remains elevated, work of breathing is normal, patient at baseline oxygen use, (3) Leukocytosis: Code(s): D72.829 - Elevated white blood cell count, unspecified Status: Acute Assessment and Plan: ?12/23/2023: Forwarded f
[2024-01-02 12:33] LABS: Glucose Point of Care 179 mg/dl (65-105)
--- NOTE | 2024-01-02 15:44 | PCOTNOTE ---
Attempted to see patient this pm, however patient sleeping upon entering. Pt stated she was going to skip stating, I'm being lazy right now.
[2024-01-02 16:49] LABS: Glucose Point of Care 193 mg/dl (65-105)
[2024-01-02] MEDS: ATORVASTATIN 40 MG TABLET PO (20:13)
[2024-01-02] MEDS: MONTELUKAST SODIUM 10 MG TABLET PO (20:14)
[2024-01-02] MEDS: INSULIN GLARGINE (*BKC) 100 UNITS/ML 22 UNITS SUB-Q (20:19)
[2024-01-02 21:24] LABS: Glucose Point of Care 266 mg/dl (65-105)
[2024-01-03] VITALS (9 sets, daily range): BP systolic 124–148; BP diastolic 41–59; PULSE 68–85; RESP 18–20; TEMP 36–37.1; O2SAT 90–97
[2024-01-03] MEDS: LORazepam (*CRX) 0.5 MG TABLET PO ×2 (04:45→13:05)
[2024-01-03] MEDS: METOCLOPRAMIDE HCL 5 MG TABLET PO ×2 (04:45→11:34)
[2024-01-03 06:28] LABS: Basophils Absolute Auto 0.1 K/mm3 (0.0-0.1); Basophils Percent Auto 0.4 % (0.2-1.2); Eosinophils Absolute Auto 0.5 K/mm3 (0-0.3); Eosinophils Percent Auto 2.9 % (0-4.4); Hematocrit 27.4 % (37.0-47.0); Hemoglobin 8.4 g/dL (12.0-15.0); Immature Granulocyte Absolute 0.38 K/mm3 (0.00-0.031); Immature Granulocyte Percent A 2.2 % (0-0.5); Lymphocytes Absolute Auto 3.56 K/mm3 (0.9-3.2); Lymphocytes Percent Auto 20.7 % (18.3-44.2); Mean Corpuscular HGB Conc 30.7 g/dl (32-36); Mean Corpuscular Hemoglobin 28.4 pg (26-34); Mean Corpuscular Volume 92.6 fl (80-100); Mean Platelet Volume 10.5 fl (7.4-10.4); Monocytes Absolute Auto 1.7 K/mm3 (0.1-0.6); Monocytes Percent Auto 9.7 % (2.6-8.5); Neutrophils Percent Auto 64.1 % (45.5-73.1); Nucleated Red Blood Cells Perc 0.1 % (0.0-0.2); Platelet Count Result 415 k/mm3 (150-375); Red Blood Count 2.96 M/mm3 (4.2-5.4); White Blood Count 17.2 K/mm3 (4.5-10.0)
[2024-01-03 06:45] LABS: Alanine Aminotransferase 33 U/L (6-35); Albumin Level 3.1 g/dL (3.5-5.1); Alkaline Phosphatase 94 U/L (38-126); Anion Gap 2 mmol/L (8-16); Aspartate Amino Transferase 42 U/L (14-36); Bilirubin,Total 0.4 mg/dL (0.2-1.3); Blood Urea Nitrogen 22 mg/dL (7-17); Calcium 8.7 mg/dL (8.4-10.2); Carbon Dioxide 32 mmol/L (22-30); Chloride 104 mmol/L (98-107); Estimated CRCL calculation 30 ml/min; Estimated Glomerular Filt Rate 43; Glucose 156 mg/dL (65-110); Potassium 3.6 mmol/L (3.4-5.0); Sodium 138 mmol/L (137-145)
[2024-01-03 07:38] LABS: Glucose Point of Care 175 mg/dl (65-105)
[2024-01-03] MEDS: FLUTICASONE/SALMETEROL 115-21 MCG INHALER 1 PUFF 2 PUFF INHALATION (07:42)
[2024-01-03] MEDS: UMECLIDINIUM BROMIDE 62.5 MCG ELLIPTA 1 PUFF INHALATION (07:42)
[2024-01-03] MEDS: IPRATROPIUM 0.5 MG/ALBUTEROL SULFATE 2.5 MG AMPUL.NEB 3 ML INHALATION ×2 (07:42→13:54)
[2024-01-03] MEDS: OSELTAMIVIR PHOSPHATE 30 MG CAPSULE PO (09:08)
[2024-01-03] MEDS: DULoxetine HCL 20 MG CAPSULE.DR 40 MG PO (09:08)
[2024-01-03] MEDS: PANTOPRAZOLE 40 MG TABLET PO (09:08)
[2024-01-03] MEDS: LORATADINE 10 MG TABLET PO (09:08)
[2024-01-03] MEDS: guaiFENesin 12 HR 600 MG TABCR PO (09:08)
[2024-01-03] MEDS: FUROSEMIDE 40 MG TABLET PO (09:08)
[2024-01-03] MEDS: ASPIRIN 81 MG ENTERIC TABLET PO (09:08)
[2024-01-03] MEDS: GABAPENTIN 100 MG CAPSULE PO ×2 (09:08→13:05)
[2024-01-03] MEDS: EMPAGLIFLOZIN 25 MG TABLET PO (09:08)
[2024-01-03] MEDS: levoFLOXacin 750 MG TABLET PO (09:08)
[2024-01-03] MEDS: FERROUS SULFATE 325 MG TABLET DR PO (09:08)
[2024-01-03] MEDS: ENOXAPARIN 40 MG/0.4 ML SYRINGE SUB-Q (09:08)
[2024-01-03] MEDS: METOPROLOL TARTRATE 50 MG TAB PO (09:09)
[2024-01-03] MEDS: INSULIN ASPART (*BKC) 100 UNITS/ML SUB-Q (11:34)
[2024-01-03 11:45] LABS: Glucose Point of Care 291 mg/dl (65-105)
--- NOTE | 2024-01-03 12:00 | PM.DS ---
DS: Admitting Diagnosis Discharge Date 01/03/2024 Admitting Diagnosis Pneumonia, leukocytosis, RENA superimposed on CKD, COPD, GERD, anemia of chronic disease DS: Discharge Diagnosis Discharge Diagnosis (1) Pneumonia: Qualifiers: Laterality: left Lung location: lower lobe of lung Pneumonia type: due to unspecified organism Qualified Code(s): J18.9 - Pneumonia, unspecified organism Code(s): J18.9 - Pneumonia, unspecified organism Status: Acute (2) Influenza A: Code(s): J10.1 - Influenza due to other identified influenza virus with other respiratory manifestations Status: Acute (3) Leukocytosis: Code(s): D72.829 - Elevated white blood cell count, unspecified Status: Acute (4) Acute kidney injury superimposed on chronic kidney disease: Code(s): N17.9 - Acute kidney failure, unspecified; N18.9 - Chronic kidney disease, unspecified Status: Acute (5) COPD (chronic obstructive pulmonary disease): Code(s): J44.9 - Chronic obstructive pulmonary disease, unspecified Status: Chronic (6) GERD (gastroesophageal reflux disease): Code(s): K21.9 - Gastro-esophageal reflux disease without esophagitis Status: Chronic (7) Anemia, chronic disease: Code(s): D63.8 - Anemia in other chronic diseases classified elsewhere Status: Acute (8) Diabetes mellitus: Qualifiers: Diabetes mellitus complication status: without complication Diabetes mellitus termite renewal inspector insulin use: with termite renewal inspector use Diabetes mellitus type: type 2 Qualified Code(s): E11.9 - Type 2 diabetes mellitus without complications; Z79.4 - FDC (current) use of insulin Code(s): E11.9 - Type 2 diabetes mellitus without complications Status: Chronic (9) (HFpEF) heart failure with preserved ejection fraction: Code(s): I50.30 - Unspecified diastolic (congestive) heart failure Status: Chronic (10) Hyperlipidemia: Code(s): E78.5 - Hyperlipidemia, unspecified Status: Chronic (11) Depression: Code(s): F32.9 - Major depressive disorder, single episode, unspecified Status: Chronic DS: Summary Hospital Course Hospital Course: Patient originally admitted to [facility] on December 22 with findings hypoxemic respiratory failure with leukocytosis pneumonia and influenza A. White blood cell count continues to rise and patient developed a worsening RENA so decision was made to transfer patient to [facility]. Patient had profound weakness. White blood cell count at baseline is elevated for this patient but was as high as mid 30s. Patient treated with IV antibiotics transition to oral Levaquin q.48h. Therapy worked with patient to try to increase ability to transfer from bed to chair like [facility] at the [facility]. Patient had a transient bump in her white blood cell count for a couple days which again started to decrease yesterday and today. Patient denies difficulty breathing. She is baseline 2 liters/minute nasal cannula. Today patient was feeling quite down and depressed but I do not think she wants to go back to [facility] setting. However, acute illness seems to have come under control and she will be getting therapy at the nursing to increase her strength. She will go back SNF. Status at Discharge Cognitive/behavioral status at discharge: Awake alert oriented pleasant somewhat depressed Functional status at discharge: wheelchair bound Overall status at discharge: patient is progressing back to baseline Time Spent with Patient Time attestation: Total time spent providing and/or coordinating discharge services: 40 minutes Time spent: Greater than 30 minutes Exam Narrative: General: In no acute distress, well nourished, alert oriented x3 Head: atraumatic, no encephalopathy Eyes: EOMI, PERRLA, sclera clear ENT: moist mucous membranes, nasal passages clear Neck: supple, no JVD, no ad
[2024-01-03 13:09] LABS: SARS-CoV-2 RNA PCR Negative (Negative)
--- NOTE | 2024-01-07 12:59 | PC.NURSE ---
Blood cx are negative.
== END 2024-01-03 14:30 | DRG 194 ==
LOC: ANHIMU 12-25 06:07 → ANH3MEDSUR 12-26 10:53
PROVIDERS: Nurse Practitioner Acute Care; Admitting Provider Internal Medicine; PCP Family Medicine; Visit Provider Nurse Practitioner
DX: J18.9 Pneumonia, unspecified organism (principal); I13.0 Hypertensive heart and chronic kidney disease with heart failure and stage 1 through stage 4 chronic kidney disease, or unspecified chronic kidney disease; I50.30 Unspecified diastolic (congestive) heart failure; J44.0 Chronic obstructive pulmonary disease with (acute) lower respiratory infection; N17.9 Acute kidney failure, unspecified; J10.1 Influenza due to other identified influenza virus with other respiratory manifestations; E11.22 Type 2 diabetes mellitus with diabetic chronic kidney disease; N18.9 Chronic kidney disease, unspecified; K21.9 Gastro-esophageal reflux disease without esophagitis; D63.8 Anemia in other chronic diseases classified elsewhere; E78.5 Hyperlipidemia, unspecified; F32.9 Major depressive disorder, single episode, unspecified; I25.10 Atherosclerotic heart disease of native coronary artery without angina pectoris; Z11.52 Encounter for screening for COVID-19; Z79.4 Long term (current) use of insulin; Z99.3 Dependence on wheelchair
CPT/HCPCS: 36415; 71045; 76775; 80053; 81001; 82607; 82747; 82948; 83540; 83550; 83605; 85025; 87040; 87635; 94640; 94667; 97110; 97161; 97165; 97530; 97535; A9270; J0457; J1650; J1815; J1940; J1956; J7030; J7040; P9047

== ENCOUNTER 2024-02-26 22:43 | Outpatient (NON) | payer MEDICARE, MEDICAID, SELFPAY ==
[2024-02-26 22:59] LABS: Appearance Urine Clear (Clear); Bilirubin Urine Negative (Negative); Blood Urine Negative (Negative); Color Urine Light Yellow (Yellow); Glucose Urine UA 3+ (Negative); Ketones Urine Negative (Negative); Leukocyte Esterase Ur Negative LEU/UL (Negative); Nitrate Urine Negative (Negative); Protein Urine Negative (Negative); Specific Grav Ur 1.015 (1.010-1.020); Urobilinogen Urine 0.2 mg/dL (0.2-1.0)
[2024-02-26 23:26] LABS: Add Urine Microscopic? YES
== END 2024-02-26 22:44 | disposition home or self-care (01) ==
LOC: CHSLAB 22:51
PROVIDERS: Visit Provider Family Medicine
DX: N39.0 Urinary tract infection, site not specified (principal)
CPT/HCPCS: 81001

== ENCOUNTER 2024-03-28 10:36 | Emergency (ER) | payer MEDICARE, MEDICAID, SELFPAY ==
--- NOTE | ~2024-03-28 | CT_ITS ---
Non-contrast Head CT History: Weakness COMPARISON: 04/02/2021 Technique: Axial non-contrast imaging of the brain was performed. Dose reduction technique was used on this scan by utilizing automated exposure control and iterative reconstruction technique. The dose -length product (DLP) was 1001.89 mGy-cm. Findings: There is no evidence of intracranial hemorrhage, mass lesion, or acute infarct. Brain par enchyma appears normal. The ventricles and subarachnoid spaces are normal in size. The calvarium ap pears normal. The visualized paranasal sinuses and mastoid air cells are clear. Impression: No significant abnormality seen. Reviewed, dictated and finalized at location . Impression: No significant abnormality seen.
--- NOTE | ~2024-03-28 | CT_ITS ---
EXAMINATION: CT lumbar spine wo con DATE: 03/28/2024 12:08 INDICATION: Low back pain. TECHNIQUE: Computed tomography (CT) of the lumbar spine was performed without intravenous contrast. A utomated exposure control and iterative reconstruction technique were employed. The dose-length produ ct was 1001.89 mGy-cm. COMPARISON: None FINDINGS: There is calcified atherosclerosis of the aorta and many of the other arteries. There is 12 degrees levoscoliosis of thoracolumbar spine. There is a chronic burst fracture of L1 with 2/5 loss of height and retropulsion of bone 3 mm into central spinal canal. There is 3 mm retrolisthesis of L3 on L4. There is severely decreased disc height from L1-L2 through L3-L4, mildly decreased disc heigh t at L4-L5, and severely decreased disc height at L5-S1. The following disc levels are specifically d iscussed: L1-L2: The disc is bulging. There is mild bilateral facet joint osteoarthritis. There is moderate rig ht and mild left neural foraminal stenosis. There is mild central canal stenosis. L2-L3: The disc is bulging. There is moderate right and mild left facet joint osteoarthritis. There i s mild bilateral neural foraminal stenosis. There is mild central canal stenosis. L3-L4: The disc is bulging. There is mild bilateral facet joint osteoarthritis. There is mild right a nd moderate left neural foraminal stenosis. There is mild central canal stenosis. L4-L5: The disc is bulging. There is mild bilateral facet joint osteoarthritis. There is mild right a nd moderate left neural foraminal stenosis. There is mild central canal stenosis. L5-S1: The disc is bulging. There is severe bilateral facet joint osteoarthritis. There is mild bilat eral neural foraminal stenosis. There is mild central canal stenosis. IMPRESSION: 1. Severe lumbar spondylosis. 2. Thoracolumbar levoscoliosis. Reviewed, dictated and finalized at location A.
[2024-03-28 10:36] VITALS: BP 154/59; PULSE 57; RESP 18; TEMP 36.2; O2SAT 97
--- NOTE | 2024-03-28 10:56 | ED.WEAKNESS ---
HPI - Weakness General Chief complaint: Extremity Problem,Nontraumatic Stated complaint: BILAT THIGH PAIN Time Seen by Provider: 03/28/24 10:38 Source: patient Mode of arrival: ambulatory Limitations: no limitations History of Present Illness HPI Narrative: Patient is a 78-year-old female with bilateral arm and bilateral leg weakness for the past day. She normally can get out of bed and into the wheelchair but had difficulty today. Also she uses a wheelchair regularly and scoots around with her feet but having difficulty with that as well today. She also has some lower back pain and some shooting pains into her hips bilaterally. There was no specific injury. No falls. Patient uses home oxygen. Patient is from the nursing facility. No chest pain or shortness of breath. No cough or congestion. MD Complaint: generalized weakness Onset (ago): day(s) (1) Duration: constant Location: generalized Migration: descending Severity: mild Severity scale (1-10): 2 Quality: sharp ( Bilateral lower back and radiates to the hips) Relieving factors: none Exacerbating factors: none Associated symptoms: denies other symptoms Related Data Home Medications Medication Instructions Recorded Confirmed acetaminophen 500 mg capsule 500 mg PO Q8H PRN Pain 10/09/20 12/24/23 aspirin 81 mg tablet,delayed 81 mg PO DAILY 10/09/20 12/24/23 release atorvastatin 40 mg tablet 40 mg PO HS 10/09/20 12/24/23 fluticasone furoate 100 1 inh inhalation DAILY 10/09/20 12/24/23 mcg-vilanterol 25 mcg/dose inhalation powder (Breo Ellipta) furosemide 20 mg tablet (Lasix) 40 mg PO DAILY 10/09/20 12/24/23 aluminum-mag hydroxide-simethicone 5 ml PO QID 03/29/21 12/24/23 400 mg-400 mg-40 mg/5 mL oral susp (Mylanta Maximum Strength) duloxetine 20 mg capsule,delayed 40 mg PO DAILY 03/29/21 12/24/23 release lidocaine HCl 2 % mucosal solution 1 applic PO PRN PRN Sore Throat 03/29/21 12/24/23 (Lidocaine Viscous) polyethylene glycol 3350 17 gram 17 g PO DAILY PRN Constipation 03/29/21 12/24/23 oral powder packet (Miralax) tiotropium bromide 18 mcg capsule 1 cap inhalation DAILY 03/29/21 12/24/23 with inhalation device (Spiriva with HandiHaler) cetirizine 10 mg tablet 10 mg PO DAILY 07/13/23 12/24/23 dulaglutide 0.75 mg/0.5 mL 0.75 mg subcut WEEKLY 07/13/23 12/24/23 subcutaneous pen injector empagliflozin 25 mg tablet 25 mg PO DAILY 07/13/23 12/24/23 (Jardiance) fluoxetine 15 mg tablet 30 mg PO DAILY 07/13/23 12/24/23 gabapentin 100 mg tablet 100 mg PO TID 07/13/23 12/24/23 lidocaine 4 % topical patch 1 patch topical DAILY 07/13/23 12/24/23 (Blue-Emu Lidocaine Patch) montelukast 10 mg tablet 10 mg PO HS 07/13/23 12/24/23 nystatin 100,000 unit/gram topical 1 applic topical TID PRN 07/13/23 12/24/23 powder excoriated folds polyvinyl alcohol 1.4 % eye drops 2 drp EACH EYE QID PRN Dry Eyes 07/13/23 12/24/23 (Artificial Tears (polyvinyl alcohol)) Tresiba FlexTouch U-100 22 units subcut HS 12/22/23 12/24/23 guaifenesin 600 mg tablet, 400 mg PO Q12HR 12/24/23 12/24/23 extended release 12 hr (Mucus Relief ER) nystatin 100,000 unit/mL oral 5 ml PO QID PRN burning 12/24/23 12/24/23 suspension mouth/tongue Allergies Allergy/AdvReac Type Severity Reaction Status Date / Time azithromycin Allergy Unknown Verified 03/28/24 10:44 cephalexin Allergy Unknown Verified 03/28/24 10:44 doxylamine Allergy Unknown Verified 03/28/24 10:44 codeine AdvReac Unknown Verified 03/28/24 10:44 Penicillins AdvReac Unknown Verified 03/28/24 10:44 Sulfa (Sulfonamide AdvReac Unknown Verified 03/28/24 10:44 Antibiotics) Review of Systems Review of Systems: All systems reviewed & are unremarkable except as noted in HPI and below Constitutional: Constitutional: Reports no additional constitutional complaints Eyes: Eyes: Reports no additional eye complaints ENT: Reports system reviewed and no additional complaints, except as documented Car
[2024-03-28 11:15] LABS: Basophils Absolute Auto 0.07 K/mm3 (0.00-0.10); Basophils Percent Auto 0.7 % (0.0-1.0); Eosinophils Absolute Auto 0.28 K/mm3 (0.02-0.50); Eosinophils Percent Auto 2.6 % (1.0-6.0); Hematocrit 45.8 % (35.0-42.0); Hemoglobin 13.8 g/dL (11.7-13.8); Immature Granulocyte Absolute 0.04 K/mm3 (0.00-0.00); Immature Granulocyte Percent A 0.4 % (0.0-0.0); Lymphocytes Absolute Auto 3.69 K/mm3 (1.10-4.50); Lymphocytes Percent Auto 34.5 % (18.0-42.0); Mean Corpuscular HGB Conc 30.1 g/dL (32-36); Mean Corpuscular Hemoglobin 28.5 pg (27.0-31.0); Mean Corpuscular Volume 94.6 fL (78.0-102.0); Mean Platelet Volume 10.7 fl (9.2-11.8); Monocytes Absolute Auto 0.86 K/mm3 (0.10-0.90); Neutrophils Absolute Auto 5.76 K/mm3 (1.70-7.20); Neutrophils Percent Auto 53.8 % (50.0-70.0); Red Blood Count 4.84 M/mm3 (4.20-5.40); Red Cell Distribution Width 14.7 % (11.6-14.4); White Blood Count 10.7 K/mm3 (4.8-10.8)
[2024-03-28 11:21] LABS: Platelet Count Result 366 K/mm3 (150-420)
[2024-03-28 11:28] LABS: Alanine Aminotransferase 19 U/L (14-59); Albumin Level 2.3 g/dL (3.4-5.0); Alkaline Phosphatase 105 U/L (46-116); Anion Gap 8 mmol/L (4-12); Aspartate Amino Transferase 30 U/L (15-37); Bilirubin,Total 0.3 mg/dL (0.00-1.00); Blood Urea Nitrogen 22 mg/dL (7-18); Calcium 8.6 mg/dL (8.5-10.1); Carbon Dioxide 31 mmol/L (21-32); Chloride 98 mmol/L (98-108); Estimated CRCL calculation 26 ml/min; Estimated Glomerular Filt Rate 34; Glucose 239 mg/dL (70-99); Magnesium 1.9 mg/dL (1.8-2.4); Osmolality Calculated 295 mOsm/kg (285-295); Sodium 137 mmol/L (136-145); Total Protein 7.7 g/dL (6.4-8.2)
[2024-03-28 11:30] LABS: Potassium 4.3 mmol/L (3.5-5.1)
[2024-03-28 12:00] VITALS: BP 143/60; PULSE 63; RESP 16; O2SAT 98
[2024-03-28 12:47] VITALS: BP 137/59; PULSE 55; RESP 18; TEMP 36.8; O2SAT 98
[2024-03-28 12:47] LABS: Appearance Urine Clear (Clear); Bilirubin Urine Negative (Negative); Blood Urine Negative (Negative); Color Urine Light Yellow (Yellow); Glucose Urine UA 3+ (Negative); Ketones Urine Negative (Negative); Leukocyte Esterase Ur Negative LEU/UL (Negative); Nitrate Urine Negative (Negative); Protein Urine Negative (Negative); Specific Grav Ur 1.015 (1.010-1.020); Urobilinogen Urine 0.2 mg/dL (0.2-1.0)
[2024-03-28 12:55] LABS: Add Urine Microscopic? NO; RBC Urine None seen /hpf (0-2); WBC Urine None seen /hpf (0-3)
[2024-03-28 12:56] LABS: Bacteria Urine None seen /hpf
== END 2024-03-28 13:07 ==
PROVIDERS: Emergency Provider Emergency Medicine; PCP Family Medicine
DX: R53.1 Weakness (principal); M79.651 Pain in right thigh; M79.652 Pain in left thigh; M54.50 Low back pain, unspecified; I11.0 Hypertensive heart disease with heart failure; I50.9 Heart failure, unspecified; I25.10 Atherosclerotic heart disease of native coronary artery without angina pectoris; J44.9 Chronic obstructive pulmonary disease, unspecified; E11.9 Type 2 diabetes mellitus without complications; D63.8 Anemia in other chronic diseases classified elsewhere; E78.5 Hyperlipidemia, unspecified; K21.9 Gastro-esophageal reflux disease without esophagitis; F41.9 Anxiety disorder, unspecified; F32.A Depression, unspecified; Z99.81 Dependence on supplemental oxygen; Z99.3 Dependence on wheelchair; Z79.82 Long term (current) use of aspirin; Z79.51 Long term (current) use of inhaled steroids; Z79.85 Long-term (current) use of injectable non-insulin antidiabetic drugs; Z79.84 Long term (current) use of oral hypoglycemic drugs; Z87.891 Personal history of nicotine dependence
CPT/HCPCS: 36415; 70450; 72131; 80053; 81003; 83735; 85025; 85055; 99284

== ENCOUNTER 2024-07-07 08:24 | Outpatient (NON) | payer MEDICARE, MEDICAID, SELFPAY ==
[2024-07-07 09:01] LABS: Appearance Urine Clear (Clear); Color Urine Yellow (Yellow); Protein Urine Negative (Negative)
[2024-07-07 09:07] LABS: Blood Urine Negative (Negative); Glucose Urine UA 4+ (Negative); Ketones Urine Trace (Negative); Nitrate Urine Negative (Negative)
[2024-07-07 09:08] LABS: Add Urine Microscopic? YES; Bilirubin Urine 2+ (Negative); Leukocyte Esterase Ur Negative (Negative); Urobilinogen Urine 0.2 mg/dL (0.2-1.0)
[2024-07-07 09:15] LABS: RBC Urine None seen /hpf (0-2); Squamous Epithelial Cell Urine Rare /hpf (Few); WBC Urine None seen /hpf (0-3)
[2024-07-07 09:16] LABS: Bacteria Urine Rare /hpf
== END 2024-07-07 08:25 | disposition home or self-care (01) ==
PROVIDERS: Visit Provider Family Medicine
DX: N39.0 Urinary tract infection, site not specified (principal)
CPT/HCPCS: 81001; 87086; 87088

== ENCOUNTER 2024-07-26 10:24 | Outpatient (CLI) | payer MEDICARE, MEDICAID, SELFPAY ==
--- NOTE | ~2024-07-26 | XR_ITS ---
3 VIEWS LUMBAR SPINE Ordering provider: Jose Alejandro MD History: . BACK PAIN S/P FALL X2DAYS AGO,URINARY INCONTINENCE . Comparison: None. FINDINGS: VERTEBRAL BODIES:Levoscoliosis. Compression fracture of L1 which may be acute or chronic. No visible subluxation. Degenerative changes of the spine. DISK SPACES: Narrowing of the disc L1-L2, L2-L3, L3-L4 and L5-S1. SOFT TISSUES: Atherosclerotic changes of the aorta. IMPRESSION: Compression fracture of L1 which may be acute or chronic. MRI evaluation advised. Multilevel degenerative disc disease. Reviewed, dictated and finalized at location A. IMPRESSION: Compression fracture of L1 which may be acute or chronic. MRI evaluation advise d. Multilevel degenerative disc disease.
== END 2024-07-26 10:25 | disposition home or self-care (01) ==
LOC: CHSIMG 10:27
PROVIDERS: PCP Family Medicine; Visit Provider Family Medicine
DX: M54.50 Low back pain, unspecified (principal); M48.56XA Collapsed vertebra, not elsewhere classified, lumbar region, initial encounter for fracture; M51.36 Other intervertebral disc degeneration, lumbar region
CPT/HCPCS: 72100

== ENCOUNTER 2024-08-12 09:03 | Outpatient (CLI) | payer MEDICARE, MEDICAID, SELFPAY ==
--- NOTE | ~2024-08-12 | MR_ITS ---
EXAMINATION: MR lumbar spine wo con DATE: 08/12/2024 09:55 INDICATION: Lumbar compression fracture. TECHNIQUE: Magnetic resonance imaging (MRI) of the lumbar spine was performed without intravenous con trast. Sequences included sagittal T2-weighted FSE, sagittal T2-weighted FS FSE, sagittal T1-weighted FSE, and axial T2-weighted FSE. COMPARISON: Lumbar spine radiographs 07/26/2024, CT 03/28/2024 FINDINGS: There is 13 degrees levoscoliosis of lumbar spine. There is a chronic burst fracture of L1 with 2/5 loss of height and retropulsion of bone 3 mm into central spinal canal. There is severely de creased disc height at L1-L2, L2-L3, and L3-L4, mildly decreased disc height at L4-L5, severely decre ased disc height at L5-S1. The distal spinal cord signal intensity is normal. The conus medullaris is at L1. The following disc levels are specifically discussed: L1-L2: The disc is bulging and has an annular fissure. There is mild right and moderate left facet shakira int osteoarthritis. There is mild bilateral neural foraminal stenosis. There is mild central canal st enosis. L2-L3: The disc is bulging and has an annular fissure. There is severe right and mild left facet join t osteoarthritis. There is mild bilateral neural foraminal stenosis. There is mild central canal sten osis. L3-L4: The disc is bulging is an oblique fissure. There is mild bilateral facet joint osteoarthritis. There is mild right and moderate left neural foraminal stenosis. There is mild central canal stenosi s. L4-L5: The disc is bulging and has an annular fissure. There is mild right and moderate left facet shakira int osteoarthritis. There is mild right and moderate left neural foraminal stenosis. There is mild ce ntral canal stenosis. L5-S1: The disc is bulging and has an annular fissure. There is severe bilateral facet joint osteoart hritis. There is mild bilateral neural foraminal stenosis. There is mild central canal stenosis. IMPRESSION: 1. Severe lumbar spondylosis. 2. Lumbar levoscoliosis. Reviewed, dictated and finalized at location A.
== END 2024-08-12 09:04 | disposition home or self-care (01) ==
LOC: CHSIMG 09:04
PROVIDERS: PCP Family Medicine; Visit Provider Family Medicine
DX: S32.009A Unspecified fracture of unspecified lumbar vertebra, initial encounter for closed fracture (principal); M43.06 Spondylolysis, lumbar region; M41.86 Other forms of scoliosis, lumbar region
CPT/HCPCS: 72148

== ENCOUNTER 2024-09-21 13:01 | Outpatient (NON) | payer MEDICARE, MEDICAID, SELFPAY ==
[2024-09-21 13:40] LABS: Creatinine Urine 22.54 mg/dL (40-278); MALB Creatinine Ratio 57.6 mg/g (0-30); Microalbumin Urine Random < 13.0 mg/L
== END 2024-09-21 13:02 | disposition home or self-care (01) ==
LOC: CHSLAB 13:06
PROVIDERS: PCP Family Medicine; Visit Provider Family Medicine
DX: N18.9 Chronic kidney disease, unspecified (principal)
CPT/HCPCS: 82043

== ENCOUNTER 2024-09-23 06:48 | Outpatient (NON) | payer MEDICARE, SELFPAY ==
[2024-09-23 07:24] LABS: Add Urine Microscopic? NO; Appearance Urine Clear (Clear); Bilirubin Urine Negative (Negative); Blood Urine Negative (Negative); Color Urine Light Yellow (Yellow); Glucose Urine UA 3+ (Negative); Ketones Urine Negative (Negative); Leukocyte Esterase Ur Negative (Negative); Nitrate Urine Negative (Negative); Protein Urine Negative (Negative); Specific Grav Ur <= 1.005 (1.010-1.020); Urobilinogen Urine 0.2 mg/dL (0.2-1.0); pH Urine 5.5 (5.0-8.0)
[2024-09-23 07:28] LABS: Creatinine Urine 36.97 mg/dL (40-278)
[2024-09-23 07:45] LABS: MALB Creatinine Ratio 35.1 mg/g (0-30); Microalbumin Urine Random < 13.0 mg/L
== END 2024-09-23 06:49 | disposition home or self-care (01) ==
LOC: CHSLAB 06:49
PROVIDERS: PCP Family Medicine; Visit Provider Family Medicine
DX: N18.9 Chronic kidney disease, unspecified (principal); E11.9 Type 2 diabetes mellitus without complications
CPT/HCPCS: 81003; 82043

== ENCOUNTER 2025-02-07 09:34 | Outpatient (CLI) | payer MEDICARE, SELFPAY ==
[2025-02-07 09:53] LABS: Hematocrit 44.6 % (35.0-42.0); Hemoglobin 13.9 g/dL (11.7-13.8); Mean Corpuscular HGB Conc 31.2 g/dL (32-36); Mean Corpuscular Hemoglobin 29.1 pg (27.0-31.0); Mean Corpuscular Volume 93.3 fL (78.0-102.0); Mean Platelet Volume 10.3 fl (9.2-11.8); Platelet Count Result 322 K/mm3 (150-420); Red Blood Count 4.78 M/mm3 (4.20-5.40)
[2025-02-07 10:34] LABS: Alanine Aminotransferase 17 U/L (14-59); Albumin Level 2.7 g/dL (3.4-5.0); Alkaline Phosphatase 134 U/L (46-116); Anion Gap 6 mmol/L (4-12); Aspartate Amino Transferase 21 U/L (15-37); Bilirubin,Total 0.3 mg/dL (0.00-1.00); Blood Urea Nitrogen 18 mg/dL (7-18); Carbon Dioxide 35 mmol/L (21-32); Chloride 99 mmol/L (98-108); Estimated Glomerular Filt Rate 40; Glucose 288 mg/dL (70-99); Osmolality Calculated 302 mOsm/kg (285-295); Potassium 4.4 mmol/L (3.5-5.1); Sodium 140 mmol/L (136-145); Thyroid Stimulating Hormone 1.57 uIU/mL (0.36-3.74); Total Protein 7.5 g/dL (6.4-8.2)
[2025-02-07 13:36] LABS: Add Urine Microscopic? NO; Appearance Urine Clear (Clear); Bilirubin Urine Negative (Negative); Blood Urine Negative (Negative); Color Urine Light Yellow (Yellow); Glucose Urine UA 3+ (Negative); Ketones Urine Negative (Negative); Leukocyte Esterase Ur Negative (Negative); Nitrate Urine Negative (Negative); Protein Urine Negative (Negative); Specific Grav Ur <= 1.005 (1.010-1.020); Urobilinogen Urine 0.2 mg/dL (0.2-1.0)
[2025-02-07 13:42] LABS: MALB Creatinine Ratio 45.2 mg/g (0-30); Microalbumin Urine Random < 13.0 mg/L
== END 2025-02-07 09:35 | disposition home or self-care (01) ==
PROVIDERS: PCP Family Medicine; Visit Provider Family Medicine
DX: J44.9 Chronic obstructive pulmonary disease, unspecified (principal); E11.9 Type 2 diabetes mellitus without complications; I25.10 Atherosclerotic heart disease of native coronary artery without angina pectoris; I10 Essential (primary) hypertension
CPT/HCPCS: 36415; 80053; 81003; 82043; 83036; 84443; 85027

== ENCOUNTER 2025-02-16 11:34 | Outpatient (CLI) | payer MEDICARE, SELFPAY ==
--- NOTE | ~2025-02-16 | XR_ITS ---
Clinical Indication: Cough PA and lateral views of the chest: Comparison: 01/01/2024 Findings: The lungs are clear, without evidence of focal consolidation or pleural effusion. Cardiome diastinal silhouette is stable. L1 compression fracture present. Impression: Clear lungs. Reviewed, dictated and finalized at location . Impression: Clear lungs.
--- OUTSIDE RECORDS SUMMARY | 2025-02-16 11:39 | XMS_ITS | Encounter Summary ---
Author Organization [facility] Address [facility] [place] [address] Care Team Providers Care Director Of Consumer Marketing Name Role Phone Joni Goldberg MD Primary Care Provider Encounter Details Date Type Department Care Team (Late st Contact Info) Description 04/08/2019 Abstract SFL CONVERSION [address] [place] [address] , Generic Conversion, Social History Tobacco Use Types Packs/Day Years Used Date Smoking Tobacco: Never Assessed Comments Unknown Sex and Gender Information Value Date Recorded Sex Assigned at Not on file Legal Sex Female 10:24 PM CDT Gender Identity Not on file Sexual Orientation Not on file documented as of this encounter Plan of Treatment Not on file documented as of this encounter Visit Diagnoses Not on filedocumented in this encounter Additional Health Concerns Infection Onset Date Last Indicated Resolved Time COVID-19 Rule Out 06/22/2020 06/22/2020 06/22/2020 3:01 PM CDT COVID-19 Rule Out 07/01/2020 07/01/2020 07/01/2020 4:02 PM CDT documented as of this encounter Care Teams Director Of Consumer Marketing Relationship Specialty Start Date End Date Joni Goldberg MD [address] [place] [id number] PCP - General FAMILY PRACTICE 04/10/19 documented as of this encounter
--- OUTSIDE RECORDS SUMMARY | 2025-02-16 11:39 | XMS_ITS | Clinical Summary ---
Author Organization [facility] Address [address] [place] [address] Care Team Providers Care Mechanical Integrity Specialist Name Role Phone Joni Goldberg MD Primary Care Provider Allergies Active Allergy Reactions Criticality Noted Date Comments Azithromycin Vomiting 06/21/2020 Codeine Unknown 06/21/2020 Doxycycline Diarrhea 06/21/2020 Cephalexin Itching 06/21/2020 Penicillins Shortness of Breath High 06/21/2020 Sulfa Antibiotics Unknown 06/21/2020 Medications glimepiride 4 MG tablet Take 4 mg by mouth every morning before breakfast. Active lisinopril 40 MG tablet Take 40 mg by mouth daily. Active chlordiazepoxid e 10 MG capsule Take 10 mg by mouth 4 (four) times daily. Active pioglitazone 15 MG tablet Take 15 mg by mouth daily. Active fluoxetine 20 MG capsule Take 20 mg by mouth 2 (two) times daily. Active omeprazole 40 MG capsule Take 40 mg by mouth daily. Active PULMICORT FLEXHALER 90 MCG/ACT inhaler 01/29/2020 Act brandy aspirin 81 MG chewable tablet Chew 1 tablet (81 mg total) by mouth daily. 60 tablet 07/02/2020 Active atorvastatin 40 MG tablet Take 1 tablet (40 mg total) by mouth nightly at bedtime. 60 tablet 07/02/2020 Active budesonide (PULMICORT FLEXHALER) 90 MCG/ACT inhaler Inhale 1 puff into the lungs 2 (two) times daily. 1 Inhaler 07/02/2020 Active furosemide 40 MG tablet Take 1 tablet (40 mg total) by mouth daily. 60 tablet 07/02/2020 Active metoprolol succinate ER 25 MG 24 hr tablet Take 1 tablet (25 mg total) by mouth daily. 60 tablet 07/02/2020 Active pantoprazole EC 40 MG tablet Take 1 tablet (40 mg total) by mouth daily. 30 tablet 07/03/2020 Active tiotropium [address] 1 capsule (18 mcg total) into inhaler and inhale daily. 60 capsule 07/03/2020 Active Active Problems Problem Noted Date Diagnosed Date NSTEMI (non-ST elevated myoc ardial infarction) ([facility]) 06/21/2020 Family History Medical History Relation Comments Cancer Mother Relation Status Comments Mother Social History Tobacco Use Types Packs/Day Years Used Date Smoking Tobacco: Every Day Cigarettes Smokeless Tobacco: Never Alcohol Use Standard Drinks/Week Comments No 0 (1 standard drink = 0.6 oz pur e alcohol) AUDIT-C Answer Date Recorded Frequency of Alcohol Consumption Never 07/27/2019 Average Number of Drinks Not on file 019 Frequency of Binge Drinking Not on file 07/03 Comments No Sex and Gender Information Value Date Recorded Sex Assigned at Not on file Legal Sex Female 10:24 PM CDT Gender Identity Not on file Sexual Orientation Not on file Last Filed Vital Signs Vital Sign Reading Time Taken Comments Blood Pressure 155/66 07/02/2020 3:26 AM CDT R.N. Notified Pulse 52 07/02/2020 6:34 AM CDT Temperature 36.4 C (97.5 F) 07/02/2020 3:26 AM CDT Respiratory Rate 16 07/02/2020 6:34 AM CDT Oxygen Saturation 93% 07/02/2020 3:2 6 AM CDT Inhaled Oxygen Concentration - - Weight 62.1 kg (136 lb 14.5 oz) 07/02/2020 6:34 AM CDT Height 157.5 cm (5' 2 ) 06/21/2020 3:01 PM CDT Body Mass Index 25.04 06/21/2020 3:01 PM CDT Plan of Treatment Health Maintenance Due Date Last Done Comments ASCVD Statin 1945 Meningococcal B Vaccine (1 o f 5 - Increased Risk) 1955 Hepatitis C 1963 DTaP, Tdap and Td Vaccines ( 1 - Tdap) 1964 Pneumococcal Vaccine: 50+ Ye ars (1 of 2 - PCV) 1964 Zoster Vaccines (1 of 2) 1995 Annual Medicare Wellness Visit 2010 Dexa Scan (General) 2010 Meningococcal Vaccine (1 - R isk start 2-23 months series) 07/09/2014 05/14/2014 RSV Immunization or 60+ Years (1 - 1-dose 75+ series) 2020 ASCVD LDL 06/22/2021 06/22/2020 COVID-19 Vaccine (1 - 2023-2 5 season) 2024 RSV Immunizations Under 20 Months Aged Out No longer eligible based on patient's age to complete this topic Procedures Procedure Name Priority Date/Time Associated Diagnosis Comments LIPID PANEL Routine 06/22/2020 12:53 AM CDT from Last 3 Months or Most Recently Relevant to Health Maintenance Results * LIPID PANEL (06/22/2020 12:53 AM CDT) CHOLESTEROL 146 MG/DL 06/22/2020 2:10 AM CDT [facility] Comment:DESIRABLE: <200 TRIGLYCERIDES 71 MG/DL 06/22/2020 2:10 AM CDT [facility] Comment:<150 NORMAL HDL 50 >49 MG/DL 06/22/2020 2:10 AM CDT [facility] LDL (CALCULATED) 82 MG/DL 06/22/20 20 2:10 AM CDT [facility] Comment:<100 OPTIMAL VLDL CALCULATION 14 MG/DL 06/22/20 2:10 AM CDT [facility] Comment:REFERENCE RANGE NOT ESTABLISHED CHOL/HDL RATIO 2.9 06/22/2020 2:10 AM CDT [facility] Comment:REFERENCE RANGE NOT ESTABLISHED LDL/HDL 1.6 06/22/2020 2:10 AM CDT [facility] Comment:REFERENCE RANGE NOT ESTABLISHED NON HDL CHOLESTEROL 96 MG/DL 06/22/2020 2:10 AM CDT [facility] Comment:REFERENCE RANGE NOT ESTABLISHED 06/22/2020 12:5 3 AM CDT Puja Soto ACNP-BC LABORATORY Final R esult [facility] [address] [place] [address], [id number] from Last 3 Months or Most Recently Relevant to Health Maintenance Insurance MEDICARE MEDICAID MEDICARE MEDICAID Advance Directives * Full Code (Latest Code Status on File) Date Activated Date Inactivated Comments 06/26/2020 4:21 PM 07/02/2020 3:22 PM * Full Code Date Activated Date Inactivated Comments 06/21/2020 3:56 PM 06/26/2020 4:21 PM Care Teams Mechanical Integrity Specialist Relationship Specialty Start Date End Date Joni Goldberg MD [address] [place] [address] PCP - General FAMILY PRACTICE 04/10/19
--- OUTSIDE RECORDS SUMMARY | 2025-02-16 11:39 | XMS_ITS | Encounter Summary ---
Author Organization [facility] Address [facility] [place] [address] Care Team Providers Care Sample Shoe Inspector And Reworker Name Role Phone Joni Goldberg MD Primary Care Provider [phone]- [phone] Encounter Details Date Type Department Care Team (Late st Contact Info) Description 01/15/2018 Abstract SJS CONVERSION [address] [place] [address] , Generic ConversionMD Social History Tobacco Use Types Packs/Day Years [...] documented as of this encounter Care Teams Sample Shoe Inspector And Reworker Relationship Specialty Start Date End Date Joni Goldberg MD [address] [place] [phone] PCP - General FAMILY PRACTICE 04/10/19 documented as of this encounter
[2025-02-16 11:49] LABS: Basophils Absolute Auto 0.09 K/mm3 (0.00-0.10); Basophils Percent Auto 0.7 % (0.0-1.0); Eosinophils Absolute Auto 0.28 K/mm3 (0.02-0.50); Eosinophils Percent Auto 2.1 % (1.0-6.0); Hematocrit 43.3 % (35.0-42.0); Hemoglobin 13.5 g/dL (11.7-13.8); Immature Granulocyte Absolute 0.06 K/mm3 (0.00-0.00); Immature Granulocyte Percent A 0.5 % (0.0-0.0); Lymphocytes Absolute Auto 4.02 K/mm3 (1.10-4.50); Lymphocytes Percent Auto 30.2 % (18.0-42.0); Mean Corpuscular HGB Conc 31.2 g/dL (32-36); Mean Corpuscular Volume 93.1 fL (78.0-102.0); Mean Platelet Volume 9.9 fl (9.2-11.8); Monocytes Absolute Auto 1.17 K/mm3 (0.10-0.90); Monocytes Percent Auto 8.8 % (2.0-11.0); Neutrophils Absolute Auto 7.67 K/mm3 (1.70-7.20); Neutrophils Percent Auto 57.7 % (50.0-70.0); Platelet Count Result 351 K/mm3 (150-420); Red Blood Count 4.65 M/mm3 (4.20-5.40); Red Cell Distribution Width 14.3 % (11.6-14.4); White Blood Count 13.3 K/mm3 (4.8-10.8)
[2025-02-16 12:19] LABS: Alanine Aminotransferase 17 U/L (14-59); Albumin Level 2.6 g/dL (3.4-5.0); Alkaline Phosphatase 135 U/L (46-116); Anion Gap 6 mmol/L (4-12); Aspartate Amino Transferase 16 U/L (15-37); Bilirubin,Total 0.3 mg/dL (0.00-1.00); Blood Urea Nitrogen 14 mg/dL (7-18); Calcium 9.3 mg/dL (8.5-10.1); Carbon Dioxide 32 mmol/L (21-32); Chloride 101 mmol/L (98-108); Estimated Glomerular Filt Rate 47; Glucose 267 mg/dL (70-99); Osmolality Calculated 297 mOsm/kg (285-295); Potassium 4.9 mmol/L (3.5-5.1); Sodium 139 mmol/L (136-145); Total Protein 7.3 g/dL (6.4-8.2)
== END 2025-02-16 11:35 | disposition home or self-care (01) ==
PROVIDERS: PCP Family Medicine; Visit Provider Family Medicine
DX: R05.1 Acute cough (principal); R09.89 Other specified symptoms and signs involving the circulatory and respiratory systems
CPT/HCPCS: 36415; 71046; 80053; 85025

== ENCOUNTER 2025-02-23 13:01 | Outpatient (CLI) | payer MEDICARE, MEDICAID, SELFPAY ==
--- NOTE | ~2025-02-23 | US_ITS ---
US arterial ankle brachial ind INDICATION: Absent pedal pulses TECHNIQUE: Segmental pressures and plethysmographic and Doppler waveforms of the brachial and lower e xtremity arteries were obtained. COMPARISON: None. FINDINGS: Right and left brachial artery pressures of 151 mm Hg and 161 mm Hg, respectively, are concordant (no rmal difference <= 30 mmHg). The right ankle-brachial index (LYSSA) is 1.01 (normal >= 0.9-1.0). The right great toe-brachial index (TBI) is 0.73 (normal >= 0.60). The left LYSSA is 0.78. The left TBI is 0.61. There is triphasic flow bilaterally. IMPRESSION: 1. Diminished left ankle brachial index, consistent with mild peripheral arterial disease. Reviewed, dictated and finalized at location A. IMPRESSION: 1. Diminished left ankle brachial index, consistent with mild peripheral arteri al disease.
--- OUTSIDE RECORDS SUMMARY | 2025-02-23 13:05 | XMS_ITS | Encounter Summary ---
Author Organization [facility] Address [facility] [place] [address] Care Team Providers Care Speeder Operator Name Role Phone Joni Goldberg MD Primary Care Provider [phone]- [phone] Encounter Details Date Type Department Care Team (Late st Contact Info) Description 01/15/2018 Abstract SJS CONVERSION [address] [place] [address] , Generic ConversionMD Social History Tobacco Use [...] documented as of this encounter Care Teams Speeder Operator Relationship Specialty Start Date End Date Joni Goldberg MD [address] [place] [phone] PCP - General FAMILY PRACTICE 04/10/19 documented as of this encounter
--- OUTSIDE RECORDS SUMMARY | 2025-02-23 13:05 | XMS_ITS | Encounter Summary ---
Author Organization [facility] Address [facility] [place] [address] Care Team Providers Care Freelance Designer Name Role Phone Joni Goldberg MD Primary Care Provider Encounter Details Date Type Department Care Team (Late st Contact Info) Description 04/08/2019 Abstract SFL CONVERSION [address] [place] [address] , Generic Conversion, Social History Tobacco [...] documented as of this encounter Care Teams Freelance Designer Relationship Specialty Start Date End Date Joni Goldberg MD [address] [place] [phone] PCP - General FAMILY PRACTICE 04/10/19 documented as of this encounter
--- OUTSIDE RECORDS SUMMARY | 2025-02-23 13:05 | XMS_ITS | Clinical Summary ---
Author Organization [facility] Address [address] [place] [address] Care Team Providers Care Recycling Collections Driver Name Role Phone Joni Goldberg MD Primary [...] Date NSTEMI (non-ST elevated myoc ardial infarction) ([facility]) 06/21/2020 Family History Medical History Relation Comments [...] CHOLESTEROL 146 MG/DL 06/22/2020 2:10 AM CDT [facility] Comment:DESIRABLE: <200 TRIGLYCERIDES 71 MG/DL 06/22/2020 2:10 AM CDT [facility] Comment:<150 NORMAL HDL 50 >49 MG/DL 06/22/2020 2:10 AM CDT [facility] LDL (CALCULATED) 82 MG/DL 06/22/20 20 2:10 AM CDT [facility] Comment:<100 OPTIMAL VLDL CALCULATION 14 MG/DL 06/22/20 2:10 AM CDT [facility] Comment:REFERENCE RANGE NOT ESTABLISHED CHOL/HDL RATIO 2.9 06/22/2020 2:10 AM CDT [facility] Comment:REFERENCE RANGE NOT ESTABLISHED LDL/HDL 1.6 06/22/2020 2:10 AM CDT [facility] Comment:REFERENCE RANGE NOT ESTABLISHED NON HDL CHOLESTEROL 96 MG/DL 06/22/2020 2:10 AM CDT [facility] Comment:REFERENCE RANGE NOT ESTABLISHED 06/22/2020 12:5 3 AM CDT Puja Soto ACNP-BC LABORATORY Final R esult [facility] [address] [place] [address], [id number] from Last 3 Months or Most Recently Relevant to Health Maintenance Insurance MEDICARE MEDICAID MEDICARE MEDICAID Advance Directives * Full Code (Latest Code Status on File) Date Activated Date Inactivated Comments 06/26/2020 4:21 PM 07/02/2020 3:22 PM * Full Code Date Activated Date Inactivated Comments 06/21/2020 3:56 PM 06/26/2020 4:21 PM Care Teams Recycling Collections Driver Relationship Specialty Start Date End Date Joni Goldberg MD [address] [place] [phone] PCP - General FAMILY PRACTICE 04/10/19
== END 2025-02-23 13:02 | disposition home or self-care (01) ==
PROVIDERS: PCP Family Medicine; Visit Provider Family Medicine
DX: R09.89 Other specified symptoms and signs involving the circulatory and respiratory systems (principal)
CPT/HCPCS: 93922

== ENCOUNTER 2025-03-07 11:02 | Outpatient (CLI) | payer MEDICARE, MEDICAID, SELFPAY ==
[2025-03-07 11:47] LABS: Strep Group A RT-PCR NOT DETECTED (Negative)
--- OUTSIDE RECORDS SUMMARY | 2025-03-07 11:54 | XMS_ITS | Clinical Summary ---
Author Organization [facility] Address [address] [place] [address] Care Team Providers Care Ferryboat Operator Name Role Phone Joni Goldberg MD Primary Care Provider [phone] Allergies Active Allergy Reactions Criticality Noted Date [...] Date NSTEMI (non-ST elevated myoc ardial infarction) ([facility]) 06/21/2020 Family History Medical History Relation Comments [...] CHOLESTEROL 146 MG/DL 06/22/2020 2:10 AM CDT [facility] Comment:DESIRABLE: <200 TRIGLYCERIDES 71 MG/DL 06/22/2020 2:10 AM CDT [facility] Comment:<150 NORMAL HDL 50 >49 MG/DL 06/22/2020 2:10 AM CDT [facility] LDL (CALCULATED) 82 MG/DL 06/22/20 20 2:10 AM CDT [facility] Comment:<100 OPTIMAL VLDL CALCULATION 14 MG/DL 06/22/20 2:10 AM CDT [facility] Comment:REFERENCE RANGE NOT ESTABLISHED CHOL/HDL RATIO 2.9 06/22/2020 2:10 AM CDT [facility] Comment:REFERENCE RANGE NOT ESTABLISHED LDL/HDL 1.6 06/22/2020 2:10 AM CDT [facility] Comment:REFERENCE RANGE NOT ESTABLISHED NON HDL CHOLESTEROL 96 MG/DL 06/22/2020 2:10 AM CDT [facility] Comment:REFERENCE RANGE NOT ESTABLISHED 06/22/2020 12:5 3 AM CDT Puja Soto ACNP-BC LABORATORY Final R esult [facility] [address] [place] [address], [id number] from Last 3 Months or Most Recently Relevant to Health Maintenance Insurance MEDICARE MEDICAID MEDICARE MEDICAID Advance Directives * Full Code (Latest Code Status on File) Date Activated Date Inactivated Comments 06/26/2020 4:21 PM 07/02/2020 3:22 PM * Full Code Date Activated Date Inactivated Comments 06/21/2020 3:56 PM 06/26/2020 4:21 PM Care Teams Ferryboat Operator Relationship Specialty Start Date End Date Joni Goldberg MD [address] [place] [phone] PCP - General FAMILY PRACTICE 04/10/19
--- OUTSIDE RECORDS SUMMARY | 2025-03-07 11:54 | XMS_ITS | Encounter Summary ---
Author Organization [facility] Address [facility] [place] [address] Care Team Providers Care Human Resources Records Clerk Name Role Phone Joni Goldberg MD Primary Care Provider Encounter Details Date Type Department Care Team (Late st Contact Info) Description 04/08/2019 Abstract SFL CONVERSION [address] [place] [address] , Generic Conversion, Social History Tobacco [...] documented as of this encounter Care Teams Human Resources Records Clerk Relationship Specialty Start Date End Date Joni Goldberg MD [address] [place] [phone] PCP - General FAMILY PRACTICE 04/10/19 documented as of this encounter
--- OUTSIDE RECORDS SUMMARY | 2025-03-07 11:54 | XMS_ITS | Encounter Summary ---
Author Organization [facility] Address [facility] [place] [address] Care Team Providers Care Fire Assistant Name Role Phone Joni Goldberg MD Primary Care Provider [phone]- [phone] Encounter Details Date Type Department Care Team (Late st Contact Info) Description 01/15/2018 Abstract SJS CONVERSION [address] [place] [address] , Generic ConversionMD Social History Tobacco Use [...] documented as of this encounter Care Teams Fire Assistant Relationship Specialty Start Date End Date Joni Goldberg MD [address] [place] [phone] PCP - General FAMILY PRACTICE 04/10/19 documented as of this encounter
[2025-03-07 11:57] LABS: Influenza A QL RT-PCR Negative (Negative); Influenza B QL RT-PCR Negative (Negative); RSV RNA, RT-PCR Negative (Negative); SARS-CoV-2 RNA PCR Negative (Negative)
== END 2025-03-07 11:03 | disposition home or self-care (01) ==
LOC: CHSLAB 11:05
PROVIDERS: PCP Family Medicine; Visit Provider Family Medicine
DX: R05.9 Cough, unspecified (principal); R09.81 Nasal congestion
CPT/HCPCS: 87637; 87651

== ENCOUNTER 2025-04-24 08:00 | Outpatient (NON) | payer MEDICARE, MEDICAID, SELFPAY ==
[2025-04-24 08:13] LABS: Add Urine Microscopic? NO; Appearance Urine Clear (Clear); Bilirubin Urine Negative (Negative); Blood Urine Negative (Negative); Color Urine Light Yellow (Yellow); Glucose Urine UA Negative (Negative); Ketones Urine Negative (Negative); Leukocyte Esterase Ur Negative LEU/UL (Negative); Nitrate Urine Negative (Negative); Protein Urine Negative (Negative); Specific Grav Ur <= 1.005 (1.010-1.020); Urobilinogen Urine 0.2 mg/dL (0.2-1.0); pH Urine 5.5 (5.0-8.0)
== END 2025-04-24 08:01 | disposition home or self-care (01) ==
LOC: CHSLAB 08:03
PROVIDERS: PCP Family Medicine
DX: R33.9 Retention of urine, unspecified (principal); R30.0 Dysuria
CPT/HCPCS: 81003

== ENCOUNTER 2025-06-20 20:42 | Outpatient (NON) | payer MEDICARE, SELFPAY ==
[2025-06-20 21:04] LABS: Add Urine Microscopic? NO; Appearance Urine Clear (Clear); Glucose Urine UA 1+ (Negative); Leukocyte Esterase Ur Negative (Negative); Nitrate Urine Negative (Negative); Specific Grav Ur <= 1.005 (1.010-1.020)
== END 2025-06-20 20:43 | disposition home or self-care (01) ==
LOC: CHSLAB 20:45
DX: N39.0 Urinary tract infection, site not specified (principal)
CPT/HCPCS: 81003; 87086

== ENCOUNTER 2025-06-27 06:48 | Outpatient (NON) | payer MEDICARE, SELFPAY ==
[2025-06-27 09:23] LABS: Hematocrit 38.0 % (35.0-42.0); Hemoglobin 12.1 g/dL (11.7-13.8); Mean Corpuscular HGB Conc 31.8 g/dL (32-36); Mean Corpuscular Hemoglobin 30.0 pg (27.0-31.0); Mean Corpuscular Volume 94.1 fL (78.0-102.0); Platelet Count Result 337 K/mm3 (150-420); Red Blood Count 4.04 M/mm3 (4.20-5.40); White Blood Count 12.9 K/mm3 (4.8-10.8)
[2025-06-27 09:32] LABS: Alanine Aminotransferase 15 U/L (6-35); Albumin Level 3.1 g/dL (3.5-5.1); Alkaline Phosphatase 106 U/L (38-126); Anion Gap 5 mmol/L (4-12); Aspartate Amino Transferase 24 U/L (14-36); Bilirubin,Total 0.3 mg/dL (0.2-1.3); Blood Urea Nitrogen 20 mg/dL (7-17); Calcium 8.8 mg/dL (8.4-10.2); Carbon Dioxide 34 mmol/L (22-30); Chloride 100 mmol/L (98-107); Cholesterol 96 mg/dL (0-200); Estimated Glomerular Filt Rate 53; Glucose 226 mg/dL (65-110); HDL Direct 44 mg/dL; Osmolality Calculated 297 mOsm/kg (285-295); Potassium 4.5 mmol/L (3.4-5.0); Sodium 139 mmol/L (137-145); Total Protein 6.2 g/dL (6.3-8.2); Triglycerides 122 mg/dL (<150)
[2025-06-27 09:46] LABS: Hemoglobin A1C 8.0 % (<5.7)
[2025-06-27 10:05] LABS: Thyroid Stimulating Hormone 2.040 uIU/mL (0.465-4.680)
[2025-06-27 10:41] LABS: Vitamin B12 342.0 pg/mL (239-931)
== END 2025-06-27 06:49 | disposition home or self-care (01) ==
LOC: CHSLAB 06:50
PROVIDERS: PCP Family Medicine
DX: J44.9 Chronic obstructive pulmonary disease, unspecified (principal); I50.30 Unspecified diastolic (congestive) heart failure; I25.10 Atherosclerotic heart disease of native coronary artery without angina pectoris; F33.9 Major depressive disorder, recurrent, unspecified; D64.9 Anemia, unspecified; E78.5 Hyperlipidemia, unspecified; E11.9 Type 2 diabetes mellitus without complications; I11.0 Hypertensive heart disease with heart failure
CPT/HCPCS: 36415; 80053; 80061; 82607; 82746; 83036; 84436; 84443; 85027

== ENCOUNTER 2025-07-25 07:07 | Outpatient (NON) | payer MEDICARE, SELFPAY ==
[2025-07-25 07:23] LABS: Hematocrit 39.8 % (35.0-42.0); Hemoglobin 12.5 g/dL (11.7-13.8); Mean Corpuscular HGB Conc 31.4 g/dL (32-36); Mean Corpuscular Hemoglobin 29.8 pg (27.0-31.0); Mean Corpuscular Volume 94.8 fL (78.0-102.0); Platelet Count Result 316 K/mm3 (150-420); Red Blood Count 4.20 M/mm3 (4.20-5.40); White Blood Count 12.3 K/mm3 (4.8-10.8)
[2025-07-25 07:51] LABS: Alanine Aminotransferase 12 U/L (6-35); Albumin Level 3.1 g/dL (3.5-5.1); Alkaline Phosphatase 112 U/L (38-126); Amylase 55 U/L (30-110); Anion Gap 7 mmol/L (4-12); Aspartate Amino Transferase 23 U/L (14-36); Bilirubin,Total 0.4 mg/dL (0.2-1.3); Blood Urea Nitrogen 16 mg/dL (7-17); Calcium 9.1 mg/dL (8.4-10.2); Carbon Dioxide 32 mmol/L (22-30); Chloride 101 mmol/L (98-107); Estimated Glomerular Filt Rate 51; Glucose 136 mg/dL (65-110); Lipase 109 U/L (23-300); Osmolality Calculated 293 mOsm/kg (285-295); Potassium 4.1 mmol/L (3.4-5.0); Sodium 140 mmol/L (137-145); Total Protein 6.7 g/dL (6.3-8.2)
[2025-07-25 10:37] LABS: Add Urine Microscopic? NO; Appearance Urine Clear (Clear); Glucose Urine UA 3+ (Negative); Leukocyte Esterase Ur Negative LEU/UL (Negative); Nitrate Urine Negative (Negative); Specific Grav Ur 1.010 (1.010-1.020)
== END 2025-07-25 07:08 | disposition home or self-care (01) ==
PROVIDERS: PCP Family Medicine; Visit Provider Family Medicine
DX: D64.9 Anemia, unspecified (principal); E78.5 Hyperlipidemia, unspecified; I10 Essential (primary) hypertension; I20.0 Unstable angina; N39.0 Urinary tract infection, site not specified; E11.9 Type 2 diabetes mellitus without complications
CPT/HCPCS: 36415; 80053; 81003; 82150; 83690; 85027

== ENCOUNTER 2025-07-27 11:38 | Outpatient (CLI) | payer MEDICARE, SELFPAY ==
--- NOTE | ~2025-07-27 | XR_ITS ---
Abdominal radiograph(s) INDICATION: Abdominal pain COMPARISON: CT chest abdomen and pelvis 12/23/1999 TECHNIQUE: 2 view supine abdomen FINDINGS: Lung bases clear. Scattered colonic gas and stool. Colonic diverticula. Small scattered small bowel gas. No evidence of organomegaly. No abnormal abdominal calcifications. No acute bony abnormality. IMPRESSION: 1. No acute abnormality identified. Reviewed, dictated and finalized at location R.
== END 2025-07-27 11:39 | disposition home or self-care (01) ==
PROVIDERS: PCP Family Medicine; Visit Provider Family Medicine
DX: R10.9 Unspecified abdominal pain (principal)
CPT/HCPCS: 74018

== ENCOUNTER 2025-08-01 07:27 | Outpatient (NON) | payer MEDICARE, SELFPAY ==
--- OUTSIDE RECORDS SUMMARY | 2025-08-01 07:31 | XMS_ITS | Clinical Summary ---
Author Organization [facility] Address [address] [place] [address] Care Team Providers Care Shipping Associate Name Role Phone Joni Goldberg MD Primary Care Provider [phone] Allergies Active Allergy Reactions Criticality Noted Date [...] Date NSTEMI (non-ST elevated myoc ardial infarction) ([facility]) 06/21/2020 Family History Medical History Relation Comments [...] 6:34 AM CDT Height 157.5 cm (5' 2) 06/21/2020 3:01 PM CDT Body Mass Index 25.04 06/21/2020 3:01 PM CDT Plan of Treatment Health Maintenance Due Date Last Done Comments ASCVD Statin 1945 Meningococcal B Vaccine (1 o f 5 - Increased Risk) 1955 DTaP, Tdap and Td Vaccines ( 1 [...] COVID-19 Vaccine (1 - 2023-2 5 season) 2025 RSV Immunizations Under 20 Months Aged Out No longer eligible based on patient's age to complete this topic Procedures Procedure Name Priority Date/Time Associated Diagnosis Comments LIPID PANEL Routine 06/22/2020 12:53 AM CDT from Last 3 Months or Most Recently Relevant to Health Maintenance Results * LIPID PANEL (06/22/2020 12:53 AM CDT) CHOLESTEROL 146 MG/DL 06/22/2020 2:10 AM CDT [facility] Comment:DESIRABLE: <200 TRIGLYCERIDES 71 MG/DL 06/22/2020 2:10 AM CDT [facility] Comment:<150 NORMAL HDL 50 >49 MG/DL 06/22/2020 2:10 AM CDT [facility] LDL (CALCULATED) 82 MG/DL 06/22/20 2:10 AM CDT [facility] Comment:<100 OPTIMAL VLDL CALCULATION 14 MG/DL 06/22/20 2:10 AM CDT [facility] Comment:REFERENCE RANGE NOT ESTABLISHED CHOL/HDL RATIO 2.9 06/22/2020 2:10 AM CDT [facility] Comment:REFERENCE RANGE NOT ESTABLISHED LDL/HDL 1.6 06/22/2020 2:10 AM CDT [facility] Comment:REFERENCE RANGE NOT ESTABLISHED NON HDL CHOLESTEROL 96 MG/DL 06/22/2020 2:10 AM CDT [facility] Comment:REFERENCE RANGE NOT ESTABLISHED 06/22/2020 12:5 3 AM CDT Puja Soto ACNP-BC LABORATORY Final R esult [facility] [address] [place] [address], [id number] from Last 3 Months or Most Recently Relevant to Health Maintenance [place] [address] MEDICARE MEDICAID Advance Directives * Full Code (Latest Code Status on File) Date Activated Date Inactivated Comments 06/26/2020 4:21 PM 07/02/2020 3:22 PM * Full Code Date Activated Date Inactivated Comments 06/21/2020 3:56 PM 06/26/2020 4:21 PM Care Teams Shipping Associate Relationship Specialty Start Date End Date Joni Goldberg MD [address] [place] [phone] PCP - General FAMILY PRACTICE 04/10/19
--- OUTSIDE RECORDS SUMMARY | 2025-08-01 07:31 | XMS_ITS | Encounter Summary ---
Author Organization [facility] Address [facility] [place] [address] Care Team Providers Care Back End Developer Name Role Phone Joni Goldberg MD Primary Care Provider +1- [phone] Encounter Details Date Type Department Care Team (Late st Contact Info) Description 01/15/2018 Abstract SJS CONVERSION [address] [place] [address] , Generic ConversionMD Social History Tobacco Use [...] documented as of this encounter Care Teams Back End Developer Relationship Specialty Start Date End Date Joni Goldberg MD [address] [place] [phone] PCP - General FAMILY PRACTICE 04/10/19 documented as of this encounter
--- OUTSIDE RECORDS SUMMARY | 2025-08-01 07:31 | XMS_ITS | Encounter Summary ---
Author Organization [facility] Address [facility] [place] [address] Care Team Providers Care Refrigerating Machine Operator Name Role Phone Joni Goldberg MD Primary Care Provider Encounter Details Date Type Department Care Team (Late st Contact Info) Description 04/08/2019 Abstract SFL CONVERSION [address] [place] [address] , Generic Conversion, Social History Tobacco [...] documented as of this encounter Care Teams Refrigerating Machine Operator Relationship Specialty Start Date End Date Joni Goldberg MD [address] [place] [phone] PCP - General FAMILY PRACTICE 04/10/19 documented as of this encounter
[2025-08-01 07:39] LABS: Add Urine Microscopic? NO; Appearance Urine Clear (Clear); Glucose Urine UA 3+ (Negative); Leukocyte Esterase Ur Negative LEU/UL (Negative); Nitrate Urine Negative (Negative); Specific Grav Ur 1.010 (1.010-1.020)
== END 2025-08-01 07:28 | disposition home or self-care (01) ==
LOC: CHSLAB 07:29
PROVIDERS: PCP Family Medicine; Visit Provider Family Medicine
DX: N39.0 Urinary tract infection, site not specified (principal)
CPT/HCPCS: 81003

== ENCOUNTER 2025-08-23 11:12 | Outpatient (CLI) | payer MEDICARE, SELFPAY ==
--- NOTE | ~2025-08-23 | XR_ITS ---
XR lumbar spine 2-3V 08/23/2025 11:28 Indication: Low back pain Procedure: 3 views lumbar spine Comparison: Lumbar spine dated 07/26/2024 Findings: There is a chronic wedge compression fracture of L1 unchanged with approximately 50% loss of vertebral body height. There is severe multilevel disc narrowing and endplate hypertrophy involving all lumbar levels. There is advanced multilevel facet hypertrophy most severe at L3-4 through L5-S1. There is levoscoliosis. No acute osseous abnormality. Impression: 1: Chronic L1 wedge compression fracture unchanged. 2: Severe lumbar spondylosis with levoscoliosis Reviewed, dictated and finalized at location O. Impression: 1: Chronic L1 wedge compression fracture unchanged. 2: Severe lumbar spondylosis with levoscoliosis
== END 2025-08-23 11:13 | disposition home or self-care (01) ==
PROVIDERS: PCP Family Medicine; Visit Provider Family Medicine
DX: M54.50 Low back pain, unspecified (principal); M48.56XA Collapsed vertebra, not elsewhere classified, lumbar region, initial encounter for fracture; M43.06 Spondylolysis, lumbar region; M41.86 Other forms of scoliosis, lumbar region
CPT/HCPCS: 72100

== ENCOUNTER 2025-09-06 13:43 | Outpatient (CLI) | payer MEDICARE, SELFPAY ==
--- NOTE | ~2025-09-06 | XR_ITS ---
EXAMINATION: XR hip LT min 2V, 09/06/2025 14:00 SALES ADMINISTRATION MANAGER HISTORY: PAIN IN BOTH HIPS COMPARISON: No comparisons available. Findings: No acute fracture or malalignment. No significant degenerative changes. Soft tissues unremarkable. Impression: No acute fracture or malalignment. Reviewed, dictated and finalized at location P. S ADMINISTRATION MANAGER Impression: No acute fracture or malalignment.
--- NOTE | ~2025-09-06 | XR_ITS ---
EXAMINATION: XR hip RT min 2V, 09/06/2025 14:00 ENGAGEMENT SPECIALIST HISTORY: PAIN IN BOTH HIPS COMPARISON: No comparisons available. Findings: No acute fracture or malalignment. No significant degenerative changes. Soft tissues unremarkable. Impression: No acute fracture or malalignment. Reviewed, dictated and finalized at location P. GEMENT SPECIALIST Impression: No acute fracture or malalignment.
== END 2025-09-06 13:44 | disposition home or self-care (01) ==
LOC: CHSIMG 13:45
PROVIDERS: PCP Family Medicine; Visit Provider Family Medicine
DX: M25.551 Pain in right hip (principal); M25.552 Pain in left hip
CPT/HCPCS: 73502

== ENCOUNTER 2025-10-05 07:07 | Outpatient (NON) | payer MEDICARE, SELFPAY ==
[2025-10-05 07:41] LABS: Add Urine Microscopic? NO; Appearance Urine Clear (Clear); Glucose Urine UA 3+ (Negative); Leukocyte Esterase Ur Negative (Negative); Nitrate Urine Negative (Negative); Specific Grav Ur <= 1.005 (1.010-1.020)
[2025-10-05 07:53] LABS: Alanine Aminotransferase 16 U/L (6-35); Albumin Level 3.4 g/dL (3.5-5.1); Alkaline Phosphatase 111 U/L (38-126); Anion Gap 8 mmol/L (4-12); Aspartate Amino Transferase 32 U/L (14-36); Bilirubin,Total 0.1 mg/dL (0.2-1.3); Blood Urea Nitrogen 19 mg/dL (7-17); Calcium 8.8 mg/dL (8.4-10.2); Carbon Dioxide 31 mmol/L (22-30); Chloride 102 mmol/L (98-107); Estimated Glomerular Filt Rate 40; Glucose 123 mg/dL (65-110); Osmolality Calculated 295 mOsm/kg (285-295); Potassium 4.1 mmol/L (3.4-5.0); Sodium 141 mmol/L (137-145); Total Protein 6.5 g/dL (6.3-8.2)
[2025-10-05 07:55] LABS: Hemoglobin A1C 7.2 % (<5.7)
[2025-10-05 07:57] LABS: MALB Creatinine Ratio 8.0 mg/g (0-30)
[2025-10-05 08:29] LABS: Hematocrit 37.9 % (35.0-42.0); Hemoglobin 12.0 g/dL (11.7-13.8); Mean Corpuscular HGB Conc 31.7 g/dL (32-36); Mean Corpuscular Hemoglobin 29.9 pg (27.0-31.0); Mean Corpuscular Volume 94.3 fL (78.0-102.0); Platelet Count Result 381 K/mm3 (150-420); Red Blood Count 4.02 M/mm3 (4.20-5.40); White Blood Count 14.7 K/mm3 (4.8-10.8)
== END 2025-10-05 07:08 | disposition home or self-care (01) ==
LOC: CHSLAB 07:09
PROVIDERS: PCP Family Medicine; Visit Provider Family Medicine
DX: R10.9 Unspecified abdominal pain (principal); D63.1 Anemia in chronic kidney disease; N18.9 Chronic kidney disease, unspecified; E11.9 Type 2 diabetes mellitus without complications; E78.5 Hyperlipidemia, unspecified; I10 Essential (primary) hypertension
CPT/HCPCS: 36415; 80053; 81003; 82043; 83036; 85027